=== PATIENT | male | born 1980 | race Caucasian/White ===

== ENCOUNTER 2018-10-04 17:13 | Emergency (ER) | payer BC ==
[2018-10-04] MEDS ORDERED: SODIUM CHLORIDE 0.9% 1,000 ML IV STA ×2 (17:45)
[2018-10-04] MEDS ORDERED: ACETAMINOPHEN TAB 500 MG TAB PO STA (17:46)
[2018-10-04] MEDS ORDERED: IBUPROFEN 800 MG TAB PO STA (17:46)
[2018-10-04 18:31] LABS: ALT 52 U/L (21-72); AST 26 U/L (17-59); Albumin 4.2 g/dL (3.5-5.0); Alkaline Phosphatase 99 U/L (38-126); Amylase 44 U/L (30-110); Anion Gap 13 mmol/L; Blood Urea Nitrogen 12 mg/dL (9-20); Calcium 9.4 mg/dL (8.4-10.2); Carbon Dioxide 25 mmol/L (22-30); Chloride 100 mmol/L (98-107); Glucose 106 mg/dL (74-99); Lipase 34 U/L (23-300); Sodium 138 mmol/L (137-145); Total Bilirubin 1.2 mg/dL (0.2-1.3); Total Protein 7.4 g/dL (6.3-8.2)
[2018-10-04 18:33] LABS: Basophils # (A) 0.1 k/uL (0-0.2); Basophils % (A) 0 %; Eosinophils % (A) 0 %; HCT 44.4 % (39.0-53.0); HGB 15.1 gm/dL (13.0-17.5); Lymphocytes # (A) 1.3 k/uL (1.0-4.8); Lymphocytes % (A) 7 %; MCH 31.3 pg (25.0-35.0); Mean Platelet Volume 6.9; Monocytes # (A) 1.4 k/uL (0-1.0); Monocytes % (A) 7 %; Neutrophils % (A) 83 %; Platelet Count 285 k/uL (150-450); RBC 4.82 m/uL (4.30-5.90); RDW 12.4 % (11.5-15.5); WBC 19.4 k/uL (3.8-10.6)
[2018-10-04 18:35] LABS: Appearance,Urine Clear (Clear); Bilirubin,Urine Negative (Negative); Blood,Urine Small (Negative); Color,Urine Yellow; Glucose,Urine (UA) Negative (Negative); Ketones,Urine 1+ (Negative); Leukocyte Esterase,Urine Negative (Negative); Mucus,Urine Occasional /hpf; Nitrite,Urine Negative (Negative); PH, Urine 5.5 (5.0-8.0); Protein,Urine Trace (Negative); RBC,Urine 2 /hpf (0-5); Specific Gravity,Urine 1.017 (1.001-1.035); Squamous Epithelial Cell,Urine <1 /hpf (0-4); WBC,Urine 2 /hpf (0-5)
--- NOTE | 2018-10-04 19:15 | CT ---
EXAMINATION TYPE: CT abdomen pelvis wo con DATE OF EXAM: 10/04/2018 COMPARISON: None HISTORY: Generalized abdominal pain. CT DLP: 456.3 mGycm Automated exposure control for dose reduction was used. TECHNIQUE: Helical acquisition of images from the lung bases through the pelvis. FINDINGS: Lack of intravenous contrast could compromise sensitivity. LUNG BASES: No significant abnormality is appreciated. AORTA: No significant abnormality is appreciated. LIVER/GB: Liver shows low attenuation possibly due to hepatic steatosis. Gallbladder is unremarkable. . PANCREAS: No significant abnormality is seen. SPLEEN: No significant abnormality is seen. ADRENALS: No significant abnormality is seen. KIDNEYS: Punctate midpole right renal calcification is noted, no evident ureteral calcification or hy dronephrosis bilaterally. REPRODUCTIVE ORGANS: No significant abnormality is seen. URINARY BLADDER: Bladder wall thickening may be due to cystitis or lack of distention. BOWEL: Sigmoid colon shows bowel wall thickening. Within the surrounding fat there is inflammatory c hange, there are diverticula present.. FREE AIR: No Free Air is visible. ASCITES: None visible. PELVIC ADENOPATHY: None visualized. RETROPERITONEAL ADENOPATHY: No Retroperitoneal Adenopathy visible. OSSEOUS STRUCTURES: No significant abnormality is seen. IMPRESSION: DIVERTICULITIS. FOLLOW-UP IS RECOMMENDED.
--- NOTE | 2018-10-04 19:35 | ED ---
Abdominal Pain HPI - General Chief Complaint: Abdominal Pain Stated Complaint: abd pain Time Seen by Provider: 10/04/18 17:44 Source: patient, RN notes reviewed, old records reviewed Mode of arrival: ambulatory Limitations: no limitations - History of Present Illness Initial Comments: This is a 38-year-old male the ER for evaluation of left-sided abdominal pain flank pain. Rating to groin. Patient states he is when he thinks may be a kidney stone. No significant blood in his urine. No significant diarrhea or blood in his stool. Mild nausea no vomiting no fevers MD Complaint: abdominal pain, flank pain ((Left) -: days(s) Location: LLQ, suprapubic, L flank Radiation: LLQ, suprapubic Migration to: LLQ Severity: moderate Severity scale (1-10): 5 Consistency: constant Improves With: nothing Worsens With: nothing Associated Symptoms: nausea, diarrhea, fever - Related Data Home Medications Medication Instructions Recorded Confirmed Ciprofloxacin HCl [Cipro] 500 mg PO Q12H 10/04/18 10/05/18 L.acidoph,Paracasei, B.lactis 1 cap PO DAILY 10/04/18 10/05/18 [Probiotic] Omeprazole [PriLOSEC] 40 mg PO DAILY 10/04/18 10/05/18 Ondansetron HCl [Zofran] 8 mg PO Q8H PRN 10/04/18 10/05/18 metroNIDAZOLE [Flagyl] 500 mg PO TID 10/04/18 10/05/18 Tamsulosin HCl [Flomax] 0.4 mg PO DAILY 10/05/18 10/05/18 Previous Rx's Medication Instructions Recorded Ondansetron [Zofran ODT] 4 mg PO Q8HR PRN #30 tab 10/04/18 Allergies Allergy/AdvReac Type Severity Reaction Status Date / Time Penicillins Allergy Nausea & Verified 10/05/18 14:42 Vomiting Review of Systems ROS Statement: Those systems with pertinent positive or pertinent negative responses have been documented in the HPI. ROS Other: All systems not noted in ROS Statement are negative. Past Medical History Past Medical History: No Reported History History of Any Multi-Drug Resistant Organisms: None Reported Past Surgical History: No Surgical Hx Reported Past Psychological History: Bipolar Smoking Status: Current every day smoker Past Alcohol Use History: Occasional Past Drug Use History: Marijuana General Exam Limitations: no limitations General appearance: alert, in no apparent distress Head exam: Present: atraumatic, normocephalic, normal inspection Eye exam: Present: normal appearance, PERRL, EOMI. Absent: scleral icterus, conjunctival injection, periorbital swelling ENT exam: Present: normal exam, mucous membranes moist Neck exam: Present: normal inspection. Absent: tenderness, meningismus, lymphadenopathy Respiratory exam: Present: normal lung sounds bilaterally. Absent: respiratory distress, wheezes, rales, rhonchi, stridor Cardiovascular Exam: Present: regular rate, normal rhythm, normal heart sounds. Absent: systolic murmur, diastolic murmur, rubs, gallop, clicks GI/Abdominal exam: Present: soft, normal bowel sounds. Absent: distended, tenderness, guarding, rebound, rigid Extremities exam: Present: normal inspection, full ROM, normal capillary refill. Absent: tenderness, pedal edema, joint swelling, calf tenderness Back exam: Present: normal inspection Neurological exam: Present: alert, oriented X3, CN II-XII intact Psychiatric exam: Present: normal affect, normal mood Skin exam: Present: warm, dry, intact, normal color. Absent: rash Course Vital Signs 10/04/18 10/04/18 10/04/18 17:29 20:57 21:29 Temperature 100.1 F H 98.7 F Pulse Rate 105 H 76 81 Respiratory 20 18 16 Rate Blood Pressure 120/76 127/75 100/64 O2 Sat by Pulse 98 97 99 Oximetry - Reevaluation(s) Reevaluation #1: Medical record is reviewed Patient has adequate pain control currently, I for return parameters and diagnosis, patient agrees and feels good for discharge able to tolerate oral intake Medical Decision Making - Medical Decision Making 38 male the ER for evaluation of possible bowel pain regarding kidney stones. Patient is CT positive for diverticulitis, patient is young and tolerating oral intake, patient placed on antibiotics nausea medication and encouraged liquid diet. Return if symptoms worsen - Lab Data Result diagrams: 10/04/18 18:06 10/04/18 18:06 Lab Results 10/04/18 10/04/18 10/04/18 Range/Units 18:06 18:06 18:06 WBC 19.4 H (3.8-10.6) k/uL RBC 4.82 (4.30-5.90) m/uL Hgb 15.1 (13.0-17.5) gm/dL Hct 44.4 (39.0-53.0) % MCV 92.0 (80.0-100.0) fL MCH 31.3 (25.0-35.0) pg MCHC 34.0 (31.0-37.0) g/dL RDW 12.4 (11.5-15.5) % Plt Count 285 (150-450) k/uL Neutrophils % 83 % Lymphocytes % 7 % Monocytes % 7 % Eosinophils % 0 % Basophils % 0 % Neutrophils # 16.0 H (1.3-7.7) k/uL Lymphocytes # 1.3 (1.0-4.8) k/uL Monocytes # 1.4 H (0-1.0) k/uL Eosinophils # 0.0 (0-0.7) k/uL Basophils # 0.1 (0-0.2) k/uL Sodium 138 (137-145) mmol/L Potassium 4.0 (3.5-5.1) mmol/L Chloride 100 (98-107) mmol/L Carbon Dioxide 25 (22-30) mmol/L Anion Gap 13 mmol/L BUN 12 (9-20) mg/dL Creatinine 0.90 (0.66-1.25) mg/dL Est GFR (CKD-EPI)AfAm >90 (>60 ml/min/1.73 sqM) Est GFR (CKD-EPI)NonAf >90 (>60 ml/min/1.73 sqM) Glucose 106 H (74-99) mg/dL Plasma Lactic Acid [place] (0.7-2.0) mmol/L Calcium 9.4 (8.4-10.2) mg/dL Total Bilirubin 1.2 (0.2-1.3) mg/dL AST 26 (17-59) U/L ALT 52 (21-72) U/L Alkaline Phosphatase 99 (38-126) U/L Total Protein 7.4 (6.3-8.2) g/dL Albumin 4.2 (3.5-5.0) g/dL Amylase 44 (30-110) U/L Lipase 34 (23-300) U/L Urine Color Yellow Urine Appearance Clear (Clear) Urine pH 5.5 (5.0-8.0) Ur Specific [place] 1.017 (1.001-1.035) Urine Protein Trace H (Negative) Urine Glucose (UA) Negative (Negative) Urine Ketones 1+ H (Negative) Urine Blood Small H (Negative) Urine Nitrite Negative (Negative) Urine Bilirubin Negative (Negative) Urine Urobilinogen 2.0 (<2.0) mg/dL Ur Leukocyte Esterase Negative (Negative) Urine RBC 2 (0-5) /hpf Urine WBC 2 (0-5) /hpf Ur Squamous Epith Cells <1 (0-4) /hpf Urine Mucus Occasional H (None) /hpf 10/04/18 Range/Units 18:06 WBC (3.8-10.6) k/uL RBC (4.30-5.90) m/uL Hgb (13.0-17.5) gm/dL Hct (39.0-53.0) % MCV (80.0-100.0) fL MCH (25.0-35.0) pg MCHC (31.0-37.0) g/dL RDW (11.5-15.5) % Plt Count (150-450) k/uL Neutrophils % % Lymphocytes % % Monocytes % % Eosinophils % % Basophils % % Neutrophils # (1.3-7.7) k/uL Lymphocytes # (1.0-4.8) k/uL Monocytes # (0-1.0) k/uL Eosinophils # (0-0.7) k/uL Basophils # (0-0.2) k/uL Sodium (137-145) mmol/L Potassium (3.5-5.1) mmol/L Chloride (98-107) mmol/L Carbon Dioxide (22-30) mmol/L Anion Gap mmol/L BUN (9-20) mg/dL Creatinine (0.66-1.25) mg/dL Est GFR (CKD-EPI)AfAm (>60 ml/min/1.73 sqM) Est GFR (CKD-EPI)NonAf (>60 ml/min/1.73 sqM) Glucose (74-99) mg/dL Plasma Lactic Acid [place] 1.2 (0.7-2.0) mmol/L Calcium (8.4-10.2) mg/dL Total Bilirubin (0.2-1.3) mg/dL AST (17-59) U/L ALT (21-72) U/L Alkaline Phosphatase (38-126) U/L Total Protein (6.3-8.2) g/dL Albumin (3.5-5.0) g/dL Amylase (30-110) U/L Lipase (23-300) U/L Urine Color Urine Appearance (Clear) Urine pH (5.0-8.0) Ur Specific [place] (1.001-1.035) Urine Protein (Negative) Urine Glucose (UA) (Negative) Urine Ketones (Negative) Urine Blood (Negative) Urine Nitrite (Negative) Urine Bilirubin (Negative) Urine Urobilinogen (<2.0) mg/dL Ur Leukocyte Esterase (Negative) Urine RBC (0-5) /hpf Urine WBC (0-5) /hpf Ur Squamous Epith Cells (0-4) /hpf Urine Mucus (None) /hpf - Radiology Data Radiology results: report reviewed (CT abdomen pelvis positive for diverticulitis), image reviewed Disposition Clinical Impression: Abdominal pain, Diverticulitis, Sigmoid diverticulitis, Fever Disposition: HOME SELF-CARE Condition: Good Instructions: Diverticulitis (ED) Prescriptions: Ondansetron [Zofran ODT] 4 mg PO Q8HR PRN #30 tab PRN Reason: Nausea Is patient prescribed a controlled substance at d/c from ED?: No Referrals: Yamil Yin MD [Primary Care Provider] - 1-2 days
[2018-10-04] MEDS ORDERED: ONDANSETRON 4 MG/2 ML VIAL IVP STA (21:09)
[2018-10-04] MEDS ORDERED: metroNIDAZOLE 500 MG TAB PO STA (21:09)
[2018-10-04] MEDS ORDERED: CIPROFLOXACIN HCL 500 MG TAB PO STA (21:09)
[2018-10-04 21:30] VITALS: BP 100/64; PULSE 81; RESP 16; TEMP 98.7
== END 2018-10-04 21:34 | disposition home or self-care (01) ==
LOC: EC 17:13
DX: K57.32 Diverticulitis of large intestine without perforation or abscess without bleeding (principal); F17.200 Nicotine dependence, unspecified, uncomplicated; Z88.0 Allergy status to penicillin; Z79.899 Other long term (current) drug therapy
CPT/HCPCS: 36415; 80053; 82150; 83605; 83690; 85025; 81001; 87040; 87086; 74176; 99284; 96374; 96361 ×3; J2405

== ENCOUNTER 2018-10-05 13:34 | Inpatient (IN) | payer BC ==
[2018-10-05] MEDS ORDERED: SODIUM CHLORIDE 0.9% 1,000 ML IV STA ×3 (14:04→15:49)
[2018-10-05] MEDS ORDERED: ONDANSETRON 4 MG/2 ML VIAL IVP STA (14:15)
[2018-10-05] MEDS ORDERED: HYDROmorphone 1 MG/ML 1 ML SYRINGE IVP STA (14:15)
--- NOTE | 2018-10-05 14:20 | ED ---
General Adult HPI - General Chief complaint: Abdominal Pain Stated complaint: Abd.pain Time Seen by Provider: 10/05/18 14:03 Source: EMS, RN notes reviewed Mode of arrival: EMS Limitations: no limitations - History of Present Illness Initial comments: Patient is a 38-year-old male presented to the emergency room today by EMS, with chief complaint of increased abdominal pain. Patient does not that he was seen here yesterday in the emergency room. He states he was diagnosed with diverticulitis. Patient states that he was having a bowel movement this afternoon when he felt a pop on the right side of the abdomen. He states that increased pain since. He does admit to some pain radiating up into the right shoulder area. Since this has now gone away. Patient states still having increased tightness in his abdomen. Patient denies any other complaints or symptoms at this time. Patient states that his initial symptoms started a few weeks ago with some discomfort to the lower abdomen and increased with increased pain and diarrhea over the last few weeks until he was seen yesterday. Patient denies any recent fever, chills, shortness of breath, chest pain, numbness or tingling, dysuria or hematuria, constipation, headaches or visual changes, or any other complaints. - Related Data Home Medications Medication Instructions Recorded Confirmed Ciprofloxacin HCl [Cipro] 500 mg PO Q12H 10/04/18 10/05/18 L.acidoph,Paracasei, B.lactis 1 cap PO DAILY 10/04/18 10/05/18 [Probiotic] Omeprazole [PriLOSEC] 40 mg PO DAILY 10/04/18 10/05/18 Ondansetron HCl [Zofran] 8 mg PO Q8H PRN 10/04/18 10/05/18 metroNIDAZOLE [Flagyl] 500 mg PO TID 10/04/18 10/05/18 Tamsulosin HCl [Flomax] 0.4 mg PO DAILY 10/05/18 10/05/18 Previous Rx's Medication Instructions Recorded Ondansetron [Zofran ODT] 4 mg PO Q8HR PRN #30 tab 10/04/18 Allergies Allergy/AdvReac Type Severity Reaction Status Date / Time Penicillins Allergy Nausea & Verified 10/05/18 14:42 Vomiting Review of Systems ROS Statement: Those systems with pertinent positive or pertinent negative responses have been documented in the HPI. ROS Other: All systems not noted in ROS Statement are negative. Past Medical History Past Medical History: No Reported History History of Any Multi-Drug Resistant Organisms: None Reported Past Surgical History: No Surgical Hx Reported Past Psychological History: Bipolar Smoking Status: Current every day smoker Past Alcohol Use History: Occasional Past Drug Use History: Marijuana General Exam - General Exam Comments Initial Comments: General: The patient is awake and alert. Heart distress. Eye: There is normal conjunctiva bilaterally. No signs of icterus. Ears, nose, mouth and throat: There are moist mucous membranes and no oral lesions. Neck: The neck is supple, there is no tenderness or JVD. Cardiovascular: There is a regular rate and rhythm. No murmur, rub or gallop is appreciated. Respiratory: Lungs are clear to auscultation, respirations are non-labored, breath sounds are equal. No wheezes, stridor, rales, or rhonchi. Gastrointestinal: Increased abdominal pain on palpation to the right lower quadrant. Patient does have voluntary guarding. No CVA tenderness. Musculoskeletal: Normal ROM, no tenderness. Sensation intact. Strength 5/5. Pulses equal bilaterally 2+. Neurological: A&O x 3. CN II-XII intact, There are no obvious motor or sensory deficits. Coordination appears grossly intact. Speech is normal. Skin: Skin is warm and dry and no rashes or lesions are noted. Psychiatric: Cooperative, appropriate mood & affect, normal judgment. Limitations: no limitations Course Vital Signs 10/05/18 10/05/18 13:39 15:17 Temperature 98.9 F Pulse Rate 108 H 113 H Respiratory 18 18 Rate Blood Pressure 140/65 118/72 O2 Sat by Pulse 98 97 Oximetry Medical Decision Making - Medical Decision Making CT abdomen pelvis does show progression of acute concomitant sigmoid diverticulitis with extensive phlegmonous changes surrounding the colon extending to surrounding the appendix and cecum with small volume ascites and right pericolonic phlegmonous change suspicious for developing abscess as read by radiologist Dr. Granado. Patient's labs been reviewed shows a 21,000 white count. Patient tachycardic. Patient is not hypotensive. He was given 2 L of IV fluids started on antibiotics of Levaquin and Flagy. Patient does meet for sepsis. Lactic acid 2.1. Case discussed with attending physician Dr. Dong who did discuss the case with physician Dr. Liz movement the patient with consult to Dr. Cedillo. - Lab Data Result diagrams: 10/05/18 14:00 10/05/18 14:00 Lab Results 10/05/18 10/05/18 10/05/18 Range/Units 14:00 14:00 14:00 WBC 21.0 H (3.8-10.6) k/uL RBC 4.56 (4.30-5.90) m/uL Hgb 14.2 (13.0-17.5) gm/dL Hct 42.7 (39.0-53.0) % MCV 93.5 (80.0-100.0) fL MCH 31.2 (25.0-35.0) pg MCHC 33.4 (31.0-37.0) g/dL RDW 12.5 (11.5-15.5) % Plt Count 250 (150-450) k/uL Neutrophils % 85 % Lymphocytes % 7 % Monocytes % 5 % Eosinophils % 0 % Basophils % 0 % Neutrophils # 17.9 H (1.3-7.7) k/uL Lymphocytes # 1.4 (1.0-4.8) k/uL Monocytes # 1.0 (0-1.0) k/uL Eosinophils # 0.0 (0-0.7) k/uL Basophils # 0.0 (0-0.2) k/uL PT (9.0-12.0) sec INR (<1.2) APTT (22.0-30.0) sec Sodium 139 (137-145) mmol/L Potassium 4.0 (3.5-5.1) mmol/L Chloride 104 (98-107) mmol/L Carbon Dioxide 19 L (22-30) mmol/L Anion Gap 16 mmol/L BUN 13 (9-20) mg/dL Creatinine 0.88 (0.66-1.25) mg/dL Est GFR (CKD-EPI)AfAm >90 (>60 ml/min/1.73 sqM) Est GFR (CKD-EPI)NonAf >90 (>60 ml/min/1.73 sqM) Glucose 126 H (74-99) mg/dL Plasma Lactic Acid [place] (0.7-2.0) mmol/L Calcium 9.3 (8.4-10.2) mg/dL Total Bilirubin 1.5 H (0.2-1.3) mg/dL AST 22 (17-59) U/L ALT 44 (21-72) U/L Alkaline Phosphatase 103 (38-126) U/L Total Creatine Kinase 89 (55-170) U/L CK-MB (CK-2) 1.0 (0.0-2.4) ng/mL CK-MB (CK-2) Rel Index 1.1 Troponin I <0.012 (0.000-0.034) ng/mL Total Protein 7.4 (6.3-8.2) g/dL Albumin 4.2 (3.5-5.0) g/dL Amylase 40 (30-110) U/L Lipase 34 (23-300) U/L Urine Color Urine Appearance (Clear) Urine pH (5.0-8.0) Ur Specific [place] (1.001-1.035) Urine Protein (Negative) Urine Glucose (UA) (Negative) Urine Ketones (Negative) Urine Blood (Negative) Urine Nitrite (Negative) Urine Bilirubin (Negative) Urine Urobilinogen (<2.0) mg/dL Ur Leukocyte Esterase (Negative) Urine RBC (0-5) /hpf Urine WBC (0-5) /hpf Ur Squamous Epith Cells (0-4) /hpf Urine Mucus (None) /hpf 10/05/18 10/05/18 10/05/18 Range/Units 14:00 14:00 16:07 WBC (3.8-10.6) k/uL RBC (4.30-5.90) m/uL Hgb (13.0-17.5) gm/dL Hct (39.0-53.0) % MCV (80.0-100.0) fL MCH (25.0-35.0) pg MCHC (31.0-37.0) g/dL RDW (11.5-15.5) % Plt Count (150-450) k/uL Neutrophils % % Lymphocytes % % Monocytes % % Eosinophils % % Basophils % % Neutrophils # (1.3-7.7) k/uL Lymphocytes # (1.0-4.8) k/uL Monocytes # (0-1.0) k/uL Eosinophils # (0-0.7) k/uL Basophils # (0-0.2) k/uL PT 12.4 H (9.0-12.0) sec INR 1.3 H (<1.2) APTT 18.7 L (22.0-30.0) sec Sodium (137-145) mmol/L Potassium (3.5-5.1) mmol/L Chloride (98-107) mmol/L Carbon Dioxide (22-30) mmol/L Anion Gap mmol/L BUN (9-20) mg/dL Creatinine (0.66-1.25) mg/dL Est GFR (CKD-EPI)AfAm (>60 ml/min/1.73 sqM) Est GFR (CKD-EPI)NonAf (>60 ml/min/1.73 sqM) Glucose (74-99) mg/dL Plasma Lactic Acid [place] 2.1 H* (0.7-2.0) mmol/L Calcium (8.4-10.2) mg/dL Total Bilirubin (0.2-1.3) mg/dL AST (17-59) U/L ALT (21-72) U/L Alkaline Phosphatase (38-126) U/L Total Creatine Kinase (55-170) U/L CK-MB (CK-2) (0.0-2.4) ng/mL CK-MB (CK-2) Rel Index Troponin I (0.000-0.034) ng/mL Total Protein (6.3-8.2) g/dL Albumin (3.5-5.0) g/dL Amylase (30-110) U/L Lipase (23-300) U/L Urine Color Yellow Urine Appearance Clear (Clear) Urine pH 5.5 (5.0-8.0) Ur Specific [place] 1.021 (1.001-1.035) Urine Protein 1+ H (Negative) Urine Glucose (UA) Negative (Negative) Urine Ketones 3+ H (Negative) Urine Blood Small H (Negative) Urine Nitrite Negative (Negative) Urine Bilirubin Negative (Negative) Urine Urobilinogen 4.0 (<2.0) mg/dL Ur Leukocyte Esterase Negative (Negative) Urine RBC 11 H (0-5) /hpf Urine WBC 1 (0-5) /hpf Ur Squamous Epith Cells <1 (0-4) /hpf Urine Mucus Occasional H (None) /hpf Disposition Clinical Impression: Sigmoid diverticulitis, Sepsis Disposition: ADMITTED IP TO THIS [facility] Condition: Good Is patient prescribed a controlled substance at d/c from ED?: No Referrals: Yamil Yin MD [Primary Care Provider] - 1-2 days Time of Disposition: 16:53
[2018-10-05 14:51] LABS: Basophils % (A) 0 %; Eosinophils % (A) 0 %; HCT 42.7 % (39.0-53.0); HGB 14.2 gm/dL (13.0-17.5); Lymphocytes # (A) 1.4 k/uL (1.0-4.8); Lymphocytes % (A) 7 %; MCH 31.2 pg (25.0-35.0); MCHC 33.4 g/dL (31.0-37.0); MCV 93.5 fL (80.0-100.0); Mean Platelet Volume 7.2; Monocytes % (A) 5 %; Neutrophils # (A) 17.9 k/uL (1.3-7.7); Neutrophils % (A) 85 %; Platelet Count 250 k/uL (150-450); RBC 4.56 m/uL (4.30-5.90); RDW 12.5 % (11.5-15.5)
[2018-10-05 15:01] LABS: ALT 44 U/L (21-72); AST 22 U/L (17-59); Albumin 4.2 g/dL (3.5-5.0); Alkaline Phosphatase 103 U/L (38-126); Amylase 40 U/L (30-110); Anion Gap 16 mmol/L; Blood Urea Nitrogen 13 mg/dL (9-20); Calcium 9.3 mg/dL (8.4-10.2); Carbon Dioxide 19 mmol/L (22-30); Chloride 104 mmol/L (98-107); Glucose 126 mg/dL (74-99); Lipase 34 U/L (23-300); Sodium 139 mmol/L (137-145); Total Bilirubin 1.5 mg/dL (0.2-1.3); Total Protein 7.4 g/dL (6.3-8.2)
[2018-10-05 15:05] LABS: INR 1.3 (<1.2); Prothrombin Time 12.4 sec (9.0-12.0)
[2018-10-05 15:07] LABS: Creatine Kinase 89 U/L (55-170)
[2018-10-05 15:20] LABS: Partial Thromboplastin Time 18.7 sec (22.0-30.0)
[2018-10-05 15:21] LABS: Troponin I <0.012 ng/mL (0.000-0.034)
[2018-10-05] MEDS ORDERED: metroNIDAZOLE-NS PMX 500 MG in SALINE 1 100ML.BAG IVPB STA (15:49)
[2018-10-05] MEDS ORDERED: LEVOFLOXACIN 500MG-D5W PMX 500 MG in DEXTROSE/WATER 1 100ML.BAG IVPB STA (15:49)
[2018-10-05] MEDS ORDERED: LEVOFLOXACIN 500MG-D5W PMX 500 MG in DEXTROSE/WATER 1 100ML.BAG IVPB SCH (16:00)
[2018-10-05 16:17] LABS: Appearance,Urine Clear (Clear); Bilirubin,Urine Negative (Negative); Blood,Urine Small (Negative); Color,Urine Yellow; Glucose,Urine (UA) Negative (Negative); Ketones,Urine 3+ (Negative); Leukocyte Esterase,Urine Negative (Negative); Mucus,Urine Occasional /hpf; Nitrite,Urine Negative (Negative); PH, Urine 5.5 (5.0-8.0); Protein,Urine 1+ (Negative); RBC,Urine 11 /hpf (0-5); Specific Gravity,Urine 1.021 (1.001-1.035); Squamous Epithelial Cell,Urine <1 /hpf (0-4); WBC,Urine 1 /hpf (0-5)
--- NOTE | 2018-10-05 16:39 | CT ---
EXAMINATION TYPE: CT abdomen pelvis w con DATE OF EXAM: 10/05/2018 COMPARISON: 10/04/2018 HISTORY: RLQ pain CT DLP: 725.3 mGycm Automated exposure control for dose reduction was used. TECHNIQUE: Helical acquisition of images was performed from the lung bases through the pelvis. CONTRAST: Performed without Oral Contrast and with IV Contrast, patient injected with 100 mL of Isovue 300. FINDINGS: LUNG BASES: No significant abnormality is appreciated. LIVER/GB: Mild hepatic steatosis is seen. No cholelithiasis. PANCREAS: Unremarkable. No ductal dilatation. SPLEEN: No significant abnormality is seen. ADRENALS: No significant abnormality is seen. KIDNEYS: Kidneys enhance symmetrically. FREE AIR: Possible punctate foci of free air versus small diverticula are seen on image 64 and 62, p ossible microperforation. ADENOPATHY: No greater than 1 cm short axis lymph node is seen within the abdomen or pelvis. REPRODUCTIVE ORGANS: No significant abnormality is seen URINARY BLADDER: Right posterior lateral urinary bladder diverticulum is present. OSSEOUS STRUCTURES: Punctate sclerotic focus within the left femoral head likely relates to benign b [place]. BOWEL: There is interval worsening of the phlegmonous changes surrounding the thickened sigmoid colo n with adjacent mesenteric edema and fascial plane thickening. High density within area of phlegmonou s change is seen on image 64 with no well delineated drainable abscess yet seen. There are matted loo ps of small bowel within the right lower quadrant with inflamed appearance of the distal tip of the a ppendix. Appendix contains air in its midportion. New right lower quadrant fluid tracks along the rig ht lateral conal fascia and some fluid is seen in the anterior perihepatic space as well as around th e spleen. No evidence of dilated bowel to suggest obstruction. Multiple loops of small bowel wall thi ckening are likely reactive. Ascending colon and cecal bowel wall thickening also is likely reactive to the extensive phlegmonous change. IMPRESSION: PROGRESSION OF ACUTE UNCOMPLICATED SIGMOID DIVERTICULITIS WITH EXTENSIVE PHLEGMONOUS CHANGES SURROUND ING THE COLON AND EXTENDING TO SURROUND THE APPENDIX AND CECUM WITH NEW SMALL VOLUME ASCITES AND RIGH T PERICOLONIC PHLEGMONOUS CHANGES SUSPICIOUS FOR DEVELOPING ABSCESS.
[2018-10-05] MEDS ORDERED: NALOXONE 0.4 MG/ML 1 ML VIAL IV PRN (16:53)
[2018-10-05] MEDS: HYDROmorphone 1 MG/ML 1 ML SYRINGE IVP PRN ×2 (19:00→21:33)
[2018-10-05] MEDS: LACTATED RINGERS 1,000 ML IV SCH (22:13)
--- NOTE | 2018-10-05 23:07 | HP ---
HISTORY AND PHYSICAL DATE OF ADMISSION: 10/05/2018. DATE OF SERVICE: 10/05/2018. PRESENTING COMPLAINT: Abdominal pain. HISTORY OF PRESENTING COMPLAINT: Pleasant 38-year-old patient of Dr. Nikko Yin. Unremarkable past medical history. The patient 7 days ago started having increasing abdominal pain, gradually progressed to get worse. He is having some fevers and chills at home, decreased oral intake, some loose stools. The patient decided to come to the ER yesterday. CT scan of the abdomen in the ER did show evidence of diverticulitis. He was seen by the ER physician who put him on Cipro and Flagyl. Patient was sent home. The patient, at home, felt a pop in the abdomen. The pain became much more severe. He decided to come back to the ER. The ER physician called me. I did consult General Surgery, Dr. Cedillo. The patient was having significant amount of pain. The patient's , sister, mother, and 2 children are present. REVIEW OF SYSTEMS: CONSTITUTIONAL: Tired. HEENT: None. RESPIRATORY: None. CARDIOVASCULAR: None. GASTROINTESTINAL: As above. : None. MUSCULOSKELETAL: None. DERMATOLOGICAL, HEMATOLOGIC, LYMPHATICS: None. PSYCHIATRY: None. NEUROLOGICAL: None. PAST MEDICAL HISTORY: Unremarkable. PAST SURGICAL HISTORY: None. PSYCH HISTORY: Bipolar, controlled. SOCIAL HISTORY: The patient does vaping and does marijuana about 1 g a week. 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 Lives with his . FAMILY HISTORY: Alcoholism. HOME MEDICATIONS: 1. Flagyl 500 mg t.i.d. 2. Flomax 0.4 mg a day. 3. Zofran 4 mg every 8 hours p.r.n. 4. Prilosec 40 mg a day. 5. Probiotic. 6. Cipro 5 mg every 12 hours. ALLERGIES: PENICILLIN causing nausea and vomiting. PHYSICAL EXAMINATION: Temperature 98.9, pulse 108, respirations 18, blood pressure 140/65, pulse ox 98% on room air. GENERAL APPEARANCE: Average built, lying in bed in discomfort. EYES: Pupils equal. Conjunctivae normal. HEENT: External nose and ears normal. Oral cavity normal. NECK: JVD not raised. Mass not palpable. Respiratory effort normal. LUNGS: Fair air entry. CARDIOVASCULAR: First and second heart sounds normal. No edema. ABDOMEN: Diffusely tender. Mild guarding. Bowel sounds sluggish. Liver and spleen not palpable. LYMPHATICS: No lymph nodes palpable. PSYCHIATRY: Alert and oriented x3. Mood and affect normal. NEUROLOGIC: Pupils equal. Cranial nerves grossly intact. Power and sensation grossly intact. INVESTIGATIONS: White count 21, hemoglobin 14.2, potassium 4. BUN and creatinine normal. Lactic acid 2.1. CT scan of the abdomen and pelvis showing worsening of the phlegmonous changes surrounding the thickened sigmoid colon with adjacent mesenteric edema and fascial plane thickening, high-density with an area of phlegmonous changes also seen with no obvious drainage of abscess yet seen. Matted loops of small bowel in the right lower quadrant. New right lower quadrant fluid tracks on the right lateral coronal fascia. ASSESSMENT: 1. Acute abdomen in a patient with acute diverticulitis with some free fluid in the abdomen. 2. Chronic nicotine dependence. Patient does vaping. 3. Recreational marijuana use. 4. Sepsis from above. PLAN: I started the patient on lactated Ringer's 125 mL an hour, also the patient had received some Levaquin and Flagyl and I increased the dose to IV 500 every 6 hours and IV 750 mg a day. I did speak to Dr. Cedillo and she said Dr. Berger is covering. I did give Dr. Berger the clinical picture and physical findings. He will see the patient in the morning. At this point he wants me to continue the current treatment I have him on. I had spoken to the patient and family earlier. MMODL / KULDEEPN: [id number] /
[2018-10-06] MEDS ORDERED: metroNIDAZOLE-NS PMX 500 MG in SALINE 1 100ML.BAG IVPB SCH
[2018-10-06] MEDS: metroNIDAZOLE-NS PMX 500 MG in SALINE 1 100ML.BAG IVPB SCH ×4 (01:09→17:11)
[2018-10-06] MEDS: ENOXAPARIN 40 MG/0.4 ML SYRINGE SQ SCH ×2 (01:10→08:21)
[2018-10-06] MEDS: HYDROmorphone 1 MG/ML 1 ML SYRINGE IVP PRN ×7 (01:13→22:41)
[2018-10-06] MEDS: LACTATED RINGERS 1,000 ML IV SCH ×3 (06:23→17:11)
[2018-10-06] MEDS: ACETAMINOPHEN IV (For NPO) 1,000 MG in EMPTY BAG 1 BAG IVPB PRN ×2 (06:23→22:35)
[2018-10-06] MEDS: LEVOFLOXACIN 750MG-D5W PMX 750 MG in DEXTROSE/WATER 1 150ML.BAG IVPB SCH (08:20)
[2018-10-06 09:02] LABS: Basophils % (A) 0 %; Eosinophils % (A) 0 %; HCT 42.5 % (39.0-53.0); HGB 14.3 gm/dL (13.0-17.5); Lymphocytes # (A) 0.9 k/uL (1.0-4.8); Lymphocytes % (A) 5 %; MCH 31.6 pg (25.0-35.0); MCHC 33.6 g/dL (31.0-37.0); Mean Platelet Volume 6.9; Monocytes # (A) 0.9 k/uL (0-1.0); Monocytes % (A) 5 %; Neutrophils # (A) 16.8 k/uL (1.3-7.7); Neutrophils % (A) 88 %; Platelet Count 264 k/uL (150-450); RBC 4.52 m/uL (4.30-5.90); RDW 12.7 % (11.5-15.5); WBC 19.1 k/uL (3.8-10.6)
[2018-10-06 09:14] LABS: ALT 33 U/L (21-72); AST 20 U/L (17-59); Albumin 2.9 g/dL (3.5-5.0); Alkaline Phosphatase 58 U/L (38-126); Anion Gap 7 mmol/L; Blood Urea Nitrogen 13 mg/dL (9-20); Calcium 8.5 mg/dL (8.4-10.2); Carbon Dioxide 27 mmol/L (22-30); Chloride 106 mmol/L (98-107); Glucose 119 mg/dL (74-99); Potassium 3.8 mmol/L (3.5-5.1); Sodium 140 mmol/L (137-145); Total Bilirubin 1.8 mg/dL (0.2-1.3); Total Protein 5.6 g/dL (6.3-8.2)
[2018-10-06] MEDS: SODIUM CHLORIDE 0.9% 1,000 ML IV SCH ×2 (11:54→14:14)
--- NOTE | 2018-10-06 12:27 | P.GSCN ---
<Nicole Quan - Last Filed: 10/06/18 12:13> History of Present Illness Consult date: 10/06/18 Reason for Consult: Abdominal pain History of present illness: 38-year-old male seen for a surgical eval at the request of the attending for a chief complaint of intractable severe abdominal pain. Patient stated the pain originally started several weeks ago where he noted that he would have pain in the lower suprapubic area radiated to the right side of the abdomen that would come and go. He described the abdominal discomfort as tightness across the abdominal wall. Patient stated over the last several weeks he had been experiencing loose stools No blood noted in the stool. States he has not had this type of pain before. Patient stated that he was seen in the emergency room the day before was told he had diverticulitis. Patient stated that on the day of admission to the emergency room patient stated he was sitting on the commode having a bowel movement he felt something pop in the right side of the abdomen had unbearable pain that radiated up into the right shoulder could not tolerate the pain. He noted increased tightness across the abdominal wall. Patient activated the EMS system the pain was unbearable presented to the emergency room to be evaluated for the above-mentioned symptoms. Patient gives no family history of diverticulitis. Currently since being admitted to the hospital on IV antibiotic therapy initiated states the abdominal discomfort improving. Past medical history none. Surgical history none. CAT scan of the abdomen and pelvis reviewing the report progression of an acute uncomplicated sigmoid diverticulitis with extensive phlegmonous changes surrounding the colon extending to the surrounding appendix and cecum with small volume ascites suspicious for developing an abscess Review of Systems essentially unremarkable present illness Past Medical History Past Medical History: No Reported History History of Any Multi-Drug Resistant Organisms: None Reported Past Surgical History: No Surgical Hx Reported Past Psychological History: Bipolar Smoking Status: Current every day smoker Past Alcohol Use History: Occasional Past Drug Use History: Marijuana - Past Family History Father Additional Family Medical History / Comment(s): ETOH Medications and Allergies Home Medications Medication Instructions Recorded Confirmed Type Ciprofloxacin HCl [Cipro] 500 mg PO Q12H 10/04/18 10/05/18 History L.acidoph,Paracasei, B.lactis 1 cap PO DAILY 10/04/18 10/05/18 History [Probiotic] Omeprazole [PriLOSEC] 40 mg PO DAILY 10/04/18 10/05/18 History Ondansetron HCl [Zofran] 8 mg PO Q8H PRN 10/04/18 10/05/18 History Ondansetron [Zofran ODT] 4 mg PO Q8HR PRN #30 tab 10/04/18 10/05/18 Rx metroNIDAZOLE [Flagyl] 500 mg PO TID 10/04/18 10/05/18 History Tamsulosin HCl [Flomax] 0.4 mg PO DAILY 10/05/18 10/05/18 History Allergies Allergy/AdvReac Type Severity Reaction Status Date / Time Penicillins Allergy Nausea & Verified 10/05/18 14:42 Vomiting Surgical - Exam Vital Signs Temp Pulse Resp BP Pulse Ox 98.9 F 108 H 18 140/65 98 10/05/18 13:39 10/05/18 13:39 10/05/18 13:39 10/05/18 13:39 10/05/18 13:39 GENERAL APPEARANCE: 38-year-old male patient is alert, oriented, in no acute distress. VITAL SIGNS: Reviewed HEENT: Head is normocephalic and atraumatic. Pupils are equal and reactive. The nares are patent. Oropharynx is clear without lesions. NECK: Supple without lymphadenopathy. Traches midline. HEART: S1, S2. Regular rate and rhythm. No murmur noted denying chest pain LUNGS: No crackles or wheezes are heard. Good air movement bilaterally room air ABDOMEN: Soft, positive tenderness with palpitation to the right lower abdominal quadrant with good bowel sounds. No peritoneal signs. No palpable organomegaly or masses.nondistended reports no nausea vomiting urinating dark alden urine noted no stool EXTREMITIES: Normal skin color and turgor. No cyanosis, rash, ulceration, clubbing or edema. Radial pedal pulses are 2/4 bilaterally. NEUROLOGICAL: No focal deficits. Strength and sensation are grossly intact. Results - Labs 10/06/18 08:48 10/06/18 08:48 Abnormal Lab Results - Last 24 Hours (Table) 10/05/18 10/05/18 10/05/18 Range/Units 14:00 14:00 14:00 WBC 21.0 H (3.8-10.6) k/uL Neutrophils # 17.9 H (1.3-7.7) k/uL Lymphocytes # (1.0-4.8) k/uL PT (9.0-12.0) sec INR (<1.2) APTT (22.0-30.0) sec Carbon Dioxide 19 L (22-30) mmol/L Glucose 126 H (74-99) mg/dL Plasma Lactic Acid Gerson 2.1 H* (0.7-2.0) mmol/L Total Bilirubin 1.5 H (0.2-1.3) mg/dL Total Protein (6.3-8.2) g/dL Albumin (3.5-5.0) g/dL Urine Protein (Negative) Urine Ketones (Negative) Urine Blood (Negative) Urine RBC (0-5) /hpf Urine Mucus (None) /hpf 10/05/18 10/05/18 10/06/18 Range/Units 14:00 16:07 08:48 WBC 19.1 H (3.8-10.6) k/uL Neutrophils # 16.8 H (1.3-7.7) k/uL Lymphocytes # 0.9 L (1.0-4.8) k/uL PT 12.4 H (9.0-12.0) sec INR 1.3 H (<1.2) APTT 18.7 L (22.0-30.0) sec Carbon Dioxide (22-30) mmol/L Glucose (74-99) mg/dL Plasma Lactic Acid Gerson (0.7-2.0) mmol/L Total Bilirubin (0.2-1.3) mg/dL Total Protein (6.3-8.2) g/dL Albumin (3.5-5.0) g/dL Urine Protein 1+ H (Negative) Urine Ketones 3+ H (Negative) Urine Blood Small H (Negative) Urine RBC 11 H (0-5) /hpf Urine Mucus Occasional H (None) /hpf 10/06/18 Range/Units 08:48 WBC (3.8-10.6) k/uL Neutrophils # (1.3-7.7) k/uL Lymphocytes # (1.0-4.8) k/uL PT (9.0-12.0) sec INR (<1.2) APTT (22.0-30.0) sec Carbon Dioxide (22-30) mmol/L Glucose 119 H (74-99) mg/dL Plasma Lactic Acid Gerson (0.7-2.0) mmol/L Total Bilirubin 1.8 H (0.2-1.3) mg/dL Total Protein 5.6 L (6.3-8.2) g/dL Albumin 2.9 L (3.5-5.0) g/dL Urine Protein (Negative) Urine Ketones (Negative) Urine Blood (Negative) Urine RBC (0-5) /hpf Urine Mucus (None) /hpf Microbiology - Last 24 Hours (Table) 10/05/18 16:07 Urine Culture - Preliminary Urine,Clean Catch Diabetes panel 10/05/18 10/06/18 Range/Units 14:00 08:48 Sodium 139 140 (137-145) mmol/L Potassium 4.0 3.8 (3.5-5.1) mmol/L Chloride 104 106 (98-107) mmol/L Carbon Dioxide 19 L 27 (22-30) mmol/L BUN 13 13 (9-20) mg/dL Creatinine 0.88 0.89 (0.66-1.25) mg/dL Glucose 126 H 119 H (74-99) mg/dL Calcium 9.3 8.5 (8.4-10.2) mg/dL AST 22 20 (17-59) U/L ALT 44 33 (21-72) U/L Alkaline Phosphatase 103 58 (38-126) U/L Total Protein 7.4 5.6 L (6.3-8.2) g/dL Albumin 4.2 2.9 L (3.5-5.0) g/dL Calcium panel 10/05/18 10/06/18 Range/Units 14:00 08:48 Calcium 9.3 8.5 (8.4-10.2) mg/dL Albumin 4.2 2.9 L (3.5-5.0) g/dL Pituitary panel 10/05/18 10/06/18 Range/Units 14:00 08:48 Sodium 139 140 (137-145) mmol/L Potassium 4.0 3.8 (3.5-5.1) mmol/L Chloride 104 106 (98-107) mmol/L Carbon Dioxide 19 L 27 (22-30) mmol/L BUN 13 13 (9-20) mg/dL Creatinine 0.88 0.89 (0.66-1.25) mg/dL Glucose 126 H 119 H (74-99) mg/dL Calcium 9.3 8.5 (8.4-10.2) mg/dL Adrenal panel 10/05/18 10/06/18 Range/Units 14:00 08:48 Sodium 139 140 (137-145) mmol/L Potassium 4.0 3.8 (3.5-5.1) mmol/L Chloride 104 106 (98-107) mmol/L Carbon Dioxide 19 L 27 (22-30) mmol/L BUN 13 13 (9-20) mg/dL Creatinine 0.88 0.89 (0.66-1.25) mg/dL Glucose 126 H 119 H (74-99) mg/dL Calcium 9.3 8.5 (8.4-10.2) mg/dL Total Bilirubin 1.5 H 1.8 H (0.2-1.3) mg/dL AST 22 20 (17-59) U/L ALT 44 33 (21-72) U/L Alkaline Phosphatase 103 58 (38-126) U/L Total Protein 7.4 5.6 L (6.3-8.2) g/dL Albumin 4.2 2.9 L (3.5-5.0) g/dL Assessment and Plan Assessment: Impression Present on admission leukocytosis tachycardic suspect due to sepsis due to sigmoid diverticulitis with developing abscess Present on admission right lower quadrant abdominal pain suspect due to acute sigmoid diverticulitis with extensive phlegmonus changes surrounding the colon extending to the appendix and cecum suggests developing abscess Current every day smoker Plan 2 L fluid bolus now Repeat labs in the morning IV Levaquin and Flagyl as ordered Pain control DVT and GI prophylaxis Nothing by mouth except for ice chips IV fluid for hydration Follow-up on blood and urine culture Will follow with you Plan discussed with patient and at bedside questions answered by surgeon Dr. Cedillo Surgical consultation dictated for Dr. Cedillo The above impression and plan of care have been discussed and directed by signing physician. Nicole Quan nurse practitioner acting as scribe for signing physician. <Maegan Cedillo - Last Filed: 10/06/18 19:13> Surgical - Exam Vital Signs Temp Pulse Resp BP Pulse Ox 98.9 F 108 H 18 140/65 98 10/05/18 13:39 10/05/18 13:39 10/05/18 13:39 10/05/18 13:39 10/05/18 13:39 Results - Labs 10/06/18 08:48 10/06/18 08:48 Abnormal Lab Results - Last 24 Hours (Table) 10/06/18 10/06/18 Range/Units 08:48 08:48 WBC 19.1 H (3.8-10.6) k/uL Neutrophils # 16.8 H (1.3-7.7) k/uL Lymphocytes # 0.9 L (1.0-4.8) k/uL Glucose 119 H (74-99) mg/dL Total Bilirubin 1.8 H (0.2-1.3) mg/dL Total Protein 5.6 L (6.3-8.2) g/dL Albumin 2.9 L (3.5-5.0) g/dL Microbiology - Last 24 Hours (Table) 10/05/18 14:00 Blood Culture - Preliminary Blood No Growth after 24 hours 10/05/18 16:07 Urine Culture - Preliminary Urine,Clean Catch Diabetes panel 10/06/18 Range/Units 08:48 Sodium 140 (137-145) mmol/L Potassium 3.8 (3.5-5.1) mmol/L Chloride 106 (98-107) mmol/L Carbon Dioxide 27 (22-30) mmol/L BUN 13 (9-20) mg/dL Creatinine 0.89 (0.66-1.25) mg/dL Glucose 119 H (74-99) mg/dL Calcium 8.5 (8.4-10.2) mg/dL AST 20 (17-59) U/L ALT 33 (21-72) U/L Alkaline Phosphatase 58 (38-126) U/L Total Protein 5.6 L (6.3-8.2) g/dL Albumin 2.9 L (3.5-5.0) g/dL Calcium panel 10/06/18 Range/Units 08:48 Calcium 8.5 (8.4-10.2) mg/dL Albumin 2.9 L (3.5-5.0) g/dL Pituitary panel 10/06/18 Range/Units 08:48 Sodium 140 (137-145) mmol/L Potassium 3.8 (3.5-5.1) mmol/L Chloride 106 (98-107) mmol/L Carbon Dioxide 27 (22-30) mmol/L BUN 13 (9-20) mg/dL Creatinine 0.89 (0.66-1.25) mg/dL Glucose 119 H (74-99) mg/dL Calcium 8.5 (8.4-10.2) mg/dL Adrenal panel 10/06/18 Range/Units 08:48 Sodium 140 (137-145) mmol/L Potassium 3.8 (3.5-5.1) mmol/L Chloride 106 (98-107) mmol/L Carbon Dioxide 27 (22-30) mmol/L BUN 13 (9-20) mg/dL Creatinine 0.89 (0.66-1.25) mg/dL Glucose 119 H (74-99) mg/dL Calcium 8.5 (8.4-10.2) mg/dL Total Bilirubin 1.8 H (0.2-1.3) mg/dL AST 20 (17-59) U/L ALT 33 (21-72) U/L Alkaline Phosphatase 58 (38-126) U/L Total Protein 5.6 L (6.3-8.2) g/dL Albumin 2.9 L (3.5-5.0) g/dL Assessment and Plan Plan: Patient was seen and evaluated with nurse practitioner. Abdominal pain has improved since admission. Conservative management at this time with IV antibiotics. Strict nothing by mouth. Anticipated inpatient hospitalization 5- 7 days described.
[2018-10-06] MEDS: PANTOPRAZOLE 40 MG/10 ML VIAL IVP SCH (14:14)
[2018-10-06] MEDS: ONDANSETRON 4 MG/2 ML VIAL IVP PRN (15:29)
[2018-10-06] MEDS ORDERED: LEVOFLOXACIN 500MG-D5W PMX 500 MG in DEXTROSE/WATER 1 100ML.BAG IVPB SCH (16:00)
--- NOTE | 2018-10-06 19:17 | PN ---
PROGRESS NOTE DATE OF SERVICE: 10/06/18. PRESENTING COMPLAINT: Abdominal pain. INTERVAL HISTORY: This patient presented with what appears to be a ruptured diverticulitis with intraabdominal abscess on IV antibiotics and IV fluids. Still having significant abdominal pain. The patient is having some dark-colored urine. Getting IV fluids at 150 mL/h. No nausea, vomiting, had fever. REVIEW OF SYSTEMS: Done for constitutional, cardiovascular, GI, pulmonary; relevant findings as above. CURRENT MEDICATIONS: Reviewed that include IV LR at 150 mL/h, IV Levaquin, IV Flagyl. PHYSICAL EXAMINATION: Temperature 100.6 pulse 107, respiratory 20, blood pressure 120/78, pulse ox 92 percent on room air. GENERAL APPEARANCE: Lying in bed, awake, tired-appearing. EYES: Pupils equal. Conjunctivae normal. HEENT: External appearance of nose and ears normal. Oral cavity normal. NECK: JVD not raised. Mass not palpable. RESPIRATORY: Effort normal. Lungs are clear. CARDIOVASCULAR: First and second exam, no edema. ABDOMEN: Diffusely tender. Mild guarding. No rigidity. Bowel sounds are present. Liver and spleen not palpable. PSYCHIATRY: Alert and oriented x3. Mood and affect normal. INVESTIGATIONS: White count 19.1, hemoglobin 9.3, potassium 3.8, albumin 2.9. ASSESSMENT: 1. Acute abdomen in patient with acute diverticulitis with possible local preparation. Suspect intraabdominal abscess, slow to respond. 2. Chronic nicotine dependence. Patient does vaping. 3. Recreational marijuana use. 4. Sepsis from above. 5. Hypoalbuminemia as an acute phase reactant. 6. Acute urinary retention from sepsis. PLAN: As discussed with Dr. Cedillo earlier today, at this point, she wants to see how the patient does clinically. Continue with IV fluids. Later in the evening, patient is having some urinary retention, probably from decreased mobility sepsis. Hollingsworth catheter was placed. Patient did put out about 500 mL. MMODL / IJN: [id number] /
[2018-10-07] MEDS: LACTATED RINGERS 1,000 ML IV SCH ×4 (01:00→17:51)
[2018-10-07] MEDS: HYDROmorphone 1 MG/ML 1 ML SYRINGE IVP PRN ×3 (02:55→22:46)
[2018-10-07] MEDS: ONDANSETRON 4 MG/2 ML VIAL IVP PRN ×2 (03:02→18:21)
[2018-10-07] MEDS: metroNIDAZOLE-NS PMX 500 MG in SALINE 1 100ML.BAG IVPB SCH ×4 (06:07→18:42)
[2018-10-07] MEDS: SODIUM CHLORIDE 0.9% 2,000 ML IV ONE ×2 (07:50→09:06)
[2018-10-07] MEDS: KETOROLAC 30 MG/ML 1 ML VIAL IVP SCH ×3 (07:51→17:57)
[2018-10-07] MEDS: ACETAMINOPHEN IV (For NPO) 1,000 MG in EMPTY BAG 1 BAG IVPB SCH ×3 (08:02→18:00)
[2018-10-07] MEDS: HEPARIN SODIUM,PORCINE 5,000 UNIT/ML 1 ML VIAL SQ SCH ×2 (08:03→20:17)
[2018-10-07] MEDS: PANTOPRAZOLE 40 MG/10 ML VIAL IVP SCH (08:09)
[2018-10-07] MEDS: LEVOFLOXACIN 750MG-D5W PMX 750 MG in DEXTROSE/WATER 1 150ML.BAG IVPB SCH (08:22)
[2018-10-07 09:55] LABS: Basophils % (A) 0 %; Eosinophils % (A) 0 %; HCT 40.8 % (39.0-53.0); HGB 13.6 gm/dL (13.0-17.5); Lymphocytes # (A) 0.5 k/uL (1.0-4.8); Lymphocytes % (A) 2 %; MCH 31.5 pg (25.0-35.0); MCHC 33.4 g/dL (31.0-37.0); MCV 94.5 fL (80.0-100.0); Mean Platelet Volume 7.3; Monocytes # (A) 1.4 k/uL (0-1.0); Monocytes % (A) 5 %; Neutrophils # (A) 24.5 k/uL (1.3-7.7); Neutrophils % (A) 91 %; Platelet Count 309 k/uL (150-450); RBC 4.32 m/uL (4.30-5.90); RDW 12.8 % (11.5-15.5); WBC 26.9 k/uL (3.8-10.6)
[2018-10-07 10:05] LABS: Anion Gap 7 mmol/L; Blood Urea Nitrogen 16 mg/dL (9-20); Calcium 7.9 mg/dL (8.4-10.2); Carbon Dioxide 24 mmol/L (22-30); Chloride 106 mmol/L (98-107); Glucose 118 mg/dL (74-99); Potassium 3.7 mmol/L (3.5-5.1); Sodium 137 mmol/L (137-145)
--- NOTE | 2018-10-07 13:02 | P.PN ---
<Shyann Quanbismark Garsia - Last Filed: 10/07/18 12:42> Subjective Progress Note Date: 10/07/18 38-year-old male seen this morning continues to report having pain in the suprapubic area radiating to the right side of the abdomen. Patient states pain medication does offer relief but the pain continues to persist. Patient had an episode urinary retention bladder scan with 800 Hollingsworth catheter inserted. Patients being followed by surgical service for acute sigmoid diverticulitis with abscess Labs noted white count up 26.9. febile temp 100.6 sats on room air 90% Objective - Vital Signs Vital signs: Vital Signs Temp 100.0 F H 10/07/18 07:20 Pulse 112 H 10/07/18 07:20 Resp 18 10/07/18 09:26 BP 130/90 10/07/18 07:20 Pulse Ox 90 L 10/07/18 07:20 Intake & Output 10/06/18 10/07/18 10/07/18 18:59 06:59 18:59 Intake Total 2849 Output Total 1275 1200 Balance -1275 1649 Intake: Intake, IV Titration 2849 Amount ACETAMINOPHEN IV (For NPO 400 ) 1,000 mg In Empty Bag 1 bag @ 400 mls/hr IVPB Q6HR PRN Rx#:[id number] Lactated Ringers 1,000 ml 1200 @ 150 mls/hr IV .Q6H40M [facility] Rx#:[id number] Levofloxacin 750Mg-D5w 150 Pmx 750 mg In Dextrose/ Water 1 150ml.bag @ 100 mls/hr IVPB Q24H [facility] Rx#: [id number] Sodium Chloride 0.9% 1, 999 000 ml @ 999 mls/hr IV . Q1H1M [facility] Rx#:[id number] metroNIDAZOLE-NS PMX 500 100 mg In Saline 1 100ml.bag @ 100 mls/hr IVPB Q6HR [facility] Rx#:[id number] Output: Urine 1275 1200 Uretheral (Hollingsworth) 500 500 Other: Voiding Method Urinal Urinal Indwelling Catheter # Voids 2 # Bowel Movements 0 - Exam Physical exam 48-year-old male resting in bed continues to report having suprapubic pain radiating to the right quadrant with a nausea sensation Lungs adequate air movement no shortness breath Heart S1-S2 audible regular Abdomen soft nondistended positive tenderness suprapubic area radiating to the right lower quadrant nausea sensation no active emesis indwelling Hollingsworth cath in place states passing gas no stool currently nothing by mouth every hypoactive bowel tones Extremities no edema noted - Labs CBC & Chem 7: 10/07/18 08:53 10/07/18 08:53 Labs: Abnormal Lab Results - Last 24 Hours (Table) 10/07/18 10/07/18 Range/Units 08:53 08:53 WBC 26.9 H (3.8-10.6) k/uL Neutrophils # 24.5 H (1.3-7.7) k/uL Lymphocytes # 0.5 L (1.0-4.8) k/uL Monocytes # 1.4 H (0-1.0) k/uL Glucose 118 H (74-99) mg/dL Calcium 7.9 L (8.4-10.2) mg/dL Microbiology - Last 24 Hours (Table) 10/05/18 14:00 Blood Culture Gram Stain - Preliminary Blood 10/05/18 14:00 Blood Culture - Final Blood 10/05/18 16:07 Urine Culture - Final Urine,Clean Catch Assessment and Plan Assessment: Impression Present on admission leukocytosis tachycardic suspect due to sepsis due to sigmoid diverticulitis with developing abscess Present on admission right lower quadrant abdominal pain suspect due to acute sigmoid diverticulitis with extensive phlegmonus changes surrounding the colon extending to the appendix and cecum suggests developing abscess Current every day smoker Plan Fluid boluses ordered Repeat labs in the morning IV Levaquin and Flagyl as ordered Pain control DVT and GI prophylaxis Nothing by mouth except for ice chips IV fluid for hydration Will follow with you Repeat labs in morning The above impression and plan of care have been discussed and directed by signing physician. Nicole Quan nurse practitioner acting as scribe for signing physician. <Maegan Cedillo N - Last Filed: 10/07/18 13:14> Objective - Vital Signs Vital signs: Vital Signs Temp 100.0 F H 10/07/18 07:20 Pulse 112 H 10/07/18 07:20 Resp 18 10/07/18 09:26 BP 130/90 10/07/18 07:20 Pulse Ox 90 L 10/07/18 07:20 Intake & Output 10/06/18 10/07/18 10/07/18 18:59 06:59 18:59 Intake Total 2849 Output Total 1275 1200 Balance -1275 1649 Intake: Intake, IV Titration 2849 Amount ACETAMINOPHEN IV (For NPO 400 ) 1,000 mg In Empty Bag 1 bag @ 400 mls/hr IVPB Q6HR PRN Rx#:[id number] Lactated Ringers 1,000 ml 1200 @ 150 mls/hr IV .Q6H40M [facility] Rx#:[id number] Levofloxacin 750Mg-D5w 150 Pmx 750 mg In Dextrose/ Water 1 150ml.bag @ 100 mls/hr IVPB Q24H [facility] Rx#: [id number] Sodium Chloride 0.9% 1, 999 000 ml @ 999 mls/hr IV . Q1H1M [facility] Rx#:[id number] metroNIDAZOLE-NS PMX 500 100 mg In Saline 1 100ml.bag @ 100 mls/hr IVPB Q6HR [facility] Rx#:[id number] Output: Urine 1275 1200 Uretheral (Hollingsworth) 500 500 Other: Voiding Method Urinal Urinal Indwelling Catheter # Voids 2 # Bowel Movements 0 - Labs CBC & Chem 7: 10/07/18 08:53 10/07/18 08:53 Labs: Abnormal Lab Results - Last 24 Hours (Table) 10/07/18 10/07/18 Range/Units 08:53 08:53 WBC 26.9 H (3.8-10.6) k/uL Neutrophils # 24.5 H (1.3-7.7) k/uL Lymphocytes # 0.5 L (1.0-4.8) k/uL Monocytes # 1.4 H (0-1.0) k/uL Glucose 118 H (74-99) mg/dL Calcium 7.9 L (8.4-10.2) mg/dL Microbiology - Last 24 Hours (Table) 10/05/18 14:00 Blood Culture Gram Stain - Preliminary Blood 10/05/18 14:00 Blood Culture - Final Blood 10/05/18 16:07 Urine Culture - Final Urine,Clean Catch
--- NOTE | 2018-10-07 13:17 | P.PN ---
Progress Note - Text Progress Note Date: 10/07/18 Patient seen and reevaluated this morning. I added IV Tylenol including IV Toradol to control for fevers including pain. IV fluid boluses were also given. "I feel much better today.". Reports feeling much better since admission including from this morning after adjustment of his pain management. Nurse reports positive blood cultures. Count elevated over 26,000. Recommend immediate consultation to infectious disease for adjustment of antibiotics. The patient's requests, no surgical intervention as reports improvement. Recommend evaluation by interventional radiology
[2018-10-07 14:35] LABS: INR 1.4 (<1.2); Prothrombin Time 13.4 sec (9.0-12.0)
[2018-10-07] MEDS ORDERED: VANCOMYCIN IV PER PHARMACY 1 EACH MISC MISCELLANE PRN (16:57)
[2018-10-07 17:14] LABS: Albumin 2.8 g/dL (3.5-5.0); Magnesium 2.1 mg/dL (1.6-2.3); Phosphorus 1.9 mg/dL (2.5-4.5)
[2018-10-07] MEDS ORDERED: MVI, ADULT NO.4 WITH VIT K 10 ML, TRACE (CONC-1ML/DOSE) 1 ML in AMINO ACID 5%-D15W+LYTE... IV SCH ×3 (18:00)
[2018-10-07] MEDS ORDERED: FAT EMULSION 20% 250 ML IV SCH (18:00)
[2018-10-07] MEDS: VANCOMYCIN 1,500 MG in SODIUM CHLORIDE 0.9% 250 ML IVPB SCH (18:01)
--- NOTE | 2018-10-07 20:18 | PN ---
PROGRESS NOTE DATE OF SERVICE: 10/07/18. PRESENT COMPLAINT: Abdominal pain. INTERVAL HISTORY: This patient admitted with ruptured diverticulitis with intraabdominal abscess on IV antibiotics and IV fluids. Continues to have fever. Abdominal pain is a bit better. Had some loose stools. The patient got a Hollingsworth catheter for retained urine. The patient's and mother on the bedside sitting on bed. Does feel a bit better. REVIEW OF SYSTEMS: Done for constitutional, cardiovascular, GI, pulmonary; relevant findings as above. CURRENT MEDICATIONS: Reviewed that include IV Levaquin, IV Flagyl, Dilaudid 150 an hour. Toradol has been added for the fever. PHYSICAL EXAMINATION: Temperature 100, pulse 110, respiration 18, blood pressure 130/90, pulse ox 92 percent on room air. GENERAL APPEARANCE: Sitting up on bed, awake. EYES: Pupils equal. Conjunctivae normal. HEENT: External appearance of nose and ears normal. Oral cavity normal. NECK: JVD not raised. Mass not palpable. RESPIRATORY: Effort normal. Lungs, some decreased breath sounds at bases. CARDIOVASCULAR: 1st and 2nd sounds normal. No edema. ABDOMEN: Slightly less tender. No guarding or rigidity. Liver and spleen not palpable. PSYCHIATRY: Alert and oriented x3. Mood and affect normal. INVESTIGATIONS: White count 26.9, increased neutrophils. Potassium 3.7, BUN 16, creatinine 0.77. The patient's blood cultures growing gram-positive cocci in clusters. ASSESSMENT: 1. Acute diverticulitis with possible local perforation, suspect intraabdominal abscess. Still remains to be septic with increasing white count and fever. 2. Chronic nicotine dependence. Patient does vaping. 3. Recreational marijuana use. 4. Hypoalbuminemia as an acute phase reactant. 5. Acute urinary retention from sepsis. Patient requiring a Hollingsworth catheter for strict I's and O's. 6. Positive blood cultures with gram-positive cocci. PLAN: Vancomycin will be added to the current antibiotics. Dr. Cedillo's asked for Interventional Radiology for a drainage catheter. Concern is again between surgery versus medical management. Will let the decision as per Dr. Cedillo and what she has talked to the family. ID consult has been requested. Follow closely. Also will check with surgical team and will proceed with a PICC line for TPN lipids. The patient has not had much intake for last 5 days now. MMODL / IJN: [id number] /
--- NOTE | 2018-10-07 21:14 | P.CONS ---
History of Present Illness - Reason for Consult Consult date: 10/07/18 - Chief Complaint Abdominal pain - History of Present Illness Pleasant 38-year-old male who does not have a history of significant underlying medical troubles relates that several days before admission to hospital he was starting to have some significant abdominal pain. He thought maybe he was having hernia given the discomfort into his right lower aspect of his abdomen. Eventually because of his discomforts he was seen by his primary care physician there was concerns to appendicitis or nephrolithiasis. He was given some tamsulosin determine if this would give him relief. After 48 hours he had no improvement and she started to have some worsening. The patient relates he then had what felt like a popping sensation in his abdomen associate with severe generalized abdominal pain thereafter. He constantly called 911 and was brought to hospital. Computed tomography scan does reveal evidence of diverticulitis with phlegmon changes, cannot rule out microperforation. The patient is now had some further worsening. Possible culture was called and the infectious diseases evaluation was requested. Review of Systems 38-year-old male who is very uncomfortable has felt febrile throughout the day. HEENT:Denies headache or acute visual change. Denies sinus or mouth discomforts. Denies neck stiffness or pain. Denies significant oral cavity pain. Denies difficulty on swallowing. Lungs: Denies significant shortness of breath, cough, sputum production, or hemoptysis. Cardiovascular: Denies significant shortness of breath, chest pain, chest wall pain, orthopnea, dyspnea on exertion, syncope Gastrointestinal: Complains of ongoing abdominal pain had some nausea earlier today he has had some loose stool but no gurmeet diarrhea but hematemesis melena or hematochezia Musculoskeletal: denies significant myalgias or arthralgias. No new joint swelling. Denies new back pain. Skin: Denies new rash or lesions. No new ulcers or wounds are related.. Neuro: Denies headache or visual change. Denies any new onset weakness or difficulty with ambulation. Denies falls or seizures. Psychiatric:Denies anxiety or depression. Endocrine: Denies significant fatigue, denies significant weight loss or weight gain. Past Medical History Past Medical History: No Reported History History of Any Multi-Drug Resistant Organisms: None Reported Past Surgical History: No Surgical Hx Reported Past Psychological History: Bipolar Additional Psychological History / Comment(s): lives with his . 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 No experience. No international travel. No animal exposures. Tobacco smoker at the time of admission. Denies significant alcohol or recreational drug use Smoking Status: Current every day smoker Past Alcohol Use History: Occasional Past Drug Use History: Marijuana - Past Family History Father Additional Family Medical History / Comment(s): ETOH Medications and Allergies Home Medications and Allergies Comment(s): Current Medications Heparin Sodium (Porcine) (Heparin) 5,000 unit SQ Q12HR [facility] Last Admin: 10/07/18 20:17 Dose: 5,000 unit Hydromorphone HCl (Dilaudid) 1 mg IVP Q3HR PRN PRN Reason: Severe Pain Last Admin: 10/07/18 07:05 Dose: 1 mg Metronidazole 500 mg/ IV (Solution) 100 mls @ 100 mls/hr IVPB Q6HR [facility] Last Admin: 10/07/18 18:42 Dose: 100 mls/hr Lactated Ringer's (Lactated Ringers) 1,000 mls @ 150 mls/hr IV .Q6H40M [facility] Last Admin: 10/07/18 17:51 Dose: 150 mls/hr Acetaminophen 1,000 mg/ IV (Solution) 100 mls @ 400 mls/hr IVPB Q6HR [facility] Stop: 10/08/18 00:14 Last Admin: 10/07/18 18:00 Dose: 400 mls/hr Vancomycin HCl 1,500 mg/ (Sodium Chloride) 250 mls @ 125 mls/hr IVPB Q8H [facility] Last Admin: 10/07/18 18:01 Dose: 125 mls/hr Meropenem 2 gm/ Sodium (Chloride) 100 mls @ 200 mls/hr IVPB Q8HR [facility]; Protocol Ketorolac Tromethamine (Toradol) 30 mg IVP Q6HR [facility] Stop: 10/11/18 07:28 Last Admin: 10/07/18 17:57 Dose: 30 mg Naloxone HCl (Narcan) 0.2 mg IV Q2M PRN PRN Reason: Opioid Reversal Ondansetron HCl (Zofran) 4 mg IVP Q8HR PRN PRN Reason: Nausea And Vomiting Last Admin: 10/07/18 18:21 Dose: 4 mg Pantoprazole Sodium (Protonix) 40 mg IVP DAILY [facility] Last Admin: 10/07/18 08:09 Dose: 40 mg Home Medications Medication Instructions Recorded Confirmed Type Ciprofloxacin HCl [Cipro] 500 mg PO Q12H 10/04/18 10/05/18 History L.acidoph,Paracasei, B.lactis 1 cap PO DAILY 10/04/18 10/05/18 History [Probiotic] Omeprazole [PriLOSEC] 40 mg PO DAILY 10/04/18 10/05/18 History Ondansetron HCl [Zofran] 8 mg PO Q8H PRN 10/04/18 10/05/18 History Ondansetron [Zofran ODT] 4 mg PO Q8HR PRN #30 tab 10/04/18 10/05/18 Rx metroNIDAZOLE [Flagyl] 500 mg PO TID 10/04/18 10/05/18 History Tamsulosin HCl [Flomax] 0.4 mg PO DAILY 10/05/18 10/05/18 History Allergies Allergy/AdvReac Type Severity Reaction Status Date / Time Penicillins Allergy Nausea & Verified 10/05/18 14:42 Vomiting Physical Exam Vitals: Vital Signs Temp Pulse Resp BP Pulse Ox 10/07/18 21:01 98.2 F 101 H 22 137/80 10/07/18 20:01 99.2 F 97 22 123/74 97 10/07/18 18:10 28 H 10/07/18 15:00 98.9 F 110 H 18 132/84 92 L 10/07/18 09:26 18 10/07/18 07:20 100.0 F H 112 H 18 130/90 90 L 10/07/18 05:55 97.8 F 108 H 24 132/80 91 L 10/06/18 23:00 100.6 F H 122 H 28 H 117/71 90 L 10/06/18 22:02 101.7 F H Intake and Output 10/07/18 10/07/18 10/07/18 06:59 14:59 22:59 Intake Total 3500 Output Total 1200 150 Balance -1200 3500 -150 Intake: IV 3500 ACETAMINOPHEN IV (For NPO 50 ) 1,000 mg In Empty Bag 1 bag @ 400 mls/hr IVPB Q6HR PRN Rx#:[id number] ACETAMINOPHEN IV (For NPO 50 ) 1,000 mg In Empty Bag 1 bag @ 400 mls/hr IVPB Q6HR [facility] Rx#:[id number] Lactated Ringers 1,000 ml 1200 @ 150 mls/hr IV .Q6H40M [facility] Rx#:[id number] Levofloxacin 500Mg-D5w 100 Pmx 500 mg In Dextrose/ Water 1 100ml.bag @ 100 mls/hr IVPB Q24H [facility] Rx#: [id number] Sodium Chloride 0.9% 2, 2000 000 ml @ 999 mls/hr IV . Q2H1M [facility] Rx#:[id number] metroNIDAZOLE-NS PMX 500 100 mg In Saline 1 100ml.bag @ 100 mls/hr IVPB Q6HR [facility] Rx#:[id number] Output: Urine 1200 Uretheral (Hollingsworth) 500 Emesis 150 Other: Voiding Method Indwelling Catheter Indwelling Catheter Pleasant 38-year-old male who is very uncomfortable and has had fever currently the temperature is improved and not having chills at this time HEENT: Anicteric conjunctiva are pink and moist nasal mucosa grossly intact without significant lesions, there is no thrush. Oral mucosa is dry Neck: The neck is supple without significant lymphadenopathy or thyromegaly. Lungs: Good bilateral air entry without significant crackles or wheezing. There is no significant bronchial sounds. There is no egophony or dullness. Heart: Regular rate and rhythm with an audible S1-S2, no S3 no S4. There is no significant murmur click or rub, PMI was nondisplaced. Abdomen: Only few bowel sounds were heard. The abdomen is distended. This is distinctly tender on exam, there is rebound tenderness in the right lower and right upper quadrant laterally. There is some generalized tenderness throughout the abdomen. There is no bruising to the abdominal wall. Extremities: The upper extremities have excellent pulses they are symmetric, no significant petechiae or telangiectasia. No splinter hemorrhages were noted. The lower extremities are free from significant edema. The peripheral pulses were 2+ and symmetric. Neuro: Awake alert oriented to person place and time. There are no acute new gross focal sensory motor deficits. Results CBC & Chem 7: 10/07/18 08:53 10/07/18 08:53 Labs: Abnormal Lab Results - Last 24 Hours (Table) 10/07/18 10/07/18 10/07/18 Range/Units 08:53 08:53 14:07 WBC 26.9 H (3.8-10.6) k/uL Neutrophils # 24.5 H (1.3-7.7) k/uL Lymphocytes # 0.5 L (1.0-4.8) k/uL Monocytes # 1.4 H (0-1.0) k/uL PT 13.4 H (9.0-12.0) sec INR 1.4 H (<1.2) Glucose 118 H (74-99) mg/dL Calcium 7.9 L (8.4-10.2) mg/dL Phosphorus (2.5-4.5) mg/dL Albumin (3.5-5.0) g/dL Triglycerides (<150) mg/dL 10/07/18 Range/Units 16:36 WBC (3.8-10.6) k/uL Neutrophils # (1.3-7.7) k/uL Lymphocytes # (1.0-4.8) k/uL Monocytes # (0-1.0) k/uL PT (9.0-12.0) sec INR (<1.2) Glucose (74-99) mg/dL Calcium (8.4-10.2) mg/dL Phosphorus 1.9 L (2.5-4.5) mg/dL Albumin 2.8 L (3.5-5.0) g/dL Triglycerides 154 H (<150) mg/dL Microbiology - Last 24 Hours (Table) 10/05/18 14:00 Blood Culture Gram Stain - Preliminary Blood 10/05/18 14:00 Blood Culture - Final Blood 10/05/18 16:07 Urine Culture - Final Urine,Clean Catch Laboratory Results WBC 26.9 k/uL (3.8-10.6) H 10/07/18 08:53 RBC 4.32 m/uL (4.30-5.90) 10/07/18 08:53 Hgb 13.6 gm/dL (13.0-17.5) 10/07/18 08:53 Hct 40.8 % (39.0-53.0) 10/07/18 08:53 MCV 94.5 fL (80.0-100.0) 10/07/18 08:53 MCH 31.5 pg (25.0-35.0) 10/07/18 08:53 MCHC 33.4 g/dL (31.0-37.0) 10/07/18 08:53 RDW 12.8 % (11.5-15.5) 10/07/18 08:53 Plt Count 309 k/uL (150-450) 10/07/18 08:53 Neutrophils % 91 % 10/07/18 08:53 Lymphocytes % 2 % 10/07/18 08:53 Monocytes % 5 % 10/07/18 08:53 Eosinophils % 0 % 10/07/18 08:53 Basophils % 0 % 10/07/18 08:53 Neutrophils # 24.5 k/uL (1.3-7.7) H 10/07/18 08:53 Lymphocytes # 0.5 k/uL (1.0-4.8) L 10/07/18 08:53 Monocytes # 1.4 k/uL (0-1.0) H 10/07/18 08:53 Eosinophils # 0.0 k/uL (0-0.7) 10/07/18 08:53 Basophils # 0.0 k/uL (0-0.2) 10/07/18 08:53 PT 13.4 sec (9.0-12.0) H 10/07/18 14:07 INR 1.4 (<1.2) H 10/07/18 14:07 APTT 18.7 sec (22.0-30.0) L 10/05/18 14:00 Sodium 137 mmol/L (137-145) 10/07/18 08:53 Potassium 3.7 mmol/L (3.5-5.1) 10/07/18 08:53 Chloride 106 mmol/L (98-107) 10/07/18 08:53 Carbon Dioxide 24 mmol/L (22-30) 10/07/18 08:53 Anion Gap 7 mmol/L 10/07/18 08:53 BUN 16 mg/dL (9-20) 10/07/18 08:53 Creatinine 0.70 mg/dL (0.66-1.25) 10/07/18 08:53 Est GFR (CKD-EPI)AfAm >90 (>60 ml/min/1.73 sqM) 10/07/18 08:53 Est GFR (CKD-EPI)NonAf >90 (>60 ml/min/1.73 sqM) 10/07/18 08:53 Glucose 118 mg/dL (74-99) H 10/07/18 08:53 Lactic Ac Sepsis Rflx Y 10/05/18 15:10 Plasma Lactic Acid Gerson 1.7 mmol/L (0.7-2.0) 10/07/18 10:33 Calcium 7.9 mg/dL (8.4-10.2) L 10/07/18 08:53 Ionized Calcium [place] 5.0 mg/dL (4.5-5.3) 10/07/18 16:36 Phosphorus 1.9 mg/dL (2.5-4.5) L 10/07/18 16:36 Magnesium 2.1 mg/dL (1.6-2.3) 10/07/18 16:36 Total Bilirubin 1.8 mg/dL (0.2-1.3) H 10/06/18 08:48 AST 20 U/L (17-59) 10/06/18 08:48 ALT 33 U/L (21-72) 10/06/18 08:48 Alkaline Phosphatase 58 U/L (38-126) 10/06/18 08:48 Creatine Kinase 122 U/L (55-170) 10/06/18 08:48 Total Creatine Kinase 89 U/L (55-170) 10/05/18 14:00 CK-MB (CK-2) 1.0 ng/mL (0.0-2.4) 10/05/18 14:00 CK-MB (CK-2) Rel Index 1.1 10/05/18 14:00 Troponin I <0.012 ng/mL (0.000-0.034) 10/05/18 14:00 Total Protein 5.6 g/dL (6.3-8.2) L 10/06/18 08:48 Albumin 2.8 g/dL (3.5-5.0) L 10/07/18 16:36 Triglycerides 154 mg/dL (<150) H 10/07/18 16:36 Amylase 40 U/L (30-110) 10/05/18 14:00 Lipase 34 U/L (23-300) 10/05/18 14:00 Urine Color Yellow 10/05/18 16:07 Urine Appearance Clear (Clear) 10/05/18 16:07 Urine pH 5.5 (5.0-8.0) 10/05/18 16:07 Ur Specific [place] 1.021 (1.001-1.035) 10/05/18 16:07 Urine Protein 1+ (Negative) H 10/05/18 16:07 Urine Glucose (UA) Negative (Negative) 10/05/18 16:07 Urine Ketones 3+ (Negative) H 10/05/18 16:07 Urine Blood Small (Negative) H 10/05/18 16:07 Urine Nitrite Negative (Negative) 10/05/18 16:07 Urine Bilirubin Negative (Negative) 10/05/18 16:07 Urine Urobilinogen 4.0 mg/dL (<2.0) 10/05/18 16:07 Ur Leukocyte Esterase Negative (Negative) 10/05/18 16:07 Urine RBC 11 /hpf (0-5) H 10/05/18 16:07 Urine WBC 1 /hpf (0-5) 10/05/18 16:07 Ur Squamous Epith Cells <1 /hpf (0-4) 10/05/18 16:07 Urine Mucus Occasional /hpf (None) H 10/05/18 16:07 Microbiology 10/05/18 14:00 Blood Blood Culture Gram Stain - Preliminary 10/05/18 14:00 Blood Blood Culture - Final 10/05/18 16:07 Urine,Clean Catch Urine Culture - Final Assessment and Plan (1) Diverticulitis Narrative/Plan: 38 year male presents to Hospital with a several-day history of abdominal pain that had been progressive. The patient believes it may be kidney stones and was even given a trial tamsulosin. Computed tomography scan hour reveals no evidence of any nephrolithiasis or of any hydronephrosis. Computed tomography scan overdoes reveal evidence of the significant diverticulitis with some phlegmon formation and possibly early abscess formation possibly free air small amount from a microperforation. Perforation clinically seems to have occurred when he had the sudden severe onset of pain after feeling a popping sensation within his abdomen. He's been seen by surgery at this time. Antibiotic therapy will be altered at this point in time given his ongoing sepsis and the positive blood culture. It is currently identified as a gram- positive cocci unclear of this will be a staph or strep. Meropenem with vancomycin be utilized for now until we have further data given his known penicillin ALLERGY. Follow blood cultures are requested Requested for interaction with the surgeon, the patient likely will need to presents to surgery in the near future, he is not showing any significant improvements with antibiotic therapy and actually clinically he seems to be worsening. We will monitor. Attempt was made to call his [id number], Verito Partida. Current Visit: No Status: Acute Code(s): K57.92 - DVTRCLI OF INTEST, PART UNSP, W/O PERF OR ABSCESS W/O BLEED SNOMED Code(s): 784427974 (2) Sepsis Current Visit: Yes Status: Acute Code(s): A41.9 - SEPSIS, UNSPECIFIED ORGANISM SNOMED Code(s): 00462168 (3) Bacteremia due to Gram-positive bacteria Current Visit: Yes Status: Acute Code(s): R78.81 - BACTEREMIA SNOMED Code( s): 085278108439
[2018-10-08] MEDS: KETOROLAC 30 MG/ML 1 ML VIAL IVP SCH ×4 (00:39→20:25)
[2018-10-08] MEDS: MEROPENEM 2 GM in SODIUM CHLORIDE 0.9% 100 ML IVPB SCH ×3 (00:39→20:38)
[2018-10-08] MEDS: ACETAMINOPHEN IV (For NPO) 1,000 MG in EMPTY BAG 1 BAG IVPB SCH (01:20)
[2018-10-08] MEDS: metroNIDAZOLE-NS PMX 500 MG in SALINE 1 100ML.BAG IVPB SCH ×4 (02:03→20:38)
[2018-10-08] MEDS: HYDROmorphone 1 MG/ML 1 ML SYRINGE IVP PRN ×2 (02:31→07:32)
[2018-10-08] MEDS: VANCOMYCIN 1,500 MG in SODIUM CHLORIDE 0.9% 250 ML IVPB SCH ×3 (02:58→20:37)
[2018-10-08] MEDS: LACTATED RINGERS 1,000 ML IV SCH ×3 (05:30→20:39)
[2018-10-08] MEDS: ONDANSETRON 4 MG/2 ML VIAL IVP PRN ×2 (06:50→11:40)
[2018-10-08 07:07] LABS: Glucose,Whole Blood 92 mg/dL (75-99)
[2018-10-08] MEDS: PANTOPRAZOLE 40 MG/10 ML VIAL IVP SCH (07:30)
[2018-10-08 08:31] LABS: Basophils % (A) 0 %; Eosinophils # (A) 0.1 k/uL (0-0.7); Eosinophils % (A) 0 %; HCT 43.3 % (39.0-53.0); HGB 14.1 gm/dL (13.0-17.5); Lymphocytes # (A) 0.8 k/uL (1.0-4.8); Lymphocytes % (A) 3 %; MCH 30.8 pg (25.0-35.0); MCHC 32.6 g/dL (31.0-37.0); MCV 94.7 fL (80.0-100.0); Mean Platelet Volume 7.7; Monocytes % (A) 3 %; Neutrophils # (A) 25.7 k/uL (1.3-7.7); Neutrophils % (A) 91 %; Platelet Count 343 k/uL (150-450); RBC 4.57 m/uL (4.30-5.90); RDW 12.8 % (11.5-15.5); WBC 28.2 k/uL (3.8-10.6)
[2018-10-08 08:37] LABS: ALT 29 U/L (21-72); AST 22 U/L (17-59); Albumin 2.5 g/dL (3.5-5.0); Alkaline Phosphatase 64 U/L (38-126); Anion Gap 8 mmol/L; Blood Urea Nitrogen 20 mg/dL (9-20); Calcium 8.3 mg/dL (8.4-10.2); Carbon Dioxide 25 mmol/L (22-30); Chloride 107 mmol/L (98-107); Glucose 90 mg/dL (74-99); Magnesium 2.1 mg/dL (1.6-2.3); Phosphorus 2.5 mg/dL (2.5-4.5); Sodium 140 mmol/L (137-145); Total Bilirubin 0.9 mg/dL (0.2-1.3); Total Protein 5.2 g/dL (6.3-8.2)
[2018-10-08] MEDS: HEPARIN SODIUM,PORCINE 5,000 UNIT/ML 1 ML VIAL SQ SCH ×2 (09:41→21:07)
[2018-10-08] MEDS ORDERED: SODIUM CHLORIDE 0.9% 1,000 ML IV ONE (11:38)
--- NOTE | 2018-10-08 12:19 | P.PN ---
Progress Note - Text Progress Note Date: 10/08/18 Patient reports that his abdominal pain became worse last night. Reports intractable nausea and vomiting this morning. White blood cell count elevated. Abdomen more distended. Benefits risks of laparotomy with colostomy creation described in detail. Patient understands risks and willing to proceed with surgery for colectomy, colostomy creation
[2018-10-08] MEDS ORDERED: IV FLUID CONTINUATION 1,000 ML IV ONE (12:57)
[2018-10-08] MEDS ORDERED: MIDAZOLAM 2 MG/2 ML VIAL IVP ONE (13:32)
[2018-10-08] MEDS ORDERED: ROCURONIUM BROMIDE 10 MG/ML 10 ML VIAL IV ONE (13:45)
[2018-10-08] MEDS ORDERED: GLYCOPYRROLATE 0.2 MG/ML 2 ML VIAL ONE (13:45)
[2018-10-08] MEDS ORDERED: NEOSTIGMINE 1 MG/ML 10 ML VIAL ONE (13:45)
[2018-10-08] MEDS ORDERED: PROPOFOL 10 MG/ML 20 ML VIAL IV ONE (13:45)
[2018-10-08] MEDS ORDERED: SUCCINYLCHOLINE CHLORIDE 100 MG/5 ML SYR IV ONE (13:45)
[2018-10-08] MEDS ORDERED: MIDAZOLAM 2 MG/2 ML VIAL ONE (13:45)
[2018-10-08] MEDS ORDERED: LIDOCAINE 1% INJ 10MG/ML (20 ML MDV) ONE (13:45)
[2018-10-08] MEDS ORDERED: KETAMINE 10 MG/ML 20 ML VIAL ONE (13:45)
[2018-10-08] MEDS ORDERED: fentaNYL (PF) 50 MCG/ML 2 ML AMP ONE (13:45)
[2018-10-08] MEDS ORDERED: LACTATED RINGERS 1,000 ML IV ONE ×5 (14:23→17:11)
[2018-10-08] MEDS ORDERED: NALOXONE 0.4 MG/ML 1 ML VIAL IV PRN (14:51)
[2018-10-08 15:31] VITALS: BMI 26.9
[2018-10-08] MEDS ORDERED: VANCOMYCIN TROUGH DUE 1 EACH MISC MISCELLANE ONE (17:00)
--- NOTE | 2018-10-08 18:23 | P.OP ---
Date of Procedure: 10/08/18 Description of Procedure: SURGEON: FABIO REYNA MD PREOPERATIVE DIAGNOSES: 1. Perforated sigmoid diverticulitis 2. Sepsis due to gram-negative bacteria 3. Peritonitis, generalized 4. Obstructive uropathy, pre-existing 5. Tobacco abuse 6. Bipolar disorder POSTOPERATIVE DIAGNOSES: 1. Perforated sigmoid diverticulitis 2. Sepsis due to gram-negative bacteria 3. Peritonitis, generalized 4. Obstructive uropathy, pre-existing 5. Tobacco abuse 6. Bipolar disorder 7. Abdominal ascites 8. Pelvic abscess, right lower quadrant 9. Small bowel obstruction ANESTHESIA: General, epidural ESTIMATED BLOOD LOSS: 250 mL SPECIMENS REMOVED: 1. Sigmoid colon abscess 2. Aerobic and anaerobic culture pelvic abscess 3. Aerobic and anaerobic culture peritoneal fluid 4. Enterectomy COMPLICATIONS: None. Condition: Gaurded OPERATION: 1. Open lysis of adhesions reduction of small bowel obstruction 2. Descending colostomy creation 3. Drainage of right pelvic abscesses 4. Small bowel enterectomy 5. Devitalized rectal stump. 6. Luz's procedure for perforated rectosigmoid junction 7. Peritoneal lavage over 6 liters 8. Placement of intraabdominal #19 Lasha drain along the right lower pelvis. 9. Placement of 25-cm PREVENA wound VAC system Operative Findings: 1. Small bowel obstruction deep pelvis involving the distal ileum from perforated diverticulitis 2. Low perforation sigmoid diverticulitis superior to rectosigmoid junction 3. Dense inflammatory changes involving sigmoid colon to bladder 4. Pelvic abscess drained with release of small bowel obstruction and lysis of adhesions 5. Decompression of small bowel from mid jejunum with closure using Endo PABLO stapler 6. Moderate abdominal ascites with third spacing 7. Aerobic and anaerobic cultures obtained of pelvic abscess INDICATIONS: Patient is a 38-year-old gentleman who presents with perforated sigmoid colon. He had developed acute small bowel obstruction with sepsis. Surgical intervention was described. All questions were answered and risks were reviewed. Informed consent was obtained. DESCRIPTION: Patient was brought to the operating room after moderate IV hydration including prior placement of Hollingsworth catheter. He was on scheduled IV antibiotics. The patient was placed in supine position whereby general induction was performed. Abdomen had been prepped and draped in the standard sterile fashion. Ioban draping was also placed to minimize any contamination to the skin. Next, using #10 blade, the abdomen was entered along the midline whereby an incision was made just above the umbilicus down to the pubis. The abdomen was inspected whereby the small bowel was grossly distended. Abdominal ascites was identified and over 1 L aspirated from the abdomen. The distal jejunum was densely adherent to the deep pelvis at the right lower quadrant. A contained right deep pelvic abscess was identified. The transverse colon was unremarkable. No peritoneal studding was identified. Next, Buckwalter retractor was placed with a bladder blade. A nasogastric tube was placed per anesthesia however thick dark green was obtained. The small bowel was still moderately distended. To decompress the small bowel, a pursestring suture using 3-0 silk was placed along the mid jejunum. The small bowel was elevated and an enterotomy along the antimesenteric border was created to decompress the small bowel. Moderate gas and enteric content was decompressed of over 800 mL to 1000 mL. The enterectomy was closed using Endo PABLO and passed off for pathological analysis. Next, the descending colon and sigmoid colon was mobilized along the medial and lateral attachments with care to avoid any injury to the ureters along the usual anatomical landmarks. Carefully the sigmoid colon was identified and mobilized. The distal sigmoid colon was moderately thickened with inflammatory changes with a contained perforation deep into the right pelvis. Using digital palpation, an abscess pocket was entered and gurmeet pus was evacuated from the abdominal cavity over 50 mL. Moderate inflammation was found along the mesentery including of the bowel wall which was also thickened. With severe phlegmonous changes of the sigmoid colon, resection was deferred and the perforated area was sealed using sigmoid mesentery. The abscess pocket was copiously irrigated with over 1 L of normal saline solution until the aspirant was clear. The sigmoid colon was mobilized along the mesentery where a window was made along the mesentery and the colon was divided such that the descending colon was prepared for maturation of a colostomy. The colon was divided along proximal sigmoid colon using Covidien Endo PABOL 60-mm purple staple loads. Hemostasis was checked with electro Bovie cautery including Enseal. The abdomen was copiously irrigated with total of 6 L normal saline. A round #19 drain was placed after tagging the rectal stump using 2-0 Prolene. The perforated site was addressed with placement of drain. Next, attention was brought to the delivering and creation of the descending colostomy. A point along the abdominal wall and rectus muscle was selected for the colostomy. [place] was used to elevate the skin and a #10 blade was taken across in tangential manner to create the skin defect of approximately quarter- size. The fat of the skin was mobilized using a small rich. The rectus muscle was identified and scored with a cruciate fashion using electro- Bovie cautery. Next, using a muscle-splitting technique with a hemostat, the peritoneum was entered. The peritoneum was widened such that 3 fingerbreadths could easily pass for delivering and evaginating the descending portion of the colon through the skin. The abdominal cavity was copiously irrigated as described until completely clear. Round number #19 Lasha drain was entered along the right lower abdomen and exited through the skin. Next, the SETH drain was tacked along the skin using a 2-0 nylon. The midline incision was closed using double-stranded 0 PDS. Next, the subcutaneous tissue was copiously irrigated with normal saline and hydrogen peroxide. The midline incision was interrupted using 3-0 Vicryl. The midline incision was covered using PREVENA wound VAC and attention was brought to maturation of the colostomy. The staple edge was divided and removed. Next quadrant sutures at 12 o'clock, 3 o'clock, 6 o'clock, and 9 o' clock position was made using serosa, mucosal and dermal bites using 3-0 Vicryl. Running 4-0 monocryl was placed to complete maturation of the ostomy. Hemostasis was checked. A Coloplast was placed. Optifoam dressing was placed along the superior portion of the incision including over the SETH site. The SETH tubing was tacked using 2-0 nylon. At the end of the procedure, needle, sponge, and instrument count had been verified correct by surgical assistant certified. The patient's family was updated on level of care.
[2018-10-08] MEDS: ROPIVACAINE 250 MG, HYDROMORPHONE (PF) 5 MG in SODIUM CHLORIDE 0.9% 200 ML EPIDURAL PRN (18:50)
[2018-10-08] MEDS: METOCLOPRAMIDE 5 MG/ML 2 ML VIAL IVP SCH (20:25)
[2018-10-08] MEDS: D5-0.45% NACL WITH KCL 20MEQ/L 1,000 ML IV SCH (20:26)
--- NOTE | 2018-10-08 23:44 | P.PN ---
Subjective Progress Note Date: 10/08/18 Pleasant 38-year-old male who does not have a history of significant underlying medical troubles relates that several days before admission to hospital he was starting to have some significant abdominal pain. He thought maybe he was having hernia given the discomfort into his right lower aspect of his abdomen. Eventually because of his discomforts he was seen by his primary care physician there was concerns to appendicitis or nephrolithiasis. He was given some tamsulosin determine if this would give him relief. After 48 hours he had no improvement and she started to have some worsening. The patient relates he then had what felt like a popping sensation in his abdomen associate with severe generalized abdominal pain thereafter. He constantly called 911 and was brought to hospital. Computed tomography scan does reveal evidence of diverticulitis with phlegmon changes, cannot rule out microperforation. The patient is now had some further worsening. Positive culture was called and the infectious diseases evaluation was requested. 10/08/2018 patient is continued to worsen, abdomen is more distended. Surgeon is now evaluated and will be taken to the operating room for exploratory laparotomy Objective - Vital Signs Vital signs: Vital Signs Temp 99.1 F 10/08/18 20:36 Pulse 119 H 10/08/18 21:21 Resp 20 10/08/18 19:00 BP 103/72 10/08/18 21:21 Pulse Ox 96 10/08/18 21:21 Intake & Output 10/08/18 10/08/18 10/09/18 06:59 18:59 06:59 Intake Total 3598 Output Total 500 750 Balance -500 2848 Weight 80.286 kg Intake: IV 3598 Output: Urine 500 550 Estimated Blood Loss 200 Other: Voiding Method Indwelling Catheter Indwelling Catheter # Voids 3 # Bowel Movements 0 - Exam Pleasant 38-year-old male who is very uncomfortable and has had fever currently the temperature is improved and not having chills at this time HEENT: Anicteric conjunctiva are pink and moist nasal mucosa grossly intact without significant lesions, there is no thrush. Oral mucosa is dry Neck: The neck is supple without significant lymphadenopathy or thyromegaly. Lungs: Good bilateral air entry without significant crackles or wheezing. There is no significant bronchial sounds. There is no egophony or dullness. Heart: Regular rate and rhythm with an audible S1-S2, no S3 no S4. There is no significant murmur click or rub, PMI was nondisplaced. Abdomen: Only few bowel sounds were heard. The abdomen is distended. This is distinctly tender on exam, there is rebound tenderness in the right lower and right upper quadrant laterally. There is some generalized tenderness throughout the abdomen. There is no bruising to the abdominal wall. Extremities: The upper extremities have excellent pulses they are symmetric, no significant petechiae or telangiectasia. No splinter hemorrhages were noted. The lower extremities are free from significant edema. The peripheral pulses were 2+ and symmetric. Neuro: Awake alert oriented to person place and time. There are no acute new gross focal sensory motor deficits. - Labs CBC & Chem 7: 10/08/18 07:27 10/08/18 07:27 Labs: Abnormal Lab Results - Last 24 Hours (Table) 10/08/18 10/08/18 Range/Units 07:27 07:27 WBC 28.2 H (3.8-10.6) k/uL Neutrophils # 25.7 H (1.3-7.7) k/uL Lymphocytes # 0.8 L (1.0-4.8) k/uL Calcium 8.3 L (8.4-10.2) mg/dL Total Protein 5.2 L (6.3-8.2) g/dL Albumin 2.5 L (3.5-5.0) g/dL Microbiology - Last 24 Hours (Table) 10/05/18 14:00 Blood Culture Gram Stain - Final Blood Blood Culture - Final Micrococcus species Laboratory Results WBC 28.2 k/uL (3.8-10.6) H 10/08/18 07:27 RBC 4.57 m/uL (4.30-5.90) 10/08/18 07:27 Hgb 14.1 gm/dL (13.0-17.5) 10/08/18 07:27 Hct 43.3 % (39.0-53.0) 10/08/18 07:27 MCV 94.7 fL (80.0-100.0) 10/08/18 07:27 MCH 30.8 pg (25.0-35.0) 10/08/18 07:27 MCHC 32.6 g/dL (31.0-37.0) 10/08/18 07:27 RDW 12.8 % (11.5-15.5) 10/08/18 07:27 Plt Count 343 k/uL (150-450) 10/08/18 07:27 Neutrophils % 91 % 10/08/18 07:27 Lymphocytes % 3 % 10/08/18 07:27 Monocytes % 3 % 10/08/18 07:27 Eosinophils % 0 % 10/08/18 07:27 Basophils % 0 % 10/08/18 07:27 Neutrophils # 25.7 k/uL (1.3-7.7) H 10/08/18 07:27 Lymphocytes # 0.8 k/uL (1.0-4.8) L 10/08/18 07:27 Monocytes # 1.0 k/uL (0-1.0) 10/08/18 07:27 Eosinophils # 0.1 k/uL (0-0.7) 10/08/18 07:27 Basophils # 0.0 k/uL (0-0.2) 10/08/18 07:27 PT 13.4 sec (9.0-12.0) H 10/07/18 14:07 INR 1.4 (<1.2) H 10/07/18 14:07 APTT 18.7 sec (22.0-30.0) L 10/05/18 14:00 Sodium 140 mmol/L (137-145) 10/08/18 07:27 Potassium 4.0 mmol/L (3.5-5.1) 10/08/18 07:27 Chloride 107 mmol/L (98-107) 10/08/18 07:27 Carbon Dioxide 25 mmol/L (22-30) 10/08/18 07:27 Anion Gap 8 mmol/L 10/08/18 07:27 BUN 20 mg/dL (9-20) 10/08/18 07:27 Creatinine 0.70 mg/dL (0.66-1.25) 10/08/18 07:27 Est GFR (CKD-EPI)AfAm >90 (>60 ml/min/1.73 sqM) 10/08/18 07:27 Est GFR (CKD-EPI)NonAf >90 (>60 ml/min/1.73 sqM) 10/08/18 07:27 Glucose 90 mg/dL (74-99) 10/08/18 07:27 POC Glucose (mg/dL) 92 mg/dL (75-99) 10/08/18 07:04 POC Glu Nonprofit Manager ID Rosmery Max 10/08/18 07:04 Lactic Ac Sepsis Rflx Y 10/05/18 15:10 Plasma Lactic Acid [place] 1.6 mmol/L (0.7-2.0) 10/08/18 17:45 Calcium 8.3 mg/dL (8.4-10.2) L 10/08/18 07:27 Ionized Calcium [place] 5.0 mg/dL (4.5-5.3) 10/07/18 16:36 Phosphorus 2.5 mg/dL (2.5-4.5) 10/08/18 07:27 Magnesium 2.1 mg/dL (1.6-2.3) 10/08/18 07:27 Total Bilirubin 0.9 mg/dL (0.2-1.3) 10/08/18 07:27 AST 22 U/L (17-59) 10/08/18 07:27 ALT 29 U/L (21-72) 10/08/18 07:27 Alkaline Phosphatase 64 U/L (38-126) 10/08/18 07:27 Creatine Kinase 122 U/L (55-170) 10/06/18 08:48 Total Creatine Kinase 89 U/L (55-170) 10/05/18 14:00 CK-MB (CK-2) 1.0 ng/mL (0.0-2.4) 10/05/18 14:00 CK-MB (CK-2) Rel Index 1.1 10/05/18 14:00 Troponin I <0.012 ng/mL (0.000-0.034) 10/05/18 14:00 Total Protein 5.2 g/dL (6.3-8.2) L 10/08/18 07:27 Albumin 2.5 g/dL (3.5-5.0) L 10/08/18 07:27 Triglycerides 154 mg/dL (<150) H 10/07/18 16:36 Amylase 40 U/L (30-110) 10/05/18 14:00 Lipase 34 U/L (23-300) 10/05/18 14:00 Urine Color Yellow 10/05/18 16:07 Urine Appearance Clear (Clear) 10/05/18 16:07 Urine pH 5.5 (5.0-8.0) 10/05/18 16:07 Ur Specific [place] 1.021 (1.001-1.035) 10/05/18 16:07 Urine Protein 1+ (Negative) H 10/05/18 16:07 Urine Glucose (UA) Negative (Negative) 10/05/18 16:07 Urine Ketones 3+ (Negative) H 10/05/18 16:07 Urine Blood Small (Negative) H 10/05/18 16:07 Urine Nitrite Negative (Negative) 10/05/18 16:07 Urine Bilirubin Negative (Negative) 10/05/18 16:07 Urine Urobilinogen 4.0 mg/dL (<2.0) 10/05/18 16:07 Ur Leukocyte Esterase Negative (Negative) 10/05/18 16:07 Urine RBC 11 /hpf (0-5) H 10/05/18 16:07 Urine WBC 1 /hpf (0-5) 10/05/18 16:07 Ur Squamous Epith Cells <1 /hpf (0-4) 10/05/18 16:07 Urine Mucus Occasional /hpf (None) H 10/05/18 16:07 Vancomycin Trough <5.0 ug/mL 10/08/18 19:33 Blood Type A Positive 10/08/18 12:41 Blood Type Confirm A Positive 10/08/18 07:27 Blood Type Recheck CABO Indicated 10/08/18 12:41 Antibody Screen NEGATIVE 10/08/18 12:41 Spec Expiration Date 10/11/2018 - 234010/08/18 12:41 Microbiology 10/07/18 21:27 Blood Blood Culture - Preliminary No Growth after 24 hours 10/05/18 14:00 Blood Blood Culture Gram Stain - Final 10/05/18 14:00 Blood Blood Culture - Final Micrococcus species 10/05/18 14:00 Blood Blood Culture - Final 10/05/18 16:07 Urine,Clean Catch Urine Culture - Final Assessment and Plan (1) Diverticulitis Narrative/Plan: 38 year male presents to Hospital with a several-day history of abdominal pain that had been progressive. The patient believes it may be kidney stones and was even given a trial tamsulosin. Computed tomography scan hour reveals no evidence of any nephrolithiasis or of any hydronephrosis. Computed tomography scan overdoes reveal evidence of the significant diverticulitis with some phlegmon formation and possibly early abscess formation possibly free air small amount from a microperforation. Perforation clinically seems to have occurred when he had the sudden severe onset of pain after feeling a popping sensation within his abdomen. He's been seen by surgery at this time. Antibiotic therapy will be altered at this point in time given his ongoing sepsis and the positive blood culture. It is currently identified as a gram- positive cocci unclear of this will be a staph or strep. Meropenem with vancomycin be utilized for now until we have further data given his known penicillin ALLERGY. Follow blood cultures are requested Requested for interaction with the surgeon, the patient likely will need to presents to surgery in the near future, he is not showing any significant improvements with antibiotic therapy and actually clinically he seems to be worsening. We will monitor. Attempt was made to call his [id number], Verito Partida. 10/08/2018 conversation with the patient's [id number], Verito partida RN has occurred. Patient is worsened will be taken the operating room for the exposure laparotomy today. Continue current antibiotic therapy until further cultures are available. We'll monitor. Current Visit: No Status: Acute Code(s): K57.92 - DVTRCLI OF INTEST, PART UNSP, W/O PERF OR ABSCESS W/O BLEED SNOMED Code(s): 719729285 (2) Sepsis Current Visit: Yes Status: Acute Code(s): A41.9 - SEPSIS, UNSPECIFIED ORGANISM SNOMED Code(s): 96084038 (3) Bacteremia due to Gram-positive bacteria Current Visit: Yes Status: Acute Code(s): R78.81 - BACTEREMIA SNOMED Code( s): 493736595212
[2018-10-09] MEDS: metroNIDAZOLE-NS PMX 500 MG in SALINE 1 100ML.BAG IVPB SCH ×4 (00:51→17:25)
[2018-10-09] MEDS: METOCLOPRAMIDE 5 MG/ML 2 ML VIAL IVP SCH ×4 (00:52→17:31)
[2018-10-09] MEDS: KETOROLAC 30 MG/ML 1 ML VIAL IVP SCH ×4 (00:52→17:31)
--- NOTE | 2018-10-09 02:18 | PN ---
PROGRESS NOTE DATE OF SERVICE: October 08, 2018. PRESENTING COMPLAINT: Abdominal pain. INTERVAL HISTORY: Patient admitted with ruptured diverticulitis with intraabdominal abscess on IV antibiotics and IV fluids. Saw this patient this morning. Abdominal pain a shade better, on IV antibiotics. Has a Hollingsworth catheter. The patient is awake. REVIEW OF SYSTEMS: Done for constitutional, cardiovascular, GI, pulmonary; relevant findings as above. CURRENT MEDICATIONS: Reviewed that include IV vancomycin, meropenem. PHYSICAL EXAMINATION: VITAL SIGNS: Temperature 97.1, pulse 99, respiration 17, blood pressure 120/72, pulse ox 94 percent on room air. GENERAL APPEARANCE: Lying in bed, awake. EYES: Pupils are equal. Conjunctivae normal. HEENT: External appearance of nose and ears normal. Oral cavity normal. NECK: JVD not raised. Mass not palpable. RESPIRATORY: Effort normal. LUNGS: Decreased breath sounds. CARDIOVASCULAR: 1st and 2nd sounds normal. No edema. ABDOMEN: Tender. No guarding or rigidity. Liver and spleen not palpable. PSYCHIATRY: Alert and oriented x3. Mood and affect normal. INVESTIGATIONS: White count 28.2, hemoglobin 14.1 potassium 4.0. Blood culture showing micrococcus. ASSESSMENT: 1. Acute diverticulitis with possible local perforation, suspect intraabdominal abscess with a septic picture. 2. Chronic nicotine dependence, patient does vaping. 3. Recreational marijuana use. 4. Hypoalbuminemia as an acute phase reactant. 5. Acute urinary retention from sepsis requiring Hollingsworth catheter. 6. Positive blood cultures with micrococcus. PLAN: Dr. Costello saw the patient last night. Antibiotics were adjusted accordingly. I spoke to the patient and his this morning and I told them that my preference will be surgery, but will let the surgeon decide with the patient. From my standpoint, that will be the preferred route. Continue current medication and treatment plan. The patient, when okay with surgical team, proceed with the TPN lipids. MMODL / IJN: [id number] /
[2018-10-09] MEDS: D5-0.45% NACL WITH KCL 20MEQ/L 1,000 ML IV SCH ×4 (02:32→17:31)
[2018-10-09] MEDS: VANCOMYCIN 1,750 MG in SODIUM CHLORIDE 0.9% 500 ML 500 ML IVPB SCH ×3 (02:36→17:31)
[2018-10-09] MEDS: MEROPENEM 2 GM in SODIUM CHLORIDE 0.9% 100 ML IVPB SCH ×3 (05:45→23:06)
[2018-10-09 08:40] LABS: Anion Gap 2 mmol/L; Blood Urea Nitrogen 21 mg/dL (9-20); Calcium 7.3 mg/dL (8.4-10.2); Carbon Dioxide 27 mmol/L (22-30); Chloride 111 mmol/L (98-107); Glucose 122 mg/dL (74-99); Magnesium 2.1 mg/dL (1.6-2.3); Phosphorus 2.1 mg/dL (2.5-4.5); Potassium 4.2 mmol/L (3.5-5.1); Sodium 140 mmol/L (137-145)
[2018-10-09 08:55] LABS: Basophils % (A) 0 %; Eosinophils % (A) 0 %; HCT 37.2 % (39.0-53.0); Lymphocytes # (A) 1.1 k/uL (1.0-4.8); Lymphocytes % (A) 6 %; MCH 30.7 pg (25.0-35.0); MCHC 32.2 g/dL (31.0-37.0); MCV 95.5 fL (80.0-100.0); Mean Platelet Volume 7.4; Monocytes # (A) 1.2 k/uL (0-1.0); Monocytes % (A) 6 %; Neutrophils # (A) 15.5 k/uL (1.3-7.7); Neutrophils % (A) 85 %; Platelet Count 320 k/uL (150-450); RDW 12.9 % (11.5-15.5); WBC 18.2 k/uL (3.8-10.6)
[2018-10-09] MEDS: PANTOPRAZOLE 40 MG/10 ML VIAL IVP SCH (10:06)
[2018-10-09] MEDS: HEPARIN SODIUM,PORCINE 5,000 UNIT/ML 1 ML VIAL SQ SCH ×2 (10:06→23:06)
[2018-10-09] MEDS ORDERED: Phosphorus Replacement Protoco 1 EACH MISC MISCELLANE PRN (10:13)
[2018-10-09] MEDS ORDERED: Potassium Replacement Protocol 1 EACH MISC MISCELLANE PRN (10:13)
[2018-10-09] MEDS ORDERED: SODIUM PHOSPHATE 10 MMOL in SODIUM CHLORIDE 0.9% 100 ML IVPB SCH (10:15)
[2018-10-09] MEDS ORDERED: SODIUM GLYCEROPHOSPHATE 20 MMOL in SODIUM CHLORIDE 0.9% 250 ML IV ONE ×2 (10:30→15:00)
[2018-10-09] MEDS: ROPIVACAINE 250 MG, HYDROMORPHONE (PF) 5 MG in SODIUM CHLORIDE 0.9% 200 ML EPIDURAL PRN ×2 (12:02→13:50)
[2018-10-09] MEDS ORDERED: SODIUM CHLORIDE 0.9% 1,000 ML IV ONE (16:29)
--- NOTE | 2018-10-09 16:36 | P.PN ---
Subjective Progress Note Date: 10/09/18 CHIEF COMPLAINT: Status post descending colostomy and drainage of pelvic abscess HISTORY OF PRESENT ILLNESS: The patient is a 38-year-old male who comes in with history of perforated diverticulitis and sepsis. Yesterday, he reported increased abdominal pain and developed acute bowel obstruction. He was taken to the operating room with findings of localized abscess within the pelvis including complete small bowel obstruction involving the right lower pelvis. He is postoperative day 1. Since surgery, his white count has dropped by 50% for improvement. His pain is well-controlled. He is epidural. He has or any started some flatus and his Coloplast. "I feel so much better." PHYSICAL EXAM: GENERAL: Well-developed in no acute distress. HEENT: No sclera icterus. Extraocular movements grossly intact. Moist buccal mucosa. Head is atraumatic, normocephalic. Hears conversational speech. No nasal drainage. NG tube dark bilious. NECK: Supple without lymphadenopathy. CHEST: Non-labored respirations and equal bilateral excursions. CARDIOVASCULAR: 2+ radial pulses. Tachycardic. ABDOMEN: Ostomy pink patent functioning. Incision intact. SETH serosanguineous MUSCULOSKELETAL: No clubbing, cyanosis or edema. NEUROLOGIC: No focal or lateralizing signs. Cranial nerves II through XII grossly intact. PSYCH: Alert and oriented to person, place and time. : Dark tea-colored urine. SKIN: Well perfused. Good skin turgor. LABS: Reviewed ASSESSMENT: 1. Perforated diverticulitis with pelvic abscess 2. Acute small bowel obstruction 3. Peritonitis with sepsis PLAN: 1. Continue NG tube 2. Ostomy nurse consultation for new colostomy 3. PICC line for antibiotics and TPN 4. Continue epidural for maximum pain control 5. Antibiotic management per infectious disease 6. Continue SETH drain upon discharge 7. Additional IV boluses for dark urine and dehydration 8. Continue Hollingsworth for pre-existing urinary retention 9. May have ice chips and popsicles. Objective - Vital Signs Vital signs: Vital Signs Temp 98.5 F 10/09/18 15:00 Pulse 101 H 10/09/18 15:00 Resp 17 10/09/18 15:00 BP 120/80 10/09/18 15:00 Pulse Ox 97 10/09/18 15:00 Intake & Output 10/08/18 10/09/18 10/09/18 18:59 06:59 18:59 Intake Total 3598 1500 16.2 Output Total 750 570 Balance 2848 930 16.2 Weight 80.286 kg Intake: IV 3598 Intake, IV Titration 1500 16.2 Amount D5-0.45% NaCl with KCl 1500 20Meq/l 1,000 ml @ 150 mls/hr IV .[id number] JILLIAN Rx# :[id number] Ropivacaine 250 mg 16.2 Hydromorphone (Pf) 5 mg In Sodium Chloride 0.9% 200 ml @ Per Protocol EPIDURAL .Q0M PRN Rx#: [id number] Output: Drainage 70 Abdomen 70 Urine 550 500 Estimated Blood Loss 200 Other: Voiding Method Indwelling Catheter Indwelling Catheter - Labs CBC & Chem 7: 10/09/18 07:19 10/09/18 07:19 Labs: Abnormal Lab Results - Last 24 Hours (Table) 10/09/18 10/09/18 Range/Units 07:19 07:19 WBC 18.2 H (3.8-10.6) k/uL RBC 3.90 L (4.30-5.90) m/uL Hgb 12.0 L (13.0-17.5) gm/dL Hct 37.2 L (39.0-53.0) % Neutrophils # 15.5 H (1.3-7.7) k/uL Monocytes # 1.2 H (0-1.0) k/uL Chloride 111 H (98-107) mmol/L BUN 21 H (9-20) mg/dL Glucose 122 H (74-99) mg/dL Calcium 7.3 L (8.4-10.2) mg/dL Phosphorus 2.1 L (2.5-4.5) mg/dL Microbiology - Last 24 Hours (Table) 10/08/18 17:00 Gram Stain - Preliminary Other - Other Wound Culture - Preliminary 10/08/18 17:00 Gram Stain - Preliminary Other - Other Tissue Culture - Preliminary 10/08/18 17:00 Gram Stain - Preliminary Other - Other Wound Culture - Preliminary 10/07/18 22:41 Blood Culture - Preliminary Blood No Growth after 24 hours 10/08/18 17:00 Anaerobic Culture - Preliminary Other - Other 10/08/18 17:00 Anaerobic Culture - Preliminary Other - Other 10/08/18 17:00 Anaerobic Culture - Preliminary Tissue - Other 10/07/18 21:27 Blood Culture - Preliminary Blood No Growth after 24 hours Assessment and Plan (1) Perforation of sigmoid colon due to diverticulitis Current Visit: Yes Status: Acute Code(s): K57.20 - DVTRCLI OF LG INT W PERFORATION AND ABSCESS W/O BLEEDING SNOMED Code(s): 8452079930549137 (2) Peritoneal abscess Current Visit: Yes Status: Acute Code(s): K65.1 - PERITONEAL ABSCESS SNOMED Code(s): 75505799 (3) SBO (small bowel obstruction) Current Visit: Yes Status: Acute Code(s): K56.609 - UNSP INTESTNL OBST, UNSP TO PARTIAL VERSUS COMPLETE OBST SNOMED Code(s): 020436129 (4) Peritonitis (acute) generalized Current Visit: Yes Status: Acute Code(s): K65.0 - GENERALIZED (ACUTE) PERITONITIS SNOMED Code(s): 56249253 (5) Ascites Current Visit: Yes Status: Acute Code(s): R18.8 - OTHER ASCITES SNOMED Code(s): 981875824 (6) Dehydration Current Visit: Yes Status: Acute Code(s): E86.0 - DEHYDRATION SNOMED Code( s): 10132876 (7) Urinary retention Current Visit: Yes Status: Acute Code(s): R33.9 - RETENTION OF URINE, UNSPECIFIED SNOMED Code(s): 457779746 (8) Bacteremia due to Gram-positive bacteria Current Visit: Yes Status: Acute Code(s): R78.81 - BACTEREMIA SNOMED Code( s): 318639917735 (9) Sepsis Current Visit: Yes Status: Acute Code(s): A41.9 - SEPSIS, UNSPECIFIED ORGANISM SNOMED Code(s): 54414564
[2018-10-09] MEDS ORDERED: BENZOCAINE SPRAY 1 CAN MUCOUS MEM PRN (16:39)
--- NOTE | 2018-10-09 17:44 | P.PN ---
Progress Note - Text 10/09 7588 58-year-old male status post exploratory lap and colostomy by Dr. Cedillo. Patient has an epidural catheter for postop pain control, solution running at 7 mL an hour with a VAS of 2. No motor or sensory deficit noted. Plan to continue epidural infusion
--- NOTE | 2018-10-09 21:28 | PN ---
PROGRESS NOTE DATE OF SERVICE: 10/09/18. PRESENTING COMPLAINT: Abdominal pain. INTERVAL HISTORY: This patient presented with ruptured diverticulitis with intraabdominal abscess. The patient had surgical intervention done yesterday and has a colostomy bag and SETH drain and wound VAC in place. Abdominal pain is much better. Also has NG tube in place. Also got epidural for pain control. Family including , [id number] at the bedside. REVIEW OF SYSTEMS: Done for constitutional, cardiovascular, GI, pulmonary; relevant findings as above. CURRENT MEDICATIONS: Reviewed that include IV meropenem, IV Flagyl, IV vancomycin. PHYSICAL EXAMINATION: Temperature 98.8, pulse 104, respirations 17, blood pressure 109/80, pulse ox 96% on room air. GENERAL APPEARANCE: Lying in bed, awake. EYES: Pupils equal. Conjunctivae normal. HEENT: External appearance of nose and ears normal. Oral cavity normal. NG tube in place. NECK: JVD not raised. Mass not palpable. RESPIRATORY: Effort normal. Lungs fair entry. CARDIOVASCULAR: First and second sounds normal. No edema. ABDOMEN: Tender. SETH drain in place. Left-sided colostomy. Incision wound VAC in place. PSYCHIATRY: Alert and oriented x3. Mood and affect normal. INVESTIGATIONS: White count 18.2, hemoglobin 12.0, potassium 4.2. ASSESSMENT: 1. Acute perforated diverticulitis with intraabdominal abscess, status post surgical intervention. 2. Patient has a SETH drain, wound VAC in place and left-sided colostomy. 3. Chronic nicotine dependence. Patient does vaping. 4. Recreational marijuana use. 5. Hypoalbuminemia as an acute phase reactant. 6. Acute urinary retention from sepsis requiring Hollingsworth catheter. 7. Positive blood cultures with micrococcus. PLAN: At this point, continue with broad-spectrum antibiotics when okay with Dr. Cedillo. TPN and lipids to be started. The patient will need a PICC line for the same. Care was discussed the patient and his and [id number]. All questions were answered. MMODL / IJN: [id number] /
--- NOTE | 2018-10-09 22:40 | P.PN ---
Subjective Progress Note Date: 10/09/18 Pleasant 38-year-old male who does not have a history of significant underlying medical troubles relates that several days before admission to hospital he was starting to have some significant abdominal pain. He thought maybe he was having hernia given the discomfort into his right lower aspect of his abdomen. Eventually because of his discomforts he was seen by his primary care physician there was concerns to appendicitis or nephrolithiasis. He was given some tamsulosin determine if this would give him relief. After 48 hours he had no improvement and she started to have some worsening. The patient relates he then had what felt like a popping sensation in his abdomen associate with severe generalized abdominal pain thereafter. He constantly called 911 and was brought to hospital. Computed tomography scan does reveal evidence of diverticulitis with phlegmon changes, cannot rule out microperforation. The patient is now had some further worsening. Positive culture was called and the infectious diseases evaluation was requested. 10/08/2018 patient is continued to worsen, abdomen is more distended. Surgeon is now evaluated and will be taken to the operating room for exploratory laparotomy 10/09/2018 the patient is now status post surgery and is feeling considerably better. His severe pain has resolved. There is a small amount of gas that is becoming evident in the ostomy pouch. The patient relates he feels considerably better. Has an NG tube still in place however some moisture to his oral cavity is being allowed by the general surgeon. The patient family understand that there was a perforated sigmoid diverticulum with a localized abscess and small bowel obstruction due to the inflammation. He is now doing considerably better and does have the negative pressure therapy system intact over the surgical site. His fevers have resolved. Objective - Vital Signs Vital signs: Vital Signs Temp 98.5 F 10/09/18 15:00 Pulse 101 H 10/09/18 15:00 Resp 17 10/09/18 16:00 BP 120/80 10/09/18 15:00 Pulse Ox 97 10/09/18 15:00 Intake & Output 10/09/18 10/09/18 10/10/18 06:59 18:59 06:59 Intake Total 1500 1216.2 Output Total 570 740 Balance 930 476.2 Intake: IV 100 metroNIDAZOLE-NS PMX 500 100 mg In Saline 1 100ml.bag @ 100 mls/hr IVPB Q6HR [facility] Rx#:[id number] Intake, IV Titration 1500 1116.2 Amount D5-0.45% NaCl with KCl 1500 1000 20Meq/l 1,000 ml @ 150 mls/hr IV .Q6H40M [facility] Rx# :[id number] Meropenem 2 gm In Sodium 100 Chloride 0.9% 100 ml @ 200 mls/hr IVPB Q8H [facility] Rx#:[id number] Ropivacaine 250 mg 16.2 Hydromorphone (Pf) 5 mg In Sodium Chloride 0.9% 200 ml @ Per Protocol EPIDURAL .Q0M PRN Rx#: [id number] Output: Drainage 70 40 Abdomen 70 40 Urine 500 550 Oral Regurgitation 150 Other: Voiding Method Indwelling Catheter Indwelling Catheter - Exam Pleasant 38-year-old male who is very uncomfortable and has had fever currently the temperature is improved and not having chills at this time HEENT: Anicteric conjunctiva are pink and moist nasal mucosa grossly intact without significant lesions, there is no thrush. Oral mucosa is dry Neck: The neck is supple without significant lymphadenopathy or thyromegaly. Lungs: Good bilateral air entry without significant crackles or wheezing. There is no significant bronchial sounds. There is no egophony or dullness. Heart: Regular rate and rhythm with an audible S1-S2, no S3 no S4. There is no significant murmur click or rub, PMI was nondisplaced. Abdomen: Abdomen is postsurgical, few bowel sounds are heard. The stoma is healthy and there is evidence of a scant amount of gas in the ostomy pouch. The diffuse abdominal tenderness is now considerably improved. The abdomen is no longer rigid and no rebound was noted. Extremities: The upper extremities have excellent pulses they are symmetric, no significant petechiae or telangiectasia. No splinter hemorrhages were noted. The lower extremities are free from significant edema. The peripheral pulses were 2+ and symmetric. Neuro: Awake alert oriented to person place and time. There are no acute new gross focal sensory motor deficits. - Labs CBC & Chem 7: 10/09/18 07:19 10/09/18 07:19 Labs: Abnormal Lab Results - Last 24 Hours (Table) 10/09/18 10/09/18 Range/Units 07:19 07:19 WBC 18.2 H (3.8-10.6) k/uL RBC 3.90 L (4.30-5.90) m/uL Hgb 12.0 L (13.0-17.5) gm/dL Hct 37.2 L (39.0-53.0) % Neutrophils # 15.5 H (1.3-7.7) k/uL Monocytes # 1.2 H (0-1.0) k/uL Chloride 111 H (98-107) mmol/L BUN 21 H (9-20) mg/dL Glucose 122 H (74-99) mg/dL Calcium 7.3 L (8.4-10.2) mg/dL Phosphorus 2.1 L (2.5-4.5) mg/dL Microbiology - Last 24 Hours (Table) 10/08/18 17:00 Gram Stain - Preliminary Other - Other Tissue Culture - Preliminary 10/08/18 17:00 Gram Stain - Preliminary Other - Other Wound Culture - Preliminary 10/08/18 17:00 Gram Stain - Preliminary Other - Other Wound Culture - Preliminary Gram Neg Bacilli 10/07/18 22:41 Blood Culture - Preliminary Blood No Growth after 24 hours 10/08/18 17:00 Anaerobic Culture - Preliminary Other - Other 10/08/18 17:00 Anaerobic Culture - Preliminary Other - Other 10/08/18 17:00 Anaerobic Culture - Preliminary Tissue - Other 10/07/18 21:27 Blood Culture - Preliminary Blood No Growth after 24 hours Laboratory Results WBC 18.2 k/uL (3.8-10.6) H 10/09/18 07:19 RBC 3.90 m/uL (4.30-5.90) L 10/09/18 07:19 Hgb 12.0 gm/dL (13.0-17.5) L 10/09/18 07:19 Hct 37.2 % (39.0-53.0) L 10/09/18 07:19 MCV 95.5 fL (80.0-100.0) 10/09/18 07:19 MCH 30.7 pg (25.0-35.0) 10/09/18 07:19 MCHC 32.2 g/dL (31.0-37.0) 10/09/18 07:19 RDW 12.9 % (11.5-15.5) 10/09/18 07:19 Plt Count 320 k/uL (150-450) 10/09/18 07:19 Neutrophils % 85 % 10/09/18 07:19 Lymphocytes % 6 % 10/09/18 07:19 Monocytes % 6 % 10/09/18 07:19 Eosinophils % 0 % 10/09/18 07:19 Basophils % 0 % 10/09/18 07:19 Neutrophils # 15.5 k/uL (1.3-7.7) H 10/09/18 07:19 Lymphocytes # 1.1 k/uL (1.0-4.8) 10/09/18 07:19 Monocytes # 1.2 k/uL (0-1.0) H 10/09/18 07:19 Eosinophils # 0.0 k/uL (0-0.7) 10/09/18 07:19 Basophils # 0.0 k/uL (0-0.2) 10/09/18 07:19 PT 13.4 sec (9.0-12.0) H 10/07/18 14:07 INR 1.4 (<1.2) H 10/07/18 14:07 APTT 18.7 sec (22.0-30.0) L 10/05/18 14:00 Sodium 140 mmol/L (137-145) 10/09/18 07:19 Potassium 4.2 mmol/L (3.5-5.1) 10/09/18 07:19 Chloride 111 mmol/L (98-107) H 10/09/18 07:19 Carbon Dioxide 27 mmol/L (22-30) 10/09/18 07:19 Anion Gap 2 mmol/L 10/09/18 07:19 BUN 21 mg/dL (9-20) H 10/09/18 07:19 Creatinine 0.72 mg/dL (0.66-1.25) 10/09/18 07:19 Est GFR (CKD-EPI)AfAm >90 (>60 ml/min/1.73 sqM) 10/09/18 07:19 Est GFR (CKD-EPI)NonAf >90 (>60 ml/min/1.73 sqM) 10/09/18 07:19 Glucose 122 mg/dL (74-99) H 10/09/18 07:19 POC Glucose (mg/dL) 92 mg/dL (75-99) 11/16/18 07:04 POC Glu Tableau Administrator ID Rosmery Max 10/08/18 07:04 Lactic Ac Sepsis Rflx Y 10/05/18 15:10 Plasma Lactic Acid [place] 1.6 mmol/L (0.7-2.0) 10/08/18 17:45 Calcium 7.3 mg/dL (8.4-10.2) L 10/09/18 07:19 Ionized Calcium [place] 5.0 mg/dL (4.5-5.3) 10/07/18 16:36 Phosphorus 2.1 mg/dL (2.5-4.5) L 10/09/18 07:19 Magnesium 2.1 mg/dL (1.6-2.3) 10/09/18 07:19 Total Bilirubin 0.9 mg/dL (0.2-1.3) 10/08/18 07:27 AST 22 U/L (17-59) 10/08/18 07:27 ALT 29 U/L (21-72) 10/08/18 07:27 Alkaline Phosphatase 64 U/L (38-126) 10/08/18 07:27 Creatine Kinase 122 U/L (55-170) 10/06/18 08:48 Total Creatine Kinase 89 U/L (55-170) 10/05/18 14:00 CK-MB (CK-2) 1.0 ng/mL (0.0-2.4) 10/05/18 14:00 CK-MB (CK-2) Rel Index 1.1 10/05/18 14:00 Troponin I <0.012 ng/mL (0.000-0.034) 10/05/18 14:00 Total Protein 5.2 g/dL (6.3-8.2) L 10/08/18 07:27 Albumin 2.5 g/dL (3.5-5.0) L 10/08/18 07:27 Triglycerides 154 mg/dL (<150) H 10/07/18 16:36 Amylase 40 U/L (30-110) 10/05/18 14:00 Lipase 34 U/L (23-300) 10/05/18 14:00 Urine Color Yellow 10/05/18 16:07 Urine Appearance Clear (Clear) 10/05/18 16:07 Urine pH 5.5 (5.0-8.0) 10/05/18 16:07 Ur Specific [place] 1.021 (1.001-1.035) 10/05/18 16:07 Urine Protein 1+ (Negative) H 10/05/18 16:07 Urine Glucose (UA) Negative (Negative) 10/05/18 16:07 Urine Ketones 3+ (Negative) H 10/05/18 16:07 Urine Blood Small (Negative) H 10/05/18 16:07 Urine Nitrite Negative (Negative) 10/05/18 16:07 Urine Bilirubin Negative (Negative) 10/05/18 16:07 Urine Urobilinogen 4.0 mg/dL (<2.0) 10/05/18 16:07 Ur Leukocyte Esterase Negative (Negative) 10/05/18 16:07 Urine RBC 11 /hpf (0-5) H 10/05/18 16:07 Urine WBC 1 /hpf (0-5) 10/05/18 16:07 Ur Squamous Epith Cells <1 /hpf (0-4) 10/05/18 16:07 Urine Mucus Occasional /hpf (None) H 10/05/18 16:07 Vancomycin Trough <5.0 ug/mL 10/08/18 19:33 Blood Type A Positive 10/08/18 12:41 Blood Type Confirm A Positive 10/08/18 07:27 Blood Type Recheck CABO Indicated 10/08/18 12:41 Antibody Screen NEGATIVE 10/08/18 12:41 Spec Expiration Date 10/11/2018 - 2341 10/08/18 12:41 Microbiology 10/08/18 17:00 Other - Other Gram Stain - Preliminary 10/08/18 17:00 Other - Other Tissue Culture - Preliminary 10/08/18 17:00 Other - Other Gram Stain - Preliminary 10/08/18 17:00 Other - Other Wound Culture - Preliminary 10/08/18 17:00 Other - Other Gram Stain - Preliminary 10/08/18 17:00 Other - Other Wound Culture - Preliminary Gram Neg Bacilli 10/07/18 22:41 Blood Blood Culture - Preliminary No Growth after 24 hours 10/08/18 17:00 Other - Other Anaerobic Culture - Preliminary 10/08/18 17:00 Other - Other Anaerobic Culture - Preliminary 10/08/18 17:00 Tissue - Other Anaerobic Culture - Preliminary 10/07/18 21:27 Blood Blood Culture - Preliminary No Growth after 24 hours 10/05/18 14:00 Blood Blood Culture Gram Stain - Final 10/05/18 14:00 Blood Blood Culture - Final Micrococcus species 10/05/18 14:00 Blood Blood Culture - Final 10/05/18 16:07 Urine,Clean Catch Urine Culture - Final Assessment and Plan (1) Diverticulitis Narrative/Plan: 38 year male presents to Hospital with a several-day history of abdominal pain that had been progressive. The patient believes it may be kidney stones and was even given a trial tamsulosin. Computed tomography scan hour reveals no evidence of any nephrolithiasis or of any hydronephrosis. Computed tomography scan overdoes reveal evidence of the significant diverticulitis with some phlegmon formation and possibly early abscess formation possibly free air small amount from a microperforation. Perforation clinically seems to have occurred when he had the sudden severe onset of pain after feeling a popping sensation within his abdomen. He's been seen by surgery at this time. Antibiotic therapy will be altered at this point in time given his ongoing sepsis and the positive blood culture. It is currently identified as a gram- positive cocci unclear of this will be a staph or strep. Meropenem with vancomycin be utilized for now until we have further data given his known penicillin ALLERGY. Follow blood cultures are requested Requested for interaction with the surgeon, the patient likely will need to presents to surgery in the near future, he is not showing any significant improvements with antibiotic therapy and actually clinically he seems to be worsening. We will monitor. Attempt was made to call his [id number], Verito Partida. 10/08/2018 conversation with the patient's [id number], Verito partida RN has occurred. Patient is worsened will be taken the operating room for the exposure laparotomy today. Continue current antibiotic therapy until further cultures are available. We'll monitor. 10/09/2018 the patient is now status post exporter laparotomy which found evidence of the perforation and abscess in the left lower quadrant the sigmoid colon which has been resected and the colostomy has been applied. The patient is now considerably improved overnight. His fevers resolved. His leukocytosis is improving. His abdominal pain is considerably improved and he is pleased that he is doing so well at this time. Given the extent of the infection and the localized peritonitis the patient will require a couple week course of intravenous antibiotic therapy for this extensive infectious process. PICC line will be placed, Thursday and we'll make plans for outpatient intravenous antibiotic therapy potentially coming to the infusion clinic on a daily basis. Current Visit: No Status: Acute Code(s): K57.92 - DVTRCLI OF INTEST, PART UNSP, W/O PERF OR ABSCESS W/O BLEED SNOMED Code(s): 947613795 (2) Sepsis Current Visit: Yes Status: Acute Code(s): A41.9 - SEPSIS, UNSPECIFIED ORGANISM SNOMED Code(s): 91489306 (3) Bacteremia due to Gram-positive bacteria Current Visit: Yes Status: Acute Code(s): R78.81 - BACTEREMIA SNOMED Code( s): 001587632158
[2018-10-10] MEDS: KETOROLAC 30 MG/ML 1 ML VIAL IVP SCH ×4 (00:10→18:19)
[2018-10-10] MEDS: metroNIDAZOLE-NS PMX 500 MG in SALINE 1 100ML.BAG IVPB SCH ×4 (00:10→17:13)
[2018-10-10] MEDS: METOCLOPRAMIDE 5 MG/ML 2 ML VIAL IVP SCH ×4 (00:11→18:20)
[2018-10-10] MEDS: VANCOMYCIN 1,750 MG in SODIUM CHLORIDE 0.9% 500 ML 500 ML IVPB SCH ×3 (02:29→18:19)
[2018-10-10] MEDS: MEROPENEM 2 GM in SODIUM CHLORIDE 0.9% 100 ML IVPB SCH ×3 (05:01→22:16)
[2018-10-10 08:06] LABS: Anion Gap 6 mmol/L; Blood Urea Nitrogen 13 mg/dL (9-20); Calcium 7.4 mg/dL (8.4-10.2); Carbon Dioxide 26 mmol/L (22-30); Chloride 110 mmol/L (98-107); Glucose 94 mg/dL (74-99); Magnesium 2.1 mg/dL (1.6-2.3); Phosphorus 1.8 mg/dL (2.5-4.5); Potassium 3.7 mmol/L (3.5-5.1); Sodium 142 mmol/L (137-145)
[2018-10-10] MEDS ORDERED: VANCOMYCIN TROUGH DUE 1 EACH MISC MISCELLANE ONE (09:00)
[2018-10-10 09:07] LABS: HCT 37.1 % (39.0-53.0); MCH 30.9 pg (25.0-35.0); MCHC 32.2 g/dL (31.0-37.0); Platelet Count 338 k/uL (150-450); RBC 3.87 m/uL (4.30-5.90); RDW 13.3 % (11.5-15.5); WBC 18.1 k/uL (3.8-10.6)
[2018-10-10] MEDS: HEPARIN SODIUM,PORCINE 5,000 UNIT/ML 1 ML VIAL SQ SCH ×2 (09:23→22:16)
[2018-10-10] MEDS: PANTOPRAZOLE 40 MG/10 ML VIAL IVP SCH (09:23)
[2018-10-10] MEDS: D5-0.45% NACL WITH KCL 20MEQ/L 1,000 ML IV SCH ×3 (09:24→20:06)
[2018-10-10 11:47] LABS: Eosinophils # (M) 0.18 k/uL (0-0.7); Lymphocytes # (M) 1.27 k/uL (1.0-4.8); Metamyelocytes # (M) 0.18 k/uL (0); Metamyelocytes % 1 %; Monocytes # (M) 0.72 k/uL (0-1.0); Neutrophils # (M) 15.93 k/uL (1.3-7.7); Neutrophils % (M) 88 %; Nucleated Red Blood Cells 0 /100 WBC (0-0); Total Cells Counted 200
[2018-10-10] MEDS ORDERED: diphenhydrAMINE 50 MG/ML 1 ML VIAL IVP PRN (12:00)
[2018-10-10] MEDS: ROPIVACAINE 250 MG, HYDROMORPHONE (PF) 5 MG in SODIUM CHLORIDE 0.9% 200 ML EPIDURAL PRN ×4 (13:29→20:06)
--- NOTE | 2018-10-10 13:32 | P.PN ---
Subjective Progress Note Date: 10/10/18 Pleasant 38-year-old male who does not have a history of significant underlying medical troubles relates that several days before admission to hospital he was starting to have some significant abdominal pain. He thought maybe he was having hernia given the discomfort into his right lower aspect of his abdomen. Eventually because of his discomforts he was seen by his primary care physician there was concerns to appendicitis or nephrolithiasis. He was given some tamsulosin determine if this would give him relief. After 48 hours he had no improvement and she started to have some worsening. The patient relates he then had what felt like a popping sensation in his abdomen associate with severe generalized abdominal pain thereafter. He constantly called 911 and was brought to hospital. Computed tomography scan does reveal evidence of diverticulitis with phlegmon changes, cannot rule out microperforation. The patient is now had some further worsening. Positive culture was called and the infectious diseases evaluation was requested. 10/08/2018 patient is continued to worsen, abdomen is more distended. Surgeon is now evaluated and will be taken to the operating room for exploratory laparotomy 10/09/2018 the patient is now status post surgery and is feeling considerably better. His severe pain has resolved. There is a small amount of gas that is becoming evident in the ostomy pouch. The patient relates he feels considerably better. Has an NG tube still in place however some moisture to his oral cavity is being allowed by the general surgeon. The patient family understand that there was a perforated sigmoid diverticulum with a localized abscess and small bowel obstruction due to the inflammation. He is now doing considerably better and does have the negative pressure therapy system intact over the surgical site. His fevers have resolved. 10/10/2018 patient is feeling better today. He is allowed to have Popsicle and he is quite pleased. No nausea is occurring. Abdominal pain is improving. Overall is pleased with his improvement. Objective - Vital Signs Vital signs: Vital Signs Temp 98.8 F 10/10/18 07:00 Pulse 108 H 10/10/18 07:00 Resp 18 10/10/18 07:00 BP 125/84 10/10/18 07:00 Pulse Ox 93 L 10/09/18 23:51 Intake & Output 10/09/18 10/10/18 10/10/18 18:59 06:59 18:59 Intake Total 1216.2 200 Output Total 740 1530 Balance 476.2 -1330 Intake: IV 100 metroNIDAZOLE-NS PMX 500 100 mg In Saline 1 100ml.bag @ 100 mls/hr IVPB Q6HR [facility] Rx#:[id number] Intake, IV Titration 1116.2 200 Amount D5-0.45% NaCl with KCl 1000 20Meq/l 1,000 ml @ 150 mls/hr IV .Q6H40M [facility] Rx# :[id number] Meropenem 2 gm In Sodium 100 200 Chloride 0.9% 100 ml @ 200 mls/hr IVPB Q8H [facility] Rx#:[id number] Ropivacaine 250 mg 16.2 Hydromorphone (Pf) 5 mg In Sodium Chloride 0.9% 200 ml @ Per Protocol EPIDURAL .Q0M PRN Rx#: [id number] Output: Drainage 40 30 Abdomen 40 30 Urine 550 1500 Oral Regurgitation 150 Other: Voiding Method Indwelling Catheter Indwelling Catheter Indwelling Catheter - Exam Pleasant 38-year-old male who is very uncomfortable and has had fever currently the temperature is improved and not having chills at this time HEENT: Anicteric conjunctiva are pink and moist nasal mucosa grossly intact without significant lesions, there is no thrush. Oral mucosa is dry Neck: The neck is supple without significant lymphadenopathy or thyromegaly. Lungs: Good bilateral air entry without significant crackles or wheezing. There is no significant bronchial sounds. There is no egophony or dullness. Heart: Regular rate and rhythm with an audible S1-S2, no S3 no S4. There is no significant murmur click or rub, PMI was nondisplaced. Abdomen: Abdomen is postsurgical, few bowel sounds are heard. The stoma is healthy and there is evidence of a scant amount of gas in the ostomy pouch. The diffuse abdominal tenderness is now considerably improved. The abdomen is no longer rigid and no rebound was noted. Extremities: The upper extremities have excellent pulses they are symmetric, no significant petechiae or telangiectasia. No splinter hemorrhages were noted. The lower extremities are free from significant edema. The peripheral pulses were 2+ and symmetric. Neuro: Awake alert oriented to person place and time. There are no acute new gross focal sensory motor deficits. - Labs CBC & Chem 7: 10/10/18 07:05 10/10/18 07:05 Labs: Abnormal Lab Results - Last 24 Hours (Table) 10/10/18 10/10/18 Range/Units 07:05 07:05 WBC 18.1 H (3.8-10.6) k/uL RBC 3.87 L (4.30-5.90) m/uL Hgb 12.0 L (13.0-17.5) gm/dL Hct 37.1 L (39.0-53.0) % Neutrophils # (Manual) 15.93 H (1.3-7.7) k/uL Metamyelocytes # (Man) 0.18 H (0) k/uL Chloride 110 H (98-107) mmol/L Creatinine 0.57 L (0.66-1.25) mg/dL Calcium 7.4 L (8.4-10.2) mg/dL Phosphorus 1.8 L (2.5-4.5) mg/dL Microbiology - Last 24 Hours (Table) 10/07/18 22:41 Blood Culture - Preliminary Blood No Growth after 48 hours 10/07/18 21:27 Blood Culture - Preliminary Blood No Growth after 48 hours 10/08/18 17:00 Gram Stain - Preliminary Other - Other Tissue Culture - Preliminary 10/08/18 17:00 Gram Stain - Preliminary Other - Other Wound Culture - Preliminary 10/08/18 17:00 Gram Stain - Preliminary Other - Other Wound Culture - Preliminary Gram Neg Bacilli Laboratory Results WBC 18.1 k/uL (3.8-10.6) H 10/10/18 07:05 RBC 3.87 m/uL (4.30-5.90) L 10/10/18 07:05 Hgb 12.0 gm/dL (13.0-17.5) L 10/10/18 07:05 Hct 37.1 % (39.0-53.0) L 10/10/18 07:05 MCV 96.0 fL (80.0-100.0) 10/10/18 07:05 MCH 30.9 pg (25.0-35.0) 10/10/18 07:05 MCHC 32.2 g/dL (31.0-37.0) 10/10/18 07:05 RDW 13.3 % (11.5-15.5) 10/10/18 07:05 Plt Count 338 k/uL (150-450) 10/10/18 07:05 Neutrophils % 85 % 10/09/18 07:19 Neutrophils % (Manual) 88 % 10/10/18 07:05 Lymphocytes % 6 % 10/09/18 07:19 Lymphocytes % (Manual) 7 % 10/10/18 07:05 Monocytes % 6 % 10/09/18 07:19 Monocytes % (Manual) 4 % 10/10/18 07:05 Eosinophils % 0 % 10/09/18 07:19 Eosinophils % (Manual) 1 % 10/10/18 07:05 Basophils % 0 % 10/09/18 07:19 Metamyelocytes % 1 % 10/10/18 07:05 Neutrophils # 15.5 k/uL (1.3-7.7) H 10/09/18 07:19 Neutrophils # (Manual) 15.93 k/uL (1.3-7.7) H 10/10/18 07:05 Lymphocytes # 1.1 k/uL (1.0-4.8) 10/09/18 07:19 Lymphocytes # (Manual) 1.27 k/uL (1.0-4.8) 10/10/18 07:05 Monocytes # 1.2 k/uL (0-1.0) H 10/09/18 07:19 Monocytes # (Manual) 0.72 k/uL (0-1.0) 10/10/18 07:05 Eosinophils # 0.0 k/uL (0-0.7) 10/09/18 07:19 Eosinophils # (Manual) 0.18 k/uL (0-0.7) 10/10/18 07:05 Basophils # 0.0 k/uL (0-0.2) 10/09/18 07:19 Metamyelocytes # (Man) 0.18 k/uL (0) H 10/10/18 07:05 Nucleated RBCs 0 /100 WBC (0-0) 10/10/18 07:05 Manual Slide Review Performed 10/10/18 07:05 RBC Morphology Normal 10/10/18 07:05 PT 13.4 sec (9.0-12.0) H 10/07/18 14:07 INR 1.4 (<1.2) H 10/07/18 14:07 APTT 18.7 sec (22.0-30.0) L 10/05/18 14:00 Sodium 142 mmol/L (137-145) 10/10/18 07:05 Potassium 3.7 mmol/L (3.5-5.1) 10/10/18 07:05 Chloride 110 mmol/L (98-107) H 10/10/18 07:05 Carbon Dioxide 26 mmol/L (22-30) 10/10/18 07:05 Anion Gap 6 mmol/L 10/10/18 07:05 BUN 13 mg/dL (9-20) 10/10/18 07:05 Creatinine 0.57 mg/dL (0.66-1.25) L 10/10/18 07:05 Est GFR (CKD-EPI)AfAm >90 (>60 ml/min/1.73 sqM) 10/10/18 07:05 Est GFR (CKD-EPI)NonAf >90 (>60 ml/min/1.73 sqM) 10/10/18 07:05 Glucose 94 mg/dL (74-99) 10/10/18 07:05 POC Glucose (mg/dL) 92 mg/dL (75-99) 10/08/18 07:04 POC Glu Medical Intern ID Rosmery Max 10/08/18 07:04 Lactic Ac Sepsis Rflx Y 10/05/18 15:10 Plasma Lactic Acid [place] 1.6 mmol/L (0.7-2.0) 10/08/18 17:45 Calcium 7.4 mg/dL (8.4-10.2) L 10/10/18 07:05 Ionized Calcium [place] 5.0 mg/dL (4.5-5.3) 10/07/18 16:36 Phosphorus 1.8 mg/dL (2.5-4.5) L 10/10/18 07:05 Magnesium 2.1 mg/dL (1.6-2.3) 10/10/18 07:05 Total Bilirubin 0.9 mg/dL (0.2-1.3) 10/08/18 07:27 AST 22 U/L (17-59) 10/08/18 07:27 ALT 29 U/L (21-72) 10/08/18 07:27 Alkaline Phosphatase 64 U/L (38-126) 10/08/18 07:27 Creatine Kinase 122 U/L (55-170) 10/06/18 08:48 Total Creatine Kinase 89 U/L (55-170) 10/05/18 14:00 CK-MB (CK-2) 1.0 ng/mL (0.0-2.4) 10/05/18 14:00 CK-MB (CK-2) Rel Index 1.1 10/05/18 14:00 Troponin I <0.012 ng/mL (0.000-0.034) 10/05/18 14:00 Total Protein 5.2 g/dL (6.3-8.2) L 10/08/18 07:27 Albumin 2.5 g/dL (3.5-5.0) L 10/08/18 07:27 Triglycerides 154 mg/dL (<150) H 10/07/18 16:36 Amylase 40 U/L (30-110) 10/05/18 14:00 Lipase 34 U/L (23-300) 10/05/18 14:00 Urine Color Yellow 10/05/18 16:07 Urine Appearance Clear (Clear) 10/05/18 16:07 Urine pH 5.5 (5.0-8.0) 10/05/18 16:07 Ur Specific [place] 1.021 (1.001-1.035) 10/05/18 16:07 Urine Protein 1+ (Negative) H 10/05/18 16:07 Urine Glucose (UA) Negative (Negative) 10/05/18 16:07 Urine Ketones 3+ (Negative) H 10/05/18 16:07 Urine Blood Small (Negative) H 10/05/18 16:07 Urine Nitrite Negative (Negative) 10/05/18 16:07 Urine Bilirubin Negative (Negative) 10/05/18 16:07 Urine Urobilinogen 4.0 mg/dL (<2.0) 10/05/18 16:07 Ur Leukocyte Esterase Negative (Negative) 10/05/18 16:07 Urine RBC 11 /hpf (0-5) H 10/05/18 16:07 Urine WBC 1 /hpf (0-5) 10/05/18 16:07 Ur Squamous Epith Cells <1 /hpf (0-4) 10/05/18 16:07 Urine Mucus Occasional /hpf (None) H 10/05/18 16:07 Vancomycin Trough 15.7 ug/mL 10/10/18 09:17 Blood Type A Positive 10/08/18 12:41 Blood Type Confirm A Positive 10/08/18 07:27 Blood Type Recheck CABO Indicated 10/08/18 12:41 Antibody Screen NEGATIVE 10/08/18 12:41 Spec Expiration Date 10/11/2018 - 234010/08/18 12:41 Microbiology 10/07/18 22:41 Blood Blood Culture - Preliminary No Growth after 48 hours 10/07/18 21:27 Blood Blood Culture - Preliminary No Growth after 48 hours 10/08/18 17:00 Other - Other Gram Stain - Preliminary 10/08/18 17:00 Other - Other Tissue Culture - Preliminary 10/08/18 17:00 Other - Other Gram Stain - Preliminary 10/08/18 17:00 Other - Other Wound Culture - Preliminary 10/08/18 17:00 Other - Other Gram Stain - Preliminary 10/08/18 17:00 Other - Other Wound Culture - Preliminary Gram Neg Bacilli 10/08/18 17:00 Other - Other Anaerobic Culture - Preliminary 10/08/18 17:00 Other - Other Anaerobic Culture - Preliminary 10/08/18 17:00 Tissue - Other Anaerobic Culture - Preliminary 10/05/18 14:00 Blood Blood Culture Gram Stain - Final 10/05/18 14:00 Blood Blood Culture - Final Micrococcus species 10/05/18 14:00 Blood Blood Culture - Final 10/05/18 16:07 Urine,Clean Catch Urine Culture - Final Assessment and Plan (1) Diverticulitis Narrative/Plan: 38 year male presents to Hospital with a several-day history of abdominal pain that had been progressive. The patient believes it may be kidney stones and was even given a trial tamsulosin. Computed tomography scan hour reveals no evidence of any nephrolithiasis or of any hydronephrosis. Computed tomography scan overdoes reveal evidence of the significant diverticulitis with some phlegmon formation and possibly early abscess formation possibly free air small amount from a microperforation. Perforation clinically seems to have occurred when he had the sudden severe onset of pain after feeling a popping sensation within his abdomen. He's been seen by surgery at this time. Antibiotic therapy will be altered at this point in time given his ongoing sepsis and the positive blood culture. It is currently identified as a gram- positive cocci unclear of this will be a staph or strep. Meropenem with vancomycin be utilized for now until we have further data given his known penicillin ALLERGY. Follow blood cultures are requested Requested for interaction with the surgeon, the patient likely will need to presents to surgery in the near future, he is not showing any significant improvements with antibiotic therapy and actually clinically he seems to be worsening. We will monitor. Attempt was made to call his [id number], Verito Partida. 10/08/2018 conversation with the patient's [id number], Verito partida RN has occurred. Patient is worsened will be taken the operating room for the exposure laparotomy today. Continue current antibiotic therapy until further cultures are available. We'll monitor. 10/09/2018 the patient is now status post exploratory laparotomy which found evidence of the perforation and abscess in the left lower quadrant the sigmoid colon which has been resected and the colostomy has been applied. The patient is now considerably improved overnight. His fevers resolved. His leukocytosis is improving. His abdominal pain is considerably improved and he is pleased that he is doing so well at this time. Given the extent of the infection and the localized peritonitis the patient will require a couple week course of intravenous antibiotic therapy for this extensive infectious process. PICC line will be placed, Thursday and we'll make plans for outpatient intravenous antibiotic therapy potentially coming to the infusion clinic on a daily basis. 10/10/2018 patient continues to improve after surgery. Requested PICC line for ongoing antibiotic therapy after his discharge. He is improving and cultures will help further direct his antibiotic therapy at discharge. His had some scant fluid in the ostomy pouch. Awaiting recovery of GI function. Current Visit: No Status: Acute Code(s): K57.92 - DVTRCLI OF INTEST, PART UNSP, W/O PERF OR ABSCESS W/O BLEED SNOMED Code(s): 095931172 (2) Sepsis Current Visit: Yes Status: Acute Code(s): A41.9 - SEPSIS, UNSPECIFIED ORGANISM SNOMED Code(s): 63825702 (3) Bacteremia due to Gram-positive bacteria Current Visit: Yes Status: Acute Code(s): R78.81 - BACTEREMIA SNOMED Code( s): 210850577815
--- NOTE | 2018-10-10 13:41 | P.PN ---
Subjective Progress Note Date: 10/10/18 CHIEF COMPLAINT: Status post descending colostomy and drainage of pelvic abscess HISTORY OF PRESENT ILLNESS: The patient is a 38-year-old male who is admitted for history of perforated diverticulitis and sepsis. He is postoperative day 2 following descending colostomy, drainage of pelvic abscess, lysis of adhesions. Compared to yesterday, "I feels so good." He is tolerating ice chips and popsicles. He denies any moderate abdominal pain. His main concern includes scrotal edema which is to be expected following pelvic surgery. No reports of fevers or chills. PHYSICAL EXAM: GENERAL: Well-developed in no acute distress. HEENT: No sclera icterus. Extraocular movements grossly intact. Moist buccal mucosa. Head is atraumatic, normocephalic. Hears conversational speech. No nasal drainage. NG tube bilious, improved color from yesterday. NECK: Supple without lymphadenopathy. CHEST: Non-labored respirations and equal bilateral excursions. CARDIOVASCULAR: 2+ radial pulses. Tachycardic. ABDOMEN: Ostomy pink patent functioning. Incision intact. SETH serosanguineous. No flatus or stool in Coloplast. MUSCULOSKELETAL: No clubbing, cyanosis or edema. NEUROLOGIC: No focal or lateralizing signs. Cranial nerves II through XII grossly intact. PSYCH: Alert and oriented to person, place and time. : Dark dark orange colored urine improved from yesterday. Scrotal edema. SKIN: Well perfused. Good skin turgor. LABS: Reviewed ASSESSMENT: 1. Perforated diverticulitis with pelvic abscess 2. Acute small bowel obstruction 3. Peritonitis with sepsis PLAN: 1. Await placement of PICC line for TPN and IV antibiotics 2. Continue Hollingsworth catheter with epidural 3. Continue IV fluid hydration 4. Scrotal support for scrotal edema 5. Disposition pending resolution of leukocytosis and resumption of bowel function 6. Ostomy education pending Objective - Vital Signs Vital signs: Vital Signs Temp 98.8 F 10/10/18 07:00 Pulse 108 H 10/10/18 07:00 Resp 18 10/10/18 07:00 BP 125/84 10/10/18 07:00 Pulse Ox 93 L 10/09/18 23:51 Intake & Output 10/09/18 10/10/18 10/10/18 18:59 06:59 18:59 Intake Total 1216.2 200 165.55 Output Total 740 1530 Balance 476.2 -1330 165.55 Intake: IV 100 metroNIDAZOLE-NS PMX 500 100 mg In Saline 1 100ml.bag @ 100 mls/hr IVPB Q6HR [facility] Rx#:[id number] Intake, IV Titration 1116.2 200 165.55 Amount D5-0.45% NaCl with KCl 1000 20Meq/l 1,000 ml @ 150 mls/hr IV .Q6H40M [facility] Rx# :[id number] Meropenem 2 gm In Sodium 100 200 Chloride 0.9% 100 ml @ 200 mls/hr IVPB Q8H [facility] Rx#:[id number] Ropivacaine 250 mg 16.2 165.55 Hydromorphone (Pf) 5 mg In Sodium Chloride 0.9% 200 ml @ Per Protocol EPIDURAL .Q0M PRN Rx#: [id number] Output: Drainage 40 30 Abdomen 40 30 Urine 550 1500 Oral Regurgitation 150 Other: Voiding Method Indwelling Catheter Indwelling Catheter Indwelling Catheter - Labs CBC & Chem 7: 10/10/18 07:05 10/10/18 07:05 Labs: Abnormal Lab Results - Last 24 Hours (Table) 10/10/18 10/10/18 Range/Units 07:05 07:05 WBC 18.1 H (3.8-10.6) k/uL RBC 3.87 L (4.30-5.90) m/uL Hgb 12.0 L (13.0-17.5) gm/dL Hct 37.1 L (39.0-53.0) % Neutrophils # (Manual) 15.93 H (1.3-7.7) k/uL Metamyelocytes # (Man) 0.18 H (0) k/uL Chloride 110 H (98-107) mmol/L Creatinine 0.57 L (0.66-1.25) mg/dL Calcium 7.4 L (8.4-10.2) mg/dL Phosphorus 1.8 L (2.5-4.5) mg/dL Microbiology - Last 24 Hours (Table) 10/07/18 22:41 Blood Culture - Preliminary Blood No Growth after 48 hours 10/07/18 21:27 Blood Culture - Preliminary Blood No Growth after 48 hours 10/08/18 17:00 Gram Stain - Preliminary Other - Other Tissue Culture - Preliminary 10/08/18 17:00 Gram Stain - Preliminary Other - Other Wound Culture - Preliminary 10/08/18 17:00 Gram Stain - Preliminary Other - Other Wound Culture - Preliminary Gram Neg Bacilli Assessment and Plan (1) Perforation of sigmoid colon due to diverticulitis Current Visit: Yes Status: Acute Code(s): K57.20 - DVTRCLI OF LG INT W PERFORATION AND ABSCESS W/O BLEEDING SNOMED Code(s): 8151764193331112 (2) Peritoneal abscess Current Visit: Yes Status: Acute Code(s): K65.1 - PERITONEAL ABSCESS SNOMED Code(s): 28206290 (3) SBO (small bowel obstruction) Current Visit: Yes Status: Acute Code(s): K56.609 - UNSP INTESTNL OBST, UNSP TO PARTIAL VERSUS COMPLETE OBST SNOMED Code(s): 864462508 (4) Peritonitis (acute) generalized Current Visit: Yes Status: Acute Code(s): K65.0 - GENERALIZED (ACUTE) PERITONITIS SNOMED Code(s): 88225993 (5) Ascites Current Visit: Yes Status: Acute Code(s): R18.8 - OTHER ASCITES SNOMED Code(s): 489422373 (6) Dehydration Current Visit: Yes Status: Acute Code(s): E86.0 - DEHYDRATION SNOMED Code( s): 70789149 (7) Urinary retention Current Visit: Yes Status: Acute Code(s): R33.9 - RETENTION OF URINE, UNSPECIFIED SNOMED Code(s): 891231031 (8) Bacteremia due to Gram-positive bacteria Current Visit: Yes Status: Acute Code(s): R78.81 - BACTEREMIA SNOMED Code( s): 760970763402 (9) Sepsis Current Visit: Yes Status: Acute Code(s): A41.9 - SEPSIS, UNSPECIFIED ORGANISM SNOMED Code(s): 97893649
[2018-10-10] MEDS: POTASSIUM PHOSPHATE 10 MMOL in SODIUM CHLORIDE 0.9% 100 ML IV SCH ×2 (15:31→18:20)
--- NOTE | 2018-10-10 17:58 | P.PN ---
Progress Note - Text 10/10 705 38-year-old male status post exploratory lap with colostomy. Patient has an epidural catheter for postop pain control with the solution running at 6 mL an hour, VAS of 1. Patient has complains of pruritus and I ordered Benadryl 50 mg every 6 hours
--- NOTE | 2018-10-10 21:41 | PN ---
PROGRESS NOTE DATE OF SERVICE: 10/10/2018 PRESENTING COMPLAINT: Abdominal pain. INTERVAL HISTORY: This patient presented with ruptured diverticulitis with intraabdominal abscess, status post surgical intervention with a colostomy bag. SETH drain and wound VAC in place. Pain is controlled. The patient has got NG tube in place. Has epidurals in place. The patient did get out of bed. The patient's daughter and at the bedside. No nausea, vomiting. REVIEW OF SYSTEMS: Done for constitutional, cardiovascular, GI, pulmonary and relevant findings as above. CURRENT MEDICATIONS: Reviewed that include IV meropenem, Flagyl and vancomycin. PHYSICAL EXAMINATION: VITAL SIGNS: Temperature 98.2, pulse 70, respirations 16, blood pressure 143/83. GENERAL APPEARANCE: Lying in bed, appears more comfortable. EYES: Pupils are equal. Conjunctivae normal. HEENT: External appearance of nose and ears normal. Oral cavity normal. NG tube in place. NECK: JVD not raised. Mass not palpable. RESPIRATORY: Effort normal. Lungs are clear. CARDIOVASCULAR: 1st and 2nd sounds normal. No edema. ABDOMEN: Soft. Tenderness. Bowel sounds are present. SETH drain in place. Left-sided colostomy with some a little liquid, reddish blood. Incision wound VAC in place. PSYCHIATRY: Alert and oriented x3. Mood and affect normal. INVESTIGATIONS: White count 18.1, hemoglobin 12, potassium 3.7, BUN 13, creatinine 0.57. ASSESSMENT: 1. Acute perforated diverticulitis with intraabdominal abscess, status post surgical intervention. 2. Patient has a SETH drain. Wound VAC and left-sided colostomy. 3. Chronic nicotine dependence. Patient is vaping. 4. Recreational marijuana use. 5. Hypoalbuminemia as an acute phase reactant. 6. Acute urinary retention with sepsis requiring Hollingsworth catheter. 7. Positive blood cultures with micrococcus and also growing E coli. PLAN: Care was discussed with the patient and family at the bedside. Questions were answered. Continue the antibiotics. The patient did get a PICC line for antibiotics. Follow. MMODL / IJN: [id number] /
[2018-10-10] MEDS ORDERED: POTASSIUM PHOSPHATE 10 MMOL in SODIUM CHLORIDE 0.9% 100 ML IV SCH (21:45)
[2018-10-10] MEDS: ONDANSETRON 4 MG/2 ML VIAL IVP PRN (22:08)
[2018-10-11] MEDS: POTASSIUM PHOSPHATE 10 MMOL in SODIUM CHLORIDE 0.9% 100 ML IV SCH (00:19)
[2018-10-11] MEDS: metroNIDAZOLE-NS PMX 500 MG in SALINE 1 100ML.BAG IVPB SCH ×4 (00:40→17:04)
[2018-10-11] MEDS: KETOROLAC 30 MG/ML 1 ML VIAL IVP SCH ×3 (00:41→23:01)
[2018-10-11] MEDS: METOCLOPRAMIDE 5 MG/ML 2 ML VIAL IVP SCH ×4 (00:41→23:05)
[2018-10-11] MEDS: VANCOMYCIN 1,750 MG in SODIUM CHLORIDE 0.9% 500 ML 500 ML IVPB SCH ×3 (01:16→23:05)
[2018-10-11] MEDS: D5-0.45% NACL WITH KCL 20MEQ/L 1,000 ML IV SCH ×4 (01:19→23:02)
[2018-10-11] MEDS: MEROPENEM 2 GM in SODIUM CHLORIDE 0.9% 100 ML IVPB SCH ×3 (06:09→23:00)
--- NOTE | 2018-10-11 07:09 | P.PN ---
Progress Note - Text 10/11 659am 38-year-old male status post exploratory lap with colostomy. Patient seen this morning , epidural solution running at 6 mL an hour with no motor or sensory deficits. Plan to DC epidural nurse notified
[2018-10-11 08:39] LABS: Basophils # (A) 0.1 k/uL (0-0.2); Basophils % (A) 0 %; Eosinophils # (A) 0.2 k/uL (0-0.7); Eosinophils % (A) 1 %; HCT 36.8 % (39.0-53.0); Lymphocytes # (A) 1.2 k/uL (1.0-4.8); Lymphocytes % (A) 6 %; MCH 31.1 pg (25.0-35.0); MCHC 32.6 g/dL (31.0-37.0); MCV 95.3 fL (80.0-100.0); Mean Platelet Volume 7.2; Monocytes # (A) 1.2 k/uL (0-1.0); Monocytes % (A) 7 %; Neutrophils % (A) 83 %; Platelet Count 374 k/uL (150-450); RBC 3.86 m/uL (4.30-5.90); RDW 13.4 % (11.5-15.5)
[2018-10-11 08:47] LABS: Anion Gap 4 mmol/L; Blood Urea Nitrogen 9 mg/dL (9-20); Calcium 7.5 mg/dL (8.4-10.2); Carbon Dioxide 28 mmol/L (22-30); Chloride 107 mmol/L (98-107); Glucose 109 mg/dL (74-99); Phosphorus 2.1 mg/dL (2.5-4.5); Potassium 3.7 mmol/L (3.5-5.1); Sodium 139 mmol/L (137-145)
[2018-10-11] MEDS: PANTOPRAZOLE 40 MG/10 ML VIAL IVP SCH (10:04)
[2018-10-11] MEDS: HEPARIN SODIUM,PORCINE 5,000 UNIT/ML 1 ML VIAL SQ SCH ×2 (10:05→23:01)
--- NOTE | 2018-10-11 12:27 | P.GSCN ---
History of Present Illness Consult date: 10/11/18 History of present illness: The patient is a 38-year-old male who is in the hospital after a two-week history of abdominal pain. It became evident that he had a ruptured bowel and underwent a abdominal exploration, colectomy and colostomy for ruptured sigmoid diverticulitis. He has scrotal swelling and for this reason we are asked see the patient. The patient is interviewed at the bedside. The pain is gone on a couple weeks. He has no problems urinating. He has not had previous urologic problems. He has not had previous scrotal swelling. The scrotal swelling is painless. Review of Systems - Constitutional Reports chronic pain, Reports malaise - Gastrointestinal Reports as per HPI - Genitourinary Reports as per HPI Past Medical History Past Medical History: No Reported History History of Any Multi-Drug Resistant Organisms: None Reported Past Surgical History: No Surgical Hx Reported Past Psychological History: Bipolar Additional Psychological History / Comment(s): lives with his . 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 No experience. No international travel. No animal exposures. Tobacco smoker at the time of admission. Denies significant alcohol or recreational drug use Smoking Status: Current every day smoker Past Alcohol Use History: Occasional Past Drug Use History: Marijuana - Past Family History Father Additional Family Medical History / Comment(s): ETOH Medications and Allergies Home Medications Medication Instructions Recorded Confirmed Type Ciprofloxacin HCl [Cipro] 500 mg PO Q12H 10/04/18 10/05/18 History L.acidoph,Paracasei, B.lactis 1 cap PO DAILY 10/04/18 10/05/18 History [Probiotic] Omeprazole [PriLOSEC] 40 mg PO DAILY 10/04/18 10/05/18 History Ondansetron HCl [Zofran] 8 mg PO Q8H PRN 10/04/18 10/05/18 History Ondansetron [Zofran ODT] 4 mg PO Q8HR PRN #30 tab 10/04/18 10/05/18 Rx metroNIDAZOLE [Flagyl] 500 mg PO TID 10/04/18 10/05/18 History Tamsulosin HCl [Flomax] 0.4 mg PO DAILY 10/05/18 10/05/18 History Allergies Allergy/AdvReac Type Severity Reaction Status Date / Time Penicillins Allergy Nausea & Verified 10/05/18 14:42 Vomiting Surgical - Exam Vital Signs Temp Pulse Resp BP Pulse Ox 98.9 F 108 H 18 140/65 98 10/05/18 13:39 10/05/18 13:39 10/05/18 13:39 10/05/18 13:39 10/05/18 13:39 - General well developed, well nourished, no distress - Eyes PERRL - ENT no hearing loss - Neck trachea midline - Respiratory normal expansion, normal respiratory effort - Cardiovascular Rhythm: regular - Abdomen The patient has gaseous distention. He has a left-sided colostomy. He has a dressing over his abdominal wound. Hernia: none - Genitourinary The penis and scrotum are diffusely edematous without tenderness or erythema. - Integumentary Diffuse lower extremity edema no rash, no growths - Neurologic normal coordination, normal sensation - Musculoskeletal normal posture - Psychiatric oriented to time, oriented to person, oriented to place, speech is normal, memory intact Results - Labs 10/11/18 07:44 10/11/18 07:44 Abnormal Lab Results - Last 24 Hours (Table) 10/11/18 10/11/18 Range/Units 07:44 07:44 WBC 18.0 H (3.8-10.6) k/uL RBC 3.86 L (4.30-5.90) m/uL Hgb 12.0 L (13.0-17.5) gm/dL Hct 36.8 L (39.0-53.0) % Neutrophils # 15.0 H (1.3-7.7) k/uL Monocytes # 1.2 H (0-1.0) k/uL Creatinine 0.56 L (0.66-1.25) mg/dL Glucose 109 H (74-99) mg/dL Calcium 7.5 L (8.4-10.2) mg/dL Phosphorus 2.1 L (2.5-4.5) mg/dL Microbiology - Last 24 Hours (Table) 10/07/18 22:41 Blood Culture - Preliminary Blood No Growth after 72 hours 10/07/18 21:27 Blood Culture - Preliminary Blood No Growth after 72 hours 10/08/18 17:00 Anaerobic Culture - Preliminary Other - Other 10/08/18 17:00 Gram Stain - Final Other - Other Wound Culture - Final 10/08/18 17:00 Gram Stain - Preliminary Other - Other Tissue Culture - Preliminary 10/08/18 17:00 Gram Stain - Final Other - Other Wound Culture - Final Escherichia coli Diabetes panel 10/11/18 Range/Units 07:44 Sodium 139 (137-145) mmol/L Potassium 3.7 (3.5-5.1) mmol/L Chloride 107 (98-107) mmol/L Carbon Dioxide 28 (22-30) mmol/L BUN 9 (9-20) mg/dL Creatinine 0.56 L (0.66-1.25) mg/dL Glucose 109 H (74-99) mg/dL Calcium 7.5 L (8.4-10.2) mg/dL Calcium panel 10/11/18 Range/Units 07:44 Calcium 7.5 L (8.4-10.2) mg/dL Phosphorus 2.1 L (2.5-4.5) mg/dL Pituitary panel 10/11/18 Range/Units 07:44 Sodium 139 (137-145) mmol/L Potassium 3.7 (3.5-5.1) mmol/L Chloride 107 (98-107) mmol/L Carbon Dioxide 28 (22-30) mmol/L BUN 9 (9-20) mg/dL Creatinine 0.56 L (0.66-1.25) mg/dL Glucose 109 H (74-99) mg/dL Calcium 7.5 L (8.4-10.2) mg/dL Adrenal panel 10/11/18 Range/Units 07:44 Sodium 139 (137-145) mmol/L Potassium 3.7 (3.5-5.1) mmol/L Chloride 107 (98-107) mmol/L Carbon Dioxide 28 (22-30) mmol/L BUN 9 (9-20) mg/dL Creatinine 0.56 L (0.66-1.25) mg/dL Glucose 109 H (74-99) mg/dL Calcium 7.5 L (8.4-10.2) mg/dL Assessment and Plan Assessment: Impression: Scrotal penile edema, diffuse lower extremity edema bilateral. Hypoalbuminemia. Immobilization. Status post colectomy and colostomy for ruptured diverticulitis Plan: The edema is generalized due to multiple factors including postsurgical edema due to inflammation in the pelvis, low albumin, immobility. The patient should have scrotal support and be encouraged to ambulate. When he eats this will also help his low protein which will help with the secondary edema. No further urologic care should be required.
--- NOTE | 2018-10-11 15:21 | P.PN ---
<Nicole Quan - Last Filed: 10/11/18 15:07> Subjective Progress Note Date: 10/11/18 38-year-old male seen at bedside. Scheduled for a PICC line today. Patients being followed by surgery for perforated diverticulitis with pelvic abscess with an acute small bowel obstruction no stool from the ostomy stoma pink surgical dressing dry nasal gastric tube to suction sports pain medication effective for pain control prevena wound system in place with a SETH drain right side. Postop October 08 Luz's procedure for perforated rectosigmoid junction Objective - Vital Signs Vital signs: Vital Signs Temp 98 F 10/11/18 14:52 Pulse 105 H 10/11/18 07:00 Resp 16 10/11/18 14:52 BP 128/83 10/11/18 14:52 Pulse Ox 94 L 10/11/18 14:52 Intake & Output 10/10/18 10/11/18 10/11/18 18:59 06:59 18:59 Intake Total 9155.748 1089.7 Output Total 1670 1305 850 Balance 149.361 8121.7 -850 Weight 80.286 kg Intake: IV 100 metroNIDAZOLE-NS PMX 500 100 mg In Saline 1 100ml.bag @ 100 mls/hr IVPB Q6HR [facility] Rx#:[id number] Intake, IV Titration 1445.923 2713.7 Amount D5-0.45% NaCl with KCl 1800 20Meq/l 1,000 ml @ 150 mls/hr IV .Q6H40M [facility] Rx# :[id number] Lactated Ringers 1,000 ml 1000 @ 0 mls/hr IV .[facility] Rx#:[id number] Meropenem 2 gm In Sodium 100 100 Chloride 0.9% 100 ml @ 200 mls/hr IVPB Q8H [facility] Rx#:[id number] Potassium Phosphate 10 100 mmol In Sodium Chloride 0 .9% 100 ml @ 50 mls/hr IV Q2H [facility] Rx#:[id number] Ropivacaine 250 mg 189.717 10.7 Hydromorphone (Pf) 5 mg In Sodium Chloride 0.9% 200 ml @ Per Protocol EPIDURAL .Q0M PRN Rx#: [id number] Vancomycin 1,750 mg In 500 500 Sodium Chloride 0.9% 500 ml 500 ml @ 167 mls/hr IVPB Q8H [facility] Rx#: [id number] Oral 0 Output: Gastric Drainage 650 Drainage 70 30 50 ABDOMINAL INCISION 20 Abdomen 50 30 50 Urine 950 1275 800 Uretheral (Hollingsworth) 800 Other: Voiding Method Indwelling Catheter Indwelling Catheter Indwelling Catheter - Exam Physical exam 38-year-old resting in bed waiting to have the PICC line put and states pain medication effective for pain control tolerating ice chips Lungs adequate air movement bilaterally Heart S1-S2 audible regular Abdomen ostomy pink patent functioning surgical incision intact SETH draining serosanguineous drainage no stool no flatus no gas painless scrotal edema persist Extremities no edema - Labs CBC & Chem 7: 10/11/18 07:44 10/11/18 07:44 Labs: Abnormal Lab Results - Last 24 Hours (Table) 10/11/18 10/11/18 Range/Units 07:44 07:44 WBC 18.0 H (3.8-10.6) k/uL RBC 3.86 L (4.30-5.90) m/uL Hgb 12.0 L (13.0-17.5) gm/dL Hct 36.8 L (39.0-53.0) % Neutrophils # 15.0 H (1.3-7.7) k/uL Monocytes # 1.2 H (0-1.0) k/uL Creatinine 0.56 L (0.66-1.25) mg/dL Glucose 109 H (74-99) mg/dL Calcium 7.5 L (8.4-10.2) mg/dL Phosphorus 2.1 L (2.5-4.5) mg/dL Microbiology - Last 24 Hours (Table) 10/07/18 22:41 Blood Culture - Preliminary Blood No Growth after 72 hours 10/07/18 21:27 Blood Culture - Preliminary Blood No Growth after 72 hours 10/08/18 17:00 Anaerobic Culture - Preliminary Other - Other 10/08/18 17:00 Gram Stain - Final Other - Other Wound Culture - Final 10/08/18 17:00 Gram Stain - Preliminary Other - Other Tissue Culture - Preliminary 10/08/18 17:00 Gram Stain - Final Other - Other Wound Culture - Final Escherichia coli Assessment and Plan Assessment: Impression Present on admission leukocytosis tachycardic suspect due to sepsis due to sigmoid diverticulitis with developing abscess Present on admission right lower quadrant abdominal pain suspect due to acute sigmoid diverticulitis with extensive phlegmonus changes surrounding the colon extending to the appendix and cecum suggests developing abscess Current every day smoker Postop unexpected scrotal and penile edema multifactorial including postsurgical edema due to inflammation in the pelvis, low albumin, immobility Bacteremia due to Gram-positive bacteria Postop October 08 lysis of adhesions reduction of small bowel obstruction Luz's procedure for perforated rectosigmoid junction placement of prevena wound VAC system with SETH drain, descending colostomy creation Sigmoid colon abscess Pelvic abscess right lower quadrant Bipolar disorder Plan urology recommendations scrotal support IV antibiotics per infectious disease Pain control DVT and GI prophylaxis Nothing by mouth except for ice chips Will follow with you Repeat labs in morning Scrotal support The above impression and plan of care have been discussed and directed by signing physician. Nicole Quan nurse practitioner acting as scribe for signing physician. <Maegan Cedillo N - Last Filed: 10/13/18 14:44> Objective - Vital Signs Vital signs: Vital Signs Temp 98.1 F 10/13/18 07:00 Pulse 103 H 10/13/18 07:00 Resp 16 10/13/18 07:00 BP 114/69 10/13/18 07:00 Pulse Ox 94 L 10/13/18 07:00 Intake & Output 10/12/18 10/13/18 10/13/18 18:59 06:59 18:59 Intake Total 1000 Output Total 720 2000 1580 Balance -720 -580 Weight 80.286 kg Intake: Intake, IV Titration 1000 Amount Amino Acid 5%-D15w+Lytes* 1000 E* 1,000 ml @ 85 mls/hr IV .BY DURATION [facility] Rx#: [id number] Output: Gastric Drainage 200 Drainage 20 30 Abdomen 20 30 Urine 2000 1500 Stool 500 50 Other: Voiding Method Indwelling Catheter Urinal Urinal # Voids 4 1 - Labs CBC & Chem 7: 10/13/18 07:36 10/13/18 07:36 Labs: Abnormal Lab Results - Last 24 Hours (Table) 10/12/18 10/12/18 10/13/18 Range/Units 17:22 23:56 06:00 WBC (3.8-10.6) k/uL RBC (4.30-5.90) m/uL Hgb (13.0-17.5) gm/dL Hct (39.0-53.0) % Neutrophils # (1.3-7.7) k/uL Potassium (3.5-5.1) mmol/L Creatinine (0.66-1.25) mg/dL Glucose (74-99) mg/dL POC Glucose (mg/dL) 115 H 144 H 134 H (75-99) mg/dL Calcium (8.4-10.2) mg/dL 10/13/18 10/13/18 10/13/18 Range/Units 07:36 07:36 11:52 WBC 18.1 H (3.8-10.6) k/uL RBC 3.99 L (4.30-5.90) m/uL Hgb 12.2 L (13.0-17.5) gm/dL Hct 37.5 L (39.0-53.0) % Neutrophils # 15.1 H (1.3-7.7) k/uL Potassium 3.4 L (3.5-5.1) mmol/L Creatinine 0.58 L (0.66-1.25) mg/dL Glucose 136 H (74-99) mg/dL POC Glucose (mg/dL) 134 H (75-99) mg/dL Calcium 7.5 L (8.4-10.2) mg/dL Microbiology - Last 24 Hours (Table) 10/07/18 22:41 Blood Culture - Preliminary Blood No Growth after 120 hours 10/07/18 21:27 Blood Culture - Preliminary Blood No Growth after 120 hours 10/08/18 17:00 Anaerobic Culture - Final Other - Other 10/08/18 17:00 Gram Stain - Final Other - Other Tissue Culture - Final Assessment and Plan (1) Perforation of sigmoid colon due to diverticulitis Current Visit: Yes Status: Acute Code(s): K57.20 - DVTRCLI OF LG INT W PERFORATION AND ABSCESS W/O BLEEDING SNOMED Code(s): 0229814772896976 (2) Peritoneal abscess Current Visit: Yes Status: Acute Code(s): K65.1 - PERITONEAL ABSCESS SNOMED Code(s): 12818755 (3) SBO (small bowel obstruction) Current Visit: Yes Status: Acute Code(s): K56.609 - UNSP INTESTNL OBST, UNSP TO PARTIAL VERSUS COMPLETE OBST SNOMED Code(s): 110831576 (4) Peritonitis (acute) generalized Current Visit: Yes Status: Acute Code(s): K65.0 - GENERALIZED (ACUTE) PERITONITIS SNOMED Code(s): 05203269 (5) Ascites Current Visit: Yes Status: Acute Code(s): R18.8 - OTHER ASCITES SNOMED Code(s): 063801457 (6) Dehydration Current Visit: Yes Status: Acute Code(s): E86.0 - DEHYDRATION SNOMED Code( s): 96413548 (7) Urinary retention Current Visit: Yes Status: Acute Code(s): R33.9 - RETENTION OF URINE, UNSPECIFIED SNOMED Code(s): 834171693 (8) Bacteremia due to Gram-positive bacteria Current Visit: Yes Status: Acute Code(s): R78.81 - BACTEREMIA SNOMED Code( s): 405539948803 (9) Sepsis Current Visit: Yes Status: Acute Code(s): A41.9 - SEPSIS, UNSPECIFIED ORGANISM SNOMED Code(s): 79469251
[2018-10-11] MEDS ORDERED: RX INFO: IV CONTRAST WAS GIVEN 1 EACH MISC MISCELLANE PRN (15:34)
[2018-10-11] MEDS ORDERED: FUROSEMIDE 10 MG/ML 2 ML VIAL IV ONE (17:00)
--- NOTE | 2018-10-11 17:02 | IR ---
EXAMINATION TYPE: IR cvc insert >=5 years DATE OF EXAM: 10/11/2018 COMPARISON: NONE CLINICAL HISTORY: Infection Needs long-term intravenous access for antibiotics. PROCEDURE: After informed consent, the skin overlying the right basilic vein was localized with ultrasound and n oted to be compressible and patent. An ultrasound image was obtained and submitted on the patient's chart. The overlying skin was prepped and draped and Lidocaine was used for local anesthesia. A ski n jazmyn was made with a scalpel. Access was gained to the vein under ultrasound guidance with a 21 ga uge needle and a 0.018 inch wire was advanced. Access site was dilated with Peel-Away sheath and cat heter tailored to the appropriate length and advanced such that the distal tip is at the cavoatrial j unction. Spot image was obtained verifying placement. Catheter was fixed to the skin and a sterile dressing was placed following hemostasis. Catheter was aspirated and flushed with saline. Patient w as discharged in stable condition without complication. Maximal barrier technique is utilized. Ultra sound image is documented on the chart. Ultrasound used with sterile technique. Fluoro time and fluoroscopic images submitted to document procedure: 65 intraoperative C-arm images, 0.3 minutes fluoroscopy time IMPRESSION: STATUS POST ULTRASOUND AND FLUOROSCOPIC GUIDED PICC LINE PLACEMENT, READY FOR USE. THIS PROCEDURE WAS PERFORMED BY THE UNDERSIGNED.
--- NOTE | 2018-10-11 17:06 | PN ---
PROGRESS NOTE DATE OF SERVICE: October 11, 2018. PRESENTING COMPLAINT: Abdominal surgery. Scrotal swelling. INTERVAL HISTORY: Patient presented with ruptured diverticulitis with intraabdominal abscess, status post surgical intervention. The patient has a SETH drain. Incisional wound VAC and a colostomy bag. Small amount of liquid blood in the bag. Pain is controlled. NG tube remains in place. Epidural has been discontinued. The patient has got scrotal swelling. Hollingsworth catheter remains in place. Has been out of bed. REVIEW OF SYSTEMS: Done for constitutional, cardiovascular, GI, pulmonary, genitourinary, relevant findings as above. CURRENT MEDICATIONS: Reviewed that include IV meropenem, IV Flagyl, IV vancomycin. PHYSICAL EXAMINATION: VITAL SIGNS: Temperature 98, pulse 105, respirations 18, blood pressure 96/59, pulse ox 94 percent on room air. GENERAL APPEARANCE: Lying in bed, awake, comfortable. EYES: Pupils equal. Conjunctivae normal. HEENT: External appearance of nose and ears normal. Oral cavity normal. NG tube in place. NECK: JVD not raised. Mass not palpable. RESPIRATORY: Effort normal. LUNGS are clear. CARDIOVASCULAR: 1st and 2nd sounds normal. No edema. ABDOMEN: Soft. Mild tenderness. Bowel sounds are present. SETH drain is placed. Left sided colostomy bag. Reddish blood, incision wound VAC in place. PSYCHIATRY: Alert and oriented x3. Mood and affect normal. GENITOURINARY: Scrotal swelling, Hollingsworth catheter. INVESTIGATIONS: White count 18, hemoglobin 12, potassium 3.7, BUN 9, creatinine 0.56. Phosphorus 2.1. ASSESSMENT: 1. Acute perforated sigmoid diverticulitis and intraabdominal abscess, status post surgical intervention. 2. Patient has a SETH drain. Incisional wound VAC and left-sided colostomy. 3. NG tube remains in place. 4. Chronic nicotine dependence. Patient does vaping. 5. Recreational marijuana use. 6. Hypoalbuminemia as an acute phase reactant. 7. Acute urinary retention with sepsis requiring Hollingsworth catheter. 8. Positive blood cultures with growing micrococcus and wound cultures growing E coli. 9. Scrotal swelling from third-spacing. Urology was consulted this morning. Nothing further to be added from them. Scrotal elevation will be done. Discussed with the patient and at the bedside. The patient is supposed to get a PICC line today with TPN and lipids. Antibiotics are to continue. Follow. MMODL / IJN: [id number] /
--- NOTE | 2018-10-11 17:09 | CT ---
EXAMINATION TYPE: CT chest angio for PE DATE OF EXAM: 10/11/2018 COMPARISON: None HISTORY: rule out PE chest pain CT DLP: 263 mGycm Automated exposure control for dose reduction was used. CONTRAST: CT Chest for pulmonary embolism performed with with IV Contrast, patient injected with 100 mL of Isov ue 370. FINDINGS: There are 3-D post processed images. There are bilateral moderate pleural effusions. There is atelectasis at both lung bases. Thoracic aor ta shows no evidence of aneurysm or dissection. There is normal contrast opacification of the pulmona ry arteries. I see no filling defects. There is no mediastinal adenopathy. There is small pericardial effusion. Heart size is normal. The bony thorax is intact. Nasogastric tube is noted. IMPRESSION: Large pleural effusions. No evidence of pulmonary embolism. Bilateral lower lobe atelectasis.
--- NOTE | 2018-10-11 20:29 | P.PN ---
Subjective Progress Note Date: 10/11/18 Pleasant 38-year-old male who does not have a history of significant underlying medical troubles relates that several days before admission to hospital he was starting to have some significant abdominal pain. He thought maybe he was having hernia given the discomfort into his right lower aspect of his abdomen. Eventually because of his discomforts he was seen by his primary care physician there was concerns to appendicitis or nephrolithiasis. He was given some tamsulosin determine if this would give him relief. After 48 hours he had no improvement and she started to have some worsening. The patient relates he then had what felt like a popping sensation in his abdomen associate with severe generalized abdominal pain thereafter. He constantly called 911 and was brought to hospital. Computed tomography scan does reveal evidence of diverticulitis with phlegmon changes, cannot rule out microperforation. The patient is now had some further worsening. Positive culture was called and the infectious diseases evaluation was requested. 10/08/2018 patient is continued to worsen, abdomen is more distended. Surgeon is now evaluated and will be taken to the operating room for exploratory laparotomy 10/09/2018 the patient is now status post surgery and is feeling considerably better. His severe pain has resolved. There is a small amount of gas that is becoming evident in the ostomy pouch. The patient relates he feels considerably better. Has an NG tube still in place however some moisture to his oral cavity is being allowed by the general surgeon. The patient family understand that there was a perforated sigmoid diverticulum with a localized abscess and small bowel obstruction due to the inflammation. He is now doing considerably better and does have the negative pressure therapy system intact over the surgical site. His fevers have resolved. 10/10/2018 patient is feeling better today. He is allowed to have Popsicle and he is quite pleased. No nausea is occurring. Abdominal pain is improving. Overall is pleased with his improvement. 10/11/2018 patient is improving further. However is short of breath and has noticed some significant edema to his scrotum. The patient has been ill for a bit and does have evidence of hypoalbuminemia. He is now having some significant dependent edema occurring. EKG has been performed which appears to be normal. Primary service is asked for a CT angiogram to ensure no pulmonary embolus given his current level of debility. Objective - Vital Signs Vital signs: Vital Signs Temp 99.3 F 10/11/18 17:52 Pulse 111 H 10/11/18 17:52 Resp 18 10/11/18 17:52 BP 142/83 10/11/18 17:52 Pulse Ox 95 10/11/18 17:52 Intake & Output 10/11/18 10/11/18 10/12/18 06:59 18:59 06:59 Intake Total 2510.7 50 Output Total 1305 1500 200 Balance 1205.7 -1450 -200 Weight 80.286 kg Intake: Intake, IV Titration 2510.7 Amount D5-0.45% NaCl with KCl 1800 20Meq/l 1,000 ml @ 150 mls/hr IV .Q6H40M COUNTS INCLUDE 234 BEDS AT THE [facility] Rx# :[id number] Meropenem 2 gm In Sodium 100 Chloride 0.9% 100 ml @ 200 mls/hr IVPB Q8H COUNTS INCLUDE 234 BEDS AT THE [facility] Rx#:[id number] Potassium Phosphate 10 100 mmol In Sodium Chloride 0 .9% 100 ml @ 50 mls/hr IV Q2H [facility] Rx#:[id number] Ropivacaine 250 mg 10.7 Hydromorphone (Pf) 5 mg In Sodium Chloride 0.9% 200 ml @ Per Protocol EPIDURAL .Q0M PRN Rx#: [id number] Vancomycin 1,750 mg In 500 Sodium Chloride 0.9% 500 ml 500 ml @ 167 mls/hr IVPB Q8H COUNTS INCLUDE 234 BEDS AT THE [facility] Rx#: [id number] Oral 50 Output: Gastric Drainage 200 Drainage 30 50 Abdomen 30 50 Urine 1275 1450 Uretheral ([place]) 1450 Other: Voiding Method Indwelling Catheter Indwelling Catheter - Exam Pleasant 38-year-old male who is very uncomfortable and has had fever currently the temperature is improved and not having chills at this time HEENT: Anicteric conjunctiva are pink and moist nasal mucosa grossly intact without significant lesions, there is no thrush. Oral mucosa is dry Neck: The neck is supple without significant lymphadenopathy or thyromegaly. Lungs: They're symmetrical bilateral air entry, there are few wheezes scattered however there are a few crackles posterior bilaterally from the mid zone distallyand dullness or egophony was noted Heart: Regular rate and rhythm with an audible S1-S2, no S3 no S4. There is no significant murmur click or rub, PMI was nondisplaced. Abdomen: Abdomen is postsurgical, few bowel sounds are heard. The stoma is healthy and there is evidence of a scant amount of gas in the ostomy pouch. The diffuse abdominal tenderness is now considerably improved. The abdomen is no longer rigid and no rebound was noted. Extremities: The upper extremities have excellent pulses they are symmetric, no significant petechiae or telangiectasia. No splinter hemorrhages were noted. The lower extremities are free from significant edema. The peripheral pulses were 2+ and symmetric. Neuro: Awake alert oriented to person place and time. There are no acute new gross focal sensory motor deficits. - Labs CBC & Chem 7: 10/11/18 07:44 10/11/18 07:44 Labs: Abnormal Lab Results - Last 24 Hours (Table) 10/11/18 10/11/18 Range/Units 07:44 07:44 WBC 18.0 H (3.8-10.6) k/uL RBC 3.86 L (4.30-5.90) m/uL Hgb 12.0 L (13.0-17.5) gm/dL Hct 36.8 L (39.0-53.0) % Neutrophils # 15.0 H (1.3-7.7) k/uL Monocytes # 1.2 H (0-1.0) k/uL Creatinine 0.56 L (0.66-1.25) mg/dL Glucose 109 H (74-99) mg/dL Calcium 7.5 L (8.4-10.2) mg/dL Phosphorus 2.1 L (2.5-4.5) mg/dL Microbiology - Last 24 Hours (Table) 10/08/18 17:00 Gram Stain - Preliminary Other - Other Tissue Culture - Preliminary 10/07/18 22:41 Blood Culture - Preliminary Blood No Growth after 72 hours 10/07/18 21:27 Blood Culture - Preliminary Blood No Growth after 72 hours 10/08/18 17:00 Anaerobic Culture - Preliminary Other - Other 10/08/18 17:00 Gram Stain - Final Other - Other Wound Culture - Final 10/08/18 17:00 Gram Stain - Final Other - Other Wound Culture - Final Escherichia coli Laboratory Results WBC 18.0 k/uL (3.8-10.6) H 10/11/18 07:44 RBC 3.86 m/uL (4.30-5.90) L 10/11/18 07:44 Hgb 12.0 gm/dL (13.0-17.5) L 10/11/18 07:44 Hct 36.8 % (39.0-53.0) L 10/11/18 07:44 MCV 95.3 fL (80.0-100.0) 10/11/18 07:44 MCH 31.1 pg (25.0-35.0) 10/11/18 07:44 MCHC 32.6 g/dL (31.0-37.0) 10/11/18 07:44 RDW 13.4 % (11.5-15.5) 10/11/18 07:44 Plt Count 374 k/uL (150-450) 10/11/18 07:44 Neutrophils % 83 % 10/11/18 07:44 Neutrophils % (Manual) 88 % 10/10/18 07:05 Lymphocytes % 6 % 10/11/18 07:44 Lymphocytes % (Manual) 7 % 10/10/18 07:05 Monocytes % 7 % 10/11/18 07:44 Monocytes % (Manual) 4 % 10/10/18 07:05 Eosinophils % 1 % 10/11/18 07:44 Eosinophils % (Manual) 1 % 10/10/18 07:05 Basophils % 0 % 10/11/18 07:44 Metamyelocytes % 1 % 10/10/18 07:05 Neutrophils # 15.0 k/uL (1.3-7.7) H 10/11/18 07:44 Neutrophils # (Manual) 15.93 k/uL (1.3-7.7) H 10/10/18 07:05 Lymphocytes # 1.2 k/uL (1.0-4.8) 10/11/18 07:44 Lymphocytes # (Manual) 1.27 k/uL (1.0-4.8) 10/10/18 07:05 Monocytes # 1.2 k/uL (0-1.0) H 10/11/18 07:44 Monocytes # (Manual) 0.72 k/uL (0-1.0) 10/10/18 07:05 Eosinophils # 0.2 k/uL (0-0.7) 10/11/18 07:44 Eosinophils # (Manual) 0.18 k/uL (0-0.7) 10/10/18 07:05 Basophils # 0.1 k/uL (0-0.2) 10/11/18 07:44 Metamyelocytes # (Man) 0.18 k/uL (0) H 10/10/18 07:05 Nucleated RBCs 0 /100 WBC (0-0) 10/10/18 07:05 Manual Slide Review Performed 10/10/18 07:05 RBC Morphology Normal 10/10/18 07:05 PT 13.4 sec (9.0-12.0) H 10/07/18 14:07 INR 1.4 (<1.2) H 10/07/18 14:07 APTT 18.7 sec (22.0-30.0) L 10/05/18 14:00 Sodium 139 mmol/L (137-145) 10/11/18 07:44 Potassium 3.7 mmol/L (3.5-5.1) 10/11/18 07:44 Chloride 107 mmol/L (98-107) 10/11/18 07:44 Carbon Dioxide 28 mmol/L (22-30) 10/11/18 07:44 Anion Gap 4 mmol/L 10/11/18 07:44 BUN 9 mg/dL (9-20) 10/11/18 07:44 Creatinine 0.56 mg/dL (0.66-1.25) L 10/11/18 07:44 Est GFR (CKD-EPI)AfAm >90 (>60 ml/min/1.73 sqM) 10/11/18 07:44 Est GFR (CKD-EPI)NonAf >90 (>60 ml/min/1.73 sqM) 10/11/18 07:44 Glucose 109 mg/dL (74-99) H 10/11/18 07:44 POC Glucose (mg/dL) 92 mg/dL (75-99) 10/08/18 07:04 POC Glu Property Underwriter ID Rosmery Max 10/08/18 07:04 Lactic Ac Sepsis Rflx Y 10/05/18 15:10 Plasma Lactic Acid [place] 1.6 mmol/L (0.7-2.0) 10/08/18 17:45 Calcium 7.5 mg/dL (8.4-10.2) L 10/11/18 07:44 Ionized Calcium [place] 5.0 mg/dL (4.5-5.3) 10/07/18 16:36 Phosphorus 2.1 mg/dL (2.5-4.5) L 10/11/18 07:44 Magnesium 2.0 mg/dL (1.6-2.3) 10/11/18 07:44 Total Bilirubin 0.9 mg/dL (0.2-1.3) 10/08/18 07:27 AST 22 U/L (17-59) 10/08/18 07:27 ALT 29 U/L (21-72) 10/08/18 07:27 Alkaline Phosphatase 64 U/L (38-126) 10/08/18 07:27 Creatine Kinase 122 U/L (55-170) 10/06/18 08:48 Total Creatine Kinase 89 U/L (55-170) 10/05/18 14:00 CK-MB (CK-2) 1.0 ng/mL (0.0-2.4) 10/05/18 14:00 CK-MB (CK-2) Rel Index 1.1 10/05/18 14:00 Troponin I <0.012 ng/mL (0.000-0.034) 10/05/18 14:00 Total Protein 5.2 g/dL (6.3-8.2) L 10/08/18 07:27 Albumin 2.5 g/dL (3.5-5.0) L 10/08/18 07:27 Triglycerides 154 mg/dL (<150) H 10/07/18 16:36 Amylase 40 U/L (30-110) 10/05/18 14:00 Lipase 34 U/L (23-300) 10/05/18 14:00 Urine Color Yellow 10/05/18 16:07 Urine Appearance Clear (Clear) 10/05/18 16:07 Urine pH 5.5 (5.0-8.0) 10/05/18 16:07 Ur Specific [place] 1.021 (1.001-1.035) 10/05/18 16:07 Urine Protein 1+ (Negative) H 10/05/18 16:07 Urine Glucose (UA) Negative (Negative) 10/05/18 16:07 Urine Ketones 3+ (Negative) H 10/05/18 16:07 Urine Blood Small (Negative) H 10/05/18 16:07 Urine Nitrite Negative (Negative) 10/05/18 16:07 Urine Bilirubin Negative (Negative) 10/05/18 16:07 Urine Urobilinogen 4.0 mg/dL (<2.0) 10/05/18 16:07 Ur Leukocyte Esterase Negative (Negative) 10/05/18 16:07 Urine RBC 11 /hpf (0-5) H 10/05/18 16:07 Urine WBC 1 /hpf (0-5) 10/05/18 16:07 Ur Squamous Epith Cells <1 /hpf (0-4) 10/05/18 16:07 Urine Mucus Occasional /hpf (None) H 10/05/18 16:07 Vancomycin Trough 15.7 ug/mL 10/10/18 09:17 Blood Type A Positive 10/08/18 12:41 Blood Type Confirm A Positive 10/08/18 07:27 Blood Type Recheck CABO Indicated 10/08/18 12:41 Antibody Screen NEGATIVE 10/08/18 12:41 Spec Expiration Date 10/11/2018 - 234010/08/18 12:41 Microbiology 10/08/18 17:00 Other - Other Gram Stain - Preliminary 10/08/18 17:00 Other - Other Tissue Culture - Preliminary 10/07/18 22:41 Blood Blood Culture - Preliminary No Growth after 72 hours 10/07/18 21:27 Blood Blood Culture - Preliminary No Growth after 72 hours 10/08/18 17:00 Other - Other Anaerobic Culture - Preliminary 10/08/18 17:00 Other - Other Gram Stain - Final 10/08/18 17:00 Other - Other Wound Culture - Final 10/08/18 17:00 Other - Other Gram Stain - Final 10/08/18 17:00 Other - Other Wound Culture - Final Escherichia coli 10/08/18 17:00 Other - Other Anaerobic Culture - Preliminary 10/08/18 17:00 Tissue - Other Anaerobic Culture - Preliminary 10/05/18 14:00 Blood Blood Culture Gram Stain - Final 10/05/18 14:00 Blood Blood Culture - Final Micrococcus species 10/05/18 14:00 Blood Blood Culture - Final 10/05/18 16:07 Urine,Clean Catch Urine Culture - Final Assessment and Plan (1) Diverticulitis Narrative/Plan: 38 year male presents to Hospital with a several-day history of abdominal pain that had been progressive. The patient believes it may be kidney stones and was even given a trial tamsulosin. Computed tomography scan hour reveals no evidence of any nephrolithiasis or of any hydronephrosis. Computed tomography scan overdoes reveal evidence of the significant diverticulitis with some phlegmon formation and possibly early abscess formation possibly free air small amount from a microperforation. Perforation clinically seems to have occurred when he had the sudden severe onset of pain after feeling a popping sensation within his abdomen. He's been seen by surgery at this time. Antibiotic therapy will be altered at this point in time given his ongoing sepsis and the positive blood culture. It is currently identified as a gram- positive cocci unclear of this will be a staph or strep. Meropenem with vancomycin be utilized for now until we have further data given his known penicillin ALLERGY. Follow blood cultures are requested Requested for interaction with the surgeon, the patient likely will need to presents to surgery in the near future, he is not showing any significant improvements with antibiotic therapy and actually clinically he seems to be worsening. We will monitor. Attempt was made to call his [id number], Verito Partida. 10/08/2018 conversation with the patient's [id number], Verito partida RN has occurred. Patient is worsened will be taken the operating room for the exposure laparotomy today. Continue current antibiotic therapy until further cultures are available. We'll monitor. 10/09/2018 the patient is now status post exploratory laparotomy which found evidence of the perforation and abscess in the left lower quadrant the sigmoid colon which has been resected and the colostomy has been applied. The patient is now considerably improved overnight. His fevers resolved. His leukocytosis is improving. His abdominal pain is considerably improved and he is pleased that he is doing so well at this time. Given the extent of the infection and the localized peritonitis the patient will require a couple week course of intravenous antibiotic therapy for this extensive infectious process. PICC line will be placed, Thursday and we'll make plans for outpatient intravenous antibiotic therapy potentially coming to the infusion clinic on a daily basis. 10/10/2018 patient continues to improve after surgery. Requested PICC line for ongoing antibiotic therapy after his discharge. He is improving and cultures will help further direct his antibiotic therapy at discharge. His had some scant fluid in the ostomy pouch. Awaiting recovery of GI function. 10/11/2018 patient has further improvement however is now developed some shortness of breath likely has some volume overload related to his hyperproteinemia which is being noted by the significant scrotal edema and some lower extremity edema that has occurred. We'll give him a single dose of Lasix and await his computed tomography scan to further evaluate. Elevation of the scrotum will be helpful because his skin is getting very stretched applied thick zinc cream to the area for relief. The patient will require outpatient intravenous antibiotic therapy and we will work with the discharge planners for arranging this. Current Visit: No Status: Acute Code(s): K57.92 - DVTRCLI OF INTEST, PART UNSP, W/O PERF OR ABSCESS W/O BLEED SNOMED Code(s): 314432101 (2) Sepsis Current Visit: Yes Status: Acute Code(s): A41.9 - SEPSIS, UNSPECIFIED ORGANISM SNOMED Code(s): 05413770 (3) Bacteremia due to Gram-positive bacteria Current Visit: Yes Status: Acute Code(s): R78.81 - BACTEREMIA SNOMED Code( s): 963140904659
[2018-10-11] MEDS ORDERED: MVI, ADULT NO.4 WITH VIT K 10 ML, TRACE (CONC-1ML/DOSE) 1 ML in AMINO ACID 5%-D15W+LYTE... IV SCH ×3 (20:30)
[2018-10-11] MEDS: HYDROmorphone 1 MG/ML 1 ML SYRINGE IVP PRN (20:42)
[2018-10-11] MEDS: ONDANSETRON 4 MG/2 ML VIAL IVP PRN (20:42)
--- NOTE | 2018-10-11 20:45 | XR ---
EXAMINATION TYPE: XR chest 1V portable DATE OF EXAM: 10/11/2018 COMPARISON: 01/31/2013 HISTORY: Chest pain TECHNIQUE: Single frontal view of the chest is obtained. FINDINGS: There is a lateral pleural effusions. There is no gross heart failure. There is infiltrate in the right lower lobe. There is nasogastric tube. Right jugular catheter has the tip in the superi or vena cava. IMPRESSION: Right pleural effusion and right lower lobe pneumonia. Small left pleural effusion. Abno rmalities are new compared to old exam.
[2018-10-11] MEDS: FAT EMULSION 20% 250 ML in EMPTY BAG 1 BAG IV SCH (22:54)
[2018-10-11] MEDS: FUROSEMIDE 10 MG/ML 4 ML VIAL IV SCH (23:00)
[2018-10-12] MEDS: METOCLOPRAMIDE 5 MG/ML 2 ML VIAL IVP SCH ×5 (01:59→23:33)
[2018-10-12] MEDS: KETOROLAC 30 MG/ML 1 ML VIAL IVP SCH ×4 (01:59→18:53)
[2018-10-12] MEDS: metroNIDAZOLE-NS PMX 500 MG in SALINE 1 100ML.BAG IVPB SCH ×5 (01:59→23:33)
[2018-10-12] MEDS: VANCOMYCIN 1,750 MG in SODIUM CHLORIDE 0.9% 500 ML 500 ML IVPB SCH ×3 (03:15→18:53)
[2018-10-12] MEDS: MEROPENEM 2 GM in SODIUM CHLORIDE 0.9% 100 ML IVPB SCH ×3 (05:53→21:30)
[2018-10-12 07:44] LABS: Glucose,Whole Blood 123 mg/dL (75-99)
[2018-10-12 10:01] LABS: Basophils % (A) 0 %; Eosinophils # (A) 0.1 k/uL (0-0.7); Eosinophils % (A) 1 %; HCT 40.7 % (39.0-53.0); HGB 13.6 gm/dL (13.0-17.5); Lymphocytes # (A) 1.2 k/uL (1.0-4.8); Lymphocytes % (A) 6 %; MCH 31.5 pg (25.0-35.0); MCHC 33.5 g/dL (31.0-37.0); MCV 94.1 fL (80.0-100.0); Mean Platelet Volume 8.6; Monocytes # (A) 1.2 k/uL (0-1.0); Monocytes % (A) 6 %; Neutrophils # (A) 17.2 k/uL (1.3-7.7); Neutrophils % (A) 86 %; Platelet Count 418 k/uL (150-450); RBC 4.33 m/uL (4.30-5.90); RDW 13.6 % (11.5-15.5); WBC 20.2 k/uL (3.8-10.6)
[2018-10-12] MEDS: HEPARIN SODIUM,PORCINE 5,000 UNIT/ML 1 ML VIAL SQ SCH ×2 (10:14→21:30)
[2018-10-12] MEDS: FUROSEMIDE 10 MG/ML 4 ML VIAL IV SCH ×2 (10:14→21:30)
[2018-10-12] MEDS: D5-0.45% NACL WITH KCL 20MEQ/L 1,000 ML IV SCH ×2 (10:14→17:36)
[2018-10-12] MEDS: PANTOPRAZOLE 40 MG/10 ML VIAL IVP SCH (10:14)
--- NOTE | 2018-10-12 10:25 | US ---
EXAMINATION TYPE: US chest DATE OF EXAM: 10/12/2018 COMPARISON: Chest x-ray CLINICAL HISTORY: trixie pleural effusions. Pt is post colon resection. TECHNIQUE: Targeted ultrasound of the posterior lower bilateral chest. EXAM MEASUREMENTS: Right Pleural Effusion pocket size: 6.9 cm A/P Right skin surface to fluid distance: 3.3 cm A/P Left Pleural Effusion pocket size: 2.8 cm A/P Left skin surface to fluid distance: 3.3 cm A/P Right side was marked for possible thoracentesis outside the dept. Left side Pleural Effusion is noted close to spine. Pulmonologists are able to review the images in the patient?s EMR. IMPRESSIONS: Small right and trace left pleural effusions
[2018-10-12] MEDS: ONDANSETRON 4 MG/2 ML VIAL IVP PRN ×3 (10:28→21:39)
[2018-10-12] MEDS: HYDROmorphone 1 MG/ML 1 ML SYRINGE IVP PRN ×2 (10:29→23:33)
[2018-10-12 10:40] LABS: Anion Gap 9 mmol/L; Blood Urea Nitrogen 9 mg/dL (9-20); Calcium 7.4 mg/dL (8.4-10.2); Carbon Dioxide 26 mmol/L (22-30); Chloride 102 mmol/L (98-107); Glucose 112 mg/dL (74-99); Phosphorus 2.3 mg/dL (2.5-4.5); Potassium 3.6 mmol/L (3.5-5.1); Sodium 137 mmol/L (137-145)
--- NOTE | 2018-10-12 11:41 | P.CNPUL ---
History of Present Illness Consult date: 10/12/18 Requesting physician: Kike Liz Reason for consult: abnormal CXR/CT (Bilateral pleural effusions right greater than left) Chief complaint: Abdominal pain History of present illness: This is a very pleasant 38-year-old gentleman who follows with Dr. Yin as his primary care physician. He has a history of bipolar disorder, chronic tobacco dependence, vaping, marijuana use. He presented here to the emergency room on 10/04/2018 with complaints of abdominal discomfort. He was diagnosed with diverticulitis and discharged home on antibiotics. The following day on the he was having a bowel movement and felt a pop in his right lower quadrant with significant pain and discomfort and return to the emergency room for the same. He was found to have a perforated sigmoid diverticulitis with secondary sepsis due to gram-negative bacteria. He had undergone surgery on which included open lysis of adhesions and reduction of small bowel obstruction, descending colostomy creation, drainage of the right pelvic abscesses, small bowel enterectomy, devitalized rectal stump. He also had undergone Briceno's procedure for perforated rectosigmoid junction. Peritoneal lavage over 6 L. Intra-abdominal #19 Lasha drain in the right lower quadrant and a prerenal wound VAC system placed. Cultures are positive for anaerobic gram-negative bacilli and anaerobic gram-positive cocci. White count 20.2. Hemoglobin 13.6. Creatinine 0.62. He is currently on vancomycin, meropenem, Flagyl. Nasogastric tube is secured in place. He is being nourished with TPN. We were consulted today as the patient has developed bilateral pleural effusions right greater than left. The right side has a 6.9 cm pocket. He is seen currently resting quite comfortably in bed. He has been working with the incentive spirometer pulling just under 1L. He is maintaining good O2 saturations in the mid 90s on room air. He's been afebrile. Hemodynamically stable. No worsening shortness of breath, cough or congestion. Review of Systems Constitutional: Reports poor appetite, Reports weakness Eyes: denies blurred vision, denies decreased vision Ears: deny: decreased hearing Ears, nose, mouth and throat: Denies headache, Denies sore throat Cardiovascular: Denies chest pain, Denies shortness of breath Respiratory: Reports congestion, Reports dyspnea Gastrointestinal: Reports abdominal pain, Reports nausea Genitourinary: Reports as per HPI Musculoskeletal: Denies myalgias Integumentary: Denies pruritus, Denies rash Neurological: Denies numbness, Denies weakness Psychiatric: Denies anxiety, Denies depression Endocrine: Denies fatigue, Denies weight change Hematologic/Lymphatic: Reports as per HPI Allergic/Immunologic: Reports as per HPI Past Medical History Past Medical History: No Reported History History of Any Multi-Drug Resistant Organisms: None Reported Past Surgical History: No Surgical Hx Reported Past Psychological History: Bipolar Additional Psychological History / Comment(s): lives with his . 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 No experience. No international travel. No animal exposures. Tobacco smoker at the time of admission. Denies significant alcohol or recreational drug use Smoking Status: Current every day smoker Past Alcohol Use History: Occasional Past Drug Use History: Marijuana - Past Family History Father Additional Family Medical History / Comment(s): ETOH Medications and Allergies Home Medications Medication Instructions Recorded Confirmed Type Ciprofloxacin HCl [Cipro] 500 mg PO Q12H 10/04/18 10/05/18 History L.acidoph,Paracasei, B.lactis 1 cap PO DAILY 10/04/18 10/05/18 History [Probiotic] Omeprazole [PriLOSEC] 40 mg PO DAILY 10/04/18 10/05/18 History Ondansetron HCl [Zofran] 8 mg PO Q8H PRN 10/04/18 10/05/18 History Ondansetron [Zofran ODT] 4 mg PO Q8HR PRN #30 tab 10/04/18 10/05/18 Rx metroNIDAZOLE [Flagyl] 500 mg PO TID 10/04/18 10/05/18 History Tamsulosin HCl [Flomax] 0.4 mg PO DAILY 10/05/18 10/05/18 History Ertapenem [INVanz] 1 gm IVPB Q24H #14 bag 10/11/18 Rx Allergies Allergy/AdvReac Type Severity Reaction Status Date / Time Penicillins Allergy Nausea & Verified 10/05/18 14:42 Vomiting Physical Exam Vitals: Vital Signs Temp Pulse Resp BP BP Pulse Ox 10/12/18 07:00 98.1 F 91 16 133/92 94 L 10/12/18 05:34 110 H 10/12/18 01:45 98.4 F 108 H 14 131/88 94 L 10/11/18 17:52 99.3 F 111 H 18 142/83 95 10/11/18 14:52 98 F 16 128/83 94 L Intake and Output 10/11/18 10/12/18 10/12/18 22:59 06:59 14:59 Intake Total 2069 Output Total 4925 Balance -2855 Intake: Intake, IV Titration 2070 Amount D5-0.45% NaCl with KCl 1000 20Meq/l 1,000 ml @ 100 mls/hr IV .Q10H JILLIAN Rx#: [id number] Fat Emulsion 20% 250 ml 170 In Empty Bag 1 bag @ 21 mls/hr IV DAILY@1800 JILLIAN Rx#:[id number] Meropenem 2 gm In Sodium 100 Chloride 0.9% 100 ml @ 200 mls/hr IVPB Q8H JILLIAN Rx#:[id number] Mvi, Adult No.4 with Vit 300 K 10 ml Trace (Conc-1Ml/ Dose) 1 ml In Amino Acid 5%-D15w+Lytes*E* 1,000 ml @ 30 mls/hr IV .Q24H JILLIAN Rx#:[id number] Vancomycin 1,750 mg In 500 Sodium Chloride 0.9% 500 ml 500 ml @ 167 mls/hr IVPB Q8H JILLIAN Rx#: [id number] Output: Gastric Drainage 200 Drainage 25 ABDOMINAL INCISION 25 Urine 4700 Uretheral (Hollingsworth) 650 Other: Voiding Method Indwelling Catheter - Constitutional General appearance: average body habitus, no acute distress - EENT Eyes: EOMI, PERRLA ENT: hearing grossly normal Ears: bilateral: normal - Neck Neck: normal ROM Carotids: bilateral: upstroke normal Thyroid: bilateral: normal size - Respiratory Respiratory: bilateral: diminished - Cardiovascular Rhythm: regular Heart sounds: normal: S1, S2 - Gastrointestinal General gastrointestinal: decreased bowel sounds Localized gastrointestinal: tender: diffuse (Ostomy pink, patent, surgical incision intact, SETH drain intact.) - Genitourinary Male genitourinary: scrotal edema - Integumentary Integumentary: normal turgor - Neurologic Neurologic: CNII-XII intact - Musculoskeletal Musculoskeletal: generalized weakness - Psychiatric Psychiatric: A&O x's 3, appropriate affect, intact judgment & insight Results - Laboratory Findings CBC and BMP: 10/12/18 07:46 10/12/18 07:46 PT/INR, D-dimer PT 13.4 sec (9.0-12.0) H 10/07/18 14:07 INR 1.4 (<1.2) H 10/07/18 14:07 Abnormal lab findings: Abnormal Labs 10/05/18 10/05/18 10/05/18 14:00 14:00 14:00 WBC 21.0 H RBC Hgb Hct Neutrophils # 17.9 H Neutrophils # (Manual) Lymphocytes # Monocytes # Metamyelocytes # (Man) PT INR APTT Chloride Carbon Dioxide 19 L BUN Creatinine Glucose 126 H POC Glucose (mg/dL) Plasma Lactic Acid Gerson 2.1 H* Calcium Phosphorus Total Bilirubin 1.5 H Total Protein Albumin Triglycerides Urine Protein Urine Ketones Urine Blood Urine RBC Urine Mucus 10/05/18 10/05/18 10/06/18 14:00 16:07 08:48 WBC 19.1 H RBC Hgb Hct Neutrophils # 16.8 H Neutrophils # (Manual) Lymphocytes # 0.9 L Monocytes # Metamyelocytes # (Man) PT 12.4 H INR 1.3 H APTT 18.7 L Chloride Carbon Dioxide BUN Creatinine Glucose POC Glucose (mg/dL) Plasma Lactic Acid Gerson Calcium Phosphorus Total Bilirubin Total Protein Albumin Triglycerides Urine Protein 1+ H Urine Ketones 3+ H Urine Blood Small H Urine RBC 11 H Urine Mucus Occasional H 10/06/18 10/07/18 10/07/18 08:48 08:53 08:53 WBC 26.9 H RBC Hgb Hct Neutrophils # 24.5 H Neutrophils # (Manual) Lymphocytes # 0.5 L Monocytes # 1.4 H Metamyelocytes # (Man) PT INR APTT Chloride Carbon Dioxide BUN Creatinine Glucose 119 H 118 H POC Glucose (mg/dL) Plasma Lactic Acid Gerson Calcium 7.9 L Phosphorus Total Bilirubin 1.8 H Total Protein 5.6 L Albumin 2.9 L Triglycerides Urine Protein Urine Ketones Urine Blood Urine RBC Urine Mucus 10/07/18 10/07/18 10/08/18 14:07 16:36 07:27 WBC 28.2 H RBC Hgb Hct Neutrophils # 25.7 H Neutrophils # (Manual) Lymphocytes # 0.8 L Monocytes # Metamyelocytes # (Man) PT 13.4 H INR 1.4 H APTT Chloride Carbon Dioxide BUN Creatinine Glucose POC Glucose (mg/dL) Plasma Lactic Acid Gerson Calcium Phosphorus 1.9 L Total Bilirubin Total Protein Albumin 2.8 L Triglycerides 154 H Urine Protein Urine Ketones Urine Blood Urine RBC Urine Mucus 10/08/18 10/09/18 10/09/18 07:27 07:19 07:19 WBC 18.2 H RBC 3.90 L Hgb 12.0 L Hct 37.2 L Neutrophils # 15.5 H Neutrophils # (Manual) Lymphocytes # Monocytes # 1.2 H Metamyelocytes # (Man) PT INR APTT Chloride 111 H Carbon Dioxide BUN 21 H Creatinine Glucose 122 H POC Glucose (mg/dL) Plasma Lactic Acid Gerson Calcium 8.3 L 7.3 L Phosphorus 2.1 L Total Bilirubin Total Protein 5.2 L Albumin 2.5 L Triglycerides Urine Protein Urine Ketones Urine Blood Urine RBC Urine Mucus 10/10/18 10/10/18 10/11/18 07:05 07:05 07:44 WBC 18.1 H RBC 3.87 L Hgb 12.0 L Hct 37.1 L Neutrophils # Neutrophils # (Manual) 15.93 H Lymphocytes # Monocytes # Metamyelocytes # (Man) 0.18 H PT INR APTT Chloride 110 H Carbon Dioxide BUN Creatinine 0.57 L 0.56 L Glucose 109 H POC Glucose (mg/dL) Plasma Lactic Acid Gerson Calcium 7.4 L 7.5 L Phosphorus 1.8 L 2.1 L Total Bilirubin Total Protein Albumin Triglycerides Urine Protein Urine Ketones Urine Blood Urine RBC Urine Mucus 10/11/18 10/12/18 10/12/18 07:44 07:14 07:46 WBC 18.0 H RBC 3.86 L Hgb 12.0 L Hct 36.8 L Neutrophils # 15.0 H Neutrophils # (Manual) Lymphocytes # Monocytes # 1.2 H Metamyelocytes # (Man) PT INR APTT Chloride Carbon Dioxide BUN Creatinine 0.62 L Glucose 112 H POC Glucose (mg/dL) 123 H Plasma Lactic Acid Gerson Calcium 7.4 L Phosphorus 2.3 L Total Bilirubin Total Protein Albumin Triglycerides Urine Protein Urine Ketones Urine Blood Urine RBC Urine Mucus 10/12/18 07:46 WBC 20.2 H RBC Hgb Hct Neutrophils # 17.2 H Neutrophils # (Manual) Lymphocytes # Monocytes # 1.2 H Metamyelocytes # (Man) PT INR APTT Chloride Carbon Dioxide BUN Creatinine Glucose POC Glucose (mg/dL) Plasma Lactic Acid Gerson Calcium Phosphorus Total Bilirubin Total Protein Albumin Triglycerides Urine Protein Urine Ketones Urine Blood Urine RBC Urine Mucus - Diagnostic Findings Chest x-ray: image reviewed CT scan - chest: image reviewed Assessment and Plan Assessment: Impression: #1 Abdominal pain secondary to perforated sigmoid diverticulitis with generalized peritonitis. Status post open lysis of adhesions, reduction of small bowel obstruction, descending colostomy creation, drainage of a right pelvic abscesses, small bowel enterectomy, devitalized rectal stump, Briceno's procedure, drain placement, wound VAC placement. Postoperative day #4. #2 Sepsis secondary to gram-negative bacteria secondary to above. #3 Chest discomfort secondary to bilateral pleural effusions right greater than left. Pulmonary embolism ruled out. #4 History of chronic tobacco dependence, vaping, marijuana use. #5 History of bipolar disorder. #6 Urinary retention, Hollingsworth catheter in place. Generalized edema of the lower extremities including scrotal and penile edema. Plan: The patient was seen and evaluated by Dr. Whatley. Chest x-ray and CAT scans were reviewed. He does have significant right-sided pleural effusion. He may require thoracentesis. He is again encouraged regarding the increased use the incentive spirometer and cough and deep breathing exercises. He is maintaining good O2 saturations in the 90s on room air. No significant pulmonary complaints. He is currently on Lasix 40 mg IV push every 12 hours. He remains in a negative balance. He remains on heparin subcutaneous for DVT prophylaxis. We will increase his activity as tolerated. We'll continue to follow and make further recommendations based on his clinical status. I, the cosigning physician, performed a history & physical examination of the patient. Lungs sounds are diminished in bilateral posterior bases right greater than left. Maintaining good O2 saturations in the 90s on room air. I discussed the assessment and plan of care with my nurse practitioner, Jaylin Samuels. I attest to the above consultation as dictated by her. Time with Patient: Greater than 30
[2018-10-12] MEDS ORDERED: SODIUM GLYCEROPHOSPHATE 20 MMOL in SODIUM CHLORIDE 0.9% 250 ML IV ONE (12:00)
[2018-10-12 12:36] LABS: Glucose,Whole Blood 145 mg/dL (75-99)
--- NOTE | 2018-10-12 13:09 | P.PN ---
<Shyann Quanbismark Garsia - Last Filed: 10/12/18 12:57> Subjective Progress Note Date: 10/12/18 48-year-old resting in bed no known events noted. Ostomy left lower quadrant pink no stool not passing gas SETH drain in place serous drainage diffuse tenderness less scrotal edema noted indwelling Hollingsworth catheter in place with a nasal gastric tube connected to suction did note the white count is up to 20.2 was 18 temp is 98 patient reports pain medication has been effective for pain control. Pulmonary eval noted recommendations appreciated being seen for bilateral pleural effusion right greater than the left possible thoracentesis will be indicated patient currently is being diuresed with Lasix 40 IV every 12 Postop October 08 Luz's procedure for perforated rectosigmoid junction Objective - Vital Signs Vital signs: Vital Signs Temp 98.1 F 10/12/18 07:00 Pulse 91 10/12/18 07:00 Resp 16 10/12/18 07:00 BP 133/92 10/12/18 07:00 Pulse Ox 94 L 10/12/18 07:00 Intake & Output 10/11/18 10/12/18 10/12/18 18:59 06:59 18:59 Intake Total 50 2070 Output Total 1500 4275 Balance -1450 -2205 Weight 80.286 kg Intake: Intake, IV Titration 2070 Amount D5-0.45% NaCl with KCl 1000 20Meq/l 1,000 ml @ 100 mls/hr IV .Q10H JILLIAN Rx#: [id number] Fat Emulsion 20% 250 ml 170 In Empty Bag 1 bag @ 21 mls/hr IV DAILY@1800 JILLIAN Rx#:[id number] Meropenem 2 gm In Sodium 100 Chloride 0.9% 100 ml @ 200 mls/hr IVPB Q8H JILLIAN Rx#:[id number] Mvi, Adult No.4 with Vit 300 K 10 ml Trace (Conc-1Ml/ Dose) 1 ml In Amino Acid 5%-D15w+Lytes*E* 1,000 ml @ 30 mls/hr IV .Q24H JILLIAN Rx#:[id number] Vancomycin 1,750 mg In 500 Sodium Chloride 0.9% 500 ml 500 ml @ 167 mls/hr IVPB Q8H JILLIAN Rx#: [id number] Oral 50 Output: Gastric Drainage 200 Drainage 50 25 ABDOMINAL INCISION 25 Abdomen 50 Urine 1450 4050 Uretheral (Hollingsworth) 1450 Other: Voiding Method Indwelling Catheter Indwelling Catheter Indwelling Catheter - Exam Physical exam 38-year-old resting in bed no reports of nausea vomiting appearing in no acute distress Lungs diminished at the bases right greater than the left on room air sats are 94% no cough noted no wheezing Heart S1-S2 audible regular denying chest pain Abdomen ostomy stoma pink patent functioning no stool states is not passing gas surgical incision intact SETH draining serosanguineous drainage painless scrotal edema improved indwelling Hollingsworth catheter in place Extremities no edema Venodyne's on bilaterally - Labs CBC & Chem 7: 10/12/18 07:46 10/12/18 07:46 Labs: Abnormal Lab Results - Last 24 Hours (Table) 10/12/18 10/12/18 10/12/18 Range/Units 07:14 07:46 07:46 WBC 20.2 H (3.8-10.6) k/uL Neutrophils # 17.2 H (1.3-7.7) k/uL Monocytes # 1.2 H (0-1.0) k/uL Creatinine 0.62 L (0.66-1.25) mg/dL Glucose 112 H (74-99) mg/dL POC Glucose (mg/dL) 123 H (75-99) mg/dL Calcium 7.4 L (8.4-10.2) mg/dL Phosphorus 2.3 L (2.5-4.5) mg/dL 10/12/18 Range/Units 12:06 WBC (3.8-10.6) k/uL Neutrophils # (1.3-7.7) k/uL Monocytes # (0-1.0) k/uL Creatinine (0.66-1.25) mg/dL Glucose (74-99) mg/dL POC Glucose (mg/dL) 145 H (75-99) mg/dL Calcium (8.4-10.2) mg/dL Phosphorus (2.5-4.5) mg/dL Microbiology - Last 24 Hours (Table) 10/07/18 22:41 Blood Culture - Preliminary Blood No Growth after 96 hours 10/07/18 21:27 Blood Culture - Preliminary Blood No Growth after 96 hours 10/08/18 17:00 Anaerobic Culture - Final Tissue - Other Anaerobic Gm Negative Bacilli 10/08/18 17:00 Anaerobic Culture - Final Other - Other Anaerobic Gram Positive Cocci Anaerobic Gm Negative Bacilli#3 10/08/18 17:00 Gram Stain - Preliminary Other - Other Tissue Culture - Preliminary Assessment and Plan Assessment: Impression Present on admission leukocytosis tachycardic suspect due to sepsis due to sigmoid diverticulitis with developing abscess Present on admission right lower quadrant abdominal pain suspect due to acute sigmoid diverticulitis with extensive phlegmonus changes surrounding the colon extending to the appendix and cecum suggests developing abscess Current every day smoker Postop unexpected scrotal and penile edema multifactorial including postsurgical edema due to inflammation in the pelvis, low albumin, immobility Bacteremia due to Gram-positive bacteria Postop October 08 lysis of adhesions reduction of small bowel obstruction Luz's procedure for perforated rectosigmoid junction placement of prevena wound VAC system with SETH drain, descending colostomy creation Sigmoid colon abscess Pelvic abscess right lower quadrant Bipolar disorder Bilateral pleural effusion right greater than the left Possible need for thoracentesis indicated Leukocytosis suspect reactive Plan Ostomy teaching to be initiated IV antibiotics per infectious disease Pain control DVT and GI prophylaxis Nothing by mouth except for ice chips Will follow with you Repeat labs in morning Scrotal support Attempt to increase activity The above impression and plan of care have been discussed and directed by signing physician. Nicole Quan nurse practitioner acting as scribe for signing physician. <Maegan Cedillo - Last Filed: 10/13/18 14:45> Objective - Vital Signs Vital signs: Vital Signs Temp 98.1 F 10/13/18 07:00 Pulse 103 H 10/13/18 07:00 Resp 16 10/13/18 07:00 BP 114/69 10/13/18 07:00 Pulse Ox 94 L 10/13/18 07:00 Intake & Output 10/12/18 10/13/18 10/13/18 18:59 06:59 18:59 Intake Total 1000 Output Total 720 2000 1580 Balance -720 -2000 -580 Weight 80.286 kg Intake: Intake, IV Titration 1000 Amount Amino Acid 5%-D15w+Lytes* 1000 E* 1,000 ml @ 85 mls/hr IV .BY DURATION JILLIAN Rx#: [id number] Output: Gastric Drainage 200 Drainage 20 30 Abdomen 20 30 Urine 2000 1500 Stool 500 50 Other: Voiding Method Indwelling Catheter Urinal Urinal # Voids 4 1 - Labs CBC & Chem 7: 10/13/18 07:36 10/13/18 07:36 Labs: Abnormal Lab Results - Last 24 Hours (Table) 10/12/18 10/12/18 10/13/18 Range/Units 17:22 23:56 06:00 WBC (3.8-10.6) k/uL RBC (4.30-5.90) m/uL Hgb (13.0-17.5) gm/dL Hct (39.0-53.0) % Neutrophils # (1.3-7.7) k/uL Potassium (3.5-5.1) mmol/L Creatinine (0.66-1.25) mg/dL Glucose (74-99) mg/dL POC Glucose (mg/dL) 115 H 144 H 134 H (75-99) mg/dL Calcium (8.4-10.2) mg/dL 10/13/18 10/13/18 10/13/18 Range/Units 07:36 07:36 11:52 WBC 18.1 H (3.8-10.6) k/uL RBC 3.99 L (4.30-5.90) m/uL Hgb 12.2 L (13.0-17.5) gm/dL Hct 37.5 L (39.0-53.0) % Neutrophils # 15.1 H (1.3-7.7) k/uL Potassium 3.4 L (3.5-5.1) mmol/L Creatinine 0.58 L (0.66-1.25) mg/dL Glucose 136 H (74-99) mg/dL POC Glucose (mg/dL) 134 H (75-99) mg/dL Calcium 7.5 L (8.4-10.2) mg/dL Microbiology - Last 24 Hours (Table) 10/07/18 22:41 Blood Culture - Preliminary Blood No Growth after 120 hours 10/07/18 21:27 Blood Culture - Preliminary Blood No Growth after 120 hours 10/08/18 17:00 Anaerobic Culture - Final Other - Other 10/08/18 17:00 Gram Stain - Final Other - Other Tissue Culture - Final Assessment and Plan (1) Perforation of sigmoid colon due to diverticulitis Current Visit: Yes Status: Acute Code(s): K57.20 - DVTRCLI OF LG INT W PERFORATION AND ABSCESS W/O BLEEDING SNOMED Code(s): 0830851387418719 (2) Peritoneal abscess Current Visit: Yes Status: Acute Code(s): K65.1 - PERITONEAL ABSCESS SNOMED Code(s): 02329102 (3) SBO (small bowel obstruction) Current Visit: Yes Status: Acute Code(s): K56.609 - UNSP INTESTNL OBST, UNSP TO PARTIAL VERSUS COMPLETE OBST SNOMED Code(s): 466239149 (4) Peritonitis (acute) generalized Current Visit: Yes Status: Acute Code(s): K65.0 - GENERALIZED (ACUTE) PERITONITIS SNOMED Code(s): 98268679 (5) Ascites Current Visit: Yes Status: Acute Code(s): R18.8 - OTHER ASCITES SNOMED Code(s): 659399668 (6) Dehydration Current Visit: Yes Status: Acute Code(s): E86.0 - DEHYDRATION SNOMED Code( s): 89722792 (7) Urinary retention Current Visit: Yes Status: Acute Code(s): R33.9 - RETENTION OF URINE, UNSPECIFIED SNOMED Code(s): 888803712 (8) Bacteremia due to Gram-positive bacteria Current Visit: Yes Status: Acute Code(s): R78.81 - BACTEREMIA SNOMED Code( s): 934877227032 (9) Sepsis Current Visit: Yes Status: Acute Code(s): A41.9 - SEPSIS, UNSPECIFIED ORGANISM SNOMED Code(s): 50353640
[2018-10-12] MEDS: INSULIN ASPART 100 UNIT/ML 1 ML 10 ML VIAL SQ SCH ×3 (14:15→23:57)
[2018-10-12 17:23] LABS: Glucose,Whole Blood 115 mg/dL (75-99)
[2018-10-12] MEDS: FAT EMULSION 20% 250 ML in EMPTY BAG 1 BAG IV SCH (17:27)
[2018-10-12 21:23] LABS: Hemoglobin A1C 5.5 % (4.0-6.0)
[2018-10-12] MEDS: 1: MVI, ADULT NO.4 WITH VIT K 10 ML, TRACE (CONC-1ML/DOSE) 1 ML in AMINO ACID 5%-D15W+LY IV SCH ×3 (21:31)
--- NOTE | 2018-10-12 21:42 | PN ---
PROGRESS NOTE DATE OF SERVICE: 10/12/18 PRESENTING COMPLAINT: Abdominal surgery. INTERVAL HISTORY: The patient is ruptured diverticulitis and intraabdominal abscess, status post surgical intervention. The patient has a SETH drain, incisional wound VAC and a colostomy bag. Very little out of the colostomy bag. NG tube remains in place. The patient occasionally gets IV Dilaudid. Also got scrotal swelling. The patient had become a bit short of breath yesterday after getting the PICC line. I did order a CT scan of the chest negative for PE. Chest x-ray has shown some pleural effusion, possible infiltrate. The patient is already on broad-spectrum antibiotics. The patient was given some IV Lasix, did help with his breathing. REVIEW OF SYSTEMS: Done for constitutional, cardiovascular, GI, pulmonary; relevant findings as above. CURRENT MEDICATIONS: Reviewed that include TPN, lipids, IV meropenem, IV Flagyl, IV vancomycin. PHYSICAL EXAMINATION: Temperature 98.1, pulse 92, respirations 18, blood pressure 130/90, pulse ox 93 percent on room air. GENERAL APPEARANCE: Lying in bed, awake. EYES: Pupils equal. Conjunctivae normal. HEENT: External appearance of nose and ears normal. Oral cavity normal. NG tube in place. NECK: JVD not raised. Mass not palpable. RESPIRATORY: Effort increased. Lungs, some diminished breath sounds at bases. CARDIOVASCULAR: 1st and 2nd sounds normal. No edema. ABDOMEN: Soft. Mild tenderness. Bowel sounds are sluggish. SETH drain in place. Left- sided colostomy bag with minimal output. Incision wound VAC in place. PSYCHIATRY: Alert and oriented x3. Mood and affect normal. GENITOURINARY: Scrotal swelling with Hollingsworth catheter. INVESTIGATIONS: White count 20.2, hemoglobin 3.6. Chest x-ray film personally reviewed by me shows bilateral small pleural effusion, possible infiltrate. ASSESSMENT: 1. Acute perforated sigmoid diverticulitis and intraabdominal abscess, status post surgical intervention. 2. Patient has a SETH drain, incisional wound VAC left-sided colostomy and the NG tube in place. 3. Bilateral pleural effusions, small, not too significant secondary to probably IV fluids and third-spacing and some translocation from the abdomen, responding to IV Lasix. 4. Chronic nicotine dependence, patient does vaping. 5. Recreational marijuana use. 6. Hypoalbuminemia as an acute phase reactant. 7. Acute retention with sepsis requiring Hollingsworth catheter. 8. Positive blood cultures growing micrococcus and wound cultures growing E coli. 9. Scrotal swelling from third-spacing. PLAN: Care was discussed with the patient and at the bedside. Continue current medication and treatment plan. TPN and lipids are present. Broad-spectrum antibiotics to continue. Follow. MMODL / IJN: [id number] /
--- NOTE | 2018-10-12 22:43 | P.PN ---
Subjective Progress Note Date: 10/12/18 Pleasant 38-year-old male who does not have a history of significant underlying medical troubles relates that several days before admission to hospital he was starting to have some significant abdominal pain. He thought maybe he was having hernia given the discomfort into his right lower aspect of his abdomen. Eventually because of his discomforts he was seen by his primary care physician there was concerns to appendicitis or nephrolithiasis. He was given some tamsulosin determine if this would give him relief. After 48 hours he had no improvement and she started to have some worsening. The patient relates he then had what felt like a popping sensation in his abdomen associate with severe generalized abdominal pain thereafter. He constantly called 911 and was brought to hospital. Computed tomography scan does reveal evidence of diverticulitis with phlegmon changes, cannot rule out microperforation. The patient is now had some further worsening. Positive culture was called and the infectious diseases evaluation was requested. 10/08/2018 patient is continued to worsen, abdomen is more distended. Surgeon is now evaluated and will be taken to the operating room for exploratory laparotomy 10/09/2018 the patient is now status post surgery and is feeling considerably better. His severe pain has resolved. There is a small amount of gas that is becoming evident in the ostomy pouch. The patient relates he feels considerably better. Has an NG tube still in place however some moisture to his oral cavity is being allowed by the general surgeon. The patient family understand that there was a perforated sigmoid diverticulum with a localized abscess and small bowel obstruction due to the inflammation. He is now doing considerably better and does have the negative pressure therapy system intact over the surgical site. His fevers have resolved. 10/10/2018 patient is feeling better today. He is allowed to have Popsicle and he is quite pleased. No nausea is occurring. Abdominal pain is improving. Overall is pleased with his improvement. 10/11/2018 patient is improving further. However is short of breath and has noticed some significant edema to his scrotum. The patient has been ill for a bit and does have evidence of hypoalbuminemia. He is now having some significant dependent edema occurring. EKG has been performed which appears to be normal. Primary service is asked for a CT angiogram to ensure no pulmonary embolus given his current level of debility. 10/12/2018 patient has further improvement. With his diuresis of yesterday, 4700 mL of urine output occurred rapidly with Lasix dose that was given is allowed the resolution of the shortness of breath. His extensive scrotal edema is also improving is much less tender. He no longer feels like the skin is splitting on his scrotum. Overall he feels considerably better. Having no fevers or chills. He has improved abdominal pain. History to have a scant amount of stool within his ostomy pouch. The few times that stool has progressed through his resulted in some nausea. Feeling well at the moment. Objective - Vital Signs Vital signs: Vital Signs Temp 98.1 F 10/12/18 15:00 Pulse 92 10/12/18 15:00 Resp 16 10/12/18 15:00 BP 132/90 10/12/18 15:00 Pulse Ox 93 L 10/12/18 15:00 Intake & Output 10/12/18 10/12/18 10/13/18 06:59 18:59 06:59 Intake Total 2070 Output Total 4275 720 Balance -2205 -720 Intake: Intake, IV Titration 2070 Amount D5-0.45% NaCl with KCl 1000 20Meq/l 1,000 ml @ 100 mls/hr IV .Q10H JILLIAN Rx#: [id number] Fat Emulsion 20% 250 ml 170 In Empty Bag 1 bag @ 21 mls/hr IV DAILY@1800 JILLIAN Rx#:[id number] Meropenem 2 gm In Sodium 100 Chloride 0.9% 100 ml @ 200 mls/hr IVPB Q8H JILLIAN Rx#:[id number] Mvi, Adult No.4 with Vit 300 K 10 ml Trace (Conc-1Ml/ Dose) 1 ml In Amino Acid 5%-D15w+Lytes*E* 1,000 ml @ 30 mls/hr IV .Q24H JILLIAN Rx#:[id number] Vancomycin 1,750 mg In 500 Sodium Chloride 0.9% 500 ml 500 ml @ 167 mls/hr IVPB Q8H JILLIAN Rx#: [id number] Output: Gastric Drainage 200 200 Drainage 25 20 ABDOMINAL INCISION 25 Abdomen 20 Urine 4050 Stool 500 Other: Voiding Method Indwelling Catheter Indwelling Catheter - Exam Pleasant 38-year-old male who is very uncomfortable and has had fever currently the temperature is improved and not having chills at this time HEENT: Anicteric conjunctiva are pink and moist nasal mucosa grossly intact without significant lesions, there is no thrush. Oral mucosa is dry Neck: The neck is supple without significant lymphadenopathy or thyromegaly. Lungs: They're symmetrical bilateral air entry, there are few wheezes scattered however there are a few crackles posterior bilaterally from the mid zone distallyand dullness or egophony was noted Heart: Regular rate and rhythm with an audible S1-S2, no S3 no S4. There is no significant murmur click or rub, PMI was nondisplaced. Abdomen: Abdomen is postsurgical, few bowel sounds are heard. The stoma is healthy and there is evidence of gas and a small amount of stool in the ostomy pouch. The diffuse abdominal tenderness is now considerably improved. The abdomen is no longer rigid and no rebound was noted. Extremities: The upper extremities have excellent pulses they are symmetric, no significant petechiae or telangiectasia. No splinter hemorrhages were noted. The lower extremities show marked improvement of the extensive edema. The extensive scrotal edema is also slightly improved today. Neuro: Awake alert oriented to person place and time. There are no acute new gross focal sensory motor deficits. - Labs CBC & Chem 7: 10/12/18 07:46 10/12/18 07:46 Labs: Abnormal Lab Results - Last 24 Hours (Table) 10/12/18 10/12/18 10/12/18 Range/Units 07:14 07:46 07:46 WBC 20.2 H (3.8-10.6) k/uL Neutrophils # 17.2 H (1.3-7.7) k/uL Monocytes # 1.2 H (0-1.0) k/uL Creatinine 0.62 L (0.66-1.25) mg/dL Glucose 112 H (74-99) mg/dL POC Glucose (mg/dL) 123 H (75-99) mg/dL Calcium 7.4 L (8.4-10.2) mg/dL Phosphorus 2.3 L (2.5-4.5) mg/dL 10/12/18 10/12/18 Range/Units 12:06 17:22 WBC (3.8-10.6) k/uL Neutrophils # (1.3-7.7) k/uL Monocytes # (0-1.0) k/uL Creatinine (0.66-1.25) mg/dL Glucose (74-99) mg/dL POC Glucose (mg/dL) 145 H 115 H (75-99) mg/dL Calcium (8.4-10.2) mg/dL Phosphorus (2.5-4.5) mg/dL Microbiology - Last 24 Hours (Table) 10/08/18 17:00 Anaerobic Culture - Final Other - Other 10/08/18 17:00 Gram Stain - Final Other - Other Tissue Culture - Final 10/07/18 22:41 Blood Culture - Preliminary Blood No Growth after 96 hours 10/07/18 21:27 Blood Culture - Preliminary Blood No Growth after 96 hours 10/08/18 17:00 Anaerobic Culture - Final Tissue - Other Anaerobic Gm Negative Bacilli 10/08/18 17:00 Anaerobic Culture - Final Other - Other Anaerobic Gram Positive Cocci Anaerobic Gm Negative Bacilli#3 Laboratory Results WBC 20.2 k/uL (3.8-10.6) H 10/12/18 07:46 RBC 4.33 m/uL (4.30-5.90) 10/12/18 07:46 Hgb 13.6 gm/dL (13.0-17.5) 10/12/18 07:46 Hct 40.7 % (39.0-53.0) 10/12/18 07:46 MCV 94.1 fL (80.0-100.0) 10/12/18 07:46 MCH 31.5 pg (25.0-35.0) 10/12/18 07:46 MCHC 33.5 g/dL (31.0-37.0) 10/12/18 07:46 RDW 13.6 % (11.5-15.5) 10/12/18 07:46 Plt Count 418 k/uL (150-450) 10/12/18 07:46 Neutrophils % 86 % 10/12/18 07:46 Neutrophils % (Manual) 88 % 10/10/18 07:05 Lymphocytes % 6 % 10/12/18 07:46 Lymphocytes % (Manual) 7 % 10/10/18 07:05 Monocytes % 6 % 10/12/18 07:46 Monocytes % (Manual) 4 % 10/10/18 07:05 Eosinophils % 1 % 10/12/18 07:46 Eosinophils % (Manual) 1 % 10/10/18 07:05 Basophils % 0 % 10/12/18 07:46 Metamyelocytes % 1 % 10/10/18 07:05 Neutrophils # 17.2 k/uL (1.3-7.7) H 10/12/18 07:46 Neutrophils # (Manual) 15.93 k/uL (1.3-7.7) H 10/10/18 07:05 Lymphocytes # 1.2 k/uL (1.0-4.8) 10/12/18 07:46 Lymphocytes # (Manual) 1.27 k/uL (1.0-4.8) 10/10/18 07:05 Monocytes # 1.2 k/uL (0-1.0) H 10/12/18 07:46 Monocytes # (Manual) 0.72 k/uL (0-1.0) 10/10/18 07:05 Eosinophils # 0.1 k/uL (0-0.7) 10/12/18 07:46 Eosinophils # (Manual) 0.18 k/uL (0-0.7) 10/10/18 07:05 Basophils # 0.0 k/uL (0-0.2) 10/12/18 07:46 Metamyelocytes # (Man) 0.18 k/uL (0) H 10/10/18 07:05 Nucleated RBCs 0 /100 WBC (0-0) 10/10/18 07:05 Manual Slide Review Performed 10/10/18 07:05 RBC Morphology Normal 10/10/18 07:05 PT 13.4 sec (9.0-12.0) H 10/07/18 14:07 INR 1.4 (<1.2) H 10/07/18 14:07 APTT 18.7 sec (22.0-30.0) L 10/05/18 14:00 Sodium 137 mmol/L (137-145) 10/12/18 07:46 Potassium 3.6 mmol/L (3.5-5.1) 10/12/18 07:46 Chloride 102 mmol/L (98-107) 10/12/18 07:46 Carbon Dioxide 26 mmol/L (22-30) 10/12/18 07:46 Anion Gap 9 mmol/L 10/12/18 07:46 BUN 9 mg/dL (9-20) 10/12/18 07:46 Creatinine 0.62 mg/dL (0.66-1.25) L 10/12/18 07:46 Est GFR (CKD-EPI)AfAm >90 (>60 ml/min/1.73 sqM) 10/12/18 07:46 Est GFR (CKD-EPI)NonAf >90 (>60 ml/min/1.73 sqM) 10/12/18 07:46 Glucose 112 mg/dL (74-99) H 10/12/18 07:46 POC Glucose (mg/dL) 115 mg/dL (75-99) H 10/12/18 17:22 POC Glu [employer] ID Elizabeth Browne 10/12/18 17:[address] Glu mg/dL 111 10/12/18 07:46 Hemoglobin A1c 5.5 % (4.0-6.0) 10/12/18 07:46 Lactic Ac Sepsis Rflx Y 10/05/18 15:10 Plasma Lactic Acid [place] 1.6 mmol/L (0.7-2.0) 10/08/18 17:45 Calcium 7.4 mg/dL (8.4-10.2) L 10/12/18 07:46 Ionized Calcium [place] 5.0 mg/dL (4.5-5.3) 10/07/18 16:36 Phosphorus 2.3 mg/dL (2.5-4.5) L 10/12/18 07:46 Magnesium 2.0 mg/dL (1.6-2.3) 10/12/18 07:46 Total Bilirubin 0.9 mg/dL (0.2-1.3) 10/08/18 07:27 AST 22 U/L (17-59) 10/08/18 07:27 ALT 29 U/L (21-72) 10/08/18 07:27 Alkaline Phosphatase 64 U/L (38-126) 10/08/18 07:27 Creatine Kinase 122 U/L (55-170) 10/06/18 08:48 Total Creatine Kinase 89 U/L (55-170) 10/05/18 14:00 CK-MB (CK-2) 1.0 ng/mL (0.0-2.4) 10/05/18 14:00 CK-MB (CK-2) Rel Index 1.1 10/05/18 14:00 Troponin I <0.012 ng/mL (0.000-0.034) 10/05/18 14:00 Total Protein 5.2 g/dL (6.3-8.2) L 10/08/18 07:27 Albumin 2.5 g/dL (3.5-5.0) L 10/08/18 07:27 Triglycerides 154 mg/dL (<150) H 10/07/18 16:36 Amylase 40 U/L (30-110) 10/05/18 14:00 Lipase 34 U/L (23-300) 10/05/18 14:00 Urine Color Yellow 10/05/18 16:07 Urine Appearance Clear (Clear) 10/05/18 16:07 Urine pH 5.5 (5.0-8.0) 10/05/18 16:07 Ur Specific [place] 1.021 (1.001-1.035) 10/05/18 16:07 Urine Protein 1+ (Negative) H 10/05/18 16:07 Urine Glucose (UA) Negative (Negative) 10/05/18 16:07 Urine Ketones 3+ (Negative) H 10/05/18 16:07 Urine Blood Small (Negative) H 10/05/18 16:07 Urine Nitrite Negative (Negative) 10/05/18 16:07 Urine Bilirubin Negative (Negative) 10/05/18 16:07 Urine Urobilinogen 4.0 mg/dL (<2.0) 10/05/18 16:07 Ur Leukocyte Esterase Negative (Negative) 10/05/18 16:07 Urine RBC 11 /hpf (0-5) H 10/05/18 16:07 Urine WBC 1 /hpf (0-5) 10/05/18 16:07 Ur Squamous Epith Cells <1 /hpf (0-4) 10/05/18 16:07 Urine Mucus Occasional /hpf (None) H 10/05/18 16:07 Vancomycin Trough 15.7 ug/mL 10/10/18 09:17 Blood Type A Positive 10/08/18 12:41 Blood Type Confirm A Positive 10/08/18 07:27 Blood Type Recheck CABO Indicated 10/08/18 12:41 Antibody Screen NEGATIVE 10/08/18 12:41 Spec Expiration D Microbiology 10/08/18 17:00 Other - Other Anaerobic Culture - Final 10/08/18 17:00 Other - Other Gram Stain - Final 10/08/18 17:00 Other - Other Tissue Culture - Final 10/07/18 22:41 Blood Blood Culture - Preliminary No Growth after 96 hours 10/07/18 21:27 Blood Blood Culture - Preliminary No Growth after 96 hours 10/08/18 17:00 Tissue - Other Anaerobic Culture - Final Anaerobic Gm Negative Bacilli 10/08/18 17:00 Other - Other Anaerobic Culture - Final Anaerobic Gram Positive Cocci Anaerobic Gm Negative Bacilli#3 10/08/18 17:00 Other - Other Gram Stain - Final 10/08/18 17:00 Other - Other Wound Culture - Final 10/08/18 17:00 Other - Other Gram Stain - Final 10/08/18 17:00 Other - Other Wound Culture - Final Escherichia coli 10/05/18 14:00 Blood Blood Culture Gram Stain - Final 10/05/18 14:00 Blood Blood Culture - Final Micrococcus species 10/05/18 14:00 Blood Blood Culture - Final 10/05/18 16:07 Urine,Clean Catch Urine Culture - Final ate 10/11/2018 - 2341 10/08/18 12:41 Assessment and Plan (1) Diverticulitis Narrative/Plan: 38 year male presents to Hospital with a several-day history of abdominal pain that had been progressive. The patient believes it may be kidney stones and was even given a trial tamsulosin. Computed tomography scan hour reveals no evidence of any nephrolithiasis or of any hydronephrosis. Computed tomography scan overdoes reveal evidence of the significant diverticulitis with some phlegmon formation and possibly early abscess formation possibly free air small amount from a microperforation. Perforation clinically seems to have occurred when he had the sudden severe onset of pain after feeling a popping sensation within his abdomen. He's been seen by surgery at this time. Antibiotic therapy will be altered at this point in time given his ongoing sepsis and the positive blood culture. It is currently identified as a gram- positive cocci unclear of this will be a staph or strep. Meropenem with vancomycin be utilized for now until we have further data given his known penicillin ALLERGY. Follow blood cultures are requested Requested for interaction with the surgeon, the patient likely will need to presents to surgery in the near future, he is not showing any significant improvements with antibiotic therapy and actually clinically he seems to be worsening. We will monitor. Attempt was made to call his [id number], Verito Partida. 10/08/2018 conversation with the patient's [id number], Verito partida RN has occurred. Patient is worsened will be taken the operating room for the exposure laparotomy today. Continue current antibiotic therapy until further cultures are available. We'll monitor. 10/09/2018 the patient is now status post exploratory laparotomy which found evidence of the perforation and abscess in the left lower quadrant the sigmoid colon which has been resected and the colostomy has been applied. The patient is now considerably improved overnight. His fevers resolved. His leukocytosis is improving. His abdominal pain is considerably improved and he is pleased that he is doing so well at this time. Given the extent of the infection and the localized peritonitis the patient will require a couple week course of intravenous antibiotic therapy for this extensive infectious process. PICC line will be placed, Thursday and we'll make plans for outpatient intravenous antibiotic therapy potentially coming to the infusion clinic on a daily basis. 10/10/2018 patient continues to improve after surgery. Requested PICC line for ongoing antibiotic therapy after his discharge. He is improving and cultures will help further direct his antibiotic therapy at discharge. His had some scant fluid in the ostomy pouch. Awaiting recovery of GI function. 10/11/2018 patient has further improvement however is now developed some shortness of breath likely has some volume overload related to his hyperproteinemia which is being noted by the significant scrotal edema and some lower extremity edema that has occurred. We'll give him a single dose of Lasix and await his computed tomography scan to further evaluate. Elevation of the scrotum will be helpful because his skin is getting very stretched applied thick zinc cream to the area for relief. The patient will require outpatient intravenous antibiotic therapy and we will work with the discharge planners for arranging this. 10/12/2018 reveals the patient to be further improved. With the Lasix dose that was ordered and given he's had a 4700 mL diuresis which is allowed a marked improvement of some distention to his abdomen, lower extremities edema in the scrotal edema. It also is allowed resolution of his shortness of breath is feeling considerably better today. The hypoalbuminemia is partially responsible for his third spacing of fluid. Fortunately improving. Arrangements in place for his outpatient intravenous antibiotic therapy. Current Visit: No Status: Acute Code(s): K57.92 - DVTRCLI OF INTEST, PART UNSP, W/O PERF OR ABSCESS W/O BLEED SNOMED Code(s): 335526166 (2) Sepsis Current Visit: Yes Status: Acute Code(s): A41.9 - SEPSIS, UNSPECIFIED ORGANISM SNOMED Code(s): 05576734 (3) Bacteremia due to Gram-positive bacteria Current Visit: Yes Status: Acute Code(s): R78.81 - BACTEREMIA SNOMED Code( s): 150225774191
[2018-10-13 00:07] LABS: Glucose,Whole Blood 144 mg/dL (75-99)
[2018-10-13] MEDS: 1: MVI, ADULT NO.4 WITH VIT K 10 ML, TRACE (CONC-1ML/DOSE) 1 ML in AMINO ACID 5%-D15W+LY IV SCH ×6 (01:11→13:13)
[2018-10-13] MEDS: VANCOMYCIN 1,750 MG in SODIUM CHLORIDE 0.9% 500 ML 500 ML IVPB SCH ×3 (01:13→17:10)
[2018-10-13] MEDS: D5-0.45% NACL WITH KCL 20MEQ/L 1,000 ML IV SCH ×3 (01:39→22:54)
[2018-10-13] MEDS: MEROPENEM 2 GM in SODIUM CHLORIDE 0.9% 100 ML IVPB SCH ×3 (03:59→21:18)
[2018-10-13] MEDS: HYDROmorphone 1 MG/ML 1 ML SYRINGE IVP PRN ×5 (04:22→18:45)
[2018-10-13] MEDS: ONDANSETRON 4 MG/2 ML VIAL IVP PRN ×2 (04:25→08:18)
[2018-10-13] MEDS: metroNIDAZOLE-NS PMX 500 MG in SALINE 1 100ML.BAG IVPB SCH ×4 (05:48→23:50)
[2018-10-13] MEDS: METOCLOPRAMIDE 5 MG/ML 2 ML VIAL IVP SCH ×4 (05:48→23:51)
[2018-10-13] MEDS: INSULIN ASPART 100 UNIT/ML 1 ML 10 ML VIAL SQ SCH ×3 (06:02→18:47)
[2018-10-13 06:13] LABS: Glucose,Whole Blood 134 mg/dL (75-99)
[2018-10-13 08:09] LABS: Basophils % (A) 0 %; Eosinophils # (A) 0.1 k/uL (0-0.7); Eosinophils % (A) 1 %; HCT 37.5 % (39.0-53.0); HGB 12.2 gm/dL (13.0-17.5); Lymphocytes # (A) 1.5 k/uL (1.0-4.8); Lymphocytes % (A) 8 %; MCH 30.7 pg (25.0-35.0); MCHC 32.6 g/dL (31.0-37.0); MCV 94.1 fL (80.0-100.0); Mean Platelet Volume 7.3; Monocytes % (A) 6 %; Neutrophils # (A) 15.1 k/uL (1.3-7.7); Neutrophils % (A) 83 %; Platelet Count 415 k/uL (150-450); RBC 3.99 m/uL (4.30-5.90); RDW 13.7 % (11.5-15.5); WBC 18.1 k/uL (3.8-10.6)
[2018-10-13] MEDS: HEPARIN SODIUM,PORCINE 5,000 UNIT/ML 1 ML VIAL SQ SCH ×2 (08:18→21:17)
[2018-10-13] MEDS: FUROSEMIDE 10 MG/ML 4 ML VIAL IV SCH ×2 (08:18→21:17)
[2018-10-13] MEDS: PANTOPRAZOLE 40 MG/10 ML VIAL IVP SCH (08:18)
[2018-10-13] MEDS: METOPROLOL TARTRATE 25 MG TAB PO SCH ×2 (08:19→21:17)
[2018-10-13 08:28] LABS: Anion Gap 7 mmol/L; Blood Urea Nitrogen 11 mg/dL (9-20); Calcium 7.5 mg/dL (8.4-10.2); Carbon Dioxide 27 mmol/L (22-30); Chloride 103 mmol/L (98-107); Glucose 136 mg/dL (74-99); Phosphorus 2.5 mg/dL (2.5-4.5); Potassium 3.4 mmol/L (3.5-5.1); Sodium 137 mmol/L (137-145)
[2018-10-13] MEDS: KETOROLAC 30 MG/ML 1 ML VIAL IVP SCH ×3 (10:37→23:51)
--- NOTE | 2018-10-13 10:45 | P.PN ---
Subjective Progress Note Date: 10/13/18 Principal diagnosis: Perforated sigmoid diverticulitis status post repair. This is a very pleasant 38-year-old gentleman who follows with Dr. Yin as his primary care physician. He has a history of bipolar disorder, chronic tobacco dependence, vaping, marijuana use. He presented here to the emergency room on 10/04/2018 with complaints of abdominal discomfort. He was diagnosed with diverticulitis and discharged home on antibiotics. The following day on the he was having a bowel movement and felt a pop in his right lower quadrant with significant pain and discomfort and return to the emergency room for the same. He was found to have a perforated sigmoid diverticulitis with secondary sepsis due to gram-negative bacteria. He had undergone surgery on which included open lysis of adhesions and reduction of small bowel obstruction, descending colostomy creation, drainage of the right pelvic abscesses, small bowel enterectomy, devitalized rectal stump. He also had undergone Briceno's procedure for perforated rectosigmoid junction. Peritoneal lavage over 6 L. Intra-abdominal #19 Lasha drain in the right lower quadrant and a prerenal wound VAC system placed. Cultures are positive for anaerobic gram-negative bacilli and anaerobic gram-positive cocci. White count 20.2. Hemoglobin 13.6. Creatinine 0.62. He is currently on vancomycin, meropenem, Flagyl. Nasogastric tube is secured in place. He is being nourished with TPN. We were consulted today as the patient has developed bilateral pleural effusions right greater than left. The right side has a 6.9 cm pocket. He is seen currently resting quite comfortably in bed. He has been working with the incentive spirometer pulling just under 1L. He is maintaining good O2 saturations in the mid 90s on room air. He's been afebrile. Hemodynamically stable. No worsening shortness of breath, cough or congestion. The patient is seen again today 10/13/2018 in follow-up on the surgical floor. He is currently awake and alert in no acute distress. He denies any worsening shortness of breath, cough or congestion. He continues to diurese well and remains in a negative balance. Scrotal and lower extremity edema has improved. He is maintaining good O2 saturations in the 90s on room air. Low-grade temp 99.1 last evening. Currently afebrile. White count 18.1. Hemoglobin 12.2. Creatinine 0.58. He is continued on Lasix 40 mg IV push every 12 hours. Antibiotics in the form of meropenem, vancomycin and metronidazole. He remains on TPN and lipids. Stoma is pink, no noted activity. Nasogastric tube remains in place. He is having some new right upper quadrant pain today. Ultrasound has been ordered. Surgical services aware. Objective - Vital Signs Vital signs: Vital Signs Temp 98.1 F 10/13/18 07:00 Pulse 103 H 10/13/18 07:00 Resp 16 10/13/18 07:00 BP 114/69 10/13/18 07:00 Pulse Ox 94 L 10/13/18 07:00 Intake & Output 10/12/18 10/13/18 10/13/18 18:59 06:59 18:59 Output Total 720 2000 1130 Balance -720 2000 1130 Output: Gastric Drainage 200 Drainage 20 30 Abdomen 20 30 Urine 2000 1050 Stool 500 50 Other: Voiding Method Indwelling Catheter Urinal # Voids 4 1 - Exam - Constitutional General appearance: average body habitus, no acute distress, on room air. - EENT Eyes: EOMI, PERRLA ENT: hearing grossly normal Ears: bilateral: normal - Neck Neck: normal ROM Carotids: bilateral: upstroke normal Thyroid: bilateral: normal size - Respiratory Respiratory: bilateral: diminished - Cardiovascular Rhythm: regular Heart sounds: normal: S1, S2 - Gastrointestinal General gastrointestinal: decreased bowel sounds Localized gastrointestinal: tender: diffuse somewhat worse in the right upper quadrant today. (Ostomy pink, patent, surgical incision intact, SETH drain intact. Wound VAC in place.) - Genitourinary Male genitourinary: scrotal edema - Integumentary Integumentary: normal turgor - Neurologic Neurologic: CNII-XII intact - Musculoskeletal Musculoskeletal: generalized weakness - Psychiatric Psychiatric: A&O x's 3, appropriate affect, intact judgment & insight - Labs CBC & Chem 7: 10/13/18 07:36 10/13/18 07:36 Labs: Abnormal Lab Results - Last 24 Hours (Table) 10/12/18 10/12/18 10/12/18 Range/Units 07:46 12:06 17:22 WBC (3.8-10.6) k/uL RBC (4.30-5.90) m/uL Hgb (13.0-17.5) gm/dL Hct (39.0-53.0) % Neutrophils # (1.3-7.7) k/uL Potassium (3.5-5.1) mmol/L Creatinine 0.62 L (0.66-1.25) mg/dL Glucose 112 H (74-99) mg/dL POC Glucose (mg/dL) 145 H 115 H (75-99) mg/dL Calcium 7.4 L (8.4-10.2) mg/dL Phosphorus 2.3 L (2.5-4.5) mg/dL 10/12/18 10/13/18 10/13/18 Range/Units 23:56 06:00 07:36 WBC (3.8-10.6) k/uL RBC (4.30-5.90) m/uL Hgb (13.0-17.5) gm/dL Hct (39.0-53.0) % Neutrophils # (1.3-7.7) k/uL Potassium 3.4 L (3.5-5.1) mmol/L Creatinine 0.58 L (0.66-1.25) mg/dL Glucose 136 H (74-99) mg/dL POC Glucose (mg/dL) 144 H 134 H (75-99) mg/dL Calcium 7.5 L (8.4-10.2) mg/dL Phosphorus (2.5-4.5) mg/dL 10/13/18 Range/Units 07:36 WBC 18.1 H (3.8-10.6) k/uL RBC 3.99 L (4.30-5.90) m/uL Hgb 12.2 L (13.0-17.5) gm/dL Hct 37.5 L (39.0-53.0) % Neutrophils # 15.1 H (1.3-7.7) k/uL Potassium (3.5-5.1) mmol/L Creatinine (0.66-1.25) mg/dL Glucose (74-99) mg/dL POC Glucose (mg/dL) (75-99) mg/dL Calcium (8.4-10.2) mg/dL Phosphorus (2.5-4.5) mg/dL Microbiology - Last 24 Hours (Table) 10/07/18 22:41 Blood Culture - Preliminary Blood No Growth after 120 hours 10/07/18 21:27 Blood Culture - Preliminary Blood No Growth after 120 hours 10/08/18 17:00 Anaerobic Culture - Final Other - Other 10/08/18 17:00 Gram Stain - Final Other - Other Tissue Culture - Final Assessment and Plan Assessment: Impression: #1 Abdominal pain secondary to perforated sigmoid diverticulitis with generalized peritonitis. Status post open lysis of adhesions, reduction of small bowel obstruction, descending colostomy creation, drainage of a right pelvic abscesses, small bowel enterectomy, devitalized rectal stump, Briceno's procedure, drain placement, wound VAC placement. Postoperative day #5. On the patient did have complaints of right upper quadrant pain. Ultrasound of the gallbladder is pending. #2 Sepsis secondary to gram-negative bacteria secondary to above. #3 Chest discomfort secondary to bilateral pleural effusions right greater than left. Pulmonary embolism ruled out. #4 History of chronic tobacco dependence, vaping, marijuana use. #5 History of bipolar disorder. #6 Urinary retention, Hollingsworth catheter in place. Generalized edema of the lower extremities including scrotal and penile edema. Plan: The patient was seen and evaluated by Dr. Whatley. Ultrasound of the chest has been reviewed. There is no significant free-flowing fluid requiring thoracentesis at this time. He continues to diurese well. Less edema of the scrotum and lower extremities. He is currently on Lasix 40 mg IV push every 12 hours. He remains in a negative balance. He is again encouraged regarding the increased use the incentive spirometer and cough and deep breathing exercises. He is maintaining good O2 saturations in the 90s on room air. No significant pulmonary complaints. We will repeat a chest x-ray in the a.m. He remains on heparin subcutaneous for DVT prophylaxis. We will increase his activity as tolerated. We'll continue to follow and make further recommendations based on his clinical status. I, the cosigning physician, performed a history & physical examination of the patient. Lungs sounds are diminished in bilateral posterior bases right greater than left. Maintaining good O2 saturations in the 90s on room air. I discussed the assessment and plan of care with my nurse practitioner, Jaylin Samuels. I attest to the above consultation as dictated by her.
[2018-10-13] MEDS: POTASSIUM CHLORIDE 20 MEQ in WATER FOR INJECTION 1 100ML.BAG IVPB SCH ×2 (11:31→14:16)
[2018-10-13 12:12] LABS: Glucose,Whole Blood 134 mg/dL (75-99)
--- NOTE | 2018-10-13 13:34 | US ---
EXAMINATION TYPE: US gallbladder DATE OF EXAM: 10/13/2018 COMPARISON: CT 10/05/2018 CLINICAL HISTORY: Right upper quadrant pain with nausea EXAM MEASUREMENTS: Liver Length: 15.4 cm Gallbladder Wall: 0.3 cm CBD: 0.2 cm Right Kidney: 10.1 x 5.1 x 4.4 cm Extensive bandaging midline with tubing, exam limited to lateral imaging. Pancreas: Obscured Liver: left lobe not visualized, limited intercostal views appear wnl Gallbladder: sludge with no wall thickening Evidence for sonographic Carrillo's sign: no CBD: wnl, limited visualization Right Kidney: limited intercostal views appear wnl Right pleural effusion noted. IMPRESSION: Tumefactive sludge. Limited exam. Right pleural effusion.
--- NOTE | 2018-10-13 14:49 | P.PN ---
Subjective Progress Note Date: 10/13/18 CHIEF COMPLAINT: Status post descending colostomy and drainage of pelvic abscess HISTORY OF PRESENT ILLNESS: The patient is a 38-year-old male who is postoperative day 5 following descending colostomy, drainage of pelvic abscess, lysis of adhesions. Yesterday, he had difficulty with pain control. Additionally he reports flatus in his colostomy bag. Hollingsworth catheter is continued. He is voiding spontaneously. He has new complaints of right upper quadrant abdominal pain. No fevers. No chills. He feels well. White count stable. He does report nausea. PICC line in place. PHYSICAL EXAM: GENERAL: Well-developed in no acute distress. HEENT: No sclera icterus. Extraocular movements grossly intact. Moist buccal mucosa. Head is atraumatic, normocephalic. Hears conversational speech. No nasal drainage. NG tube bilious NECK: Supple without lymphadenopathy. CHEST: Non-labored respirations and equal bilateral excursions. CARDIOVASCULAR: 2+ radial pulses. Tachycardic. ABDOMEN: Ostomy pink patent functioning. Incision intact. SETH serosanguineous. No flatus or stool in Coloplast. MUSCULOSKELETAL: No clubbing, cyanosis or edema. NEUROLOGIC: No focal or lateralizing signs. Cranial nerves II through XII grossly intact. PSYCH: Alert and oriented to person, place and time. SKIN: Well perfused. Good skin turgor. LABS: Reviewed ASSESSMENT: 1. Perforated diverticulitis with pelvic abscess 2. Acute small bowel obstruction 3. Peritonitis with sepsis PLAN: 1. Restart toradol for adequate pain control 2. Recommend remove central line as PICC line in place 3. Ultrasound of gallbladder for history of right upper quadrant abdominal pain. Intraoperative findings of mildly thickened gallbladder wall was described to the patient. 4. Antibiotic management per infectious disease 5. NG tube to be discontinued after function of ostomy 6. May benefit from start of metoprolol Objective - Vital Signs Vital signs: Vital Signs Temp 98.1 F 10/13/18 07:00 Pulse 103 H 10/13/18 07:00 Resp 16 10/13/18 07:00 BP 114/69 10/13/18 07:00 Pulse Ox 94 L 10/13/18 07:00 Intake & Output 10/12/18 10/13/18 10/13/18 18:59 06:59 18:59 Intake Total 1000 Output Total 720 2000 1580 Balance -866 -1999 -342 Weight 80.286 kg Intake: Intake, IV Titration 1000 Amount Amino Acid 5%-D15w+Lytes* 1000 E* 1,000 ml @ 85 mls/hr IV .BY DURATION [facility] Rx#: [id number] Output: Gastric Drainage 200 Drainage 20 30 Abdomen 20 30 Urine 2000 1500 Stool 500 50 Other: Voiding Method Indwelling Catheter Urinal Urinal # Voids 4 1 - Labs CBC & Chem 7: 10/13/18 07:36 10/13/18 07:36 Labs: Abnormal Lab Results - Last 24 Hours (Table) 10/12/18 10/12/18 10/13/18 Range/Units 17:22 23:56 06:00 WBC (3.8-10.6) k/uL RBC (4.30-5.90) m/uL Hgb (13.0-17.5) gm/dL Hct (39.0-53.0) % Neutrophils # (1.3-7.7) k/uL Potassium (3.5-5.1) mmol/L Creatinine (0.66-1.25) mg/dL Glucose (74-99) mg/dL POC Glucose (mg/dL) 115 H 144 H 134 H (75-99) mg/dL Calcium (8.4-10.2) mg/dL 10/13/18 10/13/18 10/13/18 Range/Units 07:36 07:36 11:52 WBC 18.1 H (3.8-10.6) k/uL RBC 3.99 L (4.30-5.90) m/uL Hgb 12.2 L (13.0-17.5) gm/dL Hct 37.5 L (39.0-53.0) % Neutrophils # 15.1 H (1.3-7.7) k/uL Potassium 3.4 L (3.5-5.1) mmol/L Creatinine 0.58 L (0.66-1.25) mg/dL Glucose 136 H (74-99) mg/dL POC Glucose (mg/dL) 134 H (75-99) mg/dL Calcium 7.5 L (8.4-10.2) mg/dL Microbiology - Last 24 Hours (Table) 10/07/18 22:41 Blood Culture - Preliminary Blood No Growth after 120 hours 10/07/18 21:27 Blood Culture - Preliminary Blood No Growth after 120 hours 10/08/18 17:00 Anaerobic Culture - Final Other - Other 10/08/18 17:00 Gram Stain - Final Other - Other Tissue Culture - Final Assessment and Plan (1) Perforation of sigmoid colon due to diverticulitis Current Visit: Yes Status: Acute Code(s): K57.20 - DVTRCLI OF LG INT W PERFORATION AND ABSCESS W/O BLEEDING SNOMED Code(s): 9989984156576541 (2) Peritoneal abscess Current Visit: Yes Status: Acute Code(s): K65.1 - PERITONEAL ABSCESS SNOMED Code(s): 67973757 (3) SBO (small bowel obstruction) Current Visit: Yes Status: Acute Code(s): K56.609 - UNSP INTESTNL OBST, UNSP TO PARTIAL VERSUS COMPLETE OBST SNOMED Code(s): 717860763 (4) Peritonitis (acute) generalized Current Visit: Yes Status: Acute Code(s): K65.0 - GENERALIZED (ACUTE) PERITONITIS SNOMED Code(s): 26418478 (5) Ascites Current Visit: Yes Status: Acute Code(s): R18.8 - OTHER ASCITES SNOMED Code(s): 135260893 (6) Dehydration Current Visit: Yes Status: Acute Code(s): E86.0 - DEHYDRATION SNOMED Code( s): 20057972 (7) Urinary retention Current Visit: Yes Status: Acute Code(s): R33.9 - RETENTION OF URINE, UNSPECIFIED SNOMED Code(s): 720506658 (8) Bacteremia due to Gram-positive bacteria Current Visit: Yes Status: Acute Code(s): R78.81 - BACTEREMIA SNOMED Code( s): 684200818462 (9) Sepsis Current Visit: Yes Status: Acute Code(s): A41.9 - SEPSIS, UNSPECIFIED ORGANISM SNOMED Code(s): 98440162
--- NOTE | 2018-10-13 15:41 | PN ---
PROGRESS NOTE DATE OF SERVICE: 10/13/2018 PRESENTING COMPLAINT: Abdominal pain. INTERVAL HISTORY: This patient presented with ruptured diverticulitis and intraabdominal abscess, status post surgical intervention. Has SETH drain incision, wound VAC and a colostomy bag. Also had fluid overload from third-spacing and IV fluids. Did respond well to IV Lasix. Minimal if any output through the colostomy bag. NG tube remains in place. Also got scrotal swelling. Lying in bed, awake. Abdominal pain is present. REVIEW OF SYSTEMS: Done for constitutional, cardiovascular, GI, pulmonary; relevant findings as above. CURRENT MEDICATIONS: Reviewed that include TPN, lipids, IV Lasix, IV meropenem, IV Flagyl and IV vancomycin. PHYSICAL EXAMINATION: Afebrile, pulse 103, respirations 16, blood pressure 110/69, pulse ox 94% on room air. GENERAL APPEARANCE: Lying in bed, awake. EYES: Pupils equal, conjunctivae are normal. HEENT: External appearance of nose and ears normal, oral cavity normal. NG tube in place. NECK: JVD not raised. Mass not palpable. RESPIRATORY: Effort increased. LUNGS: Some decreased breath sounds at the bases. CARDIOVASCULAR: First and second sounds are normal. No edema. ABDOMEN: Soft. Some tenderness. Bowel sounds sluggish. SETH drain, left-sided colostomy with minimal output. Incision wound VAC in place. PSYCHIATRY: Alert and oriented x3. Mood and affect normal. GENITOURINARY: Scrotal swelling present. INVESTIGATIONS: White count 18.1, hemoglobin 12.2 potassium 3.4. BUN and creatinine are normal. ASSESSMENT: 1. Acute perforated sigmoid diverticulitis with intraabdominal abscess, status post surgical intervention. 2. Patient continues to have a SETH drain incision wound VAC, left-sided colostomy and NG tube in place. 3. Bilateral pleural effusion from IV fluid overload and third spacing. Good response to IV Lasix. 4. Chronic nicotine dependence, patient is vaping. 5. Recreational marijuana use. 6. Hypoalbuminemia as an acute phase reactant. 7. Acute urinary retention from sepsis, requiring Hollingsworth catheter. 8. Positive blood cultures growing micrococcus and wound cultures growing Escherichia coli. 9. Scrotal swelling from third-spacing. PLAN: Care was discussed with the patient. Continue with broad-spectrum antibiotics. TPN lipids are to continue. Care was discussed with the patient. Encouraged to use . Patient is improving slowly. MMODL / IJN: [id number] /
[2018-10-13] MEDS: FAT EMULSION 20% 250 ML in EMPTY BAG 1 BAG IV SCH (17:11)
[2018-10-13 17:28] LABS: Glucose,Whole Blood 126 mg/dL (75-99)
--- NOTE | 2018-10-13 19:52 | P.PN ---
Progress Note - Text Progress Note Date: 10/13/18 Central line discontinued and NGT discontinued at bedside. Will need removal of Prevena dressing on POD 8 on 10/16/18 and changed with Optifoam dressing. Central line being sent for culture for persistent leukocytosis. Patient is clear from a surgical standpoint for discharge once medically cleared and leukocytosis improves as confirmed with infectious disease team.
[2018-10-14 00:07] LABS: Glucose,Whole Blood 132 mg/dL (75-99)
[2018-10-14] MEDS: 1: MVI, ADULT NO.4 WITH VIT K 10 ML, TRACE (CONC-1ML/DOSE) 1 ML in AMINO ACID 5%-D15W+LY IV SCH ×6 (00:38→19:40)
[2018-10-14] MEDS: INSULIN ASPART 100 UNIT/ML 1 ML 10 ML VIAL SQ SCH ×4 (00:39→19:39)
[2018-10-14] MEDS: VANCOMYCIN 1,750 MG in SODIUM CHLORIDE 0.9% 500 ML 500 ML IVPB SCH ×3 (02:38→17:23)
[2018-10-14] MEDS: HYDROmorphone 1 MG/ML 1 ML SYRINGE IVP PRN ×2 (03:06→21:52)
[2018-10-14] MEDS: ONDANSETRON 4 MG/2 ML VIAL IVP PRN (03:08)
[2018-10-14] MEDS: KETOROLAC 30 MG/ML 1 ML VIAL IVP SCH ×4 (04:50→23:59)
[2018-10-14] MEDS: MEROPENEM 2 GM in SODIUM CHLORIDE 0.9% 100 ML IVPB SCH ×3 (04:50→21:43)
[2018-10-14 05:46] LABS: Glucose,Whole Blood 127 mg/dL (75-99)
[2018-10-14] MEDS: metroNIDAZOLE-NS PMX 500 MG in SALINE 1 100ML.BAG IVPB SCH ×4 (05:52→23:59)
[2018-10-14] MEDS: METOCLOPRAMIDE 5 MG/ML 2 ML VIAL IVP SCH ×4 (05:52→23:59)
--- NOTE | 2018-10-14 07:36 | XR ---
EXAMINATION TYPE: XR chest 1V portable DATE OF EXAM: 10/14/2018 COMPARISON: 10/11/2018 HISTORY: Chest pain TECHNIQUE: Single frontal view of the chest is obtained. FINDINGS: NG tube has been removed as has right IJ central venous line. Right-sided PICC line remains unchanged in position. Right basilar pleural effusion and underlying atelectasis and/or infiltrate persists. L eft basilar atelectasis unchanged. The cardiac silhouette size is within normal limits. The osseous structures are intact. IMPRESSION: 1. Stable appearance of the lungs.
[2018-10-14 08:18] LABS: Basophils # (A) 0.1 k/uL (0-0.2); Basophils % (A) 0 %; Eosinophils # (A) 0.3 k/uL (0-0.7); Eosinophils % (A) 2 %; HCT 36.2 % (39.0-53.0); HGB 11.7 gm/dL (13.0-17.5); Lymphocytes # (A) 1.5 k/uL (1.0-4.8); Lymphocytes % (A) 9 %; MCH 30.9 pg (25.0-35.0); MCHC 32.3 g/dL (31.0-37.0); MCV 95.9 fL (80.0-100.0); Mean Platelet Volume 7.8; Monocytes # (A) 0.9 k/uL (0-1.0); Monocytes % (A) 5 %; Neutrophils # (A) 13.7 k/uL (1.3-7.7); Neutrophils % (A) 82 %; Platelet Count 431 k/uL (150-450); RBC 3.77 m/uL (4.30-5.90); RDW 13.7 % (11.5-15.5); WBC 16.8 k/uL (3.8-10.6)
[2018-10-14 08:30] LABS: Anion Gap 5 mmol/L; Blood Urea Nitrogen 15 mg/dL (9-20); Calcium 7.5 mg/dL (8.4-10.2); Carbon Dioxide 30 mmol/L (22-30); Chloride 103 mmol/L (98-107); Glucose 111 mg/dL (74-99); Magnesium 2.1 mg/dL (1.6-2.3); Phosphorus 2.9 mg/dL (2.5-4.5); Potassium 3.8 mmol/L (3.5-5.1); Sodium 138 mmol/L (137-145)
[2018-10-14] MEDS: FUROSEMIDE 10 MG/ML 4 ML VIAL IV SCH (09:15)
[2018-10-14] MEDS: HEPARIN SODIUM,PORCINE 5,000 UNIT/ML 1 ML VIAL SQ SCH ×2 (09:15→21:43)
[2018-10-14] MEDS: PANTOPRAZOLE 40 MG/10 ML VIAL IVP SCH (09:16)
--- NOTE | 2018-10-14 09:22 | P.PN ---
Subjective Progress Note Date: 10/14/18 CHIEF COMPLAINT: Status post descending colostomy and drainage of pelvic abscess HISTORY OF PRESENT ILLNESS: The patient is a 38-year-old male who is postoperative day 6 following descending colostomy, drainage of pelvic abscess, lysis of adhesions. Central line in NG tube was discontinued yesterday. White count improved from 18-16,000. He had a low-grade temperature. Otherwise he feels great. PHYSICAL EXAM: GENERAL: Well-developed in no acute distress. HEENT: No sclera icterus. Extraocular movements grossly intact. Moist buccal mucosa. Head is atraumatic, normocephalic. Hears conversational speech. No nasal drainage. NG tube bilious NECK: Supple without lymphadenopathy. CHEST: Non-labored respirations and equal bilateral excursions. CARDIOVASCULAR: 2+ radial pulses. Tachycardic. ABDOMEN: Ostomy pink patent functioning. Incision intact. SETH serosanguineous. Flatus in Coloplast. Abdominal wound VAC present. Serosanguineous shadowing upper portion of the incision MUSCULOSKELETAL: No clubbing, cyanosis or edema. NEUROLOGIC: No focal or lateralizing signs. Cranial nerves II through XII grossly intact. PSYCH: Alert and oriented to person, place and time. SKIN: Well perfused. Good skin turgor. LABS: Reviewed ASSESSMENT: 1. Perforated diverticulitis with pelvic abscess 2. Acute small bowel obstruction 3. Peritonitis with sepsis PLAN: 1. Patient started on clear liquid diet. 2. Central line tip pending for culture 3. Patient clear from a surgical standpoint for discharge once medically cleared. 4. Dressing to be changed on day of discharge with Optifoam no later than 10/16 5. Ostomy education 6. Patient on metoprolol for tachyarrhythmia Objective - Vital Signs Vital signs: Vital Signs Temp 100.2 F H 10/13/18 23:00 Pulse 105 H 10/14/18 03:32 Resp 16 10/14/18 03:32 BP 134/79 10/13/18 23:00 Pulse Ox 95 10/13/18 23:00 Intake & Output 10/13/18 10/14/18 10/14/18 18:59 06:59 18:59 Intake Total 3711 1650 Output Total 1680 8380 Balance 2030 -980 Weight 80.286 kg Intake: IV 200 metroNIDAZOLE-NS PMX 500 200 mg In Saline 1 100ml.bag @ 100 mls/hr IVPB Q6HR [facility] Rx#:[id number] Intake, IV Titration 3511 1650 Amount Amino Acid 5%-D15w+Lytes* 1000 E* 1,000 ml @ 85 mls/hr IV .BY DURATION [facility] Rx#: [id number] D5-0.45% NaCl with KCl 120 20Meq/l 1,000 ml @ 100 mls/hr IV .Q10H [facility] Rx#: [id number] Fat Emulsion 20% 250 ml 250 In Empty Bag 1 bag @ 21 mls/hr IV DAILY@1800 [facility] Rx#:[id number] Meropenem 2 gm In Sodium 100 400 Chloride 0.9% 100 ml @ 200 mls/hr IVPB Q8H [facility] Rx#:[id number] Mvi, Adult No.4 with Vit 1691 K 10 ml Trace (Conc-1Ml/ Dose) 1 ml In Amino Acid 5%-D15w+Lytes*E* 1,000 ml @ 85 mls/hr IV .BY DURATION [facility] Rx#: [id number] Potassium Chloride 20 meq 100 In Water For Injection 1 100ml.bag @ 50 mls/hr IVPB Q2H [facility] Rx#: [id number] Vancomycin 1,750 mg In 500 1000 Sodium Chloride 0.9% 500 ml 500 ml @ 167 mls/hr IVPB Q8H [facility] Rx#: [id number] Output: Gastric Drainage 100 100 Drainage 30 30 Abdomen 30 30 Urine 1500 2500 Stool 50 Other: Voiding Method Urinal Urinal # Voids 1 4 - Labs CBC & Chem 7: 10/14/18 07:30 10/14/18 07:30 Labs: Abnormal Lab Results - Last 24 Hours (Table) 10/13/18 10/13/18 10/13/18 Range/Units 11:52 17:23 23:54 WBC (3.8-10.6) k/uL RBC (4.30-5.90) m/uL Hgb (13.0-17.5) gm/dL Hct (39.0-53.0) % Neutrophils # (1.3-7.7) k/uL Creatinine (0.66-1.25) mg/dL Glucose (74-99) mg/dL POC Glucose (mg/dL) 134 H 126 H 132 H (75-99) mg/dL Calcium (8.4-10.2) mg/dL 10/14/18 10/14/18 10/14/18 Range/Units 05:34 07:30 07:30 WBC 16.8 H (3.8-10.6) k/uL RBC 3.77 L (4.30-5.90) m/uL Hgb 11.7 L (13.0-17.5) gm/dL Hct 36.2 L (39.0-53.0) % Neutrophils # 13.7 H (1.3-7.7) k/uL Creatinine 0.64 L (0.66-1.25) mg/dL Glucose 111 H (74-99) mg/dL POC Glucose (mg/dL) 127 H (75-99) mg/dL Calcium 7.5 L (8.4-10.2) mg/dL Microbiology - Last 24 Hours (Table) 10/07/18 22:41 Blood Culture - Final Blood No Growth after 144 hours 10/07/18 21:27 Blood Culture - Final Blood No Growth after 144 hours Assessment and Plan (1) Perforation of sigmoid colon due to diverticulitis Current Visit: Yes Status: Acute Code(s): K57.20 - DVTRCLI OF LG INT W PERFORATION AND ABSCESS W/O BLEEDING SNOMED Code(s): 7156476762052700 (2) Peritoneal abscess Current Visit: Yes Status: Acute Code(s): K65.1 - PERITONEAL ABSCESS SNOMED Code(s): 82211885 (3) SBO (small bowel obstruction) Current Visit: Yes Status: Acute Code(s): K56.609 - UNSP INTESTNL OBST, UNSP TO PARTIAL VERSUS COMPLETE OBST SNOMED Code(s): 064199286 (4) Peritonitis (acute) generalized Current Visit: Yes Status: Acute Code(s): K65.0 - GENERALIZED (ACUTE) PERITONITIS SNOMED Code(s): 51314934 (5) Ascites Current Visit: Yes Status: Acute Code(s): R18.8 - OTHER ASCITES SNOMED Code(s): 412333748 (6) Dehydration Current Visit: Yes Status: Acute Code(s): E86.0 - DEHYDRATION SNOMED Code( s): 92898499 (7) Urinary retention Current Visit: Yes Status: Acute Code(s): R33.9 - RETENTION OF URINE, UNSPECIFIED SNOMED Code(s): 953137550 (8) Bacteremia due to Gram-positive bacteria Current Visit: Yes Status: Acute Code(s): R78.81 - BACTEREMIA SNOMED Code( s): 237925983075 (9) Sepsis Current Visit: Yes Status: Acute Code(s): A41.9 - SEPSIS, UNSPECIFIED ORGANISM SNOMED Code(s): 64526873
[2018-10-14] MEDS: METOPROLOL TARTRATE 50 MG TAB PO SCH ×2 (09:23→21:43)
--- NOTE | 2018-10-14 10:25 | P.PN ---
Progress Note - Text Progress Note Date: 10/14/18 I was present for dressing change with ostomy nurse Mela Blount for ostomy appliance. Stool and flatus in Coloplast. Skin breakdown noted from skin sensitivity of tape. From surgical standpoint, patient stable. Discharge per medicine team. Postop instructions including continue SETH upon discharge reviewed.
[2018-10-14] MEDS: HYDROcodone/APAP 5-325MG 1 EACH TAB PO PRN ×3 (10:52→23:59)
[2018-10-14 12:01] LABS: Glucose,Whole Blood 107 mg/dL (75-99)
[2018-10-14] MEDS: D5-0.45% NACL WITH KCL 20MEQ/L 1,000 ML IV SCH ×2 (15:43→19:39)
--- NOTE | 2018-10-14 16:30 | P.PN ---
Subjective this is a pleasant 38 years old male with no significant past medical history.presents with increasing abdominal pain. Found to have perforated sigmoid diverticulitis with resultant bacterial peritonitis. And right pelvic abscess, status post I&D. Patient today was lying in bed postoperative day #5, he doesn't look in distress. No chest pain or dyspnea. He had some abdominal pain during change of the dressing but now his abdominal pain is more controlled.vitals stable. His leukocytosis is improving gradually from 18 K to 16.8 K. BMP was unremarkable. Sugar is controlled. Chest x-ray from today shows stable lungs. Objective - Vital Signs Vital signs: Vital Signs Temp 98 F 10/14/18 15:00 Pulse 90 10/14/18 15:00 Resp 16 10/14/18 15:00 BP 125/74 10/14/18 15:00 Pulse Ox 97 10/14/18 15:00 Intake & Output 10/13/18 10/14/18 10/14/18 18:59 06:59 18:59 Intake Total 3711 1650 Output Total 1680 2630 1505 Balance 2031 -980 -1505 Weight 80.286 kg Intake: IV 200 metroNIDAZOLE-NS PMX 500 200 mg In Saline 1 100ml.bag @ 100 mls/hr IVPB Q6HR [facility] Rx#:[id number] Intake, IV Titration 3511 1650 Amount Amino Acid 5%-D15w+Lytes* 1000 E* 1,000 ml @ 85 mls/hr IV .BY DURATION [facility] Rx#: [id number] D5-0.45% NaCl with KCl 120 20Meq/l 1,000 ml @ 100 mls/hr IV .Q10H [facility] Rx#: [id number] Fat Emulsion 20% 250 ml 250 In Empty Bag 1 bag @ 21 mls/hr IV DAILY@1800 [facility] Rx#:[id number] Meropenem 2 gm In Sodium 100 400 Chloride 0.9% 100 ml @ 200 mls/hr IVPB Q8H [facility] Rx#:[id number] Mvi, Adult No.4 with Vit 1691 K 10 ml Trace (Conc-1Ml/ Dose) 1 ml In Amino Acid 5%-D15w+Lytes*E* 1,000 ml @ 85 mls/hr IV .BY DURATION [facility] Rx#: [id number] Potassium Chloride 20 meq 100 In Water For Injection 1 100ml.bag @ 50 mls/hr IVPB Q2H [facility] Rx#: [id number] Vancomycin 1,750 mg In 500 1000 Sodium Chloride 0.9% 500 ml 500 ml @ 167 mls/hr IVPB Q8H [facility] Rx#: [id number] Output: Gastric Drainage 100 100 Drainage 30 30 5 ABDOMINAL INCISION 5 Abdomen 30 30 Urine 1500 2500 1350 Stool 50 150 Other: Voiding Method Urinal Urinal # Voids 1 4 - Exam GENERAL: The patient is alert and oriented x3, not in any acute distress. Well developed, well nourished. HEENT: Pupils are round and equally reacting to light. EOMI. No scleral icterus. No conjunctival pallor. Normocephalic, atraumatic. No pharyngeal erythema. No thyromegaly. CARDIOVASCULAR: S1 and S2 present. No murmurs, rubs, or gallops. PULMONARY: Chest is clear to auscultation, no wheezing or crackles. -ABDOMEN: Soft, nontender, nondistended, normoactive bowel sounds. No palpable organomegaly. left colostomy back which is working. Has right lower abdominal drain. MUSCULOSKELETAL: No joint swelling or deformity. EXTREMITIES: No cyanosis, clubbing, or pedal edema. NEUROLOGICAL: Gross neurological examination did not reveal any focal deficits. SKIN: No rashes. - Labs CBC & Chem 7: 10/14/18 07:30 10/14/18 07:30 Labs: Abnormal Lab Results - Last 24 Hours (Table) 10/13/18 10/13/18 10/14/18 Range/Units 17:23 23:54 05:34 WBC (3.8-10.6) k/uL RBC (4.30-5.90) m/uL Hgb (13.0-17.5) gm/dL Hct (39.0-53.0) % Neutrophils # (1.3-7.7) k/uL Creatinine (0.66-1.25) mg/dL Glucose (74-99) mg/dL POC Glucose (mg/dL) 126 H 132 H 127 H (75-99) mg/dL Calcium (8.4-10.2) mg/dL 10/14/18 10/14/18 10/14/18 Range/Units 07:30 07:30 11:49 WBC 16.8 H (3.8-10.6) k/uL RBC 3.77 L (4.30-5.90) m/uL Hgb 11.7 L (13.0-17.5) gm/dL Hct 36.2 L (39.0-53.0) % Neutrophils # 13.7 H (1.3-7.7) k/uL Creatinine 0.64 L (0.66-1.25) mg/dL Glucose 111 H (74-99) mg/dL POC Glucose (mg/dL) 107 H (75-99) mg/dL Calcium 7.5 L (8.4-10.2) mg/dL Microbiology - Last 24 Hours (Table) 10/13/18 19:57 Catheter Tip Culture - Preliminary Catheter Tip 10/07/18 22:41 Blood Culture - Final Blood No Growth after 144 hours 10/07/18 21:27 Blood Culture - Final Blood No Growth after 144 hours Assessment and Plan Assessment: perforated sigmoid diverticulitis Bacterial peritonitis secondary to above sepsis Bacteremia secondary to gram-positive bacteria Status post left side colostomy, reduction of small bowel obstruction, drainage of the pelvic abscess with the small bowel enterectomy.. Plan: this is a pleasant 38 years old male who presents with perforated viscus and peritonitis. Continue with antibiotics as per infectious disease team. Pulmonary/critical care team are following the patient. Surgical team evaluated the patient and they cleared the patient for discharge.Labs and medication were reviewed.. Continue same treatment. Continue with symptomatic treatment. Resume home medication. Monitor lytes and vitals. DVT and GI prophylaxis. Further recommendations of the clinical course of the patient DVT prophylaxis: Subcutaneous heparin Prognosis is guarded
[2018-10-14] MEDS: FAT EMULSION 20% 250 ML in EMPTY BAG 1 BAG IV SCH (17:23)
[2018-10-14 23:58] LABS: Glucose,Whole Blood 116 mg/dL (75-99)
[2018-10-15] MEDS: INSULIN ASPART 100 UNIT/ML 1 ML 10 ML VIAL SQ SCH ×4 (00:06→19:27)
[2018-10-15] MEDS: VANCOMYCIN 1,750 MG in SODIUM CHLORIDE 0.9% 500 ML 500 ML IVPB SCH ×2 (01:49→10:35)
[2018-10-15] MEDS: HYDROmorphone 1 MG/ML 1 ML SYRINGE IVP PRN ×3 (03:35→22:07)
[2018-10-15] MEDS: ONDANSETRON 4 MG/2 ML VIAL IVP PRN ×2 (03:35→17:16)
[2018-10-15] MEDS: D5-0.45% NACL WITH KCL 20MEQ/L 1,000 ML IV SCH ×2 (03:55→14:41)
[2018-10-15] MEDS: metroNIDAZOLE-NS PMX 500 MG in SALINE 1 100ML.BAG IVPB SCH ×2 (05:03→13:31)
[2018-10-15] MEDS: MEROPENEM 2 GM in SODIUM CHLORIDE 0.9% 100 ML IVPB SCH (05:03)
[2018-10-15] MEDS: KETOROLAC 30 MG/ML 1 ML VIAL IVP SCH ×4 (05:03→23:08)
[2018-10-15] MEDS: METOCLOPRAMIDE 5 MG/ML 2 ML VIAL IVP SCH ×3 (05:49→21:57)
[2018-10-15 06:09] LABS: Glucose,Whole Blood 114 mg/dL (75-99)
[2018-10-15] MEDS: 1: MVI, ADULT NO.4 WITH VIT K 10 ML, TRACE (CONC-1ML/DOSE) 1 ML in AMINO ACID 5%-D15W+LY IV SCH ×6 (08:54→21:55)
[2018-10-15] MEDS ORDERED: VANCOMYCIN TROUGH DUE 1 EACH MISC MISCELLANE ONE (09:00)
--- NOTE | 2018-10-15 09:12 | P.PN ---
Progress Note - Text Progress Note Date: 10/15/18 Patient is Resting comfortable in his bed. He has minimal complaint of pain. He is tolerating his clear liquid diet. On exam his vital signs are stable. His abdomen soft. Stoma is producing liquid stool. Status post Luz procedure for perforated diverticula is. Patient will continue to have his diet advanced slowly.
[2018-10-15] MEDS: FUROSEMIDE 10 MG/ML 4 ML VIAL IV SCH (09:20)
[2018-10-15] MEDS: PANTOPRAZOLE 40 MG/10 ML VIAL IVP SCH (09:20)
[2018-10-15] MEDS: HEPARIN SODIUM,PORCINE 5,000 UNIT/ML 1 ML VIAL SQ SCH ×2 (09:20→21:57)
[2018-10-15] MEDS: METOPROLOL TARTRATE 50 MG TAB PO SCH ×2 (09:21→21:57)
[2018-10-15] MEDS: HYDROcodone/APAP 5-325MG 1 EACH TAB PO PRN (09:44)
--- NOTE | 2018-10-15 10:12 | CDI ---
Last Revision, October 2017 Documentation Clarification Form Date: 10/15/2018 9:39:33 AM From: Samantha Hernandes RN, CCDS Admit Date: 10/05/2018 4:42:00 PM Patient Name: Parul Wynn Visit Number: [id number] Discharge Date: ATTENTION: The Clinical Documentation Specialists (CDI) and [facility] Coding Staff appreciate your assistance in clarifying documentation. Please respond to the clarification below the line at the bottom and electronically sign. The CDI & [facility] Coding staff will review the response and follow-up if needed. Please note: Queries are made part of the Legal Health Record. If you have any questions, please contact the author of this message via ITS. Maegan Bucio MD 10/08/18 In your operative report: Open lysis of adhesions is documented and further documentation is need to clarify the significant of the adhesions. Patient history/risk factors: Bipolar, Current every day smoker Clinical Indicators: Present with a perforated sigmoid diverticulitis with generalized peritonitis. He had surgical repair. Pelvic abscess drained with release of small bowel obstruction and lysis of adhesions. Treatment: Open lysis of adhesions reduction of small bowel obstruction. Descending colostomy creation. Drainage of right pelvic abscesses. Small bowel enterectomy. Luz's procedure for perforated rectosigmoid junction. In your professional opinion, can you please clarify if the open lysis of adhesions removed were: Adhesions not extensive or significant Adhesions, extensive Other, please specify Unable to determine Please continue to document in your progress notes and discharge summary in order to capture severity of illness and risk of mortality. Include clinical findings that support your diagnosis. Open lysis of adhesions reduction of small bowel obstruction, extensive, over 30 minutes 10/19/18 @ 1405 Amended into operative report MTDD
[2018-10-15 12:01] LABS: Albumin 2.2 g/dL (3.5-5.0); Anion Gap 2 mmol/L; Blood Urea Nitrogen 13 mg/dL (9-20); Calcium 7.7 mg/dL (8.4-10.2); Carbon Dioxide 28 mmol/L (22-30); Chloride 105 mmol/L (98-107); Glucose 112 mg/dL (74-99); Magnesium 2.1 mg/dL (1.6-2.3); Phosphorus 3.1 mg/dL (2.5-4.5); Potassium 3.9 mmol/L (3.5-5.1); Sodium 135 mmol/L (137-145)
[2018-10-15 13:08] LABS: Glucose,Whole Blood 149 mg/dL (75-99)
[2018-10-15] MEDS: ERTAPENEM 1 GM in SODIUM CHLORIDE 0.9% 50 ML IVPB SCH (14:58)
[2018-10-15] MEDS: POTASSIUM CHLORIDE 10 MEQ in WATER FOR INJECTION 1 100ML.BAG IVPB SCH ×2 (15:51→17:24)
--- NOTE | 2018-10-15 16:54 | P.PN ---
Subjective this is a pleasant 38 years old male with no significant past medical history.presents with increasing abdominal pain. Found to have perforated sigmoid diverticulitis with resultant bacterial peritonitis. And right pelvic abscess, status post I&D. Patient today was lying in bed postoperative day #5, he doesn't look in distress. No chest pain or dyspnea. He had some abdominal pain during change of the dressing but now his abdominal pain is more controlled.vitals stable. His leukocytosis is improving gradually from 18 K to 16.8 K. BMP was unremarkable. Sugar is controlled. Chest x-ray from today shows stable lungs. 10/15/2018 Patient feels generally better. His leg swelling and scrotal swelling are improving slightly. He denies dyspnea. No chest pain. No change in urine or bowel habits. His colostomy bag is working. He is able to move around. We'll ask physical therapy to evaluate the patient. Hollingsworth catheter was discontinued already. Patient has positive blood culture. Is currently on antibiotics as per infectious disease recommendation. IV fluids were discontinued and continue on TPN. Vitals are stable. Sodium 135, creatinine 0.6 Objective - Vital Signs Vital signs: Vital Signs Temp 98.4 F 10/15/18 15:05 Pulse 93 10/15/18 15:05 Resp 16 10/15/18 15:05 BP 128/76 10/15/18 15:05 Pulse Ox 97 10/15/18 15:05 Intake & Output 10/14/18 10/15/18 10/15/18 18:59 06:59 18:59 Intake Total 630 Output Total 1505 Balance -1505 630 Weight 80.286 kg 80.286 kg Intake: Oral 630 Output: Drainage 5 ABDOMINAL INCISION 5 Urine 1350 Stool 150 Other: Voiding Method Urinal # Voids 2 - Exam GENERAL: The patient is alert and oriented x3, not in any acute distress. Well developed, well nourished. HEENT: Pupils are round and equally reacting to light. EOMI. No scleral icterus. No conjunctival pallor. Normocephalic, atraumatic. No pharyngeal erythema. No thyromegaly. CARDIOVASCULAR: S1 and S2 present. No murmurs, rubs, or gallops. PULMONARY: Chest is clear to auscultation, no wheezing or crackles. -ABDOMEN: Soft, nontender, nondistended, normoactive bowel sounds. No palpable organomegaly. left colostomy back which is working. Has right lower abdominal drain. MUSCULOSKELETAL: No joint swelling or deformity. EXTREMITIES: No cyanosis, clubbing, or pedal edema. NEUROLOGICAL: Gross neurological examination did not reveal any focal deficits. SKIN: No rashes. - Labs CBC & Chem 7: 10/14/18 07:30 10/15/18 09:14 Labs: Abnormal Lab Results - Last 24 Hours (Table) 10/14/18 10/15/18 10/15/18 Range/Units 23:57 05:48 09:14 Sodium 135 L (137-145) mmol/L Glucose 112 H (74-99) mg/dL POC Glucose (mg/dL) 116 H 114 H (75-99) mg/dL Calcium 7.7 L (8.4-10.2) mg/dL Albumin 2.2 L (3.5-5.0) g/dL 10/15/18 Range/Units 12:57 Sodium (137-145) mmol/L Glucose (74-99) mg/dL POC Glucose (mg/dL) 149 H (75-99) mg/dL Calcium (8.4-10.2) mg/dL Albumin (3.5-5.0) g/dL Microbiology - Last 24 Hours (Table) 10/13/18 19:57 Catheter Tip Culture - Preliminary Catheter Tip Assessment and Plan Assessment: perforated sigmoid diverticulitis Bacterial peritonitis secondary to above sepsis Bacteremia secondary to gram-positive bacteria Status post left side colostomy, reduction of small bowel obstruction, drainage of the pelvic abscess with the small bowel enterectomy.. Plan: this is a pleasant 38 years old male who presents with perforated viscus and peritonitis. Continue with antibiotics as per infectious disease team. Pulmonary/critical care team are following the patient. Surgical team evaluated the patient and they cleared the patient for discharge.Labs and medication were reviewed.. Continue same treatment. Continue with symptomatic treatment. Resume home medication. Monitor lytes and vitals. DVT and GI prophylaxis. Further recommendations of the clinical course of the patient DVT prophylaxis: Subcutaneous heparin Prognosis is guarded
[2018-10-15 17:10] LABS: Glucose,Whole Blood 107 mg/dL (75-99)
[2018-10-15] MEDS: FAT EMULSION 20% 250 ML in EMPTY BAG 1 BAG IV SCH (17:23)
[2018-10-16] MEDS: INSULIN ASPART 100 UNIT/ML 1 ML 10 ML VIAL SQ SCH ×5 (02:09→23:44)
[2018-10-16] MEDS: D5-0.45% NACL WITH KCL 20MEQ/L 1,000 ML IV SCH ×3 (02:10→22:49)
[2018-10-16] MEDS: METOCLOPRAMIDE 5 MG/ML 2 ML VIAL IVP SCH ×5 (02:10→23:41)
[2018-10-16 02:13] LABS: Glucose,Whole Blood 99 mg/dL (75-99)
[2018-10-16] MEDS: HYDROmorphone 1 MG/ML 1 ML SYRINGE IVP PRN ×3 (02:38→16:34)
[2018-10-16 05:04] LABS: Glucose,Whole Blood 116 mg/dL (75-99)
[2018-10-16] MEDS: KETOROLAC 30 MG/ML 1 ML VIAL IVP SCH ×4 (05:25→23:41)
[2018-10-16 09:47] LABS: Basophils # (A) 0.1 k/uL (0-0.2); Basophils % (A) 0 %; Eosinophils # (A) 0.2 k/uL (0-0.7); Eosinophils % (A) 1 %; HCT 36.4 % (39.0-53.0); HGB 11.3 gm/dL (13.0-17.5); Lymphocytes # (A) 1.4 k/uL (1.0-4.8); Lymphocytes % (A) 9 %; MCH 29.9 pg (25.0-35.0); MCHC 31.1 g/dL (31.0-37.0); MCV 96.1 fL (80.0-100.0); Mean Platelet Volume 7.6; Monocytes % (A) 6 %; Neutrophils # (A) 12.4 k/uL (1.3-7.7); Neutrophils % (A) 80 %; Platelet Count 480 k/uL (150-450); RBC 3.79 m/uL (4.30-5.90); WBC 15.5 k/uL (3.8-10.6)
[2018-10-16] MEDS: PANTOPRAZOLE 40 MG/10 ML VIAL IVP SCH (10:00)
[2018-10-16 10:04] LABS: Anion Gap 5 mmol/L; Blood Urea Nitrogen 13 mg/dL (9-20); Calcium 7.8 mg/dL (8.4-10.2); Carbon Dioxide 27 mmol/L (22-30); Chloride 105 mmol/L (98-107); Glucose 114 mg/dL (74-99); Magnesium 2.1 mg/dL (1.6-2.3); Phosphorus 3.1 mg/dL (2.5-4.5); Potassium 3.8 mmol/L (3.5-5.1); Sodium 137 mmol/L (137-145)
[2018-10-16] MEDS: METOPROLOL TARTRATE 50 MG TAB PO SCH ×2 (10:53→21:19)
[2018-10-16] MEDS: HYDROcodone/APAP 5-325MG 1 EACH TAB PO PRN ×2 (10:54→21:29)
[2018-10-16] MEDS: ERTAPENEM 1 GM in SODIUM CHLORIDE 0.9% 50 ML IVPB SCH (10:55)
[2018-10-16] MEDS: HEPARIN SODIUM,PORCINE 5,000 UNIT/ML 1 ML VIAL SQ SCH ×2 (10:58→21:19)
[2018-10-16] MEDS: FUROSEMIDE 10 MG/ML 4 ML VIAL IV SCH (10:58)
--- NOTE | 2018-10-16 11:04 | P.PN ---
Progress Note - Text Progress Note Date: 10/16/18 The patient is doing well. He has minimal points of pain. He is stooling through colostomy. On exam is lesser stable. His evidence soft. Patient is stable for discharge from a surgical standpoint. He may be discharged home today.
[2018-10-16 12:33] LABS: Glucose,Whole Blood 131 mg/dL (75-99)
[2018-10-16] MEDS: 1: MVI, ADULT NO.4 WITH VIT K 10 ML, TRACE (CONC-1ML/DOSE) 1 ML in AMINO ACID 5%-D15W+LY IV SCH ×9 (13:09→22:49)
--- NOTE | 2018-10-16 16:13 | P.PN ---
Subjective this is a pleasant 38 years old male with no significant past medical history.presents with increasing abdominal pain. Found to have perforated sigmoid diverticulitis with resultant bacterial peritonitis. And right pelvic abscess, status post I&D. Patient today was lying in bed postoperative day #5, he doesn't look in distress. No chest pain or dyspnea. He had some abdominal pain during change of the dressing but now his abdominal pain is more controlled.vitals stable. His leukocytosis is improving gradually from 18 K to 16.8 K. BMP was unremarkable. Sugar is controlled. Chest x-ray from today shows stable lungs. 10/15/2018 Patient feels generally better. His leg swelling and scrotal swelling are improving slightly. He denies dyspnea. No chest pain. No change in urine or bowel habits. His colostomy bag is working. He is able to move around. We'll ask physical therapy to evaluate the patient. Hollingsworth catheter was discontinued already. Patient has positive blood culture. Is currently on antibiotics as per infectious disease recommendation. IV fluids were discontinued and continue on TPN. Vitals are stable. Sodium 135, creatinine 0.6 10/16/2018 Patient remains to do good is a swelling in his legs and scrotum is coming down , no dyspnea. He has some abdominal pain and tenderness around the right lower abdomen drained. His colostomy back is working and his abdominal examination is soft distal moving around.surgical team are following the patient. Patient still had leukocytosis. And his culture is positive for many bacteria. He was just started on Invanz yesterday by infectious disease team after his medications been adjusted. Objective - Vital Signs Vital signs: Vital Signs Temp 98.0 F 10/16/18 07:00 Pulse 97 10/16/18 08:00 Resp 18 10/16/18 08:00 BP 114/76 10/16/18 07:00 Pulse Ox 98 10/16/18 07:00 Intake & Output 10/15/18 10/16/18 10/16/18 18:59 06:59 18:59 Intake Total 630 2441 Output Total 15 350 Balance 630 0306 -350 Weight 80.286 kg 80.286 kg Intake: IV 100 metroNIDAZOLE-NS PMX 500 100 mg In Saline 1 100ml.bag @ 100 mls/hr IVPB Q6HR [facility] Rx#:[id number] Intake, IV Titration 1941 Amount Amino Acid 5%-D15w+Lytes* 680 E* 1,000 ml @ 85 mls/hr IV .BY DURATION [facility] Rx#: [id number] Fat Emulsion 20% 250 ml 250 In Empty Bag 1 bag @ 21 mls/hr IV DAILY@1800 [facility] Rx#:[id number] Mvi, Adult No.4 with Vit 1011 K 10 ml Trace (Conc-1Ml/ Dose) 1 ml In Amino Acid 5%-D15w+Lytes*E* 1,000 ml @ 85 mls/hr IV .BY DURATION [facility] Rx#: [id number] Oral 630 400 Output: Drainage 15 Abdomen 15 Urine 200 Stool 150 Other: Voiding Method Urinal Urinal # Voids 1 3 3 - Exam GENERAL: The patient is alert and oriented x3, not in any acute distress. Well developed, well nourished. HEENT: Pupils are round and equally reacting to light. EOMI. No scleral icterus. No conjunctival pallor. Normocephalic, atraumatic. No pharyngeal erythema. No thyromegaly. CARDIOVASCULAR: S1 and S2 present. No murmurs, rubs, or gallops. PULMONARY: Chest is clear to auscultation, no wheezing or crackles. -ABDOMEN: Soft, nontender, nondistended, normoactive bowel sounds. No palpable organomegaly. left colostomy back which is working. Has right lower abdominal drain. MUSCULOSKELETAL: No joint swelling or deformity. EXTREMITIES: No cyanosis, clubbing, or pedal edema. NEUROLOGICAL: Gross neurological examination did not reveal any focal deficits. SKIN: No rashes. - Labs CBC & Chem 7: 10/16/18 09:16 10/16/18 09:16 Labs: Abnormal Lab Results - Last 24 Hours (Table) 10/15/18 10/16/18 10/16/18 Range/Units 16:59 05:02 09:16 WBC (3.8-10.6) k/uL RBC (4.30-5.90) m/uL Hgb (13.0-17.5) gm/dL Hct (39.0-53.0) % Plt Count (150-450) k/uL Neutrophils # (1.3-7.7) k/uL Creatinine 0.65 L (0.66-1.25) mg/dL Glucose 114 H (74-99) mg/dL POC Glucose (mg/dL) 107 H 116 H (75-99) mg/dL Calcium 7.8 L (8.4-10.2) mg/dL 10/16/18 10/16/18 Range/Units 09:16 12:31 WBC 15.5 H (3.8-10.6) k/uL RBC 3.79 L (4.30-5.90) m/uL Hgb 11.3 L (13.0-17.5) gm/dL Hct 36.4 L (39.0-53.0) % Plt Count 480 H (150-450) k/uL Neutrophils # 12.4 H (1.3-7.7) k/uL Creatinine (0.66-1.25) mg/dL Glucose (74-99) mg/dL POC Glucose (mg/dL) 131 H (75-99) mg/dL Calcium (8.4-10.2) mg/dL Assessment and Plan Assessment: perforated sigmoid diverticulitis Bacterial peritonitis secondary to above sepsis Bacteremia secondary to gram-positive bacteria Status post left side colostomy, reduction of small bowel obstruction, drainage of the pelvic abscess with the small bowel enterectomy.. Plan: this is a pleasant 38 years old male who presents with perforated viscus and peritonitis. Continue with antibiotics as per infectious disease team. Pulmonary/critical care team are following the patient. Surgical team evaluated the patient and they cleared the patient for discharge.Labs and medication were reviewed.. Continue same treatment. Continue with symptomatic treatment. Resume home medication. Monitor lytes and vitals. DVT and GI prophylaxis. Further recommendations of the clinical course of the patient DVT prophylaxis: Subcutaneous heparin Prognosis is guarded
[2018-10-16] MEDS ORDERED: diphenhydrAMINE 25 MG CAP PO PRN (20:56)
[2018-10-16] MEDS: FAT EMULSION 20% 250 ML in EMPTY BAG 1 BAG IV SCH (21:30)
[2018-10-16] MEDS: MEROPENEM 2 GM in SODIUM CHLORIDE 0.9% 100 ML IVPB SCH (22:54)
[2018-10-16 23:42] LABS: Glucose,Whole Blood 108 mg/dL (75-99)
[2018-10-17] MEDS: HYDROmorphone 1 MG/ML 1 ML SYRINGE IVP PRN (02:32)
[2018-10-17] MEDS: D5-0.45% NACL WITH KCL 20MEQ/L 1,000 ML IV SCH ×2 (05:31→20:06)
[2018-10-17] MEDS: KETOROLAC 30 MG/ML 1 ML VIAL IVP SCH ×4 (05:31→23:57)
[2018-10-17] MEDS: METOCLOPRAMIDE 5 MG/ML 2 ML VIAL IVP SCH ×4 (05:31→23:58)
[2018-10-17] MEDS: INSULIN ASPART 100 UNIT/ML 1 ML 10 ML VIAL SQ SCH ×2 (05:34→12:31)
[2018-10-17 08:03] LABS: Basophils % (A) 0 %; Eosinophils # (A) 0.2 k/uL (0-0.7); Eosinophils % (A) 2 %; HCT 34.6 % (39.0-53.0); Lymphocytes # (A) 1.6 k/uL (1.0-4.8); Lymphocytes % (A) 11 %; MCH 30.7 pg (25.0-35.0); MCHC 31.8 g/dL (31.0-37.0); MCV 96.6 fL (80.0-100.0); Mean Platelet Volume 8.3; Monocytes # (A) 1.2 k/uL (0-1.0); Monocytes % (A) 8 %; Neutrophils # (A) 11.7 k/uL (1.3-7.7); Neutrophils % (A) 78 %; Platelet Count 539 k/uL (150-450); RBC 3.58 m/uL (4.30-5.90); WBC 15.1 k/uL (3.8-10.6)
[2018-10-17 08:14] LABS: Anion Gap 5 mmol/L; Blood Urea Nitrogen 11 mg/dL (9-20); Calcium 7.9 mg/dL (8.4-10.2); Carbon Dioxide 27 mmol/L (22-30); Chloride 106 mmol/L (98-107); Glucose 121 mg/dL (74-99); Potassium 4.4 mmol/L (3.5-5.1); Sodium 138 mmol/L (137-145)
[2018-10-17] MEDS: ERTAPENEM 1 GM in SODIUM CHLORIDE 0.9% 50 ML IVPB SCH (09:35)
[2018-10-17] MEDS: PANTOPRAZOLE 40 MG/10 ML VIAL IVP SCH (09:36)
[2018-10-17] MEDS: FUROSEMIDE 10 MG/ML 4 ML VIAL IV SCH (09:37)
[2018-10-17] MEDS: HEPARIN SODIUM,PORCINE 5,000 UNIT/ML 1 ML VIAL SQ SCH ×2 (09:37→20:06)
[2018-10-17] MEDS: METOPROLOL TARTRATE 50 MG TAB PO SCH ×2 (09:38→20:06)
--- NOTE | 2018-10-17 10:24 | P.PN ---
Progress Note - Text Progress Note Date: 10/17/18 The patient is resting comfortable his bed. He denies any significant pain. He thinks he feels a lot of to go home. Apparently his white count is still around 15,000. His in a box were adjusted yesterday. On exam is lesser stable. His abdomen soft. Stoma is function. Status post Luz procedure for perforated diverticulitis. Patient will be discharged home per medicine.
[2018-10-17] MEDS: HYDROcodone/APAP 5-325MG 1 EACH TAB PO PRN ×3 (10:29→23:58)
[2018-10-17 11:41] LABS: Glucose,Whole Blood 121 mg/dL (75-99)
--- NOTE | 2018-10-17 23:52 | P.PN ---
Subjective this is a pleasant 38 years old male with no significant past medical history.presents with increasing abdominal pain. Found to have perforated sigmoid diverticulitis with resultant bacterial peritonitis. And right pelvic abscess, status post I&D. Patient today was lying in bed postoperative day #5, he doesn't look in distress. No chest pain or dyspnea. He had some abdominal pain during change of the dressing but now his abdominal pain is more controlled.vitals stable. His leukocytosis is improving gradually from 18 K to 16.8 K. BMP was unremarkable. Sugar is controlled. Chest x-ray from today shows stable lungs. 10/15/2018 Patient feels generally better. His leg swelling and scrotal swelling are improving slightly. He denies dyspnea. No chest pain. No change in urine or bowel habits. His colostomy bag is working. He is able to move around. We'll ask physical therapy to evaluate the patient. Hollingsworth catheter was discontinued already. Patient has positive blood culture. Is currently on antibiotics as per infectious disease recommendation. IV fluids were discontinued and continue on TPN. Vitals are stable. Sodium 135, creatinine 0.6 10/16/2018 Patient remains to do good is a swelling in his legs and scrotum is coming down , no dyspnea. He has some abdominal pain and tenderness around the right lower abdomen drained. His colostomy back is working and his abdominal examination is soft distal moving around.surgical team are following the patient. Patient still had leukocytosis. And his culture is positive for many bacteria. He was just started on Invanz yesterday by infectious disease team after his medications been adjusted. 10/17/2018 Patient he continued to improve, his pain is just localized and around the drainage area and disease in down, abdominal examination is soft and his colostomy back is working for him is still on Invanz for multiple wound culture organisms. ID team are following the case. The CBC is improving slowly from 15.5-15.1 K. His leg and scrotal swelling is significantly improving currently. No dyspnea or chest pain. Patient is able to move around. Objective - Vital Signs Vital signs: Vital Signs Temp 99.2 F 10/17/18 09:30 Pulse 99 10/17/18 09:30 Resp 16 10/17/18 09:30 BP 125/76 10/17/18 09:30 Pulse Ox 96 10/17/18 09:30 Intake & Output 10/16/18 10/17/18 10/17/18 18:59 06:59 18:59 Intake Total 1011 Output Total 500 150 610 Balance 511 -150 -610 Weight 80.286 kg Intake: Intake, IV Titration 1011 Amount Mvi, Adult No.4 with Vit 1011 K 10 ml Trace (Conc-1Ml/ Dose) 1 ml In Amino Acid 5%-D15w+Lytes*E* 1,000 ml @ 85 mls/hr IV .BY DURATION [facility] Rx#: [id number] Output: Drainage 10 Abdomen 10 Urine 200 600 Stool 300 150 Other: Voiding Method Urinal Toilet Urinal # Voids 3 4 - Exam GENERAL: The patient is alert and oriented x3, not in any acute distress. Well developed, well nourished. HEENT: Pupils are round and equally reacting to light. EOMI. No scleral icterus. No conjunctival pallor. Normocephalic, atraumatic. No pharyngeal erythema. No thyromegaly. CARDIOVASCULAR: S1 and S2 present. No murmurs, rubs, or gallops. PULMONARY: Chest is clear to auscultation, no wheezing or crackles. -ABDOMEN: Soft, nontender, nondistended, normoactive bowel sounds. No palpable organomegaly. left colostomy back which is working. Has right lower abdominal drain. MUSCULOSKELETAL: No joint swelling or deformity. EXTREMITIES: No cyanosis, clubbing, or pedal edema. NEUROLOGICAL: Gross neurological examination did not reveal any focal deficits. SKIN: No rashes. - Labs CBC & Chem 7: 10/17/18 06:56 10/17/18 06:56 Labs: Abnormal Lab Results - Last 24 Hours (Table) 10/16/18 10/17/18 10/17/18 Range/Units 23:41 06:56 06:56 WBC 15.1 H (3.8-10.6) k/uL RBC 3.58 L (4.30-5.90) m/uL Hgb 11.0 L (13.0-17.5) gm/dL Hct 34.6 L (39.0-53.0) % Plt Count 539 H (150-450) k/uL Neutrophils # 11.7 H (1.3-7.7) k/uL Monocytes # 1.2 H (0-1.0) k/uL Creatinine 0.65 L (0.66-1.25) mg/dL Glucose 121 H (74-99) mg/dL POC Glucose (mg/dL) 108 H (75-99) mg/dL Calcium 7.9 L (8.4-10.2) mg/dL 10/17/18 Range/Units 11:38 WBC (3.8-10.6) k/uL RBC (4.30-5.90) m/uL Hgb (13.0-17.5) gm/dL Hct (39.0-53.0) % Plt Count (150-450) k/uL Neutrophils # (1.3-7.7) k/uL Monocytes # (0-1.0) k/uL Creatinine (0.66-1.25) mg/dL Glucose (74-99) mg/dL POC Glucose (mg/dL) 121 H (75-99) mg/dL Calcium (8.4-10.2) mg/dL Microbiology - Last 24 Hours (Table) 10/13/18 19:57 Catheter Tip Culture - Final Catheter Tip Assessment and Plan Assessment: perforated sigmoid diverticulitis Bacterial peritonitis secondary to above sepsis Bacteremia secondary to gram-positive bacteria Status post left side colostomy, reduction of small bowel obstruction, drainage of the pelvic abscess with the small bowel enterectomy.. Plan: this is a pleasant 38 years old male who presents with perforated viscus and peritonitis. Continue with antibiotics as per infectious disease team. Pulmonary/critical care team are following the patient. Surgical team evaluated the patient and they cleared the patient for discharge.Labs and medication were reviewed.. Continue same treatment. Continue with symptomatic treatment. Resume home medication. Monitor lytes and vitals. DVT and GI prophylaxis. Further recommendations of the clinical course of the patient DVT prophylaxis: Subcutaneous heparin Prognosis is guarded
[2018-10-18] MEDS: D5-0.45% NACL WITH KCL 20MEQ/L 1,000 ML IV SCH ×2 (02:46→10:05)
[2018-10-18] MEDS: HYDROcodone/APAP 5-325MG 1 EACH TAB PO PRN ×3 (04:08→17:29)
[2018-10-18] MEDS: METOCLOPRAMIDE 5 MG/ML 2 ML VIAL IVP SCH ×2 (05:58→14:52)
[2018-10-18] MEDS: KETOROLAC 30 MG/ML 1 ML VIAL IVP SCH ×2 (05:58→10:03)
[2018-10-18] MEDS ORDERED: PANTOPRAZOLE 40 MG TABLET PO SCH (07:30)
[2018-10-18 08:21] LABS: Basophils # (A) 0.1 k/uL (0-0.2); Basophils % (A) 1 %; Eosinophils # (A) 0.2 k/uL (0-0.7); Eosinophils % (A) 2 %; HCT 36.9 % (39.0-53.0); HGB 11.7 gm/dL (13.0-17.5); Lymphocytes # (A) 2.3 k/uL (1.0-4.8); Lymphocytes % (A) 15 %; MCH 30.5 pg (25.0-35.0); MCHC 31.7 g/dL (31.0-37.0); MCV 96.2 fL (80.0-100.0); Mean Platelet Volume 7.7; Monocytes # (A) 0.8 k/uL (0-1.0); Monocytes % (A) 6 %; Neutrophils # (A) 11.3 k/uL (1.3-7.7); Neutrophils % (A) 75 %; Platelet Count 606 k/uL (150-450); RBC 3.84 m/uL (4.30-5.90); RDW 14.2 % (11.5-15.5); WBC 15.2 k/uL (3.8-10.6)
[2018-10-18 08:58] VITALS: RESP 16
[2018-10-18] MEDS: FUROSEMIDE 10 MG/ML 4 ML VIAL IV SCH (10:02)
[2018-10-18] MEDS: METOPROLOL TARTRATE 50 MG TAB PO SCH (10:03)
[2018-10-18] MEDS: ERTAPENEM 1 GM in SODIUM CHLORIDE 0.9% 50 ML IVPB SCH (10:04)
[2018-10-18] MEDS: HEPARIN SODIUM,PORCINE 5,000 UNIT/ML 1 ML VIAL SQ SCH (10:04)
[2018-10-18 11:54] LABS: Glucose,Whole Blood 110 mg/dL (75-99)
[2018-10-18 15:20] VITALS: BP 123/76; PULSE 96; TEMP 98
--- NOTE | 2018-10-18 16:39 | P.PN ---
Progress Note - Text Progress Note Date: 10/18/18 The patient's resting comfortably his bed. He has no role complaints. On exam is lesser stable. His abdomen soft. Ostomies function.. The patient patient was discharged home. He'll follow-up Dr. Back.
--- NOTE | 2018-10-18 21:24 | P.PN ---
Subjective Progress Note Date: 10/18/18 Pleasant 38-year-old male who does not have a history of significant underlying medical troubles relates that several days before admission to hospital he was starting to have some significant abdominal pain. He thought maybe he was having hernia given the discomfort into his right lower aspect of his abdomen. Eventually because of his discomforts he was seen by his primary care physician there was concerns to appendicitis or nephrolithiasis. He was given some tamsulosin determine if this would give him relief. After 48 hours he had no improvement and she started to have some worsening. The patient relates he then had what felt like a popping sensation in his abdomen associate with severe generalized abdominal pain thereafter. He constantly called 911 and was brought to hospital. Computed tomography scan does reveal evidence of diverticulitis with phlegmon changes, cannot rule out microperforation. The patient is now had some further worsening. Positive culture was called and the infectious diseases evaluation was requested. 10/08/2018 patient is continued to worsen, abdomen is more distended. Surgeon is now evaluated and will be taken to the operating room for exploratory laparotomy 10/09/2018 the patient is now status post surgery and is feeling considerably better. His severe pain has resolved. There is a small amount of gas that is becoming evident in the ostomy pouch. The patient relates he feels considerably better. Has an NG tube still in place however some moisture to his oral cavity is being allowed by the general surgeon. The patient family understand that there was a perforated sigmoid diverticulum with a localized abscess and small bowel obstruction due to the inflammation. He is now doing considerably better and does have the negative pressure therapy system intact over the surgical site. His fevers have resolved. 10/10/2018 patient is feeling better today. He is allowed to have Popsicle and he is quite pleased. No nausea is occurring. Abdominal pain is improving. Overall is pleased with his improvement. 10/11/2018 patient is improving further. However is short of breath and has noticed some significant edema to his scrotum. The patient has been ill for a bit and does have evidence of hypoalbuminemia. He is now having some significant dependent edema occurring. EKG has been performed which appears to be normal. Primary service is asked for a CT angiogram to ensure no pulmonary embolus given his current level of debility. 10/12/2018 patient has further improvement. With his diuresis of yesterday, 4700 mL of urine output occurred rapidly with Lasix dose that was given is allowed the resolution of the shortness of breath. His extensive scrotal edema is also improving is much less tender. He no longer feels like the skin is splitting on his scrotum. Overall he feels considerably better. Having no fevers or chills. He has improved abdominal pain. History to have a scant amount of stool within his ostomy pouch. The few times that stool has progressed through his resulted in some nausea. Feeling well at the moment. 10/18/2018 reveals the patient be feeling considerably better. He is eating solid foods without difficulties. He is having no nausea or emesis. He is having no abdominal pain. He is having no hematemesis melena or hematochezia. Stools are formed in the ostomy. Is having some scant drainage out of the rectum that is mucus-like. No blood. The extensive scrotal edema has generally resolved minimal irritation from the extensive swelling. Objective - Vital Signs Vital signs: Vital Signs Temp 98 F 10/18/18 15:00 Pulse 96 10/18/18 15:00 Resp 16 10/18/18 15:00 BP 123/76 10/18/18 15:00 Pulse Ox 99 10/18/18 15:00 Intake & Output 10/18/18 10/18/18 10/19/18 06:59 18:59 06:59 Intake Total 240 1410 Output Total 150 150 Balance 90 1260 Weight 80.286 kg Intake: Intake, IV Titration 650 Amount D5-0.45% NaCl with KCl 600 20Meq/l 1,000 ml @ 100 mls/hr IV .Q10H JILLIAN Rx#: [id number] Ertapenem 1 gm In Sodium 50 Chloride 0.9% 50 ml @ 100 mls/hr IVPB DAILY JILLIAN Rx #:[id number] Oral 240 760 Output: Stool 150 150 Other: Voiding Method Toilet Urinal # Voids 2 3 - Exam Pleasant 38-year-old male who is very uncomfortable and has had fever currently the temperature is improved and not having chills at this time HEENT: Anicteric conjunctiva are pink and moist nasal mucosa grossly intact without significant lesions, there is no thrush. Oral mucosa is dry Neck: The neck is supple without significant lymphadenopathy or thyromegaly. Lungs: They're symmetrical bilateral air entry, there are few wheezes scattered however there are a few crackles posterior bilaterally from the mid zone distallyand dullness or egophony was noted Heart: Regular rate and rhythm with an audible S1-S2, no S3 no S4. There is no significant murmur click or rub, PMI was nondisplaced. Abdomen: Abdomen is postsurgical, few bowel sounds are heard. The stoma is healthy and there is evidence of gas and a small amount of stool in the ostomy pouch. The diffuse abdominal tenderness is now resolved. The abdomen is no longer rigid and no rebound was noted. Extremities: The upper extremities have excellent pulses they are symmetric, no significant petechiae or telangiectasia. No splinter hemorrhages were noted. The lower extremities show marked improvement of the extensive edema. The extensive scrotal edema generally resolved Neuro: Awake alert oriented to person place and time. There are no acute new gross focal sensory motor deficits. - Labs CBC & Chem 7: 10/18/18 07:56 10/17/18 06:56 Labs: Abnormal Lab Results - Last 24 Hours (Table) 10/18/18 10/18/18 Range/Units 07:56 11:41 WBC 15.2 H (3.8-10.6) k/uL RBC 3.84 L (4.30-5.90) m/uL Hgb 11.7 L (13.0-17.5) gm/dL Hct 36.9 L (39.0-53.0) % Plt Count 606 H (150-450) k/uL Neutrophils # 11.3 H (1.3-7.7) k/uL POC Glucose (mg/dL) 110 H (75-99) mg/dL Laboratory Results WBC 15.2 k/uL (3.8-10.6) H 10/18/18 07:56 RBC 3.84 m/uL (4.30-5.90) L 10/18/18 07:56 Hgb 11.7 gm/dL (13.0-17.5) L 10/18/18 07:56 Hct 36.9 % (39.0-53.0) L 10/18/18 07:56 MCV 96.2 fL (80.0-100.0) 10/18/18 07:56 MCH 30.5 pg (25.0-35.0) 10/18/18 07:56 MCHC 31.7 g/dL (31.0-37.0) 10/18/18 07:56 RDW 14.2 % (11.5-15.5) 10/18/18 07:56 Plt Count 606 k/uL (150-450) H 10/18/18 07:56 Neutrophils % 75 % 10/18/18 07:56 Neutrophils % (Manual) 88 % 10/10/18 07:05 Lymphocytes % 15 % 10/18/18 07:56 Lymphocytes % (Manual) 7 % 10/10/18 07:05 Monocytes % 6 % 10/18/18 07:56 Monocytes % (Manual) 4 % 10/10/18 07:05 Eosinophils % 2 % 10/18/18 07:56 Eosinophils % (Manual) 1 % 10/10/18 07:05 Basophils % 1 % 10/18/18 07:56 Metamyelocytes % 1 % 10/10/18 07:05 Neutrophils # 11.3 k/uL (1.3-7.7) H 10/18/18 07:56 Neutrophils # (Manual) 15.93 k/uL (1.3-7.7) H 10/10/18 07:05 Lymphocytes # 2.3 k/uL (1.0-4.8) 10/18/18 07:56 Lymphocytes # (Manual) 1.27 k/uL (1.0-4.8) 10/10/18 07:05 Monocytes # 0.8 k/uL (0-1.0) 10/18/18 07:56 Monocytes # (Manual) 0.72 k/uL (0-1.0) 10/10/18 07:05 Eosinophils # 0.2 k/uL (0-0.7) 10/18/18 07:56 Eosinophils # (Manual) 0.18 k/uL (0-0.7) 10/10/18 07:05 Basophils # 0.1 k/uL (0-0.2) 10/18/18 07:56 Metamyelocytes # (Man) 0.18 k/uL (0) H 10/10/18 07:05 Nucleated RBCs 0 /100 WBC (0-0) 10/10/18 07:05 Manual Slide Review Performed 10/10/18 07:05 RBC Morphology Normal 10/10/18 07:05 PT 13.4 sec (9.0-12.0) H 10/07/18 14:07 INR 1.4 (<1.2) H 10/07/18 14:07 APTT 18.7 sec (22.0-30.0) L 10/05/18 14:00 Sodium 138 mmol/L (137-145) 10/17/18 06:56 Potassium 4.4 mmol/L (3.5-5.1) 10/17/18 06:56 Chloride 106 mmol/L (98-107) 10/17/18 06:56 Carbon Dioxide 27 mmol/L (22-30) 10/17/18 06:56 Anion Gap 5 mmol/L 10/17/18 06:56 BUN 11 mg/dL (9-20) 10/17/18 06:56 Creatinine 0.65 mg/dL (0.66-1.25) L 10/17/18 06:56 Est GFR (CKD-EPI)AfAm >90 (>60 ml/min/1.73 sqM) 10/17/18 06:56 Est GFR (CKD-EPI)NonAf >90 (>60 ml/min/1.73 sqM) 10/17/18 06:56 Glucose 121 mg/dL (74-99) H 10/17/18 06:56 POC Glucose (mg/dL) 110 mg/dL (75-99) H 10/18/18 11:41 POC Glu Counter Sales Representative ID Teri Cornell 10/18/18 11:[address] Glu mg/dL 111 10/12/18 07:46 Hemoglobin A1c 5.5 % (4.0-6.0) 10/12/18 07:46 Lactic Ac Sepsis Rflx Y 10/05/18 15:10 Plasma Lactic Acid [place] 1.6 mmol/L (0.7-2.0) 10/08/18 17:45 Calcium 7.9 mg/dL (8.4-10.2) L 10/17/18 06:56 Ionized Calcium [place] 4.5 mg/dL (4.5-5.3) 10/13/18 11:50 Phosphorus 3.1 mg/dL (2.5-4.5) 10/16/18 09:16 Magnesium 2.1 mg/dL (1.6-2.3) 10/16/18 09:16 Total Bilirubin 0.9 mg/dL (0.2-1.3) 10/08/18 07:27 AST 22 U/L (17-59) 10/08/18 07:27 ALT 29 U/L (21-72) 10/08/18 07:27 Alkaline Phosphatase 64 U/L (38-126) 10/08/18 07:27 Creatine Kinase 122 U/L (55-170) 10/06/18 08:48 Total Creatine Kinase 89 U/L (55-170) 10/05/18 14:00 CK-MB (CK-2) 1.0 ng/mL (0.0-2.4) 10/05/18 14:00 CK-MB (CK-2) Rel Index 1.1 10/05/18 14:00 Troponin I <0.012 ng/mL (0.000-0.034) 10/05/18 14:00 Total Protein 5.2 g/dL (6.3-8.2) L 10/08/18 07:27 Albumin 2.2 g/dL (3.5-5.0) L 10/15/18 09:14 Triglycerides 154 mg/dL (<150) H 10/07/18 16:36 Amylase 40 U/L (30-110) 10/05/18 14:00 Lipase 34 U/L (23-300) 10/05/18 14:00 Urine Color Yellow 10/05/18 16:07 Urine Appearance Clear (Clear) 10/05/18 16:07 Urine pH 5.5 (5.0-8.0) 10/05/18 16:07 Ur Specific [place] 1.021 (1.001-1.035) 10/05/18 16:07 Urine Protein 1+ (Negative) H 10/05/18 16:07 Urine Glucose (UA) Negative (Negative) 10/05/18 16:07 Urine Ketones 3+ (Negative) H 10/05/18 16:07 Urine Blood Small (Negative) H 10/05/18 16:07 Urine Nitrite Negative (Negative) 10/05/18 16:07 Urine Bilirubin Negative (Negative) 10/05/18 16:07 Urine Urobilinogen 4.0 mg/dL (<2.0) 10/05/18 16:07 Ur Leukocyte Esterase Negative (Negative) 10/05/18 16:07 Urine RBC 11 /hpf (0-5) H 10/05/18 16:07 Urine WBC 1 /hpf (0-5) 10/05/18 16:07 Ur Squamous Epith Cells <1 /hpf (0-4) 10/05/18 16:07 Urine Mucus Occasional /hpf (None) H 10/05/18 16:07 Vancomycin Trough 17.1 ug/mL 10/15/18 09:14 Blood Type A Positive 10/08/18 12:41 Blood Type Confirm A Positive 10/08/18 07:27 Blood Type Recheck CABO Indicated 10/08/18 12:41 Antibody Screen NEGATIVE 10/08/18 12:41 Spec Expiration Date 10/11/2018 - 234010/08/18 12:41 Microbiology 10/13/18 19:57 Catheter Tip Catheter Tip Culture - Final 10/07/18 22:41 Blood Blood Culture - Final No Growth after 144 hours 10/07/18 21:27 Blood Blood Culture - Final No Growth after 144 hours 10/08/18 17:00 Other - Other Anaerobic Culture - Final 10/08/18 17:00 Other - Other Gram Stain - Final 10/08/18 17:00 Other - Other Tissue Culture - Final 10/08/18 17:00 Tissue - Other Anaerobic Culture - Final Anaerobic Gm Negative Bacilli 10/08/18 17:00 Other - Other Anaerobic Culture - Final Anaerobic Gram Positive Cocci Anaerobic Gm Negative Bacilli#3 10/08/18 17:00 Other - Other Gram Stain - Final 10/08/18 17:00 Other - Other Wound Culture - Final 10/08/18 17:00 Other - Other Gram Stain - Final 10/08/18 17:00 Other - Other Wound Culture - Final Escherichia coli 10/05/18 14:00 Blood Blood Culture Gram Stain - Final 10/05/18 14:00 Blood Blood Culture - Final Micrococcus species 10/05/18 14:00 Blood Blood Culture - Final 10/05/18 16:07 Urine,Clean Catch Urine Culture - Final Assessment and Plan (1) Diverticulitis Narrative/Plan: 38 year male presents to Hospital with a several-day history of abdominal pain that had been progressive. The patient believes it may be kidney stones and was even given a trial tamsulosin. Computed tomography scan hour reveals no evidence of any nephrolithiasis or of any hydronephrosis. Computed tomography scan overdoes reveal evidence of the significant diverticulitis with some phlegmon formation and possibly early abscess formation possibly free air small amount from a microperforation. Perforation clinically seems to have occurred when he had the sudden severe onset of pain after feeling a popping sensation within his abdomen. He's been seen by surgery at this time. Antibiotic therapy will be altered at this point in time given his ongoing sepsis and the positive blood culture. It is currently identified as a gram- positive cocci unclear of this will be a staph or strep. Meropenem with vancomycin be utilized for now until we have further data given his known penicillin ALLERGY. Follow blood cultures are requested Requested for interaction with the surgeon, the patient likely will need to presents to surgery in the near future, he is not showing any significant improvements with antibiotic therapy and actually clinically he seems to be worsening. We will monitor. Attempt was made to call his [id number], Verito Partida. 10/08/2018 conversation with the patient's [id number], Verito partida RN has occurred. Patient is worsened will be taken the operating room for the exposure laparotomy today. Continue current antibiotic therapy until further cultures are available. We'll monitor. 10/09/2018 the patient is now status post exploratory laparotomy which found evidence of the perforation and abscess in the left lower quadrant the sigmoid colon which has been resected and the colostomy has been applied. The patient is now considerably improved overnight. His fevers resolved. His leukocytosis is improving. His abdominal pain is considerably improved and he is pleased that he is doing so well at this time. Given the extent of the infection and the localized peritonitis the patient will require a couple week course of intravenous antibiotic therapy for this extensive infectious process. PICC line will be placed, Thursday and we'll make plans for outpatient intravenous antibiotic therapy potentially coming to the infusion clinic on a daily basis. 10/10/2018 patient continues to improve after surgery. Requested PICC line for ongoing antibiotic therapy after his discharge. He is improving and cultures will help further direct his antibiotic therapy at discharge. His had some scant fluid in the ostomy pouch. Awaiting recovery of GI function. 10/11/2018 patient has further improvement however is now developed some shortness of breath likely has some volume overload related to his hyperproteinemia which is being noted by the significant scrotal edema and some lower extremity edema that has occurred. We'll give him a single dose of Lasix and await his computed tomography scan to further evaluate. Elevation of the scrotum will be helpful because his skin is getting very stretched applied thick zinc cream to the area for relief. The patient will require outpatient intravenous antibiotic therapy and we will work with the discharge planners for arranging this. 10/12/2018 reveals the patient to be further improved. With the Lasix dose that was ordered and given he's had a 4700 mL diuresis which is allowed a marked improvement of some distention to his abdomen, lower extremities edema in the scrotal edema. It also is allowed resolution of his shortness of breath is feeling considerably better today. The hypoalbuminemia is partially responsible for his third spacing of fluid. Fortunately improving. Arrangements in place for his outpatient intravenous antibiotic therapy. 10/18/2018 patient is now considerably improved. His extensive edema has resolved and he feels better that is scrotal edema has resolved. He is regained his appetite. He is able to eat solids without difficulties. He is having no nausea or emesis is having formed stool in his ostomy. His abdominal distention is almost completely resolved and has almost no abdominal discomfort at all. Feeling considerably better and is ready for discharge to home. We'll complete the 2 weeks of ertapenem in the home setting. Status: Acute Code(s): K57.92 - DVTRCLI OF INTEST, PART UNSP, W/O PERF OR ABSCESS W/O BLEED SNOMED Code(s): 236107782 (2) Sepsis Status: Acute Code(s): A41.9 - SEPSIS, UNSPECIFIED ORGANISM SNOMED Code(s): 39360350 (3) Bacteremia due to Gram-positive bacteria Status: Acute Code(s): R78.81 - BACTEREMIA SNOMED Code(s): 560940257578
== END 2018-10-18 17:56 | disposition home or self-care (01) | DRG 853 ==
LOC: EC 13:34 → 4MS4W 16:42 → 4SSUR 10-08 19:03
PROVIDERS: ADMIT Hospitalist; ATTEND Hospitalist
PROC: 0DN80ZZ Release Small Intestine, Open Approach (ICD-10-PCS; 2018-10-08)
PROC: 0DB80ZZ Excision of Small Intestine, Open Approach (ICD-10-PCS; 2018-10-08)
PROC: 0D9N00Z Drainage of Sigmoid Colon with Drainage Device, Open Approach (ICD-10-PCS; 2018-10-08)
PROC: 3E1M38Z Irrigation of Peritoneal Cavity using Irrigating Substance, Percutaneous Approach (ICD-10-PCS; 2018-10-08)
PROC: 0D1M0Z4 Bypass Descending Colon to Cutaneous, Open Approach (ICD-10-PCS; principal; 2018-10-08 09:50)
PROC: 02HV33Z Insertion of Infusion Device into Superior Vena Cava, Percutaneous Approach (ICD-10-PCS; 2018-10-11)
DX: A41.50 Gram-negative sepsis, unspecified (principal); K65.0 Generalized (acute) peritonitis; K65.1 Peritoneal abscess; J90 Pleural effusion, not elsewhere classified; K57.20 Diverticulitis of large intestine with perforation and abscess without bleeding; R18.8 Other ascites; K56.699 Other intestinal obstruction unspecified as to partial versus complete obstruction; E86.0 Dehydration; E87.70 Fluid overload, unspecified; E88.09 Other disorders of plasma-protein metabolism, not elsewhere classified; F17.210 Nicotine dependence, cigarettes, uncomplicated; F31.9 Bipolar disorder, unspecified; K66.0 Peritoneal adhesions (postprocedural) (postinfection); L29.9 Pruritus, unspecified; N13.9 Obstructive and reflux uropathy, unspecified; N48.89 Other specified disorders of penis; N50.89 Other specified disorders of the male genital organs; Z79.899 Other long term (current) drug therapy; Z88.0 Allergy status to penicillin; R33.9 Retention of urine, unspecified; G89.29 Other chronic pain; Z79.2 Long term (current) use of antibiotics
CPT/HCPCS: 36415; 36569; 71045; 71275; 74177; 76604; 76705; 76937; 77001; 80048; 80053; 80202; 81001; 82040; 82150; 82330; 82550; 82553; 83036; 83605; 83690; 83735; 84100; 84478; 84484; 85025; 85610; 85730; 86850; 86900; 86901; 87040; 87070; 87075; 87077; 87086; 87186; 87205; 88307; 93005; 94760; 96361; 96365; 96366; 96375; 99285

== ENCOUNTER → 2018-12-06 | Outpatient (CLI) | payer BC ==
[2018-12-06 09:48] LABS: Basophils # (A) 0.1 k/uL (0-0.2); Basophils % (A) 1 %; Eosinophils # (A) 0.2 k/uL (0-0.7); Eosinophils % (A) 2 %; HCT 43.6 % (39.0-53.0); HGB 14.2 gm/dL (13.0-17.5); Lymphocytes # (A) 2.9 k/uL (1.0-4.8); Lymphocytes % (A) 35 %; MCH 29.9 pg (25.0-35.0); MCHC 32.6 g/dL (31.0-37.0); MCV 91.8 fL (80.0-100.0); Mean Platelet Volume 6.7; Monocytes # (A) 0.5 k/uL (0-1.0); Monocytes % (A) 6 %; Neutrophils # (A) 4.4 k/uL (1.3-7.7); Neutrophils % (A) 52 %; Platelet Count 263 k/uL (150-450); RBC 4.75 m/uL (4.30-5.90); RDW 14.7 % (11.5-15.5); WBC 8.3 k/uL (3.8-10.6)
[2018-12-06 09:54] LABS: ALT 63 U/L (21-72); AST 36 U/L (17-59); Albumin 4.4 g/dL (3.5-5.0); Alkaline Phosphatase 74 U/L (38-126); Anion Gap 7 mmol/L; Blood Urea Nitrogen 10 mg/dL (9-20); Carbon Dioxide 26 mmol/L (22-30); Chloride 108 mmol/L (98-107); Glucose 96 mg/dL (74-99); Potassium 3.8 mmol/L (3.5-5.1); Sodium 141 mmol/L (137-145); Total Bilirubin 0.5 mg/dL (0.2-1.3); Total Protein 7.7 g/dL (6.3-8.2)
--- NOTE | 2018-12-06 10:06 | CT ---
EXAMINATION TYPE: CT abdomen pelvis w con DATE OF EXAM: 12/06/2018 COMPARISON: 10/05/2018 HISTORY: 38-year-old male Follow up to diverticulitis and ostomy. TECHNIQUE: Contiguous axial scanning of the abdomen and pelvis following administration of 100 ml Omn ipaque 300 IV contrast. Delayed images through the kidneys and coronal/sagittal reconstructions perf ormed. CT DLP: 680.5 mGycm Automated exposure control for dose reduction was used. FINDINGS: Heart normal size without pericardial effusion. Small right pleural effusion with adjacent atelectasi s. No focal liver lesion or biliary ductal dilatation. Portal venous system is patent. Gallbladder, adrenal glands, kidneys, spleen, and pancreas appear within normal limits. Some scattered prominent retroperitoneal lymph nodes measure up to 5 mm, stable to slightly smaller f rom 10/22/2018. There is a midline laparotomy scar. Right sided periumbilical fatty hernia the hernia neck measuring 3.3 cm wide and also containing the anterior wall of a short segment of small bowel loop. No dilated small bowel, free fluid, or free air. Appendix is visualized. Oral contrast has progressed to the transverse colon. Postsurgical changes of left lower quadrant sigmoid colostomy. The mid to distal sigmoid remain with Briceno's pouch formation. There is a large diverticulum along the right lateral aspect of the distal sigmoid at the site of pre vious inflammation. This shows a small tract extending to an extracolonic collection of fluid which s hows thin uniform wall measuring 4.5 x 2.6 cm located behind the bladder and just anterior to the rec rory. Ice Skating Coach images, refer to coronal images 46 through 58. No inflammatory changes are seen a round this region. Bladder urine distended. No pelvic lymphadenopathy seen. Stable 1.4 cm right lateral bladder wall div erticulum. Bones: No osseous destructive process. IMPRESSION: 1. INTERVAL LEFT LOWER QUADRANT SIGMOID COLOSTOMY WITH BRICENO'S POUCH FORMATION AT THE LEVEL OF THE MID SIGMOID. 2. LARGE DIVERTICULUM PROJECTING TOWARDS THE RIGHT FROM THE DISTAL SIGMOID AT THE SITE OF PRIOR INFLA MMATION. THERE IS A NARROW TRACT EXTENDING FROM THIS REGION COURSING INFERIORLY, CONTIGUOUS WITH A TH IN-WALLED FLUID COLLECTION SITUATED BEHIND THE BLADDER MEASURING 4.5 X 2.6 CM SUGGESTING AN AREA OF C HRONIC, WALLED OFF LEAK. NO INFLAMMATORY CHANGES ARE SEEN AROUND HERE. REFER TO CORONAL IMAGES 46 THR OUGH 58 FOR SWITCH ENGINEER IMAGES. 3. LAPAROTOMY SCAR WITH A WIDEMOUTH RIGHT PERIUMBILICAL FATTY HERNIA. 4. SMALL RIGHT PLEURAL EFFUSION.
== END ==
LOC: RADCTMAIN 07:54
PROVIDERS: ATTEND Surgery Plastic and Reconstructive Surgery
DX: K57.30 Diverticulosis of large intestine without perforation or abscess without bleeding (principal); K42.9 Umbilical hernia without obstruction or gangrene; Z93.3 Colostomy status
CPT/HCPCS: 80053; 85025; 74177; Q9967

== ENCOUNTER 2019-02-23 08:51 | Day surgery (SDC) | payer BC ==
[2019-02-21 15:01] VITALS: BMI 25.0
--- NOTE | 2019-02-23 06:04 | P.GSHP ---
History of Present Illness H&P Date: 02/23/19 CHIEF COMPLAINT: Diverticulitis HISTORY OF PRESENT ILLNESS: The patient is a 38-year-old male who presents for evaluation of his diverticulitis. Lower endoscopy was offered for further evaluation and management. PAST MEDICAL HISTORY: Please see list. PAST SURGICAL HISTORY: Please see list. MEDICATIONS: Please see list. ALLERGIES: Please see list. SOCIAL HISTORY: No illicit drug use FAMILY HISTORY: No reports of Crohn disease or ulcerative colitis. REVIEW OF ORGAN SYSTEMS: CONSTITUTIONAL: No reports of fevers or chills. PHYSICAL EXAM: VITAL SIGNS: Stable GENERAL: Well-developed pleasant in no acute distress. HEENT: No scleral icterus. Extraocular movements grossly intact. Moist buccal mucosa. NECK: Supple without lymphadenopathy. CHEST: Unlabored respirations. Equal bilateral excursions. CARDIOVASCULAR: Regular rate and rhythm. Distal 2+ pulses. ABDOMEN: Soft, nontender, nondistended. MUSCULOSKELETAL: No clubbing, cyanosis, or edema. ASSESSMENT: 1. Colon screen. PLAN: 1. Recommend proceeding with a lower endoscopy Past Medical History Past Medical History: No Reported History Additional Past Medical History / Comment(s): Hx. of Diverticulitis, ostomy, sepsis and hernia. History of Any Multi-Drug Resistant Organisms: None Reported Past Surgical History: No Surgical Hx Reported Additional Past Surgical History / Comment(s): Ostomy surgery of the bowel. Past Anesthesia/Blood Transfusion Reactions: No Reported Reaction Smoking Status: Current every day smoker - Past Family History Father Additional Family Medical History / Comment(s): ETOH Medications and Allergies Home Medications Medication Instructions Recorded Confirmed Type Omeprazole [PriLOSEC] 40 mg PO DAILY 10/04/18 02/21/19 History HYDROcodone/APAP 7.5-325MG [[place] 1 tab PO Q4H PRN 3 Days #18 tab 10/16/18 02/21/19 Rx 7.5-325] Atorvastatin Calcium [Lipitor] 20 mg PO DAILY 02/21/19 02/21/19 History Allergies Allergy/AdvReac Type Severity Reaction Status Date / Time Penicillins Allergy Nausea & Verified 02/21/19 14:38 Vomiting
[~2019-02-23 08:51] MED LIST: LACTATED RINGERS 1,000 ML IV SCH
[2019-02-23 09:41] VITALS: RESP 16; TEMP 97.2
[2019-02-23] MEDS ORDERED: LIDOCAINE 1% 20 ML VIAL (10MG/ML) FOR IV START INTRADERMA ONE (09:50)
[2019-02-23] MEDS ORDERED: PROPOFOL 10 MG/ML 20 ML VIAL IV ONE (09:58)
--- NOTE | 2019-02-23 10:24 | P.PCN ---
Date of Procedure: 02/23/19 Description of Procedure: PREOPERATIVE DIAGNOSIS: History of perforated diverticulitis Descending colostomy status POSTOPERATIVE DIAGNOSIS: History of perforated diverticulitis Descending colostomy status Transverse colon polyp History of Luz's procedure OPERATION: Colonoscopy through descending colostomy with cold biopsy forceps Colonoscopy through descending colostomy to appendiceal orifice. Sigmoidoscopy through devitalized rectum SURGEON: Maegan Cedillo MD. ANESTHESIA: MAC. INDICATIONS: The patient is a 38-year-old male who presents for colonoscopy following perforated diverticulitis with descending colostomy, 2018. Benefits and risks were described and informed consent was obtained. DESCRIPTION OF PROCEDURE: The patient had undergone Gatorade, MiraLAX and Dulcolax prep. He had been brought into the operating room and laid supine. The stoma appliance was removed. An Olympus colonoscope was advanced through the descending colostomy to the appendiceal orifice. The prep was good. Scattered diverticulosis was encountered of the descending colostomy. Transverse colon polyp hyperplastic, 3 mm was removed with cold biopsy forcep. No evidence of focal colitis was found. The colon was desufflated. The patient was transitioned in the left lateral decubitus position where along the anus, no palpable tumors were identified. The colonoscope was advanced through the rectal stump with transection confirmed at 30 cm from the anal verge. No active diverticulitis was identified. Moderate retained stool was identified. The colonoscope was removed. External hemorrhoids and internal hemorrhoids were confirmed without active inflammation. The prostate was smooth and without abnormality The patient had tolerated the procedure well. Withdrawal time was over 6 minutes. FINDINGS: [place] preparation quality scale 3 (1-5) liquid and semisolid stool identified No arteriovenous malformations. External hemorrhoids, grade 2 Internal hemorrhoids, grade 2 Rectal stump with transection confirmed at 30 cm from the anal verge No focal colitis. Transverse colon polyp hyperplastic, 3 mm was removed with cold biopsy forcep. RECOMMENDATIONS: Lower endoscopy as needed Recommend rectal enemas weekly to every other week Plan - Discharge Summary Discharge Rx Participant: Yes New Discharge Prescriptions: No Action Omeprazole [PriLOSEC] 40 mg PO DAILY HYDROcodone/APAP 7.5-325MG [[place] 7.5-325] 1 tab PO Q4H PRN 3 Days #18 tab PRN Reason: Pain Atorvastatin Calcium [Lipitor] 20 mg PO DAILY Discharge Medication List Omeprazole [PriLOSEC] 40 mg PO DAILY 10/04/18 [History] HYDROcodone/APAP 7.5-325MG [[place] 7.5-325] 1 tab PO Q4H PRN 3 Days #18 tab 10/16/18 [Rx] Atorvastatin Calcium [Lipitor] 20 mg PO DAILY 02/21/19 [History] Follow up Appointment(s)/Referral(s): Maegan Cedillo MD [STAFF PHYSICIAN] - 03/22/19 Patient Instructions/Handouts: Diverticulitis (DC), Diverticulitis Diet (DC), Fleet Enema (DC) Activity/Diet/Wound Care/Special Instructions: Recommend rectal enema weekly Discharge Disposition: HOME SELF-CARE
[2019-02-23 10:48] VITALS: BP 109/74; PULSE 74
== END 2019-02-23 11:58 | disposition home or self-care (01) ==
LOC: ORWHC2ENDO 08:51
PROVIDERS: ATTEND Surgery Plastic and Reconstructive Surgery
DX: Z09 Encounter for follow-up examination after completed treatment for conditions other than malignant neoplasm (principal); K63.5 Polyp of colon; K64.8 Other hemorrhoids; K64.4 Residual hemorrhoidal skin tags; K57.30 Diverticulosis of large intestine without perforation or abscess without bleeding; E78.5 Hyperlipidemia, unspecified; K21.9 Gastro-esophageal reflux disease without esophagitis; Z93.3 Colostomy status; Z87.19 Personal history of other diseases of the digestive system; Z87.891 Personal history of nicotine dependence; Z90.49 Acquired absence of other specified parts of digestive tract; Z88.0 Allergy status to penicillin; Z79.899 Other long term (current) drug therapy
CPT/HCPCS: 88305; 44389; J2704; 45380

== ENCOUNTER → 2019-05-04 | Outpatient (CLI) | payer BC ==
[2019-05-04 09:58] LABS: Anisocytosis Slight; HCT 46.6 % (39.0-53.0); HGB 15.6 gm/dL (13.0-17.5); MCH 30.4 pg (25.0-35.0); MCHC 33.5 g/dL (31.0-37.0); Mean Platelet Volume 7.3; Platelet Count 214 k/uL (150-450); RBC 5.12 m/uL (4.30-5.90); RDW 16.1 % (11.5-15.5); WBC 8.6 k/uL (3.8-10.6)
[2019-05-04 10:24] LABS: ALT 34 U/L (21-72); AST 28 U/L (17-59); African American GFR (CKD) >90 (>60 ml/min/1.73 sqM); Albumin 4.3 g/dL (3.5-5.0); Alkaline Phosphatase 79 U/L (38-126); Anion Gap 8 mmol/L; Blood Urea Nitrogen 10 mg/dL (9-20); Calcium 9.3 mg/dL (8.4-10.2); Carbon Dioxide 25 mmol/L (22-30); Chloride 108 mmol/L (98-107); Glucose 85 mg/dL (74-99); Potassium 3.7 mmol/L (3.5-5.1); Sodium 141 mmol/L (137-145); Total Bilirubin 0.5 mg/dL (0.2-1.3); Total Protein 6.9 g/dL (6.3-8.2)
== END | disposition home or self-care (01) ==
LOC: LABPAT 08:53
PROVIDERS: ATTEND Surgery Plastic and Reconstructive Surgery
DX: K57.30 Diverticulosis of large intestine without perforation or abscess without bleeding (principal)
CPT/HCPCS: 36415; 80053; 85027

== ENCOUNTER 2019-05-06 14:10 | Inpatient (IN) | payer BC ==
[2019-05-03 14:50] VITALS: BMI 26.6
--- NOTE | 2019-05-05 23:18 | P.GSHP ---
History of Present Illness H&P Date: 05/06/19 CHIEF COMPLAINT: History of sigmoid diverticulitis HISTORY OF PRESENT ILLNESS: The patient is a 39-year-old male with long-standing history of sigmoid diverticulitis. He presented with perforated diverticulitis with colostomy creation. Now he presents for a colon resection and reversal of his colostomy. PAST MEDICAL HISTORY: Please see list. PAST SURGICAL HISTORY: Please see list. MEDICATIONS: Please see list. ALLERGIES: Please see list. SOCIAL HISTORY: No illicit drug use FAMILY HISTORY: No reports of Crohn disease or ulcerative colitis. REVIEW OF ORGAN SYSTEMS: CONSTITUTIONAL: Denies any fever or chills. HEENT: Denies any trouble with vision or nosebleeds. No difficulty swallowing. LYMPHATIC: The patient denies any lumps and bumps around the neck. PHYSICAL EXAM: VITAL SIGNS: Stable GENERAL: Well-developed pleasant in no acute distress. HEENT: No scleral icterus. Extraocular movements grossly intact. Moist buccal mucosa. NECK: Supple without lymphadenopathy. CHEST: Unlabored respirations. Equal bilateral excursions. CARDIOVASCULAR: Regular rate and rhythm. Distal 2+ pulses. ABDOMEN: Soft, nontender, nondistended. Ostomy pink patent and functioning. MUSCULOSKELETAL: No clubbing, cyanosis, or edema. NERUO: Cranial nerves 2-12 grossly intact. PSYCH: Alert and oriented to person place and time. ASSESSMENT: 1. History of perforated diverticulitis 2. Descending colostomy status PLAN: 1. Benefits and risks of open colostomy reversal described. 2. Enhanced colon recovery program. 3. DVT prophylaxis. 4. Antibiotic prophylaxis. 5. Inpatient hospitalization greater than 2 nights. Past Medical History Past Medical History: GERD/Reflux, Hyperlipidemia Additional Past Medical History / Comment(s): Hx. of Diverticulitis & bowel obstruction, sepsis and hernia, has colostomy, hx. kidney stones History of Any Multi-Drug Resistant Organisms: None Reported Past Surgical History: Bowel Resection Additional Past Surgical History / Comment(s): bowel resection w/colostomy 2017, colonoscopy Past Anesthesia/Blood Transfusion Reactions: No Reported Reaction Smoking Status: Current every day smoker - Past Family History Father Additional Family Medical History / Comment(s): ETOH Medications and Allergies Home Medications Medication Instructions Recorded Confirmed Type Omeprazole [PriLOSEC] 40 mg PO DAILY 10/04/18 05/03/19 History HYDROcodone/APAP 7.5-325MG [[place] 1 tab PO Q4H PRN 3 Days #18 tab 10/16/18 05/03/19 Rx 7.5-325] Atorvastatin Calcium [Lipitor] 20 mg PO DAILY 02/21/19 05/03/19 History Allergies Allergy/AdvReac Type Severity Reaction Status Date / Time Penicillins Allergy Nausea & Verified 05/03/19 12:16 Vomiting
[~2019-05-06 14:10] MED LIST changes: +ACETAMINOPHEN TAB 500 MG TAB PO ONE; +ALVIMOPAN 12 MG CAPSULE PO ONE; +Antibiotics per Pharmacy 1 EACH MISC MISCELLANE PRN; +DEXAMETHASONE SOD PHOSPHATE 10 MG/ML 1 ML VIAL IV ONE; +HEPARIN SODIUM,PORCINE 5,000 UNIT/ML 1 ML VIAL SQ ONE; +HYDROmorphone 0.5 MG/0.5 ML SYRINGE IVP PRN; -LACTATED RINGERS 1,000 ML IV SCH; +LIDOCAINE 1% 20 ML VIAL (10MG/ML) FOR IV START INTRADERMA PRN; +MIDAZOLAM 2 MG/2 ML VIAL IV PRN; +ONDANSETRON 4 MG/2 ML VIAL IVP ONE; +ceFAZolin IN SWFI 2 GM/20 ML SYRINGE IVP ONE; +fentaNYL (PF) 50 MCG/ML 2 ML AMP IV PRN; +metroNIDAZOLE-NS PMX 500 MG in SALINE 1 100ML.BAG IVPB ONE
[2019-05-06] MEDS: LACTATED RINGERS 1,000 ML IV SCH (16:59)
[2019-05-06 17:20] LABS: Anisocytosis Slight; Basophils # (A) 0.1 k/uL (0-0.2); Basophils % (A) 1 %; Eosinophils # (A) 0.1 k/uL (0-0.7); Eosinophils % (A) 1 %; HCT 49.6 % (39.0-53.0); HGB 16.4 gm/dL (13.0-17.5); Lymphocytes # (A) 2.5 k/uL (1.0-4.8); Lymphocytes % (A) 29 %; MCH 30.3 pg (25.0-35.0); MCHC 33.2 g/dL (31.0-37.0); MCV 91.4 fL (80.0-100.0); Mean Platelet Volume 7.5; Monocytes # (A) 0.7 k/uL (0-1.0); Monocytes % (A) 8 %; Neutrophils # (A) 5.3 k/uL (1.3-7.7); Neutrophils % (A) 60 %; Platelet Count 214 k/uL (150-450); RBC 5.42 m/uL (4.30-5.90); RDW 16.7 % (11.5-15.5); WBC 8.9 k/uL (3.8-10.6)
[2019-05-06 17:21] LABS: ALT 50 U/L (21-72); AST 36 U/L (17-59); African American GFR (CKD) >90 (>60 ml/min/1.73 sqM); Albumin 4.5 g/dL (3.5-5.0); Alkaline Phosphatase 93 U/L (38-126); Anion Gap 9 mmol/L; Blood Urea Nitrogen 11 mg/dL (9-20); Calcium 9.5 mg/dL (8.4-10.2); Carbon Dioxide 27 mmol/L (22-30); Chloride 105 mmol/L (98-107); Glucose 85 mg/dL (74-99); Sodium 141 mmol/L (137-145); Total Bilirubin 0.7 mg/dL (0.2-1.3); Total Protein 7.4 g/dL (6.3-8.2)
--- NOTE | 2019-05-06 18:13 | P.PN ---
Subjective Progress Note Date: 05/06/19 Patient presented for reversal of colostomy. He reports completing his prep, with severe dehydration. With patient's presentation including moderate dehydration and very late case of the day, case deferred for tomorrow. He will undergo IV fluid hydration included modified bowel prep and enhance colon re covery Objective - Vital Signs Vital signs: Vital Signs Temp 98.6 F 05/06/19 16:29 Pulse 85 05/06/19 16:29 Resp 16 05/06/19 16:29 BP 126/70 05/06/19 16:29 Pulse Ox 99 05/06/19 16:29 - Labs CBC & Chem 7: 05/06/19 17:04 05/06/19 17:04 Labs: Abnormal Lab Results - Last 24 Hours (Table) 05/06/19 Range/Units 17:04 RDW 16.7 H (11.5-15.5) %
[2019-05-06] MEDS ORDERED: SODIUM CHLORIDE 0.9% 2,000 ML IV ONE (18:14)
[2019-05-06] MEDS ORDERED: Antibiotics per Pharmacy 1 EACH MISC MISCELLANE PRN (18:15)
[2019-05-06] MEDS ORDERED: POLYETHYLENE GLYCOL LYTES SOLN 4,000 ML SOLN.RECON PO ONE (18:15)
[2019-05-06] MEDS ORDERED: TEMAZEPAM 15 MG CAP PO ONE (21:00)
--- NOTE | 2019-05-06 21:14 | P.PN ---
Progress Note - Text Progress Note Date: 05/06/19 All questions regarding surgery addressed. 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 We'll proceed with colostomy reversal as described.
[2019-05-06] MEDS: SODIUM CHLORIDE 0.9% 1,000 ML IV SCH (22:49)
[2019-05-07] MEDS: LACTATED RINGERS 1,000 ML IV SCH (04:06)
[2019-05-07] MEDS: SODIUM CHLORIDE 0.9% 1,000 ML IV SCH ×3 (05:09→19:42)
[2019-05-07] MEDS: HYDROmorphone 1 MG/ML 1 ML SYRINGE IVP PRN (06:20)
[2019-05-07] MEDS ORDERED: HEPARIN SODIUM,PORCINE 5,000 UNIT/ML 1 ML VIAL SQ ONE (08:00)
[2019-05-07] MEDS ORDERED: ceFAZolin IN SWFI 2 GM/20 ML SYRINGE IVP ONE (08:00)
[2019-05-07] MEDS ORDERED: ALVIMOPAN 12 MG CAPSULE PO ONE (08:00)
[2019-05-07] MEDS ORDERED: metroNIDAZOLE-NS PMX 500 MG in SALINE 1 100ML.BAG IVPB ONE (08:00)
[2019-05-07] MEDS ORDERED: NALOXONE 0.4 MG/ML 1 ML VIAL IV PRN (10:39)
[2019-05-07] MEDS ORDERED: ROPIVACAINE 250 MG, HYDROMORPHONE (PF) 5 MG in SODIUM CHLORIDE 0.9% 200 ML EPIDURAL PRN (11:00)
--- NOTE | 2019-05-07 12:45 | P.PN ---
Subjective Progress Note Date: 05/07/19 HPI: He is urinating well. Dizziness is resolved. He reports left testicular pain, new in the last 2+ weeks. He has history of incisional hernia. Overall, he is feeling much better. Epidural has been placed ABDOMEN: Soft, nontender, ostomy, pink and patent with coloplast ASSESSMENT: 1. Diverticulitis PLAN: 1. Colostomy reversal today 2. Post-operative guidelines and anticipated post-operative recovery reviewed with family Objective - Vital Signs Vital signs: Vital Signs Temp 97.4 F L 05/07/19 07:00 Pulse 67 05/07/19 10:21 Resp 16 05/07/19 10:21 BP 113/78 05/07/19 10:21 Pulse Ox 100 05/07/19 10:21 Intake & Output 05/06/19 05/07/19 05/07/19 18:59 06:59 18:59 Output Total 400 Balance -400 Output: Urine 400 Other: # Voids 2 2 - Labs CBC & Chem 7: 05/06/19 17:04 05/06/19 17:04 Labs: Abnormal Lab Results - Last 24 Hours (Table) 05/06/19 Range/Units 17:04 RDW 16.7 H (11.5-15.5) %
[2019-05-07] MEDS ORDERED: LIDOCAINE 1% INJ 10MG/ML (20 ML MDV) ONE (13:25)
[2019-05-07] MEDS ORDERED: PROPOFOL 10 MG/ML 20 ML VIAL IV ONE (13:25)
[2019-05-07] MEDS ORDERED: fentaNYL (PF) 50 MCG/ML 2 ML AMP ONE (13:25)
[2019-05-07] MEDS ORDERED: DEXAMETHASONE SOD PHOS (MDV) 100 MG/10 ML VIAL ONE (13:25)
[2019-05-07] MEDS ORDERED: MIDAZOLAM 2 MG/2 ML VIAL ONE (13:25)
[2019-05-07] MEDS ORDERED: NEOSTIGMINE 1 MG/ML 10 ML VIAL ONE (13:25)
[2019-05-07] MEDS ORDERED: GLYCOPYRROLATE 0.2 MG/ML 2 ML VIAL ONE (13:25)
[2019-05-07] MEDS ORDERED: ROCURONIUM BROMIDE 10 MG/ML 10 ML VIAL IV ONE (13:25)
[2019-05-07] MEDS ORDERED: HYDROmorphone (PF) 1 MG/ML ONE (13:25)
[2019-05-07] MEDS ORDERED: ONDANSETRON 4 MG/2 ML VIAL ONE (13:25)
[2019-05-07] MEDS ORDERED: SUCCINYLCHOLINE CHLORIDE 100 MG/5 ML SYR IV ONE (13:25)
[2019-05-07] MEDS ORDERED: SODIUM CHLORIDE 0.9% 100 ML IV ONE (13:29)
[2019-05-07] MEDS ORDERED: SODIUM CHLORIDE 0.9% 1,000 ML IV ONE ×2 (13:29→18:17)
[2019-05-07] MEDS ORDERED: LACTATED RINGERS 1,000 ML IV ONE ×4 (13:45→17:44)
[2019-05-07] MEDS ORDERED: CLINDAMYCIN 150 MG/ML 4 ML VIAL IVPB ONE (14:10)
[2019-05-07] MEDS ORDERED: KETOROLAC 30 MG/ML 1 ML VIAL IVP PRN (18:08)
[2019-05-07] MEDS ORDERED: BENZOCAINE/MENTHOL LOZENG 1 EACH LOZENGE MUCOUS MEM PRN (18:08)
--- NOTE | 2019-05-07 18:17 | P.OP ---
Date of Procedure: 05/07/19 Description of Procedure: SURGEON: MAEGAN CEDILLO MD Preoperative Diagnosis: 1. History of perforated diverticulitis 2. Descending colostomy status 3. Tobacco abuse 4. Gastroesophageal reflux disease Postoperative Diagnosis: 1. History of perforated diverticulitis 2. Descending colostomy status 3. Tobacco abuse 4. Gastroesophageal reflux disease 5. Sigmoid colon polyp 6. Peritoneal adhesions Procedure(s) Performed: 1. Extensive lysis of adhesions over 2 hours 2. Descending colostomy reversal 3. Lower anterior resection 4. Intraoperative flexible sigmoidoscopy 5. Repair of incisional hernia 3 x 4 cm periumbilical 6. Application of PREVENA wound vac Anesthesia: GETA, epidural Surgeon: Maegan Cedillo Estimated Blood Loss (ml): 100 Pathology: other (Sigmoid colon, donuts from anastomosis) Condition: stable Disposition: floor Operative Findings: 1. Extensive lysis of adhesions with interloop adhesions lysed. 2. Moderate redundant sigmoid colon 3. Low rectosigmoid junction perforation from diverticulitis resected with low anterior resection 4. Sigmoid colon polyp unable to retrieve 5. Intraoperative flexible sigmoidoscopy negative for leak 6. EEA stapler 28 mm Covidien used 7. Midline incarcerated incisional hernia repair upon closure of abdomen periumbilical, 3 x 4 cm 8. Application of PREVENA wound vac, universal along the midline and colostomy reversal site INDICATIONS: The patient is a 39-year-old male who presented with a history of perforated diverticulitis with diverting descending colostomy over 6 months ago. He presents for colostomy reversal. Tobacco cessation education was performed pre-operatively for optimal recovery. He underwent an enhanced colon recovery program. Benefits and risks of surgical intervention were described in detail. Informed consent was obtained. DESCRIPTION: The patient was brought to the operating room. After general induction, a Hollingsworth catheter was placed. The abdomen was prepped and draped in standard sterile fashion. Ioban draping was also placed. A 4 x 4 was used to cover the colostomy site. Prior to incision, a timeout protocol was confirmed with surgical team regarding patient's name including procedures to be performed. Preoperative medications were confirmed. Attention was brought to the abdomen whereby a well healed lower midline incision was encountered. Next, a #10 blade was used to enter along the epigastrium and extended down to the pubis. Carefully the abdomen was entered using electro- Bovie cautery. The greater omentum was adhered to the abdominal wall. Adhesions were addressed with a combination of blunt dissection with minimal electro-Bovie cautery. A universal retractor system was placed for complete exposure. Interloop adhesions were similarly addressed using Metzenbaum scissors. All adhesions were addressed from the ligament of Treitz to the ileocecal valve. Extensive lysis adhesions were performed for over 2 hours. The small bowel was found adherent to the deep pelvis and remnant sigmoid colon which was also divided. No enterotomies occurred. Next, the rectal stump was palpated. Attention was brought to the colostomy site where #10 blade was used to incise around the colostomy into the subcutaneous tissue. A Bovie cautery was used to circumferentially dissect the ostomy to the fascia. [employer] retractors were used to provide exposure. From within the abdomen, the colostomy was carefully dissected free from the abdominal wall. Via the descending colostomy, a 28-mm Covidien anvil was inserted proximally into the descending colon after attaching 3-0 silk to the tip. The colostomy was closed using Covidien stapler 60-mm purple load. The 3-0 silk suture was delivered through the middle of the staple line to prepare for mating with the EEA stapler. Attention was brought to the pelvis where the diverticular perforation was palpated at the right lateral segment of rectosigmoid junction. Circumferentially, the rectal stump was dissected free using blunt dissection including Enseal vessel sealer. Prior to dividing the rectal stump, intra- operative sigmoidoscopy was performed confirm complete resection of the perforation. Once confirmed, the rectum was divided below the perforation using Contour curved stapler. Via the rectum, the 28 mm circular EEA stapler was inserted at the staple line and mated with the 28-mm anvil. The anvil and stapler were mated for 1 minute. The donuts were inspected and intact. A leak test was performed and negative for leaks after placing normal saline within the pelvis. The sigmoidoscope was entered to the staple line with photographic imaging of the EEA staple line obtained. A clean table closure set was used. Hemostasis was checked. The colostomy site was oversewn via the peritoneum and abdominal wall using double-stranded 0 PDS. Along the skin site of the colostomy, the wound was irrigated using dilute hydrogen peroxide. 0-Vicryl was used for closure of the fascia from the subcutaneous portion. The abdomen was inspected for hemostasis and closed using 2 sutures of double- stranded 0 PDS from inferiorly and superiorly. An incisional hernia 3 x 4 cm was also repaired upon closure. The skin was cleansed and the Ioban draping was removed. A customizable Prevena wound VAC system was placed over the skin colostomy site and at the midline as it was closed transversely. The apparatus was set to suction. At the end of the procedure, needle, sponge, and instrument count had been verified correct by the surgical tech. The patient was sent to the postanesthesia care unit in stable condition. Intraoperative findings were described to the patient's family.
[2019-05-07] MEDS: ceFAZolin IN SWFI 2 GM/20 ML SYRINGE IVP SCH (19:37)
[2019-05-07] MEDS: HEPARIN SODIUM,PORCINE 5,000 UNIT/ML 1 ML VIAL SQ SCH (19:48)
[2019-05-07] MEDS: FAMOTIDINE 20 MG/2 ML VIAL IV SCH (19:51)
[2019-05-07] MEDS: metroNIDAZOLE-NS PMX 500 MG in SALINE 1 100ML.BAG IVPB SCH (20:56)
[2019-05-08] MEDS: METOCLOPRAMIDE 5 MG/ML 2 ML VIAL IVP SCH ×5 (00:59→23:28)
[2019-05-08] MEDS: ceFAZolin IN SWFI 2 GM/20 ML SYRINGE IVP SCH ×4 (01:04→23:31)
[2019-05-08] MEDS: metroNIDAZOLE-NS PMX 500 MG in SALINE 1 100ML.BAG IVPB SCH ×5 (01:16→23:35)
[2019-05-08] MEDS: MORPHINE SULFATE 4 MG/ML SYRINGE IVP PRN ×3 (01:56→10:33)
[2019-05-08] MEDS: SODIUM CHLORIDE 0.9% 1,000 ML IV SCH ×3 (05:38→21:18)
[2019-05-08 07:33] LABS: Basophils % (A) 0 %; Eosinophils % (A) 0 %; HCT 44.1 % (39.0-53.0); HGB 14.5 gm/dL (13.0-17.5); Lymphocytes # (A) 0.8 k/uL (1.0-4.8); Lymphocytes % (A) 5 %; MCH 30.2 pg (25.0-35.0); MCHC 32.8 g/dL (31.0-37.0); MCV 91.9 fL (80.0-100.0); Mean Platelet Volume 6.9; Monocytes # (A) 1.1 k/uL (0-1.0); Monocytes % (A) 7 %; Neutrophils % (A) 87 %; Platelet Count 224 k/uL (150-450); RBC 4.79 m/uL (4.30-5.90); RDW 13.7 % (11.5-15.5); WBC 17.3 k/uL (3.8-10.6)
[2019-05-08 07:45] LABS: African American GFR (CKD) >90 (>60 ml/min/1.73 sqM); Anion Gap 6 mmol/L; Blood Urea Nitrogen 11 mg/dL (9-20); Calcium 8.6 mg/dL (8.4-10.2); Carbon Dioxide 25 mmol/L (22-30); Chloride 106 mmol/L (98-107); Glucose 110 mg/dL (74-99); Potassium 4.6 mmol/L (3.5-5.1); Sodium 137 mmol/L (137-145)
--- NOTE | 2019-05-08 10:29 | P.PN ---
Subjective Progress Note Date: 05/08/19 Principal diagnosis: Diverticulitis Patient underwent colostomy reversal yesterday. Doing fairly well today. Epidural functioning. He is having a leak from his wound VAC dressing. White blood cell count 17.3. Objective - Vital Signs Vital signs: Vital Signs Temp 98.7 F 05/08/19 01:15 Pulse 83 05/08/19 01:15 Resp 18 05/08/19 03:44 BP 107/67 05/08/19 01:15 Pulse Ox 96 05/08/19 01:15 Intake & Output 05/07/19 05/08/19 05/08/19 18:59 06:59 18:59 Intake Total 3347 Output Total 700 475 Balance 2647 -475 Intake: IV 3347 Output: Urine 600 475 Estimated Blood Loss 100 Other: Voiding Method Indwelling Catheter # Voids 2 - Exam Abdomen: Soft, nondistended, mild tenderness, leak And at the apex of the wound VAC dressing with the patient has a large amount of chest hair - Labs CBC & Chem 7: 05/08/19 06:53 05/08/19 06:53 Labs: Abnormal Lab Results - Last 24 Hours (Table) 05/08/19 05/08/19 Range/Units 06:53 06:53 WBC 17.3 H (3.8-10.6) k/uL Neutrophils # 15.0 H (1.3-7.7) k/uL Lymphocytes # 0.8 L (1.0-4.8) k/uL Monocytes # 1.1 H (0-1.0) k/uL Glucose 110 H (74-99) mg/dL Assessment and Plan (1) Sigmoid diverticulitis Narrative/Plan: Patient doing fairly well today. We'll modify the dressing superiorly and shave the patient's chest here to get a better seal. Continue clear liquids. Keep epidural functioning. Gradually increase activity. Current Visit: No Status: Acute Code(s): K57.32 - DVTRCLI OF LG INT W/O PERFORATION OR ABSCESS W/O BLEEDING SNOMED Code(s): 986075886
[2019-05-08] MEDS: HEPARIN SODIUM,PORCINE 5,000 UNIT/ML 1 ML VIAL SQ SCH ×2 (10:33→21:16)
[2019-05-08] MEDS: ALVIMOPAN 12 MG CAPSULE PO SCH ×2 (10:33→21:15)
[2019-05-08] MEDS: FAMOTIDINE 20 MG/2 ML VIAL IV SCH ×2 (10:33→21:16)
[2019-05-08] MEDS: ONDANSETRON 4 MG/2 ML VIAL IVP PRN (11:08)
[2019-05-08] MEDS ORDERED: NALOXONE 0.4 MG/ML 1 ML VIAL IV PRN (11:14)
[2019-05-08] MEDS: ROPIVACAINE 250 MG, HYDROMORPHONE (PF) 7.5 MG in SODIUM CHLORIDE 0.9% 199 ML EPIDURAL PRN (13:02)
--- NOTE | 2019-05-08 13:13 | P.PN ---
Progress Note - Text 05/08 6930 39-year-old male status post exploratory lap and colostomy reversal by Dr. Cedillo. Patient has an epidural catheter for postop pain control with the solution running at 10 mL an hour with a VAS of 4 and he is also complaining of numbness in his thighs. I change the solution 1 with a higher concentration for Dilaudid as he was needing IV morphine for pain control. Plan to continue epidural infusion
[2019-05-09] MEDS: METOCLOPRAMIDE 5 MG/ML 2 ML VIAL IVP SCH ×3 (06:07→16:57)
[2019-05-09] MEDS: SODIUM CHLORIDE 0.9% 1,000 ML IV SCH ×2 (06:09→13:25)
[2019-05-09] MEDS: metroNIDAZOLE-NS PMX 500 MG in SALINE 1 100ML.BAG IVPB SCH ×3 (06:10→16:57)
[2019-05-09] MEDS: ONDANSETRON 4 MG/2 ML VIAL IVP PRN ×2 (06:51→13:24)
[2019-05-09 08:01] LABS: Basophils % (A) 0 %; Eosinophils % (A) 0 %; Lymphocytes # (A) 0.9 k/uL (1.0-4.8); Lymphocytes % (A) 7 %; MCH 30.4 pg (25.0-35.0); MCHC 33.3 g/dL (31.0-37.0); MCV 91.4 fL (80.0-100.0); Mean Platelet Volume 7.4; Monocytes % (A) 8 %; Neutrophils # (A) 10.4 k/uL (1.3-7.7); Neutrophils % (A) 83 %; Platelet Count 178 k/uL (150-450); RBC 4.59 m/uL (4.30-5.90); RDW 14.6 % (11.5-15.5); WBC 12.6 k/uL (3.8-10.6)
--- NOTE | 2019-05-09 08:02 | P.PN ---
Subjective Progress Note Date: 05/09/19 He is doing well. Complains of numbness along the hips and legs with epidural. Pain is well controlled. No flatus. He is comfortable and tolerating diet. He is afebrile. Tobacco cessation reviewed and agreed. Continue Entereg and hospitalization. Objective - Vital Signs Vital signs: Vital Signs Temp 98.5 F 05/09/19 07:06 Pulse 93 05/09/19 07:06 Resp 18 05/09/19 07:06 BP 109/73 05/09/19 07:06 Pulse Ox 92 L 05/09/19 07:06 Intake & Output 05/08/19 05/09/19 05/09/19 18:59 06:59 18:59 Output Total 1600 Balance -1600 Output: Urine 1600 Other: Voiding Method Indwelling Catheter Indwelling Catheter Indwelling Catheter - Labs CBC & Chem 7: 05/08/19 06:53 05/08/19 06:53
[2019-05-09 08:16] LABS: African American GFR (CKD) >90 (>60 ml/min/1.73 sqM); Anion Gap 6 mmol/L; Blood Urea Nitrogen 10 mg/dL (9-20); Calcium 8.5 mg/dL (8.4-10.2); Carbon Dioxide 28 mmol/L (22-30); Chloride 102 mmol/L (98-107); Glucose 104 mg/dL (74-99); Potassium 3.6 mmol/L (3.5-5.1); Sodium 136 mmol/L (137-145)
[2019-05-09] MEDS: HEPARIN SODIUM,PORCINE 5,000 UNIT/ML 1 ML VIAL SQ SCH ×2 (08:43→21:02)
[2019-05-09] MEDS: ceFAZolin IN SWFI 2 GM/20 ML SYRINGE IVP SCH ×2 (08:43→16:57)
[2019-05-09] MEDS: FAMOTIDINE 20 MG/2 ML VIAL IV SCH ×2 (08:43→21:02)
[2019-05-09] MEDS: ALVIMOPAN 12 MG CAPSULE PO SCH ×2 (08:43→21:02)
--- NOTE | 2019-05-09 13:04 | P.PN ---
Progress Note - Text 05/09 645am 39-year-old male status post colostomy reversal. Patient has an epidural catheter for postop pain control with the solution running at 10 mL an hour with a VAS of 4. Patient has no motor or sensory deficits. Continue epidural infusion for another day
[2019-05-09] MEDS: ROPIVACAINE 250 MG, HYDROMORPHONE (PF) 7.5 MG in SODIUM CHLORIDE 0.9% 199 ML EPIDURAL PRN (13:25)
[2019-05-09] MEDS ORDERED: diphenhydrAMINE 50 MG/ML 1 ML VIAL IVP PRN (15:28)
--- NOTE | 2019-05-09 16:18 | P.PN ---
Progress Note - Text Progress Note Date: 05/09/19 No new complaints. He is ambulating to rest room. Await bowel function.
[2019-05-10] MEDS: metroNIDAZOLE-NS PMX 500 MG in SALINE 1 100ML.BAG IVPB SCH ×5 (00:05→23:28)
[2019-05-10] MEDS: METOCLOPRAMIDE 5 MG/ML 2 ML VIAL IVP SCH ×5 (00:06→23:28)
[2019-05-10] MEDS: ceFAZolin IN SWFI 2 GM/20 ML SYRINGE IVP SCH ×3 (00:06→17:14)
[2019-05-10] MEDS: SODIUM CHLORIDE 0.9% 1,000 ML IV SCH ×2 (02:54→09:30)
[2019-05-10 08:10] LABS: African American GFR (CKD) >90 (>60 ml/min/1.73 sqM); Anion Gap 7 mmol/L; Blood Urea Nitrogen 8 mg/dL (9-20); Calcium 8.3 mg/dL (8.4-10.2); Carbon Dioxide 25 mmol/L (22-30); Chloride 105 mmol/L (98-107); Glucose 93 mg/dL (74-99); Potassium 3.6 mmol/L (3.5-5.1); Sodium 137 mmol/L (137-145)
[2019-05-10 08:22] LABS: Basophils % (A) 0 %; Eosinophils % (A) 0 %; HCT 41.4 % (39.0-53.0); HGB 13.9 gm/dL (13.0-17.5); Lymphocytes # (A) 1.1 k/uL (1.0-4.8); Lymphocytes % (A) 12 %; MCH 30.5 pg (25.0-35.0); MCHC 33.5 g/dL (31.0-37.0); MCV 91.2 fL (80.0-100.0); Mean Platelet Volume 7.3; Monocytes # (A) 0.7 k/uL (0-1.0); Monocytes % (A) 8 %; Neutrophils # (A) 7.4 k/uL (1.3-7.7); Neutrophils % (A) 78 %; Platelet Count 175 k/uL (150-450); RBC 4.55 m/uL (4.30-5.90); RDW 14.4 % (11.5-15.5); WBC 9.5 k/uL (3.8-10.6)
--- NOTE | 2019-05-10 09:22 | P.PN ---
Subjective Progress Note Date: 05/10/19 He is not ambulating. Reports gas pain. He is encouraged to use incentive spirometry. He is encouraged to ambulate. Objective - Vital Signs Vital signs: Vital Signs Temp 98.1 F 05/10/19 07:41 Pulse 98 05/10/19 07:41 Resp 16 05/10/19 07:41 BP 125/81 05/10/19 07:41 Pulse Ox 94 L 05/10/19 07:41 Intake & Output 05/09/19 05/10/19 05/10/19 18:59 06:59 18:59 Intake Total 243.833 Output Total 1100 3500 Balance -856.167 -3500 Intake: Intake, IV Titration 243.833 Amount Ropivacaine 250 mg 243.833 Hydromorphone (Pf) 7.5 mg In Sodium Chloride 0.9% 199 ml @ Per Protocol EPIDURAL .Q0M PRN Rx#: [id number] Output: Urine 1100 3500 Uretheral (Hollingsworth) 1700 Other: Voiding Method Indwelling Catheter Indwelling Catheter # Bowel Movements 0 - Labs CBC & Chem 7: 05/10/19 07:35 05/10/19 07:35 Labs: Abnormal Lab Results - Last 24 Hours (Table) 05/10/19 Range/Units 07:35 BUN 8 L (9-20) mg/dL Calcium 8.3 L (8.4-10.2) mg/dL
[2019-05-10] MEDS: ALVIMOPAN 12 MG CAPSULE PO SCH ×2 (09:28→23:23)
[2019-05-10] MEDS: FAMOTIDINE 20 MG/2 ML VIAL IV SCH ×2 (09:28→21:04)
[2019-05-10] MEDS: HEPARIN SODIUM,PORCINE 5,000 UNIT/ML 1 ML VIAL SQ SCH ×2 (09:28→21:04)
[2019-05-10] MEDS: HYDROmorphone 1 MG/ML 1 ML SYRINGE IVP PRN ×2 (17:13→23:28)
[2019-05-10] MEDS: ONDANSETRON 4 MG/2 ML VIAL IVP PRN (20:55)
[2019-05-10] MEDS: MORPHINE SULFATE 4 MG/ML SYRINGE IVP PRN (21:04)
[2019-05-11] MEDS: ceFAZolin IN SWFI 2 GM/20 ML SYRINGE IVP SCH ×3 (00:02→16:02)
[2019-05-11] MEDS: MORPHINE SULFATE 4 MG/ML SYRINGE IVP PRN ×2 (03:04→10:07)
[2019-05-11] MEDS: ONDANSETRON 4 MG/2 ML VIAL IVP PRN ×2 (03:05→10:07)
[2019-05-11] MEDS: METOCLOPRAMIDE 5 MG/ML 2 ML VIAL IVP SCH ×2 (05:25→11:14)
[2019-05-11] MEDS: metroNIDAZOLE-NS PMX 500 MG in SALINE 1 100ML.BAG IVPB SCH ×2 (05:25→11:13)
[2019-05-11] MEDS: HYDROmorphone 1 MG/ML 1 ML SYRINGE IVP PRN ×2 (05:25→12:43)
[2019-05-11] MEDS: SODIUM CHLORIDE 0.9% 1,000 ML IV SCH (05:28)
[2019-05-11] MEDS ORDERED: TAMSULOSIN 0.4 MG CAP.ER.24H PO STA (08:40)
[2019-05-11] MEDS ORDERED: HYDROcodone/APAP 7.5-325MG 1 EACH TAB PO PRN (08:42)
[2019-05-11 09:02] LABS: Basophils % (A) 0 %; Eosinophils % (A) 0 %; HCT 43.1 % (39.0-53.0); HGB 14.3 gm/dL (13.0-17.5); Lymphocytes # (A) 1.5 k/uL (1.0-4.8); Lymphocytes % (A) 16 %; MCHC 33.2 g/dL (31.0-37.0); MCV 93.5 fL (80.0-100.0); Mean Platelet Volume 7.9; Monocytes # (A) 0.7 k/uL (0-1.0); Monocytes % (A) 8 %; Neutrophils # (A) 6.9 k/uL (1.3-7.7); Neutrophils % (A) 73 %; Platelet Count 234 k/uL (150-450); RBC 4.61 m/uL (4.30-5.90); RDW 14.3 % (11.5-15.5); WBC 9.5 k/uL (3.8-10.6)
[2019-05-11] MEDS: HEPARIN SODIUM,PORCINE 5,000 UNIT/ML 1 ML VIAL SQ SCH (09:03)
[2019-05-11] MEDS: ALVIMOPAN 12 MG CAPSULE PO SCH (09:03)
[2019-05-11] MEDS ORDERED: POTASSIUM BICARBONATE/CIT AC 20 MEQ TABLET.EFF PO ONE (09:05)
[2019-05-11] MEDS: IBUPROFEN 600 MG TAB PO SCH ×3 (09:14→16:01)
[2019-05-11 09:22] LABS: African American GFR (CKD) >90 (>60 ml/min/1.73 sqM); Anion Gap 9 mmol/L; Blood Urea Nitrogen 9 mg/dL (9-20); Calcium 8.6 mg/dL (8.4-10.2); Carbon Dioxide 24 mmol/L (22-30); Chloride 107 mmol/L (98-107); Glucose 97 mg/dL (74-99); Phosphorus 2.3 mg/dL (2.5-4.5); Potassium 3.7 mmol/L (3.5-5.1); Sodium 140 mmol/L (137-145)
[2019-05-11] MEDS: FAMOTIDINE 20 MG/2 ML VIAL IV SCH (11:15)
--- NOTE | 2019-05-11 12:38 | P.PN ---
Subjective Progress Note Date: 05/11/19 Overnight he had emesis. Reports bowel movement. No abdominal distention. Pain is controlled as epidural is out. He is ambulating. No fevers or chills. WBC has been normal for 2 days. Discharge instruction including strict tobacco cessation reviewed with risks of anastomatic failure and permanent colostomy. Diet of full liquids advised. Follow up next week in office. Prevena to be discontinued with Optifoam dressing to be placed prior to discharge Objective - Vital Signs Vital signs: Vital Signs Temp 98.5 F 05/11/19 08:07 Pulse 98 05/11/19 08:07 Resp 15 05/11/19 08:07 BP 112/68 05/11/19 08:07 Pulse Ox 94 L 05/11/19 08:07 Intake & Output 05/10/19 05/11/19 05/11/19 18:59 06:59 18:59 Output Total 800 Balance -800 Weight 77.111 kg Output: Urine 800 Uretheral ([place]) 800 Other: Voiding Method Indwelling Catheter - Labs CBC & Chem 7: 05/11/19 08:47 05/11/19 08:47 Labs: Abnormal Lab Results - Last 24 Hours (Table) 05/11/19 Range/Units 08:47 Phosphorus 2.3 L (2.5-4.5) mg/dL
[2019-05-11 14:15] VITALS: BP 119/77; PULSE 88; RESP 16; TEMP 98.1
--- NOTE | 2019-05-11 14:48 | P.PN ---
Progress Note - Text 05/10 640am 39-year-old male status post colostomy reversal by Dr. Cedillo. Patient has an epidural catheter with VAS of 3 and the solution running at 8 mL an hour. Patient complains of numbness in his right thigh which has not dissipated. Plan to DC at the epidural at the nurse informed
--- NOTE | 2019-05-11 20:40 | P.DS ---
Providers Date of admission: 05/06/19 15:18 Expected date of discharge: 05/11/19 Attending physician: Maegan Cedillo Primary care physician: Yamil Backmley [facility] Course: Prior to discharge, he was passing moderate flatus. His pain was controlled. He had bowel movement. His PREVENA dressing was discontinued with application of OptiFoam dressing. Patient Condition at Discharge: Good Plan - Discharge Summary Discharge Rx Participant: Yes New Discharge Prescriptions: New Ibuprofen [Motrin] 600 mg PO Q8HR PRN #30 tab PRN Reason: Pain Continue Omeprazole [PriLOSEC] 40 mg PO DAILY Discontinued HYDROcodone/APAP 7.5-325MG [[place] 7.5-325] 1 tab PO Q4H PRN 3 Days #18 tab PRN Reason: Pain Atorvastatin Calcium [Lipitor] 20 mg PO DAILY Discharge Medication List Omeprazole [PriLOSEC] 40 mg PO DAILY 10/04/18 [History] Ibuprofen [Motrin] 600 mg PO Q8HR PRN #30 tab 05/11/19 [Rx] Follow up Appointment(s)/Referral(s): Maegan Cedillo MD [STAFF PHYSICIAN] - 05/17/19 4:15 pm Patient Instructions/Handouts: Abdominal Binder (DC), Full Liquid Diet (DC), Colectomy Diet (DC) Activity/Diet/Wound Care/Special Instructions: NO lifting over 4 pounds in 4 weeks, June 06. March shower. No bathtub soaks. Dressings to be removed by your doctor in the office. Start protein shakes. Discharge Disposition: HOME SELF-CARE
== END 2019-05-11 17:39 | disposition home or self-care (01) | DRG 330 ==
LOC: 2ORMAIN 15:18 → 4SSUR 16:58
PROVIDERS: ADMIT Surgery Plastic and Reconstructive Surgery; ATTEND Surgery Plastic and Reconstructive Surgery
PROC: 0DNW0ZZ Release Peritoneum, Open Approach (ICD-10-PCS; 2019-05-07)
PROC: 0WQF0ZZ Repair Abdominal Wall, Open Approach (ICD-10-PCS; 2019-05-07)
PROC: 0DJD8ZZ Inspection of Lower Intestinal Tract, Via Natural or Artificial Opening Endoscopic (ICD-10-PCS; 2019-05-07)
PROC: 0DBN0ZZ Excision of Sigmoid Colon, Open Approach (ICD-10-PCS; principal; 2019-05-07 08:38)
DX: Z43.3 Encounter for attention to colostomy (principal); K43.0 Incisional hernia with obstruction, without gangrene; K63.5 Polyp of colon; E78.5 Hyperlipidemia, unspecified; F17.210 Nicotine dependence, cigarettes, uncomplicated; E86.0 Dehydration; K21.9 Gastro-esophageal reflux disease without esophagitis; K66.0 Peritoneal adhesions (postprocedural) (postinfection); N50.812 Left testicular pain; K57.90 Diverticulosis of intestine, part unspecified, without perforation or abscess without bleeding; Z79.899 Other long term (current) drug therapy; Z87.442 Personal history of urinary calculi; Z88.0 Allergy status to penicillin
CPT/HCPCS: 80048; 80053; 83735; 84100; 85025; 86850; 86900; 86901; 88304; 88307

== ENCOUNTER → 2020-06-08 | Outpatient (CLI) | payer BC ==
[2020-06-08 12:42] LABS: Basophils % (A) 1 %; Eosinophils # (A) 0.1 k/uL (0-0.7); Eosinophils % (A) 1 %; HCT 48.6 % (39.0-53.0); HGB 16.3 gm/dL (13.0-17.5); Lymphocytes # (A) 2.3 k/uL (1.0-4.8); Lymphocytes % (A) 29 %; MCH 32.3 pg (25.0-35.0); MCHC 33.7 g/dL (31.0-37.0); MCV 95.9 fL (80.0-100.0); Mean Platelet Volume 8.2; Monocytes # (A) 0.6 k/uL (0-1.0); Monocytes % (A) 7 %; Neutrophils # (A) 4.6 k/uL (1.3-7.7); Neutrophils % (A) 58 %; Platelet Count 213 k/uL (150-450); RBC 5.06 m/uL (4.30-5.90); RDW 13.2 % (11.5-15.5); WBC 7.9 k/uL (3.8-10.6)
[2020-06-08 12:51] LABS: ALT 64 U/L (4-49); AST 41 U/L (17-59); African American GFR (CKD) >90 (>60 ml/min/1.73 sqM); Albumin 4.9 g/dL (3.5-5.0); Alkaline Phosphatase 73 U/L (38-126); Anion Gap 8 mmol/L; Blood Urea Nitrogen 14 mg/dL (9-20); Calcium 9.8 mg/dL (8.4-10.2); Carbon Dioxide 25 mmol/L (22-30); Chloride 105 mmol/L (98-107); Glucose 85 mg/dL (74-99); Non-African American GFR(CKD) >90 (>60 ml/min/1.73 sqM); Potassium 4.1 mmol/L (3.5-5.1); Sodium 138 mmol/L (137-145); Total Bilirubin 0.8 mg/dL (0.2-1.3); Total Protein 7.4 g/dL (6.3-8.2)
[2020-06-12 07:04] LABS: Anabasine Urine <2.0 ng/mL (<2.0)
== END | disposition home or self-care (01) ==
LOC: LABPAT 10:49
PROVIDERS: ATTEND Surgery Plastic and Reconstructive Surgery
DX: K43.2 Incisional hernia without obstruction or gangrene (principal); F17.200 Nicotine dependence, unspecified, uncomplicated
CPT/HCPCS: 80053; 80323; 85025; 86850; 86900; 86901; 93005

== ENCOUNTER 2020-06-14 09:01 | Inpatient (IN) | payer BC ==
--- NOTE | 2020-06-14 08:45 | P.GSHP ---
History of Present Illness H&P Date: 06/14/20 CHIEF COMPLAINT: Ventral hernia HISTORY OF PRESENT ILLNESS: The patient is a 40-year-old male who presents with a history of swelling and pain along the abdomen from a hernia. He has been undergoing tobacco cessation for his recurrent incisional hernia. Additionally, intentional weight loss was requested to improve his surgical outcome. Now he presents for surgical intervention. PAST MEDICAL HISTORY: Please see list. PAST SURGICAL HISTORY: Please see list. MEDICATIONS: Please see list. ALLERGIES: Please see list. SOCIAL HISTORY: No illicit drug use FAMILY HISTORY: No reports of Crohn disease or ulcerative colitis. REVIEW OF ORGAN SYSTEMS: CONSTITUTIONAL: No reports of fevers or chills. GI: Denies any blood in stools or constipation. PHYSICAL EXAM: VITAL SIGNS: Stable GENERAL: Well-developed pleasant male in no acute distress. HEENT: No scleral icterus. Extraocular movements grossly intact. Moist buccal mucosa. NECK: Supple without lymphadenopathy. CHEST: Unlabored respirations. Equal bilateral excursions. CARDIOVASCULAR: Regular rate and rhythm. Distal 2+ pulses. ABDOMEN: Soft, nondistended. Palpable defect of the with complete separation of the muscles and large incisional hernia over 15 cm. No peritoneal signs. MUSCULOSKELETAL: No clubbing, cyanosis, or edema. ASSESSMENT: 1. Recurrent incisional hernia with loss of domain. 2. Tobacco cessation PLAN: 1. With his loss of domain from his incisional hernia, component separation technique described with higher risk of complications such as bleeding, infection, flap failure especially increased with history tobacco use. Strict tobacco cessation for at least 4 weeks was reviewed with the patient in detail. 2. Inpatient hospitalization described for pain control 3. DVT prophylaxis. 4. Antibiotic prophylaxis. 5. Urine nicotine testing described for monitoring of tobacco cessation Past Medical History Past Medical History: GERD/Reflux, Hyperlipidemia Additional Past Medical History / Comment(s): Hx. of Diverticulitis & bowel obstruction, sepsis and hernia, hx. kidney stones History of Any Multi-Drug Resistant Organisms: None Reported Past Surgical History: Bowel Resection Additional Past Surgical History / Comment(s): bowel resection w/colostomy 2017,colostomy reversal 05/07/19, colonoscopy Past Anesthesia/Blood Transfusion Reactions: No Reported Reaction Smoking Status: Current some day smoker - Past Family History Father Additional Family Medical History / Comment(s): ETOH Medications and Allergies Home Medications Medication Instructions Recorded Confirmed Type Omeprazole [PriLOSEC] 40 mg PO DAILY 06/05/20 06/13/20 History Lipitor(Unknown Dose) 1 tab PO DAILY 06/13/20 06/13/20 History Allergies Allergy/AdvReac Type Severity Reaction Status Date / Time Penicillins Allergy Nausea & Verified 06/13/20 10:54 Vomiting
[~2020-06-14 09:01] MED LIST changes: -ACETAMINOPHEN TAB 500 MG TAB PO ONE; +ACETAMINOPHEN TAB 500 MG TAB PO STA; -ALVIMOPAN 12 MG CAPSULE PO ONE; -Antibiotics per Pharmacy 1 EACH MISC MISCELLANE PRN; +GABAPENTIN 300 MG CAP PO STA; -HEPARIN SODIUM,PORCINE 5,000 UNIT/ML 1 ML VIAL SQ ONE; -HYDROmorphone 0.5 MG/0.5 ML SYRINGE IVP PRN; -LIDOCAINE 1% 20 ML VIAL (10MG/ML) FOR IV START INTRADERMA PRN; -MIDAZOLAM 2 MG/2 ML VIAL IV PRN; +TAMSULOSIN 0.4 MG CAP.ER.24H PO STA; -ceFAZolin IN SWFI 2 GM/20 ML SYRINGE IVP ONE; -metroNIDAZOLE-NS PMX 500 MG in SALINE 1 100ML.BAG IVPB ONE
[2020-06-14] MEDS ORDERED: ACETAMINOPHEN TAB 500 MG TAB ONE (09:40)
[2020-06-14] MEDS ORDERED: ONDANSETRON 4 MG/2 ML VIAL ONE (09:40)
[2020-06-14] MEDS: LACTATED RINGERS 1,000 ML IV SCH ×3 (09:55→16:59)
[2020-06-14] MEDS ORDERED: LIDOCAINE 1% (10MG/ML) FOR IV START INTRADERMA ONE (09:56)
[2020-06-14] MEDS ORDERED: fentaNYL (PF) 50 MCG/ML 2 ML AMP IVP ONE (10:50)
[2020-06-14] MEDS ORDERED: MIDAZOLAM 2 MG/2 ML VIAL IVP ONE (10:50)
[2020-06-14 10:56] LABS: Basophils % (A) 1 %; Eosinophils # (A) 0.1 k/uL (0-0.7); Eosinophils % (A) 1 %; HCT 46.9 % (39.0-53.0); HGB 15.9 gm/dL (13.0-17.5); Lymphocytes # (A) 2.8 k/uL (1.0-4.8); Lymphocytes % (A) 35 %; MCH 32.8 pg (25.0-35.0); MCHC 33.9 g/dL (31.0-37.0); MCV 96.8 fL (80.0-100.0); Mean Platelet Volume 8.1; Monocytes # (A) 0.7 k/uL (0-1.0); Monocytes % (A) 8 %; Neutrophils # (A) 4.2 k/uL (1.3-7.7); Neutrophils % (A) 52 %; Platelet Count 207 k/uL (150-450); RBC 4.84 m/uL (4.30-5.90); RDW 13.3 % (11.5-15.5)
[2020-06-14] MEDS ORDERED: HEPARIN SODIUM,PORCINE 5,000 UNIT/ML 1 ML VIAL ONE (11:12)
[2020-06-14] MEDS ORDERED: HEPARIN SODIUM,PORCINE 5,000 UNIT/ML 1 ML VIAL SQ ONE (11:18)
--- NOTE | 2020-06-14 11:28 | P.ANPRN ---
Procedure Note - Anesthesia - Nerve Block Performed Bilateral Rectus Abdominis Single Time Out Performed: Yes Date of Procedure: 06/14/20 Procedure Start Time: 10:49 Procedure Stop Time: 11:00 Location of Patient: PreOp Indication: Requested by Surgeon Specifically requested for management of pain by DrDonta: Maegan Cedillo Sedation Type: Sedate with meaningful contact maintained Preparation: Sterile Prep Position: Supine Needle Types: [place]ajunk Needle Gauge: 21 Ultrasound used to visualize needle placement: Yes Ultrasound used to observe medication spread: Yes Injectate: 0.5% Ropivacaine (see comment for volume) (15 ML PER SIDE PLUS DEXAMETHASONE 5 MG) Blood Aspirated: No Pain Paresthesia on Injection Noted: No Resistance on Injection: Normal Image Stored and Saved: Yes Events: Uneventful and Well Tolerated
[2020-06-14] MEDS ORDERED: ROPIVACAINE 5 MG/ML 30 ML VIAL ONE (11:29)
[2020-06-14] MEDS ORDERED: DEXAMETHASONE SOD PHOSPHATE 4 MG/ML 1 ML VIAL ONE (11:29)
[2020-06-14] MEDS ORDERED: KETAMINE 10 MG/ML 20 ML VIAL ONE (11:29)
[2020-06-14] MEDS ORDERED: PROPOFOL 10 MG/ML 20 ML VIAL IV ONE (11:29)
[2020-06-14] MEDS ORDERED: HYDROmorphone (PF) 1 MG/ML ONE (11:29)
[2020-06-14] MEDS ORDERED: NEOSTIGMINE 1 MG/ML 10 ML VIAL ONE (11:29)
[2020-06-14] MEDS ORDERED: ROCURONIUM BROMIDE 10 MG/ML 5 ML VIAL IV ONE (11:29)
[2020-06-14] MEDS ORDERED: SUCCINYLCHOLINE CHLORIDE 100 MG/5 ML SYR IV ONE (11:29)
[2020-06-14] MEDS ORDERED: fentaNYL (PF) 50 MCG/ML 2 ML AMP ONE (11:29)
[2020-06-14] MEDS ORDERED: LIDOCAINE 1% INJ 10MG/ML (20 ML MDV) ONE (11:29)
[2020-06-14] MEDS ORDERED: GLYCOPYRROLATE 0.2 MG/ML 2 ML VIAL ONE (11:29)
[2020-06-14] MEDS ORDERED: MIDAZOLAM 2 MG/2 ML VIAL ONE (11:29)
[2020-06-14 11:36] LABS: INR 1.1 (<1.2)
--- NOTE | 2020-06-14 11:43 | P.HPADDEND ---
H&P Addendum H&P Addendum Date: 06/14/20 Patient seen and evaluated. He reports complete abstinence from tobacco use. He is aware that any smoking during his postoperative period puts him at risk for complications including wound dehiscence, flap failure, surgical catastrophe. Weekly urine nicotine testing also described to the patient. Pat ient maintained weight loss of at least 12 pounds. Placement of SETH drains also described for postop. Time of recovery at least 8 weeks described. Compliance to postsurgical care also reviewed in detail. We'll proceed with abdominal ventral hernia repair.
[2020-06-14] MEDS ORDERED: LACTATED RINGERS 1,000 ML IV ONE (15:00)
[2020-06-14] MEDS ORDERED: diphenhydrAMINE 50 MG/ML 1 ML VIAL IVP PRN (15:58)
[2020-06-14] MEDS ORDERED: NALOXONE 0.4 MG/ML 1 ML VIAL IV PRN (15:58)
[2020-06-14] MEDS ORDERED: LABETALOL SYRINGE 5 MG/ML IVP ONE (16:10)
[2020-06-14] MEDS: HYDROmorphone 0.5 MG/0.5 ML SYRINGE IVP PRN ×2 (16:15→16:23)
[2020-06-14] MEDS ORDERED: SODIUM CHLORIDE 0.9% 1,000 ML IV ONE ×2 (16:16)
--- NOTE | 2020-06-14 16:23 | P.OP ---
Date of Procedure: 06/14/20 Description of Procedure: SURGEON: FABIO REYNA MD PREOPERATIVE DIAGNOSES: 1. Recurrent incisional hernia with loss of domain 2. Tobacco abuse 3. Tobacco cessation intervention 4. History of bipolar disorder 5. Previous history of ruptured diverticulitis with colostomy bag and reversal 6. Previous history of sepsis POSTOPERATIVE DIAGNOSES: 1. Recurrent midline incisional hernia, 15 x 10 cm, with loss of domain 2. Tobacco abuse 3. Tobacco cessation intervention 4. History of bipolar disorder 5. Previous history of ruptured diverticulitis with colostomy bag and reversal 6. Previous history of sepsis 7. Moderate to severe peritoneal adhesions from previous peritonitis Procedure(s) Performed: 1. Exploratory laparotomy with lysis of adhesions over 1 hour 2. Abdominal wall reconstruction with trunk myocutaneous bilateral flap advancement for open repair of incisional hernia with Ventralight ST mesh 23 x 28 cm 3. Bilateral component separation technique for incisional hernia repair 15 x 10 cm 4. Placement of two round #19 Cayden-Tidwell subcutaneous drains bilateral lower abdominal wall 5. Reduction and repair of incarcerated left lower quadrant incisional hernia, previous stoma site 4 cm 6. Placement of incisional wound VAC system, 13 cm, PREVENA Anesthesia: GETA, regional, local Estimated Blood Loss (ml): 50 Condition: stable Disposition: floor SPECIMENS REMOVED: Hernia sac COMPLICATIONS: None. DRAINS: Two #19 Lasha drains below the bilateral lower abdomen Operative Findings: 1. Complete abdominal wall reconstruction performed using component separation technique, bilateral including mesh placement as onlay 2. Incisional hernia of left lower quadrant, previous ostomy site with incarceration reduced INDICATIONS: The patient is a 40-year-old male with complicated surgical history of ruptured sigmoid diverticulitis with sepsis requiring emergent colostomy creation. He developed a hernia with his history of chronic tobacco abuse and moderate weight regain. He then underwent reversal over a year ago with repair of incisional hernia. Patient came back with incisional hernia from lifestyle history of chronic tobacco abuse and weight regain. Prior to any surgical intervention, strict tobacco cessation and counseling for over 4 weeks was reviewed. Patient was placed on a weight loss plan where he lost 12 pounds. Secondary to his loss of domain from recurrent incarcerated incisional hernia, bilateral advancement flap technique was described with placement of mesh. Patient was strictly forewarned of postoperative and perioperative strict tobacco cessation including maintaining steady weight is essential to decrease risk of recurrent hernia. Surgical intervention was sought. Benefits and risks of the procedure including but not limited to bleeding, infection, need for further surgery, flap failure, cosmetic deformity, placement of mesh, chronic pain were described. Informed consent was obtained. DESCRIPTION OF PROCEDURE: The patient was brought into the operating room and laid in supine position. After general induction, the abdomen had been prepped and draped in standard sterile fashion using ChloraPrep. Ioban draping was also placed. Prior to incision, a timeout protocol was confirmed with surgical team regarding the patient's name including procedures to be performed. The robot was primed prior to the procedure. A timeout protocol was confirmed with the surgical team regarding patient's name, procedure to be performed, including preoperative medications. Using a #10 blade, the abdomen was entered along his previous cicatrix from the xiphoid to the pubis. Moderate adhesions were identified along the middle lower abdomen with small bowel which was carefully dissected using blunt and sharp dissection for over one hour. No enterotomies occurred. Separately adhesions were identified along the left lower quadrant from his previous ostomy site where incarcerated incisional hernia was reduced of 4 cm. Careful inspection confirmed complete separation of the muscle including fascia of the defect greater than 15 cm. Measured defect was 16 cm wide x 10 cm in length. Subcutaneous skin flaps were created on both sides was over 10 cm exposure. To address his incisional hernia, a fascial plane was identified in the subcutaneous tissue from the hernia sac. The fascial defect was oversewn and using #1 Prolene followed by #1 VLOC sutures for fascial imbrication completely obliterating the left lower quadrant hernia site. The external oblique fascia was incised on both sides lateral to the rectus muscle and myocutaneous flap was developed with over 8 cm overlap achieved on both sides. Resulting residual wideness of the defect was 14 cm. The muscle and fascia were oversewed using double-stranded 0 PDS. A fascial plication using #2 Ethibonds were placed along the length. Next, an onlay mesh of [address] mesh cut, fitted and sutured to the abdominal wall using 2-0 VLOC. The rough side of the mesh was placed towards the subcutaneous tissue. The ventral hernia defect was completely repaired and closed. Moderate redundant subcutaneous tissue was identified along the midline preventing plate closure of the space. Prior to skin closure, two round #19 Lasha drains were placed underneath the flap and brought out along the bilateral lower abdominal wall. Drain stitch using 2-0 nylon was placed. Previous cicatrix was excised along the midline skin to allow for closure of 26 x 3 cm of his old scar. Once reapproximated, the skin was closed in layers using 0 Vicryl for the superficial fascial system followed by running 3-0 Monocryl for the deep dermis. Once the incision was closed, bulb suction was attached. Hemostasis was checked. On the left lower quadrant, the skin of the old hernia site had a defect of 1 cm which was excised in an elliptical fashion of 3 x 4 cm. The subcutaneous tissue of the defect was oversewn using 0 Vicryl in a deep subcutaneous interrupted fashion. Skin tables were placed. An incisional wound VAC 13 cm was placed on the left lower quadrant. The skin was cleansed with dilute hydrogen peroxide and normal saline. Exofin closure tape system was used along the midline. Optifoam tape was placed along the midline. At the end of the procedure, the needle, sponge and instrument count was verified correct. Drain sponge was also placed using Optifoam. The patient was then transferred to a hospital bed. An abdominal binder was placed and marked. The patient was taken to the postanesthesia care unit in stable condition, awake and extubated. Postoperative care guideline was reiterated to the family including strict tobacco cessation, strict dietary and weight management for optimal recovery.
[2020-06-14] MEDS: KETOROLAC 30 MG/ML 1 ML VIAL IVP SCH ×2 (16:26→23:31)
[2020-06-14] MEDS: LEVOFLOXACIN 500MG-D5W PMX 500 MG in DEXTROSE/WATER 1 100ML.BAG IVPB SCH (17:20)
[2020-06-14] MEDS ORDERED: ONDANSETRON 4 MG/2 ML VIAL IVP SCH (18:00)
[2020-06-14] MEDS: 0.9% NACL WITH KCL 20 MEQ/L 1,000 ML IV SCH (18:10)
[2020-06-14] MEDS: ALBUTEROL NEBULIZED 2.5 MG/3 ML INHALATION SCH ×2 (18:22→20:26)
[2020-06-14] MEDS: HYDROmorphone 1 MG/ML 1 ML SYRINGE IVP PRN (19:11)
[2020-06-14] MEDS: ONDANSETRON 4 MG/2 ML VIAL IVP PRN (19:20)
[2020-06-15] MEDS: ONDANSETRON 4 MG/2 ML VIAL IVP PRN ×3 (00:11→16:14)
[2020-06-15] MEDS: KETOROLAC 30 MG/ML 1 ML VIAL IVP SCH ×4 (05:59→23:24)
[2020-06-15] MEDS: 0.9% NACL WITH KCL 20 MEQ/L 1,000 ML IV SCH ×3 (05:59→20:32)
[2020-06-15] MEDS: ALBUTEROL NEBULIZED 2.5 MG/3 ML INHALATION SCH ×6 (08:14→20:58)
[2020-06-15 08:39] LABS: Basophils % (A) 0 %; Eosinophils % (A) 0 %; HCT 44.4 % (39.0-53.0); HGB 14.5 gm/dL (13.0-17.5); Lymphocytes # (A) 1.5 k/uL (1.0-4.8); Lymphocytes % (A) 8 %; MCH 31.3 pg (25.0-35.0); MCHC 32.7 g/dL (31.0-37.0); MCV 95.7 fL (80.0-100.0); Monocytes # (A) 1.4 k/uL (0-1.0); Monocytes % (A) 7 %; Neutrophils # (A) 15.8 k/uL (1.3-7.7); Neutrophils % (A) 83 %; Platelet Count 221 k/uL (150-450); RBC 4.63 m/uL (4.30-5.90); RDW 13.2 % (11.5-15.5); WBC 19.1 k/uL (3.8-10.6)
[2020-06-15] MEDS: PANTOPRAZOLE 40 MG/10 ML VIAL IV SCH (09:00)
[2020-06-15] MEDS: TAMSULOSIN 0.4 MG CAP.ER.24H PO SCH (09:00)
[2020-06-15] MEDS: LACTATED RINGERS 1,000 ML IV SCH ×2 (09:01→13:08)
[2020-06-15] MEDS: ENOXAPARIN 40 MG/0.4 ML SYRINGE SQ SCH (09:08)
[2020-06-15] MEDS: HYDROmorphone 1 MG/ML 1 ML SYRINGE IVP PRN ×4 (09:09→20:02)
[2020-06-15 09:24] LABS: African American GFR (CKD) >90 (>60 ml/min/1.73 sqM); Anion Gap 9 mmol/L; Blood Urea Nitrogen 11 mg/dL (9-20); Calcium 8.9 mg/dL (8.4-10.2); Carbon Dioxide 24 mmol/L (22-30); Chloride 106 mmol/L (98-107); Magnesium 1.6 mg/dL (1.6-2.3); Non-African American GFR(CKD) >90 (>60 ml/min/1.73 sqM); Phosphorus 2.8 mg/dL (2.5-4.5); Sodium 139 mmol/L (137-145)
--- NOTE | 2020-06-15 11:11 | P.PN ---
Subjective Progress Note Date: 06/15/20 CHIEF COMPLAINT: Recurrent incisional hernia HISTORY OF PRESENT ILLNESS: 40-year-old male who is status post exploratory laparotomy with lysis of adhesions and abdominal wall reconstruction with trunk myocutaneous bilateral flap advancement for open repair of incisional hernia with Dr. Cedillo. POD #1. Patient examined this morning at the bedside. Patient appears to be comfortable. His pain is tolerable. Tolerating diet without nausea or vomiting. Vital signs are stable. He is afebrile. WBC 19.0. PHYSICAL EXAM: VITAL SIGNS: Reviewed GENERAL: Well-developed in no acute distress. HEENT: No sclera icterus. Extraocular movements grossly intact. Moist buccal mucosa. Head is atraumatic, normocephalic. Hears conversational speech. No nasal drainage. NECK: Supple without lymphadenopathy. CHEST: Non-labored respirations and equal bilateral excursions. CARDIOVASCULAR: Regular rate with regular rhythm. Palpable 2+ radial pulses. ABDOMEN: Soft. Nondistended. SETH drains with sanguinous drainage. PREVENA wound vac MUSCULOSKELETAL: No clubbing or cyanosis. NEUROLOGIC: No focal or lateralizing signs. Cranial nerves II through XII grossly intact. PSYCH: Appropriate affect. Alert and oriented to person, place and time. SKIN: Well perfused. Good skin turgor. ASSESSMENT: 1. Recurrent midline incisional hernia, 15 x 10 cm, with loss of domain 2. Tobacco abuse 3. Tobacco cessation intervention 4. History of bipolar disorder 5. Previous history of ruptured diverticulitis with colostomy bag and reversal 6. Previous history of sepsis 7. Moderate to severe peritoneal adhesions from previous peritonitis PLAN: -Diet as tolerated -Dietitian consulted for education -Pain control. Continue current regimen. -Monitor WBC. Continue Levaquin -Monitor SETH drain output -Incentive spirometer -Activity as tolerated Nurse practitioner note has been reviewed by physician. Signing provider agrees with the documented findings, assessment, and plan of care. Objective - Vital Signs Vital signs: Vital Signs Temp 98.7 F 06/15/20 07:26 Pulse 89 06/15/20 07:26 Resp 18 06/15/20 07:26 BP 102/62 06/15/20 07:26 Pulse Ox 96 06/15/20 07:26 Intake & Output 06/14/20 06/15/20 06/15/20 18:59 06:59 18:59 Intake Total 2150 800 Output Total 550 395 0 Balance 1600 405 0 Weight 77.1 kg Intake: IV 2150 Intake, IV Titration 800 Amount 0.9% NaCl with KCl 20 Meq 800 /l 1,000 ml @ 100 mls/hr IV .Q10H JILLIAN Rx#: [id number] Output: Drainage 95 0 Drain A 50 0 Drain B 45 0 Urine 500 300 Estimated Blood Loss 50 Other: # Bowel Movements 0 - Labs CBC & Chem 7: 06/15/20 08:09 06/15/20 08:09 Labs: Abnormal Lab Results - Last 24 Hours (Table) 06/15/20 Range/Units 08:09 WBC 19.1 H (3.8-10.6) k/uL Neutrophils # 15.8 H (1.3-7.7) k/uL Monocytes # 1.4 H (0-1.0) k/uL
[2020-06-15] MEDS: ACETAMINOPHEN IV (For NPO) 1,000 MG in EMPTY BAG 1 BAG IVPB SCH ×3 (11:53→23:23)
[2020-06-15 12:52] VITALS: BMI 25.8
[2020-06-15] MEDS: LEVOFLOXACIN 500MG-D5W PMX 500 MG in DEXTROSE/WATER 1 100ML.BAG IVPB SCH (16:08)
[2020-06-16] MEDS: HYDROmorphone 1 MG/ML 1 ML SYRINGE IVP PRN ×5 (00:44→13:21)
[2020-06-16] MEDS: 0.9% NACL WITH KCL 20 MEQ/L 1,000 ML IV SCH ×2 (03:58→14:26)
[2020-06-16] MEDS: ACETAMINOPHEN IV (For NPO) 1,000 MG in EMPTY BAG 1 BAG IVPB SCH (05:53)
[2020-06-16] MEDS: KETOROLAC 30 MG/ML 1 ML VIAL IVP SCH ×2 (05:54→11:47)
[2020-06-16] MEDS: LACTATED RINGERS 1,000 ML IV SCH ×2 (06:09→11:44)
[2020-06-16] MEDS: PANTOPRAZOLE 40 MG/10 ML VIAL IV SCH (07:15)
[2020-06-16] MEDS: TAMSULOSIN 0.4 MG CAP.ER.24H PO SCH (07:15)
[2020-06-16 07:28] VITALS: BP 131/82; PULSE 86; RESP 16; TEMP 96.6
[2020-06-16] MEDS: ENOXAPARIN 40 MG/0.4 ML SYRINGE SQ SCH (07:34)
[2020-06-16] MEDS: ALBUTEROL NEBULIZED 2.5 MG/3 ML INHALATION SCH ×2 (07:57→11:35)
[2020-06-16 09:33] LABS: Basophils % (A) 0 %; Eosinophils % (A) 0 %; HCT 44.8 % (39.0-53.0); HGB 14.5 gm/dL (13.0-17.5); Lymphocytes # (A) 2.1 k/uL (1.0-4.8); Lymphocytes % (A) 18 %; MCH 31.6 pg (25.0-35.0); MCHC 32.4 g/dL (31.0-37.0); MCV 97.6 fL (80.0-100.0); Mean Platelet Volume 8.3; Monocytes # (A) 0.9 k/uL (0-1.0); Monocytes % (A) 8 %; Neutrophils # (A) 8.4 k/uL (1.3-7.7); Neutrophils % (A) 72 %; Platelet Count 182 k/uL (150-450); RBC 4.59 m/uL (4.30-5.90); RDW 13.5 % (11.5-15.5); WBC 11.8 k/uL (3.8-10.6)
--- NOTE | 2020-06-16 13:09 | P.DS ---
Providers Date of admission: 06/14/20 15:58 Expected date of discharge: 06/16/20 Attending physician: Maegan Cedillo Consults: 06/14/20 08:45 Consult Physician Routine Consulting Provider: [facility] Consult Reason/Comments: Abdominal wall block Do you want consulting provider notified?: Yes Primary care physician: Yamil Yin - Discharge Diagnosis(es) (1) Recurrent incisional hernia with incarceration Status: Acute (2) Dietary surveillance and counseling Status: Acute (3) Encounter for tobacco use cessation counseling Status: Acute Hospital Course: POSTOPERATIVE DIAGNOSES: 1. Recurrent midline incisional hernia, 15 x 10 cm, with loss of domain 2. Tobacco abuse 3. Tobacco cessation intervention 4. History of bipolar disorder 5. Previous history of ruptured diverticulitis with colostomy bag and reversal 6. Previous history of sepsis 7. Moderate to severe peritoneal adhesions from previous peritonitis COURSE: The patient is a 40-year-old male with previous history of sepsis due to ruptured diverticulitis with descending colostomy. He then had a reversal of his colostomy a year ago. He developed a recurrent incisional hernia. Additionally, he was placed on a high-protein low-carb diet with weight loss. Strict tobacco cessation for over 4 weeks was reviewed. Secondary to the size of the defect, abdominal wall reconstruction was performed. He is s/p abdominal wall recontruction, 06/14/2020. He is POD 2. He reports excellent pain control. JPs are sanguinous with low output. Strict tobacco cessation reviewed including dietary restrictions. Pain management also reviewed. Patient was passing flatus. Discharge instructions were reviewed. Patient was stable for discharge. ROS: No reports of nausea and vomiting. No fevers or chills. No new chest pain. No productive sputum PHYSICAL EXAM: VITAL SIGNS: Reviewed CONSTITUTIONAL: Well developed and in no acute distress. EYES: Conjuctivae without sclera icterus. Extraocular movements grossly intact. HEAD, EARS, NOSE, THROAT: Moist buccal mucosa. Head is atraumatic, normocephalic. Hears conversational speech. No nasal drainage. NECK: Supple. No thyroidomegaly. RESPIRATORY: Non-labored respirations and equal bilateral excursions. CARDIOVASCULAR: Palpable 2+ radial pulses. Regular rate. Regular rhythm. ABDOMEN: Incisions clean dry and intact. Soft. No peritonitis. Cayden-Tidwell drains sanguinous. Outputs less than 50 mL daily. Optifoam dressing intact. Abdominal binder repositioned and marked. MUSCULOSKELETAL: No gross deformity of the lower extremities noted. No c lubbing. No cyanosis. SKIN: Good skin turgor. Well perfused. NEUROLOGIC: Cranial nerves II through XII grossly intact. No focal or lateralizing signs. PSYCH: Appropriate affect. Alert and oriented to person, place and time. CLINICAL LABS: White blood cell count through from 19,000 to 11,000. ASSESSMENT: 1. Recurrent incisional hernia PLAN: 1. Strict tobacco cessation was reviewed. 2. No lifting over 4 pounds 4 weeks. 3. Daily weights advised. 4. Weekly dressing changes reviewed. 5. Patient will get a final dose of Levaquin today prior to discharge. 6. Additional abdominal binder ordered. Vital Signs Temp 96.6 F L 06/16/20 07:27 Pulse 86 06/16/20 07:27 Resp 16 06/16/20 07:27 BP 131/82 06/16/20 07:27 Pulse Ox 95 06/16/20 07:27 Intake & Output 06/16/20 06/16/20 06/17/20 06:59 18:59 06:59 Intake Total 1500 Output Total 92 50 Balance 1408 -50 Intake: Intake, IV Titration 1200 Amount 0.9% NaCl with KCl 20 Meq 800 /l 1,000 ml @ 100 mls/hr IV .Q10H JILLIAN Rx#: [id number] ACETAMINOPHEN IV (For NPO 400 ) 1,000 mg In Empty Bag 1 bag @ 400 mls/hr IVPB Q6HR JILLIAN Rx#:[id number] Oral 300 Output: Drainage 90 50 Drain A 45 35 Drain B 45 15 Urine 2 Other: Voiding Method Toilet # Voids 2 # Bowel Movements 0 Laboratory Last Values WBC 11.8 k/uL (3.8-10.6) H 06/16/20 08:48 RBC 4.59 m/uL (4.30-5.90) 06/16/20 08:48 Hgb 14.5 gm/dL (13.0-17.5) 06/16/20 08:48 Hct 44.8 % (39.0-53.0) 06/16/20 08:48 MCV 97.6 fL (80.0-100.0) 06/16/20 08:48 MCH 31.6 pg (25.0-35.0) 06/16/20 08:48 MCHC 32.4 g/dL (31.0-37.0) 06/16/20 08:48 RDW 13.5 % (11.5-15.5) 06/16/20 08:48 Plt Count 182 k/uL (150-450) 06/16/20 08:48 Neutrophils % 72 % 06/16/20 08:48 Lymphocytes % 18 % 06/16/20 08:48 Monocytes % 8 % 06/16/20 08:48 Eosinophils % 0 % 06/16/20 08:48 Basophils % 0 % 06/16/20 08:48 Neutrophils # 8.4 k/uL (1.3-7.7) H 06/16/20 08:48 Lymphocytes # 2.1 k/uL (1.0-4.8) 06/16/20 08:48 Monocytes # 0.9 k/uL (0-1.0) 06/16/20 08:48 Eosinophils # 0.0 k/uL (0-0.7) 06/16/20 08:48 Basophils # 0.0 k/uL (0-0.2) 06/16/20 08:48 PT 11.0 sec (9.0-12.0) 06/14/20 10:24 INR 1.1 (<1.2) 06/14/20 10:24 Sodium 139 mmol/L (137-145) 06/15/20 08:09 Potassium 4.0 mmol/L (3.5-5.1) 06/15/20 08:09 Chloride 106 mmol/L (98-107) 06/15/20 08:09 Carbon Dioxide 24 mmol/L (22-30) 06/15/20 08:09 Anion Gap 9 mmol/L 06/15/20 08:09 BUN 11 mg/dL (9-20) 06/15/20 08:09 Creatinine 0.75 mg/dL (0.66-1.25) 06/15/20 08:09 Est GFR (CKD-EPI)AfAm >90 (>60 ml/min/1.73 sqM) 06/15/20 08:09 Est GFR (CKD-EPI)NonAf >90 (>60 ml/min/1.73 sqM) 06/15/20 08:09 Calcium 8.9 mg/dL (8.4-10.2) 06/15/20 08:09 Phosphorus 2.8 mg/dL (2.5-4.5) 06/15/20 08:09 Magnesium 1.6 mg/dL (1.6-2.3) 06/15/20 08:09 Blood Type A Positive 06/08/20 11:45 Blood Type Recheck A Pos 06/08/20 11:45 Bld Type Recheck Status No 06/08/20 11:45 Antibody Screen NEGATIVE 06/08/20 11:45 Spec Expiration Date 06/16/2020 - 4014 06/08/20 11:45 Procedures: Procedure(s) Performed: 1. Exploratory laparotomy with lysis of adhesions over 1 hour 2. Abdominal wall reconstruction with trunk myocutaneous bilateral flap advancement for open repair of incisional hernia with Ventralight ST mesh 23 x 28 cm 3. Bilateral component separation technique for incisional hernia repair 15 x 10 cm 4. Placement of two round #19 Cayden-Tidwell subcutaneous drains bilateral lower abdominal wall 5. Reduction and repair of incarcerated left lower quadrant incisional hernia, previous stoma site 4 cm 6. Placement of incisional wound VAC system, 13 cm, PREVENA Anesthesia: GETA, regional, local Estimated Blood Loss (ml): 50 Condition: stable Disposition: floor SPECIMENS REMOVED: Hernia sac COMPLICATIONS: None. DRAINS: Two #19 Lasha drains below the bilateral lower abdomen Operative Findings: 1. Complete abdominal wall reconstruction performed using component separation technique, bilateral including mesh placement as onlay 2. Incisional hernia of left lower quadrant, previous ostomy site with incarceration reduced Patient Condition at Discharge: Stable Plan - Discharge Summary Discharge Rx Participant: Yes New Discharge Prescriptions: New Cyclobenzaprine [Flexeril] 10 mg PO TID #30 tab Ibuprofen [Motrin] 600 mg PO Q8HR PRN #30 tab PRN Reason: Pain Acetaminophen Tab [Tylenol Tab] 1,000 mg PO Q6HR PRN #30 tablet HYDROcodone/APAP 5-325MG [[place] 5-325] 1 tab PO Q6HR PRN 3 Days #10 tab PRN Reason: Pain Continue Omeprazole [PriLOSEC] 40 mg PO DAILY Lipitor(Unknown Dose) 1 tab PO DAILY Discharge Medication List Omeprazole [PriLOSEC] 40 mg PO DAILY 06/05/20 [History] Lipitor(Unknown Dose) 1 tab PO DAILY 06/13/20 [History] Acetaminophen Tab [Tylenol Tab] 1,000 mg PO Q6HR PRN #30 tablet 06/16/20 [Rx] Cyclobenzaprine [Flexeril] 10 mg PO TID #30 tab 06/16/20 [Rx] HYDROcodone/APAP 5-325MG [[place] 5-325] 1 tab PO Q6HR PRN 3 Days #10 tab 06/16/20 [Rx] Ibuprofen [Motrin] 600 mg PO Q8HR PRN #30 tab 06/16/20 [Rx] Follow up Appointment(s)/Referral(s): Maegan Cedillo MD [STAFF PHYSICIAN] - 06/21/20 (Please call to confirm time) Patient Instructions/Handouts: Hydrocodone/Acetaminophen (By mouth), Ibuprofen (By mouth), How to Stop Smoking (ED), Cayden-Tidwell Drain Care (DC), Abdominal Binder (DC), Panniculectomy (DC) Activity/Diet/Wound Care/Special Instructions: NO lifting over 4 pounds for 4 weeks, Jul 15. No showering with SETH drains. BRING ALL DRESSINGS WITH YOU TO YOUR APPOINTMENT NO SMOKING or SECOND EXPOSURE TO SMOKING CHECK YOUR WEIGHT DAILY, KEEP WEIGHT no higher than 2 pounds from discharge from the hospital Protein shakes two times daily. Calories should be no more than 1400 kcal daily Avoid salty processed foods. Discharge Disposition: HOME SELF-CARE
[2020-06-16] MEDS ORDERED: LEVOFLOXACIN 500MG-D5W PMX 500 MG in DEXTROSE/WATER 1 100ML.BAG IVPB SCH (14:00)
[2020-06-17] MEDS ORDERED: PANTOPRAZOLE 40 MG TABLET PO SCH (07:30)
[2020-06-18 09:42] LABS: Anabasine Urine <2.0 ng/mL (<2.0)
== END 2020-06-16 15:41 | disposition home or self-care (01) | DRG 337 ==
LOC: OR 09:01 → 4SSUR 15:58
PROVIDERS: ADMIT Surgery Plastic and Reconstructive Surgery; ATTEND Surgery Plastic and Reconstructive Surgery
PROC: 0KXK0ZZ Transfer Right Abdomen Muscle, Open Approach (ICD-10-PCS; principal; 2020-06-14 11:00)
PROC: 0WQF0ZZ Repair Abdominal Wall, Open Approach (ICD-10-PCS; principal; 2020-06-14 11:00)
PROC: 0WUF0JZ Supplement Abdominal Wall with Synthetic Substitute, Open Approach (ICD-10-PCS; principal; 2020-06-14 11:00)
PROC: 0DNW0ZZ Release Peritoneum, Open Approach (ICD-10-PCS; principal; 2020-06-14 11:00)
DX: K43.0 Incisional hernia with obstruction, without gangrene (principal); F31.9 Bipolar disorder, unspecified; E78.5 Hyperlipidemia, unspecified; K66.0 Peritoneal adhesions (postprocedural) (postinfection); K21.9 Gastro-esophageal reflux disease without esophagitis; F17.210 Nicotine dependence, cigarettes, uncomplicated; Z71.3 Dietary counseling and surveillance; Z71.6 Tobacco abuse counseling; Z79.899 Other long term (current) drug therapy; Z90.49 Acquired absence of other specified parts of digestive tract; Z87.442 Personal history of urinary calculi; Z87.19 Personal history of other diseases of the digestive system; Z86.19 Personal history of other infectious and parasitic diseases; Z88.0 Allergy status to penicillin; Z81.1 Family history of alcohol abuse and dependence
CPT/HCPCS: 80051; 80323; 82310; 82565; 83735; 84100; 84520; 85025; 85610; 86850; 86900; 86901; 88302

== ENCOUNTER → 2020-06-29 | Outpatient (CLI) | payer BC ==
[2020-06-29 14:33] LABS: Basophils # (A) 0.1 k/uL (0-0.2); Basophils % (A) 1 %; Eosinophils # (A) 0.2 k/uL (0-0.7); Eosinophils % (A) 2 %; HCT 48.2 % (39.0-53.0); HGB 15.7 gm/dL (13.0-17.5); Lymphocytes # (A) 2.5 k/uL (1.0-4.8); Lymphocytes % (A) 31 %; MCH 31.1 pg (25.0-35.0); MCHC 32.5 g/dL (31.0-37.0); MCV 95.6 fL (80.0-100.0); Mean Platelet Volume 7.9; Monocytes # (A) 0.6 k/uL (0-1.0); Monocytes % (A) 7 %; Neutrophils # (A) 4.6 k/uL (1.3-7.7); Neutrophils % (A) 57 %; Platelet Count 230 k/uL (150-450); RBC 5.05 m/uL (4.30-5.90); RDW 13.1 % (11.5-15.5); WBC 8.1 k/uL (3.8-10.6)
[2020-06-29 18:58] LABS: % Iron Saturation 22.7 (15.00-50.00)
[2020-06-29 19:06] LABS: Ferritin 115.9 ng/mL (22.0-322.0)
== END | disposition home or self-care (01) ==
LOC: LABWHC1 13:47
PROVIDERS: ATTEND Surgery Plastic and Reconstructive Surgery
DX: D50.9 Iron deficiency anemia, unspecified (principal); R77.8 Other specified abnormalities of plasma proteins; F17.200 Nicotine dependence, unspecified, uncomplicated
CPT/HCPCS: 36415; 80323; 82728; 83540; 83550; 85025